=== PATIENT | female | born 1990 | race Caucasian/White ===

== ENCOUNTER 2024-03-06 10:45 | Outpatient (OUT) | payer OTHER, SELFPAY ==
--- NOTE | 2024-03-06 10:54 | US_ITS ---
[address] [address] Patient Name: VAN VALERA MRN: [id number] date: 1990 Sex: F Assigned Patient Location: US Current Patient Location: US Accession/Order Number: [id number] Exam Date: 03/06/2024 10:56 Report Date: 03/06/2024 11:23 At the request of: CATHY PALMA Procedure: US OB growth EXAMINATION: US OB growth HISTORY: Related Condition In Second Trimester COMPARISON: No relevant comparison available. FINDINGS: Heart Rate: 133.67 bpm Amniotic Fluid Volume: 13.9 cm, largest fluid pocket 3.9 cm Number: 1 Position: Cephalic presentation, longitudinal lie BIOMETRY: BPD: 7.31 cm; 29 weeks 2 days; 16.40 % HC: 28.00 cm; 30 weeks 5 days; 28.40 % AC: 27.56 cm; 31 weeks 4 days; 85.10 % FL: 5.35 cm; 28 weeks 3 days; 4.20 % EFW: 1557.27 g; 44.30 %, 3 lbs. 7 oz. FL/AC: 19.43 FL/BPD: 73.20 HC/AC: 1.02 GESTATIONAL AGE: Age by EDC: 30 weeks 1 day REID by EDC: 2024-05-14 Age by US: 30 weeks 0 days REID by US: 2024-05-15 US/US OB growth IMPRESSION: Femur length at the 4th percentile, otherwise normal interval growth Electronically authenticated by: BALDEMAR BORRERO Date: 03/06/2024 11:23
== END 2024-03-06 10:46 | disposition home or self-care (01) ==
LOC: US 10:45
PROVIDERS: PCP Family Medicine; Visit Provider Midwife
DX: O26.92 Pregnancy related conditions, unspecified, second trimester (principal); Z3A.30 30 weeks gestation of pregnancy
CPT/HCPCS: 76816

== ENCOUNTER 2024-03-31 00:31 | Outpatient (OUT) | payer OTHER, SELFPAY ==
--- OUTSIDE RECORDS SUMMARY | 2024-03-31 00:35 | XMS_ITS | CCD ---
Author Organization [facility] Care Team Providers Care Creative Guru Name Role Phone Delia Mcneill Admitting Unavailable Delia Mcneill Attending Unavailable Unavailable Primary Care Provider Chelsey Landeros MD Primary Care Provider BREANA LEDBETTER Attending Unavail able RYAN MONDRAGON, BREANA F Admitting Unavail able RYANTony MONDRAGON BREANA F Attending Unavail able RYAN MONDRAGON BREANA F Admitting Unavail able CHELSEY BRAY Primary Care Unavailable KRISTIANAGIASurendra REYES Admitting Unavailabl e DALAGIANNBLAS, Surendra BAUER Attending Unavailabl CHELSEY Love Primary Care Unavailable KRISTIANAGIASurendra REYES Admitting Unavailabl e DALAGIANNIS, Surendra BAUER Attending Unavailabl CHELSEY Love Primary Care Unavailable Chelsey Bray MD Primary Care Provider Chin CASINO FLOORPERSON, Veronique Haskins Unavailable Cathy Colon CNM Unavailable [phone] Chelsey Bray MD Primary Care Provider Unavailable Primary Care Provider Chelsey Landeros MD Primary Care Provider TANG BONILLA Attending Unavailable CATHY COLON Referring Unavailable CHELSEY BRAY Primary Care Unavailable MINERVA CATHY Referring Unavailable CHELSEY BRAY Primary Care Unavailable MINERVA, CATHY Referring Unavailable CHELSEY BRAY Primary Care Unavailable TANG BONILLA Attending Unavailable CHELSEY BRYA Referring Unavailable CHELSEY BRAY Primary Care Unavailable HOSSEIN FERNANDEZ Attending Unavailable CATHY COLON Attending Unavailable MICKY COLONERIE L Referring Unavailable HOSSEIN FERNANDEZ A Attending Unavailable FLORO, CATHY L Attending Unavailable FLORO, CATHY L Attending Unavailable FLORO, CATHY L Attending Unavailable PETITTI, HOSSEIN A Attending Unavailable FLORO, CATHY L Referring Unavailable FLORO, CATHY L Referring Unavailable FLORO, CATHY L Attending Unavailable FLORO, CATHY L Attending Unavailable FLORO, CATHY L Attending Unavailable FLORO, CATHY L Attending Unavailable Allergies Allergy Classification Reported Allergen(s) Allergy Type Date of Onset Reaction(s) Facility (2 sources) Adhesive Tape Propensity to adverse reactions to drug 2 Rash [facility] Notizza Phone: (2 sources) Silver; Translations: [SILVER] Propensity to adverse reactions to drug 2 English Helper Phone: (20 sources) Silver Allergy to substance 1 Hives, Itching, Rash [facility] (20 sources) Wound Dressing Adhesive Drug Intolerance 2 [facility] (7 sources) Adhesive agent; Translations: [ADHESIVE] Propensity to adverse reactions to drug 4 Rash [facility] (6 sources) Silver Propensity to adverse reactions to drug 4 Hives, Itching, Rash [facility] Medications Current Medications Medication Drug Class(es) Dates Sig (Normalized) Sig (Original) acetaminophen 325 mg oral tablet (1 source) Start: 09-10-2020 take 650 mg by mouth every four hours as needed for pain, then take 4000 mg by mouth every twenty-four hours as needed for pain 650 mg, Oral, EVERY 4 HOURS PRN, Pain Mild (1-3), Fever, Fever >100.5 F (38 C) or incisional pain, Starting on Wed09/10/20 at 1416 Maximum dose of acetaminophen is 4000 mg from all sources in 24 hours. Post-op acetaminophen 325 mg / HYDROcodone bitartrate 5 mg oral tablet (2 sources) Opioid Agonist Start: 08-04-2021 End: 08-11-2021 HYDROcodone-acetami nophen (NORCO) 5-325 MG per tablet Indications: 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, nose, lip, and ear (HCC) , Pain following surgery or procedure Take 1 tablet by mouth every 6 hours as needed for Pain for up to 7 days. Intended supply: 5 days. Take lowest dose possible to manage pain 28 tablet 0 08/04/2021 08/11/2021 Active Start: 07-08-2021 End: 07-13-2021 HYDROcodone-acetaminophen (N ORCO) 5-325 MG per tablet Indications: Pain following surgery or procedure Take 1 tablet by mouth every 6 hours as needed for Pain for up to 5 days. Intended supply: 5 days. Take lowest dose possible to manage pain 20 tablet 0 07/08/2021 07/13/2021 Active acetaminophen 325 mg / oxyCODONE hydrochloride 5 mg oral tablet (2 sources) Opioid Agonist Start: 09-12-2020 End: 09-19-2020 take 1 tablet by mouth every six hours as needed for pain oxyCODONE-acetaminophen (PERCOCET) 5-325 MG per tablet Indications: delivery delivered Take 1 tablet by mouth every 6 hours as needed for Pain for up to 7 days. 28 tablet 0 09/12/2020 09/19/2020 Active Start: 09-10-2020 oxyCODONE-acet aminophen (PERCOCET) 5-325 MG per tablet 1 tablet calcium chloride 0.0014 meq/ ml / potassium chloride 0.004 meq/ml / sodium chloride 0.103 meq/ml / sodium lactate 0.028 meq/ml injectable solution (3 sources) Start: 09-10-2020 Intravenous, a t 125 mL/hr, CONTINUOUS, Starting on Wed09/10/20 at 1445, Start: 09-10-2020 End: 09-10-2020 lactated ringers infusion 1, 000 mL 1 ml carboprost 0.25 mg/ml injection (1 source) Prostaglandin Analog Start: 09-10-2020 250 mcg, Intramuscular, PRN, bleeding, Starting on Wed09/10/20 at 1416 May repeat every 15 minutes up to a cumulative maximum dose of 1000 mcg, at physician's request. Post-op cephalexin 500 mg oral capsule (2 sources) Cephalosporin Antibacterial Start: 08-04-2021 End: 08-11-2021 take 1 capsule by mouth three times daily cephALEXin (KEFLEX) 500 MG capsule Take 1 capsule by mouth 3 times daily for 7 days 21 capsule 0 08/04/2021 08/11/2021 Active Start: 07-08-2021 End: 07-15-2021 take 1 capsule by mouth three times daily cephALEXin (KEFLEX) 500 MG capsule Take 1 capsule by mouth 3 times daily for 7 days 21 capsule 0 07/08/2021 07/15/2021 Active 1 ml diphenhydrAMINE hydrochloride 50 mg/ml cartridge (2 sources) Histamine-1 Receptor Antagonist Start: 08-04-2021 End: 08-04-2021 diphenhydrAMINE (BENADRYL) injection 12.5 mg Start: 09-10-2020 25 mg, Intrave nous, EVERY 6 HOURS PRN, Itching, Hives, Starting on Wed09/10/20 at 1416, docusate sodium 100 mg oral capsule (1 source) Start: 09-10-2020 take 100 mg by mouth twice daily 100 mg, Oral, 2 TIMES DAILY, First dose on Wed09/10/20 at 1445 Do not crush or break. docusate sodium 50 mg / sennosides, [facility] 8.6 mg oral tablet (1 source) Start: 09-10-2020 take 1 tablet by mouth once daily as needed for constipation 1 tablet, Oral, DAILY PRN, Constipation, Starting on Wed09/10/20 at 1416, 0.4 ml enoxaparin sodium 100 mg/ml prefilled syringe (1 source) Low Molecular Weight Heparin Start: 09-11-2020 inject 40 mg by subcutaneous injection every twenty-four hours 40 mg, Subcutaneous, EVERY 24 HOURS, First dose on Wed09/11/20 at 0115, 1 ml HYDROmorphone hydrochloride 1 mg/ml cartridge (1 source) Opioid Agonist Start: 08-04-2021 HYDROmorphone (DILAUDID) injection 0.5 mg ibuprofen 800 mg oral tablet (3 sources) Nonsteroidal Anti-inflammator y Drug Start: 09-11-2020 take 1 tablet by mouth every eight hours as needed for pain ibuprofen (ADVIL;MOTRIN) 800 MG tablet Take 1 tablet by mouth every 8 hours as needed for Pain 30 tablet 1 09/12/2020 Active lanolin 1000 mg/ml topical cream (1 source) Start: 09-10-2020 Topical, EVERY 1 HOUR PRN, Dry Skin, nipple discomfort, Starting on Wed09/10/20 at 1416, Post-op letrozole 2.5 mg oral tablet (6 sources) Aromatase Inhibitor take 1 tablet by mouth once daily letrozole (FEMARA) 2.5 mg chemo tablet Take by mouth daily Active medroxyPROGESTERone acetate 10 mg oral tablet (6 sources) Progestin take 1 tablet by mouth in the morning medroxyPROGESTERone (PROVERA) 10 mg tablet Take 1 tablet (10 mg total) by mouth in the morning. Active osmotic 24 hr metFORMIN hydrochloride 500 mg extended release oral tablet (6 sources) Biguanide take 1 tablet by mouth once daily at breakfast metFORMIN (FORTAMET) 500 MG (OSM) 24 hr tablet Take 1 tablet (500 mg total) by mouth daily with breakfast. Active 1 ml methylergonovine maleate 0.2 mg/ml injection (1 source) Ergot Derivative Start: 09-10-2020 200 mcg, Intramuscular, PRN, Bleeding, Starting on Wed09/10/20 at 1416 PRN for post- hemorrhage, if not hypertensive. miSOPROStol 0.1 mg oral tablet (1 source) Prostaglandin E1 Analog Start: 09-10-2020 800 mcg, Rectal, PRN, Post- Hemorrhage, Starting on Wed09/10/20 at 1416, For 1 dose Notify Physician prior to administration. Post-op 30 ml morphine sulfate 1 mg/ml injection (1 source) Opioid Agonist Start: 08-04-2021 morphine (PF) injection 1 mg 1 ml nalbuphine hydrochloride 10 mg/ml injection (1 source) Opioid Agonist/Antagoni st Start: 09-10-2020 10 mg, Intravenous, EVERY 4 HOURS PRN, for itching, Starting on Wed09/10/20 at 1416, Post-op 1 ml naloxone hydrochloride 0.4 mg/ml injection (1 source) Opioid Antagonist Start: 09-10-2020 0.4 mg, Intravenous, PRN, Opioid Reversal, Starting on Wed09/10/20 at 1416, Post-op 2 ml ondansetron 2 mg/ml injection (2 sources) Serotonin-3 Receptor Antagonist Start: 08-04-2021 End: 08-04-2021 ondansetron (ZOFRAN) injection 4 mg Start: 09-10-2020 4 mg, Intraven ous, EVERY 6 HOURS PRN, Nausea, nausea, Starting on Wed09/10/20 at 1416, oxytocin (PITOCIN) 10 unit bolus from the bag (1 source) Start: 09-10-2020 oxytocin (GRAHAM STACI) 10 unit bolus from the bag no115/iron/folic acid ( 19 ORAL) (6 sources) no115/iron/folic acid ( 19 ORAL) Take by mouth. Active Vit-Fe Fumarate-FA ( 1+1 PO) (2 sources) Vit-Fe Fumarate-FA ( 1+1 PO) Take by mouth 0 Active Vit-Fe Fumarate-FA ( Plus/Iron) 27-1 MG tablet (6 sources) Start: 09-20-2023 End: 12-19-2023 take 1 tablet by mouth once daily Vit-Fe Fumarate-FA ( Plus/Iron) 27-1 MG tablet Indications: test positive Take 1 tablet by mouth Daily 30 tablet 6 09/20/2023 12/19/2023 Active vitamin 27-1 MG tablet 1 tablet (1 source) Start: 09-10-2020 take 1 tablet by mouth once daily 1 tablet, Oral, DAILY, First dose on Wed09/10/20 at 1445 Begin when normal bowel activity resumes. simethicone 80 mg chewable tablet (1 source) Start: 09-10-2020 take 80 mg by mouth every six hours as needed 80 mg, Oral, EVERY 6 HOURS PRN, Cramping, Flatulence, Starting on Wed09/10/20 at 1416, 5 ml sodium chloride 9 mg/ml injection (6 sources) Start: 08-04-2021 sodium chlorid e flush 0.9 % injection 5-40 mL Start: 08-04-2021 0.9 % sodium c hloride infusion Start: 08-04-2021 sodium chlorid e flush 0.9 % injection 5-40 mL Start: 09-10-2020 10 mL, Intrave nous, EVERY 12 HOURS SCHEDULED (2 times per day), First dose on Wed09/10/20 at 2100, Start: 09-10-2020 take 10 mL intravenously once 10 mL, Intravenous, PRN, Line Care, Starting on Wed09/10/20 at 1416 After every IV line use Start: 09-10-2020 take 25 mL intraveno usly every hour as needed 25 mL, Intravenous, at 100 mL/hr, PRN, If patient receiving piggyback infusions without ordered maintenance IV fluids or with frequent/long duration piggyback infusions, Starting on Wed09/10/20 at 1416 Administer at the same rate as the piggyback being infused. Completed/Discontinued Medications Medication Drug Class(es) Dates Sig (Normalized) Sig (Original) cefOXitin (MEFOXIN) 2000 mg in dextrose 5% 50 mL (mini-bag) (1 source) Start: 09-10-2020 End: 09-10-2020 cefOXitin (MEFOXIN) 2000 mg in dextrose 5% 50 mL (mini-bag) citric acid 66.8 mg/ml / sodium citrate 100 mg/ml oral solution (1 source) Calculi Dissolution Agent, Anti-coagulant Start: 09-10-2020 End: 09-10-2020 citric acid-sodium citrate (BICITRA) solution 30 mL 2 ml famotidine 10 mg/ml injection (1 source) Histamine-2 Receptor Antagonist Start: 09-10-2020 End: 09-10-2020 famotidine (PEPCID) injection 20 mg 1 ml ketorolac tromethamine 30 mg/ml cartridge (1 source) Nonsteroidal Anti-inflammatory Drug, Cyclooxygenase Inhibitor Start: 09-10-2020 End: 09-11-2020 30 mg, Intravenous, EVERY 6 HOURS, First dose on Wed09/10/20 at 2000, For 4 doses Do not administer for more than 5 days. 2 ml metoclopramide 5 mg/ml prefilled syringe (1 source) Dopamine-2 Receptor Antagonist Start: 09-10-2020 End: 09-10-2020 metoclopramide (REGLAN) injection 10 mg Problems Active Problems Problem Classification Problem Date Documented Date Episodic/Chronic Diabetes mellitus without complication (4 sources) Abnormal glucose tolerance test; Translations: [Other abnormal glucose] 03-08-2024 Episodic Diabetes or abnormal glucose tolerance complicating ; childbirth; or the puerperium (2 sources) History of gestational diabetes mellitus; Translations: [Personal history of gestational diabetes] 03-23-2024 Episodic Melanomas of skin (2 sources) Melanoma in situ of face; Translations: [Melanoma in situ of unspecified part of face] Onset: 07-14-2021 Chronic Melanomas of skin (3 sources) History of melanoma in situ of skin; Translations: [Personal history of melanoma in-situ] Onset: 07-14-2021 07-14-2021 Episodic Other and unspecified benign neoplasm (2 sources) Melanocytic nevus of trunk; Translations: [Melanocytic nevi of trunk] 12-23-2023 Episodic Other and unspecified benign neoplasm (2 sources) Melanocytic nevi of unspecified part of face; Translations: [Benign neoplasm of skin of other and unspecified parts of face] 12-23-2023 Episodic Other complications of ; puerperium affecting management of mother (4 sources) delivery - delivered; Translations: [Encounter for delivery without indication] Episodic Other complications of (4 sources) Finding related to ; Translations: [ related conditions, unspecified, second trimester] 02-09-2024 Episodic Other complications of (1 source) Supervision of high risk , unspecified, unspecified trimester; Translations: [Supervision of high risk , unspecified, unspecified trimester] Onset: 01-25-2024 Episodic Other diseases of kidney and ureters (4 sources) Pyelectasia; Translations: [Unspecified hydronephrosis] 01-25-2024 Episodic Other diseases of kidney and ureters (1 source) Unspecified hydronephrosis; Translations: [Unspecified hydronephrosis] Onset: 03-20-2024 Episodic Other nervous system disorders (2 sources) Postoperative pain ; Translations: [Other acute postprocedural pain] Episodic Other and delivery including normal (12 sources) Normal ; Translations: [Encounter for supervision of other normal , second trimester] 01-11-2024 Episodic Other screening for suspected conditions (not mental disorders or infectious disease) (15 sources) Suspected disorder; Translations: [Encounter for suspected anomaly ruled out] Onset: 01-25-2024 01-25-2024 Episodic Other skin disorders (2 sources) Lentiginosis; Translations: [Other melanin hyperpigmentation] 12-23-2023 Episodic Previous (1 source) Maternal care for unspecified type scar from previous delivery; Translations: [Maternal care for unspecified type scar from previous delivery] Onset: 01-25-2024 Episodic Unclassified (1 source) S69.92XA - Unspecified injury of left wrist, hand and finger(s), initial encounter; Translations: [S69.92XA - Unspecified injury of left wrist, hand and finger(s), initial encounter] Onset: 06-23-2018 Unclassified (1 source) 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 Onset: 01-25-2024 Past or Other Problems Problem Classification Problem Date Documented Da te Episodic/Chronic Residual codes; unclassified (4 sources) Gestation period, 40 weeks; Translations: [40 weeks gestation of ] Onset: 09-10-2020 Resolved: 09-12-2020 Episodic NEGATED: Highlighted row has been ruled out!Unclassified (20 sources) No known active problems 09-22-2023 Results Test Name Value Interpretation Reference Range Facility No Panel Informationon 01-29 Free Cell Dna see scanned report [facility] OB LIMITED 1+ FETUSESon 1 US OB LIMITED 1+ FETUSES TITLE OF EXAM: OB Ultrasound: REASON FOR EXAM: History of distended stomach visualized on anatomy scan. TECHNIQUE: Grayscale imaging is performed. Measurements: heart rate: 134 bpm LALA: 15.4 cm (9.7-21.6) Cervix Length: 6.1 cm REID: 05/14/2024 CLINICAL SUMMARY: Limited study. Full anatomical survey not performed. A single intrauterine is noted in cephalic presentation. heart is observed with a heart rate of 134 bpm. Placenta is located posteriorly. Placenta is Grade 0/III Amniotic fluid volume is normal. Tech notes: Prominent stomach visualized. Dictated and transcribed 01/11/24dpd This report has been electronically signed and approved by the interpreting radiologist. Electronically Signed Domingo Gold D.O. 2024-01-12 07:51:22 Normal Not Available US OB 14+ WEEKS ANATOMY SCAN on 12-27-2023 US OB 14+ WEEKS ANATOMY SCAN TITLE OF EXAM: OB Ultrasound: REASON FOR EXAM: Anatomy scan. Comparison: None TECHNIQUE: Grayscale and color Doppler imaging is performed. Measurements: heart rate: 136 bpm LALA: 12.9 cm (9.3-21.2) BPD: 4.6 cm HC: 17.0 cm AC: 15.2 cm FL: 3.3 cm GA for sonogram: 19.9 wk (18.5-21.3) Cervix length: 6.2 cm REID: 05/14/2024 Weight Estimate: Weight: 344 gm / 0 lbs, 12 oz (293-394 gm) [place]lock Normal: 338 gm (281-395 gm) [place]lock Wt%: 56% for 20.1 wks CLINICAL SUMMARY: A single intrauterine is noted in cephalic presentation. Four chamber heart is observed with a heart rate of 136 BPM. size is normal. motion and organs seen: Normal intracranial anatomy is seen. body and limb movements are observed. spine, limbs, bladder, kidneys, and stomach are observed and within normal limits. Umbilical cord insertion and three vessel cord are identified and within normal limits. bowel, lungs, genitalia, four limbs are visualized and normal in appearance. Placenta is located posteriorly. Placenta is Grade 0/III Amniotic fluid volume is normal. Supervisor [employer] Office notes: Prominent stomach. IMPRESSION: 1. Normal growth. 2. 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 Recommend followup ultrasound in 2 to 4 weeks to assess for clearing. Dictated and transcribed 12/29/23/dpjenny This report has been electronically signed and approved by the interpreting radiologist. Electronically Signed Monroe Meneses II, M.D. 2023-12-29 13:45:18 Normal Not Available CBC without diffon Hematocrit (Bld) [Volume fraction] 40.2 % [facility] Hemoglobin (Bld) [Mass/Vol] 13.3 g/dL [facility] Platelets (Bld) [#/Vol] 204 10*3/uL [facility] Rbc Mcv (Fl) By Automated Count 91.6 [facility] Chlamydia/GC by PCR Ruperto Sw abon 10-12-2023 Chlamydia Dna(Pcr) Not detected [facility] Gonorrhoeae Dna(Pcr) Not detected [facility] Drug Screen, Urineon 024 Barbiturate Screen Urine Negative [facility] Opiate Quantitative Urine Negative [facility] HIV 1&2 AB/AG Screen (P24 AG )on 10-12-2023 HIV 1&2 AB/AG Non-Reactive [facility] Hemoglobin A1con 10-12-2023 HbA1c (Bld) [Mass fraction] 5.4 % 4.0 - 6.0 % [facility] Hepatitis B surface antigeno n 10-12-2023 Hepatitis B Surface Antigen Non-Reactive [facility] No Panel Informationon 10-11 [facility] Rubella IGG immune statuson 10-12-2023 Rubella immune IgG [facility] Syphilis Total(Unknown Syphi lis Status)on 10-12-2023 Syphilis Non-Reactive [facility] Type and screenon 10-12-2023 Abo/Rh(D) Positive [facility] US OB < 14 WEEKS EARLYon US OB < 14 WEEKS EARLY TITLE OF EXAM: OB Ultrasound: REASON FOR EXAM: Viability. TECHNIQUE: Grayscale imaging is performed. Measurements: heart rate: 104 bpm Sac: 1.4 cm CRL: 0.2 cm GA for sonogram: 5.7 wk (05.3-06.2) REID: 05/14/2024 Maternal Anatomy: Uterus Size (L x H x W): 7.5 x 6.5 x 5.3 cm Cervix Length: 3.2 cm Ovaries (L x H x W): Vol: Right: 2.9 x 2.1 x 2.4 cm 7.7 Left: 2.8 x 2.1 x 1.8 cm 5.5 Clinical Summary: Early intrauterine is seen with positive cardiac activity and FHR of 104 bpm. Yolk sac is identified and within normal limits. Dictated and transcribed 09/21/23/dpd This report has been electronically signed and approved by the interpreting radiologist. Electronically Signed Ameya Cobian M.D. 2023-09-21 14:30:56 Normal Not Available SCREENING MAMMOGRAM W/JOSE, BILATERAL*on 01-26-2022 SCREENING MAMMOGRAM W/JOSE, BILATERAL* COMPARISON: Dating back to January 14, 2021. TECHNIQUE: 2D and 3D Tomosynthesis of the right and left breasts was performed. FINDINGS: Breast composition demonstrates heterogeneously dense parenchyma. Overall appearance stable. No suspicious microcalcifications, dominant mass lesions, or distortion is present. IMPRESSION: BI-RADS 1- Negative COMMENT: Given dense breast tissue, recommend close correlation with self-breast and clinical exam findings. If any new symptoms or signs present clinically, recommend ultrasound to complement mammography. Board Certified Radiologist. Accredited by the ACR and FDA. MAMMOGRAPHY IS VERY IMPORTANT TO YOUR HEALTH. THE CURRENT [employer] GUIDELINES RECOMMENDS ANNUAL MAMMOGRAPHY BEGINNING AT AGE 40 THIS FACILITY USES A REMINDER SYSTEM TO ENSURE ALL PATIENTS RECEIVE REMINDER NOTIFICATIONS AT THE APPROPRIATE TIME BASED ON THE RECOMMENDATIONS OF THIS EXAM. Report reported and signed by Migue Avendano on 01/27/2022 0754 Normal [facility] Recruiter Coordinator POCT urine pregnancyon 08-04 Beta HCG ( test) Ql (U) Negative NEGATIVE [facility] Comment on above: Specimens with hCG l evels near the threshold of the test (25 mIU/mL) may give a negative or indeterminate result. In such cases, another test should be performed with a new specimen in 48-72 hours. If early is suspected clinically in this setting, correlation with quantitative serum b-hCG level is suggested. TESTING PERFORMED AT [address] [address] [facility] Surgical Pathologyon 022 Surgical Pathology (NOTE) -- Diagnosis -- SKIN, RIGHT CHEEK, MELANOMA REEXCISION: -BENIGN SKIN WITH SOLAR ELASTOSIS AND BIOPSY SITE CHANGES -A RESIDUAL MELANOMA IN SITU IS NOT IDENTIFIED Rodriguez Katz D.O. Electronically Signed Out [facility]08/05/2021 Clinical Information Pre-op Diagnosis: RIGHT CHEEK MELANOMA Operative Findings: WIDER EXCISION MELANOMA MINIMUM OF 5 MM MARGIN RIGHT CHEEK SUTURE TAG AT 12:00 Operation Performed: WIDER RESECTION OF MELANOMA IN SITU WITH FLAP CLOSURE Source of Specimen A: WIDER EXCISION MELANOMA MINIMUM OF 5MM MARGIN RIGHT CHEEK SUTURE TAG AT 12 O CLOCK Gross Description CELESTINO CRUZ, WIDER EXCISION MELANOMA MINIMUM OF 5 MM MARGIN RIGHT CHEEK (SUTURE TAG AT 12:00) 4.2 x 1.2 x 0.8 (depth) cm oriented valiente skin ellipse with a suture designating 12:00. The 3:00 half is inked blue and 9:00 half black. On the surface, is a linear scar. Cassette summary: 1-3 specimen entirely serially submitted from -. tm Microscopic Description Sections of skin excised to the subcutis are noted. The epidermis demonstrates mild orthokeratosis. Melanocytes are noted along the basal aspect of the epidermis in solitary units without significant cytologic atypia. A Sox 10 immunostain further highlights the melanocytes (control adequate). Within the dermis, biopsy site changes are present along with solar elastosis. Features of follicular plugging are also noted. A residual melanoma in situ is not identified. SURGICAL PATHOLOGY CONSULTATION Patient Name: CELESTINO CRUZ [facility] Rec: [id number] Path Number: [id number] [facility] ANATOMIC PATHOLOGY [address] [place] [phone] Normal [facility] Comment on above: Performed By: #### P PPVDP #### [facility] [employer] [address] [place] [address] [id number] [employer] Rock Applicator: Angel Malik MD Surgical Pathologyon Surgical Pathology (NOTE) -- Diagnosis -- A. SKIN, RIGHT NECK, EXCISION: - TRAUMATIZED COMPOUND NEVUS. B. SKIN, RIGHT CHEEK LATERAL, EXCISION: - ULCERATED AND TRAUMATIZED COMPOUND NEVUS WITH PERIFOLLICULAR KERATIN GRANULOMA. C. 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 - MELANOMA IN SITU EXTENDS 0.3 MM FROM THE CLOSEST PERIPHERAL CUTANEOUS MARGIN. - PATHOLOGIC STAGE: pTis. Dao Bauer M.D., B.C. AP/CP, Dermatopathology Electronically Signed Out 07/11/2021 Clinical Information Pre-op Diagnosis: LESIONS Operative Findings: RIGHT NECK LESION; RIGHT CHEEK LATERAL LESION; RIGHT CHEEK MEDIAL LESION Operation Performed: EXCISION x 3 Source of Specimen A: RIGHT NECK LESION B: RIGHT CHEEK LATERAL LESION C: RIGHT CHEEK MEDIAL LESION Gross Description A. CELESTINO PIMENTEL, RIGHT NECK LESION 0.8 x 0.5 x 0.4 (depth) cm unoriented nodular valiente skin ellipse. Inked and bisected 1cs. B. CELESTINO PIMENTEL, RIGHT CHEEK LATERAL LESION 1.2 x 0.9 x 0.6 (depth) cm unoriented valiente skin ellipse with a 0.6 cm brown-valiente lesion. Inked, sectioned and entirely submitted 1cs. C. CELESTINO PIMENTEL, RIGHT CHEEK MEDIAL LESION 1.8 x 0.8 x 0.4 (depth) cm unoriented valiente-brown skin ellipse. Inked, sectioned and entirely submitted 1cs. tm Microscopic Description A. The sections show a papillomatous epidermis with small nests of melanocytes arranged at the dermo-epidermal junction and in the dermis, showing maturation with depth. Superficial fibrosis is present. There is no evidence of malignancy in these sections. Margins appear narrowly free of involvement. B. The sections show nests of melanocytes at the dermo-epidermal junction and in the dermis showing maturation with depth. Superficial dermal fibrosis, parakeratosis and focal ulceration is present. Beneath the nevus there is a focal hair follicle with foreign body giant cells surrounding keratin. The lesion extends to one peripheral margin. C. Skin to the subcutaneous fat shows actinic elastosis and an asymmetric proliferation of plump melanocytes along the dermal epidermal junction, predominantly arranged as single cells with focal nest formation and extension along the skin appendages. Focally there is an area of foreign body granulomatous inflammation and dystrophic calcification in the dermis beneath the melanocytic proliferation. Rare dermal nests are present, without evidence of expansile growth or mitotic activity. A Sox 10 immunostain highlights junctional confluence and nests, with some areas of suprabasilar scatter and a relatively broad distribution, including away from the areas of dermal fibrosis. The proliferation falls slightly short of one peripheral margin (0.3 mm from closest peripheral margin). Controls stain appropriately. SURGICAL PATHOLOGY CONSULTATION Patient Name: CELESTINO PIMENTEL [facility] Rec: [id number] Path Number: [id number] [facility] ANATOMIC PATHOLOGY [address] [place] [address]. [place], [place] [address] Normal [facility] Comment on above: Performed By: #### P PPVDP #### [employer] [address] [place] [id number] Sheet Rock Applicator: Angel Malik MD Hemoglobinon 09-11-2020 Hemoglobin (Bld) [Mass/Vol] 11.6 g/dL Low 11.9-15.1 [facility] Comment on above: Performed By: #### H GB #### [facility] [address] [place] [address] Sheet Rock Applicator: Alexei England MD HemoglobinOrdered By: Breana Millery Mondragon on 09-11-2020 Hemoglobin.gastrointest inal spec 1 Ql (Stl) 11.6 g/dL Low 11.9 - 15.1 g/dL [facility] Work Phone: Interpretation and review of laboratory results Abnormal [facility] Work Phone: [facility] Work Phone: DRUG SCREEN MULTI URINEOrder ed By: Cathy Colon on 09-10-2020 Amphetamine Screen, Ur Negative NEGATIVE [facility] Work Phone: Barbiturate Screen, Ur Negative NEGATIVE [facility] Work Phone: Benzodiazepine Screen, Urine Negative NEGATIVE [facility] Work Phone: Buprenorphine Urine Negative NEGATIVE [facility] Work Phone: Cannabinoid Scrn, Ur Negative NEGATIVE [facility] Work Phone: Cocaine Metabolite, Urine Negative NEGATIVE [facility] Work Phone: MDMA, Urine NOT REPORTED NEGATIVE [facility] Work Phone: Methadone Screen, Urine Negative NEGATIVE [facility] Work Phone: Methamphetamine, Urine Negative NEGATIVE [facility] Work Phone: Opiates, Urine Negative NEGATIVE [facility] Work Phone: Oxycodone Screen, Ur Negative NEGATIVE [facility] Work Phone: Phencyclidine, Urine Negative NEGATIVE [facility] Work Phone: Propoxyphene, Urine Negative NEGATIVE [facility] Work Phone: Test Information NOT REPORTED [facility] Work Phone: Tricyclic Antidepressants, Urine Negative NEGATIVE [facility] Work Phone: Comment on above: Drug screen results are to be used for medical purposes only. All positive results are unconfirmed. Testing for employment or legal uses should be sent to a reference laboratory for confirmation. [facility] Work Phone: Drug Scr, Abuse, Uron 2020 Amphetamine(s),Ur Negative Normal NEG [facility] Comment on above: Performed By: #### D AU #### [facility] [address] [place], [place] [id number] Sheet [employer] Applicator: Alexei England MD Barbiturate(s),Ur Negative Normal NEG [facility] Comment on above: Performed By: #### D AU #### [facility] [address] [place], [place] [id number] Sheet Rock Applicator: Alexei England MD Benzodiazepine(s) Negative Normal NEG [facility] Comment on above: Performed By: #### D AU #### [facility] [address] [place], [facility]83 Sheet Rock Applicator: Alexei England MD Buprenorphrine, Ur Negative Normal [facility] Comment on above: Performed By: #### D AU #### [facility] [address] [place] [address] Dr[address] [place], [place] [id number] Sheet Rock Applicator: Alexei England MD Cannabinoid(s),Ur Negative Normal NEG [facility] Comment on above: Performed By: #### D AU #### [facility] [address] [place], [place] [id number] Sheet Rock Applicator: Alexei England MD Cocaine Metabolite Negative Normal [facility] Comment on above: Performed By: #### D AU #### [facility] [address] [place] [address] Sheet Rock Applicator: Alexei England MD Methadone Ql (U) Negative Normal NEG [facility] Comment on above: Performed By: #### D AU #### [facility] [address] [place], [place] [id number] Sheet Rock Applicator: Alexei England MD Methamphetamine, Ur Negative Normal NEG [facility] Comment on above: Performed By: #### D AU #### [facility] [address] [place], [place] [id number] Sheet Rock Applicator: Alexei England MD Opiate(s), Ur Negative Normal NEG [facility] Comment on above: Performed By: #### D AU #### [facility] [address] [place], [place] [phone] Sheet Rock Applicator: Alexei England MD Oxycodone, Urine Negative Normal NEG [facility] Comment on above: Performed By: #### D AU #### [facility] [address] [place] [address] Dr[place], [place] [id number] Sheet Rock Applicator: Alexei England MD Phencyclidine, Ur Negative Normal NEG [facility] Comment on above: Performed By: #### D AU #### [facility] [address] [place] [address] Dr[place], [place] [id number] Sheet Rock Applicator: Alexei England MD Propoxyphene,Urine Negative Normal NEG [facility] Comment on above: Performed By: #### D AU #### [address] [place], [place] [id number] Sheet Rock Applicator: Alexei England MD Tricyclic antidepressants Screen Ql (U) Negative Normal [facility] Comment on above: Result Comment: Drug screen results are to be used for medical purposes only. All positive results are unconfirmed. Testing for employment or legal uses should be sent to a reference laboratory for confirmation. Performed By: #### D AU #### [facility] [address] [place] [address] Dr[place], [place] [id number] Sheet Rock Applicator: Alexei England MD Interpretive Info NOT REPORTED [facility] Comment on above: Performed By: #### D AU #### [facility] [address] [place] [address] Dr[place], [place] [id number] Sheet Rock Applicator: Alexei England MD MDMA, Urine NOT REPORTED Normal NEG [facility] Comment on above: Performed By: #### D AU #### [facility] [address] [place] [address] Sheet Rock Applicator: Alexei England MD CBC Auto DifferentialOrdered By: Breana Mondragon on 09-09-2020 Absolute Eos # 0.07 [facility] Work Phone: Absolute Immature Granulocyte 0.12 [facility] Work Phone: Absolute Lymph # 1.38 [facility] Work Phone: Absolute [place] # 0.55 [facility] Work Phone: Basophils (Bld) [#/Vol] 10*3/uL [employer] Work Phone: Basophils/100 WBC (Bld) 0 % 0 - 2 % [employer] Work Phone: Differential Type NOT REPORTED [facility] Work Phone: Eosinophils/100 WBC (Bld) 1 % 1 - 4 % [employer] Phone: Hematocrit (Bld) [Volume fraction] 39.8 % 36.3 - 47.1 % [employer] Phone: Hemoglobin.gastrointest inal spec 1 Ql (Stl) 13.5 g/dL 11.9 - 15.1 g/dL [employer] Phone: Immature granulocytes/100 WBC (Bld) 1 % High 0 [employer] Work Phone: Interpretation and review of laboratory results Abnormal [employer] Phone: Lymphocytes/100 WBC (Bld) 13 % Low 24 - 43 % [employer] Work Phone: MCH (RBC) [Entitic mass] 31.8 pg 25.2 - 33.5 pg [employer] Work Phone: MCHC (RBC) [Mass/Vol] 33.9 g/dL 28.4 - 34.8 g/dL [employer] Phone: MCV (RBC) [Entitic vol] 93.6 fL 82.6 - 102.9 fL [employer] Phone: Monocytes/100 WBC (Bld) 5 % 3 - 12 % [employer] Work Phone: NRBC Automated 0.0 0.0 per 100 WBC [employer] Phone: Platelet distribution width (Bld) [Ratio] 13.6 % 11.8 - 14.4 % [employer] Phone: Platelet Estimate NOT REPORTED [employer] Phone: Platelet mean volume (Bld) [Entitic vol] 10.6 fL 8.1 - 13.5 fL [employer] Phone: Platelets (Bld) [#/Vol] 166 10*3/uL [employer] Phone: RBC (Bld) [#/Vol] 4.25 10*6/uL 3.95 - 5.1 1 m/uL [employer] Work Phone: RBC (Bld) [#/Vol] NOT REPORTED [employer] Phone: Segmented neutrophils/100 WBC (Bld) 80 % High 36 - 65 % [employer] Work Phone: Segs Absolute 8.84 [employer] Work Phone: WBC (Bld) [#/Vol] 11.0 10*3/uL [employer] Phone: WBC (Bld) [#/Vol] NOT REPORTED [employer] Phone: [employer] Phone: CBC with Diffon 09-09-2020 Abs. Basophil <0.03 Normal 0.00-0.20 [facility] Comment on above: Performed By: #### C DP #### [facility] [address] [place] [address] Dr[place], [place] [address] Sheet Rock Applicator: Alexei England MD Abs.Imm.Granulocyte 0.12 k/uL Normal 0.00-0.30 [facility] Comment on above: Performed By: #### C DP #### [address] [place], [place] [address] Sheet Rock Applicator: Alexei England MD Abs.Neutrophil (Seg) 8.84 k/uL High 1.50-8.10 [facility] Comment on above: Performed By: #### C DP #### [address] [place] [id number] Sheet Rock Applicator: Alexei England MD Basophils/100 WBC (Bld) 0 % Normal 0-2 [facility] Comment on above: Performed By: #### C DP #### [address] [place] [address] Sheet Rock Applicator: Alexei England MD Eosinophils (Bld) [#/Vol] 0.07 10*3/uL Normal 0.00-0.44 [facility] Comment on above: Performed By: #### C DP #### [address] [place], [place] [address] Sheet Rock Applicator: Alexei England MD Eosinophils/100 WBC (Bld) 1 % Normal 1-4 [facility] Comment on above: Performed By: #### C DP #### [address] [place] [id number] Sheet Rock Applicator: Alexei England MD Erythrocyte distribution width (RBC) [Ratio] 13.6 % Normal 11.8-14.4 [facility] Comment on above: Performed By: #### C DP #### [address] [place], [facility]83 Sheet Rock Applicator: Alexei England MD Hematocrit (Bld) [Volume fraction] 39.8 % Normal 36.3-47.1 [facility] Comment on above: Performed By: #### C DP #### [facility] [address] [place] [address] Dr[place], [facility]83 Sheet Rock Applicator: Alexei England MD Hemoglobin (Bld) [Mass/Vol] 13.5 g/dL Normal 11.9-15.1 [facility] Comment on above: Performed By: #### C DP #### [address] [place], [facility]83 Sheet Rock Applicator: Alexei England MD Immature granulocytes/100 WBC (Bld) 1 % High 0 [facility] Comment on above: Performed By: #### C DP #### [facility] [address] [place] [address] Dr[place], [facility]83 Sheet Rock Applicator: Alexei England MD Lymphocytes (Bld) [#/Vol] 1.38 10*3/uL Normal 1.10-3.70 [facility] Comment on above: Performed By: #### C DP #### [facility] [address] [place] [address] Dr[place], [facility]83 Sheet Rock Applicator: Alexei England MD Lymphocytes/100 WBC (Bld) 13 % Low 24-43 [facility] Comment on above: Performed By: #### C DP #### [facility] [address] [place] [address] Dr[place], [facility]83 Sheet Rock Applicator: Alexei England MD MCH (RBC) [Entitic mass] 31.8 pg Normal 25.2-33.5 [facility] Comment on above: Performed By: #### C DP #### [facility] [address] [place] [address] Dr. [place], [facility]83 Sheet Rock Applicator: Alexei England MD MCHC (RBC) [Mass/Vol] 33.9 g/dL Normal 28.4-34.8 [facility] Comment on above: Performed By: #### C DP #### [facility] [address] [place], [place] [address] Sheet Rock Applicator: Alexei England MD MCV (RBC) [Entitic vol] 93.6 fL Normal 82.6-102.9 [facility] Comment on above: Performed By: #### C DP #### [facility] [address] [place], [facility]83 Sheet Rock Applicator: Alexei England MD Monocytes (Bld) [#/Vol] 0.55 10*3/uL Normal 0.10-1.20 [facility] Comment on above: Performed By: #### C DP #### [address] [place], [place] [address] Sheet Rock Applicator: Alexei England MD Monocytes/100 WBC (Bld) 5 % Normal 3-12 [facility] Comment on above: Performed By: #### C DP #### [address] [place] [address] Sheet Rock Applicator: Alexei England MD Neutrophil (Seg) 80 % High 36-65 [facility] Comment on above: Performed By: #### C DP #### [address] [place], [place] [address] Sheet Rock Applicator: Alexei England MD NRBC Automated 0.0 per 100 WBC Normal 0.0 [facility] Comment on above: Performed By: #### C DP #### [facility] [address] [place], [place] [address] Sheet Rock Applicator: Alexei England MD Platelet mean volume (Bld) [Entitic vol] 10.6 fL Normal 8.1-13.5 [facility] Comment on above: Performed By: #### C DP #### [facility] [address] [place] [facility]83 Sheet Rock Applicator: Alexei England MD Platelets (Bld) [#/Vol] 166 10*3/uL Normal 138-453 [facility] Comment on above: Performed By: #### C DP #### [facility] [address] [place], [place] [phone] Sheet Rock Applicator: Alexei England MD RBC (Bld) [#/Vol] 4.25 10*6/uL Normal 3.95-5.11 [facility] Comment on above: Performed By: #### C DP #### [address] [place] [phone] Sheet Rock Applicator: Alexei England MD WBC (Bld) [#/Vol] 11.0 10*3/uL Normal 3.5-11.3 [facility] Comment on above: Performed By: #### C DP #### [address] [place] [address] Sheet Rock Applicator: Alexei England MD Auto Diff Performed NOT REPORTED Normal [facility] Comment on above: Performed By: #### C DP #### [address] [place] [address] Sheet Rock Applicator: Alexei England MD Platelet Estimate NOT REPORTED Normal [facility] Comment on above: Performed By: #### C DP #### [facility] [address] [place] [address] Dr[place], [facility]83 Sheet Rock Applicator: Alexei England MD RBC morphology finding Nom (Bld) NOT REPORTED Normal [facility] Comment on above: Performed By: #### C DP #### [address] [place] [phone] Sheet Rock Applicator: Alexei England MD WBC Morphology NOT REPORTED Normal [facility] Comment on above: Performed By: #### C DP #### [facility] [address] [place] [address] [place] [address] Sheet Rock Applicator: Alexei England MD Type + Screenon 09-09-2020 Type + Screen Sample Expiration 09/12/2020,2359 Arm Band Number [id number] ABO/Rh(D) O POSITIVE Antibody Screen NEGATIVE Normal [facility] Comment on above: Performed By: #### T YS #### [facility] [address] [place] [address] Sheet Rock Applicator: Alexei England MD GBS, External ResultOrdered By: Cathy Colon on 08-07-2020 GBS, External Result Negative [facility] Work Phone: Comment on above: reviewed with A Phoebe bermudez RN [facility] Work Phone: ABO, External ResultOrdered By: Cathy Colon on 01-30-2020 ABO, External Result O [facility] Work Phone: Comment on above: reviewed with A Phoebe bermudez RN C. Trachomatis, External Res ultOrdered By: Cathy Colon on 01-30-2020 C. Trachomatis, External Result Not detected [facility] Work Phone: Comment on above: reviewed with A Phoebe bermudez RN HIV, External ResultOrdered By: Cathy Colon on 01-30-2020 HIV, External Result Non-Reactive [facility] [employer] Work Phone: Comment on above: reviewed with A Phoebe bermudez RN Hepatitis B, External Result Ordered By: Cathy Colon on 01-30-2020 Hep B, External Result Non-Reactive [facility] [employer] Work Phone: Comment on above: reviewed with A Phoebe bermudez RN N. Gonorrhoeae, External Res ultOrdered By: Cathy Colon on 01-30-2020 N. Gonorrhoeae, External Result Not detected [facility] Work Phone: Comment on above: reviewed with A phoebe bermudez RN No Panel InformationOrdered By: Cathy Colon on 01-30-2020 [facility] Work Phone: [facility] Work Phone: RPR, External LabOrdered By: Cathy Colon on 01-30-2020 RPR, External Result Non-Reactive [facility] Work Phone: Comment on above: reviewed with A Phoebe bermudez RN Rh Factor, External ResultOr dered By: Cathy Colon on 01-30-2020 Rh Factor, External Result + [facility] Work Phone: Comment on above: reviewed with A Phoebe bermudez RN Rubella Titer, External Resu ltOrdered By: Cathy Colon on 01-30-2020 Rubella Titer, External Result immune [facility] Work Phone: Comment on above: reviewed with A Phoebe bermudez RN XR hand LT min 3V*on 019 XR hand LT min 3V* [facility] [address] [place] [address] XRay Report Signed Patient: Celestino Pimentel MR#: [id number] : 1990 Acct:[id number] Age/Sex: 28 / F ADM Date: 06/23/18 Loc: [facility] Room: Type: [facility] Attending Dr: Delia RAMIREZ Ordering Provider: Delia Mcneill Date of Service: 06/23/18 XR/XR hand LT min 3V*: Injury of left hand, initial encounter Copies to: Delia Mcneill CLINICAL HISTORY: Slammed the left hand in a door 2 hours ago. Contusion and pain with swelling at the middle and the ring fingers proximally XR hand LT min 3V* COMPARISON: 11/16/2016 FINDINGS: AP, lateral and oblique views of the left hand were obtained. There is no evidence of fracture, dislocation or bony destruction. No significant soft tissue abnormality is noted. XR/XR hand LT min 3V* IMPRESSION: NEGATIVE EXAMINATION. Impression dictated by: Amrik Jean-Baptiste M.D.06/23/2018 7:04 PM Dictation Location: [facility] Transcribed By: KAMERON 06/23/181903 Dictated By: Amrik Jean-Baptiste MD 06/23/181901 Signed By: 06/23/18 190 [facility] Vital Signs Date Time Vital Sign Value Performing Clinician Alex santillan 03-23-2024 08:50-0500 Body mass index (BMI) [Ratio] 32.27 kg/m2 Cathy Pritchetto CNM Work Phone: [facility] 03-23-2024 08:50-0500 Body weight 85.28 kg Cathydoyle Pritchetto CNM Work Phone: [facility] 03-23-2024 08:50-0500 Diastolic blood pressure 70 mm[Hg] Cathy Floro CNM Work Phone: [facility] 03-23-2024 08:50-0500 Systolic blood pressure 110 mm[Hg] Cathy Floro CNM Work Phone: [facility] 03-20-2024 08:41-0500 Body mass index (BMI) [Ratio] 32.58 kg/m2 Tang Bonilla MD Work Phone: [facility] 03-20-2024 08:41-0500 Body weight 86.09 kg Tang Bonilla MD Work Phone: [facility] 03-20-2024 08:41-0500 Diastolic blood pressure 64 mm[Hg] Tang Bonilla MD Work Phone: [facility] 03-20-2024 08:41-0500 Heart rate 93 /min Tang Bonilla MD Work Phone: [facility] 03-20-2024 08:41-0500 Systolic blood pressure 112 mm[Hg] Tang Bonilla MD Work Phone: [facility] 03-08-2024 08:34-0500 Body mass index (BMI) [Ratio] 32.27 kg/m2 Cathy Floro CNM Work Phone: [facility] 03-08-2024 08:34-0500 Body weight 85.28 kg Cathy Yarelyo CNM Work Phone: [facility] 03-08-2024 08:34-0500 Diastolic blood pressure 80 mm[Hg] Cathy Floro CNM Work Phone: [facility] 03-08-2024 08:34-0500 Systolic blood pressure 120 mm[Hg] Cathy Floro CNM Work Phone: [facility] 02-09-2024 08:33-0500 Body mass index (BMI) [Ratio] 32.1 kg/m2 Cathy Floro CNM Work Phone: [facility] 02-09-2024 08:33-0500 Body weight 84.82 kg Cathy Floro CNM Work Phone: [facility] 02-09-2024 08:33-0500 Diastolic blood pressure 74 mm[Hg] Cathy Floro CNM Work Phone: [facility] 02-09-2024 08:33-0500 Systolic blood pressure 120 mm[Hg] Cathy Floro CNM Work Phone: [facility] 01-25-2024 08:45-0500 Body height 162.6 cm Tang Bonilla MD Work Phone: [facility] 01-25-2024 08:45-0500 Body mass index (BMI) [Ratio] 31.51 kg/m2 Tang Bonilla MD Work Phone: [facility] 01-25-2024 08:45-0500 Body weight 83.28 kg Tang Bonilla MD Work Phone: [facility] 01-25-2024 08:45-0500 Diastolic blood pressure 71 mm[Hg] Tang Bonilla MD Work Phone: [facility] 01-25-2024 08:45-0500 Heart rate 81 /min Tang Bonilla MD Work Phone: [facility] 01-25-2024 08:45-0500 Systolic blood pressure 112 mm[Hg] Tang Bonilla MD Work Phone: [facility] 01-11-2024 08:47-0400 Body mass index (BMI) [Ratio] 30.9 kg/m2 Cathy Floro CNM Work Phone: [facility] 01-11-2024 08:47-0400 Body weight 81.65 kg Cathy Floro CNM Work Phone: [facility] 01-11-2024 08:47-0400 Diastolic blood pressure 70 mm[Hg] Cathy Floro CNM Work Phone: [facility] 01-11-2024 08:47-0400 Systolic blood pressure 110 mm[Hg] Cathy Floro CNM Work Phone: [facility] 12-15-2023 11:27-0400 Body mass index (BMI) [Ratio] 30.04 kg/m2 Cathy Floro CNM Work Phone: [facility] 12-15-2023 11:27-0400 Body weight 79.38 kg Cathy Floro CNM Work Phone: [facility] 12-15-2023 11:27-0400 Diastolic blood pressure 70 mm[Hg] Cathy Floro CNM Work Phone: [facility] 12-15-2023 11:27-0400 Systolic blood pressure 116 mm[Hg] Cathy Floro CNM Work Phone: [facility] 11-10-2023 08:31-0400 Body mass index (BMI) [Ratio] 29.52 kg/m2 Cathy Floro CNM Work Phone: [facility] 11-10-2023 08:31-0400 Body weight 78.02 kg Cathy Floro CNM Work Phone: [facility] 11-10-2023 08:31-0400 Diastolic blood pressure 64 mm[Hg] Cathy Floro CNM Work Phone: [facility] 11-10-2023 08:31-0400 Systolic blood pressure 100 mm[Hg] Cathy Floro CNM Work Phone: [facility] 08-04-2021 13:00-0400 Heart rate 49 /min NA Maximo WATKINS Work Phone: [facility] 08-04-2021 13:00-0400 Respiratory rate 21 /min NA Maximo WATKINS Work Phone: [facility] 08-04-2021 13:00-0400 SaO2% (BldA) [Mass fraction] 100 % NA Maximo WATKINS Work Phone: [facility] 08-04-2021 12:45-0400 Diastolic blood pressure 77 mm[Hg] NA Maximo WATKINS Work Phone: [facility] 08-04-2021 12:45-0400 Systolic blood pressure 109 mm[Hg] NA Maximo WATKINS Work Phone: [facility] 08-04-2021 12:18-0400 Body temperature 96.8 [degF] NA Maximo WATKINS Work Phone: [facility] 08-04-2021 09:48-0400 Body height 162.6 cm MARIUM Marsh MD Work Phone: [facility] 08-04-2021 09:48-0400 Body mass index (BMI) [Ratio] 31.24 kg/m2 NA Maximo WATKINS Work Phone: [facility] 08-04-2021 09:48-0400 Body weight 82.56 kg MARIUM Marsh MD Work Phone: [facility] 07-08-2021 08:14-0400 Respiratory rate 0 /min MARIUM Marsh MD Work Phone: [facility] 07-08-2021 08:10-0400 Body temperature 97.81 [degF] MARIUM Marsh MD Work Phone: [facility] 07-08-2021 08:10-0400 Diastolic blood pressure 69 mm[Hg] MARIUM Marsh MD Work Phone: [employer] 07-08-2021 08:10-0400 Heart rate 54 /min MARIUM Marsh MD Work Phone: [employer] 07-08-2021 08:10-0400 SaO2% (BldA) [Mass fraction] 100 % MARIUM Marsh MD Work Phone: [employer] 07-08-2021 08:10-0400 Systolic blood pressure 107 mm[Hg] MARIUM Marsh MD Work Phone: [employer] 07-08-2021 07:01-0400 Body height 162.6 cm MARIUM Marsh MD Work Phone: [employer] 07-08-2021 07:01-0400 Body mass index (BMI) [Ratio] 31.41 kg/m2 MARIUM Marsh MD Work Phone: [employer] 07-08-2021 07:01-0400 Body weight 83.01 kg MARIUM Marsh MD Work Phone: [employer] 09-12-2020 07:33-0400 Diastolic blood pressure 76 mm[Hg] Breana Ryan Mondragon DO Work Phone: [employer] Work Phone: 09-12-2020 07:33-0400 Heart rate 61 /min Breana Ryan Mondragon DO Work Phone: [employer] Work Phone: 09-12-2020 07:33-0400 Respiratory rate 18 /min Breana Ryan Mondragon DO Work Phone: [employer] Work Phone: 09-12-2020 07:33-0400 Systolic blood pressure 115 mm[Hg] Breana Ryan Mondragon DO Work Phone: [employer] Work Phone: 09-12-2020 07:32-0400 Body temperature 98.4 [degF] Breana Ryan Mondragon DO Work Phone: [employer] Work Phone: 09-10-2020 16:08-0400 SaO2% (BldA) [Mass fraction] 100 % Breana Mondragon [employer] Work Phone: [employer] Work Phone: 09-10-2020 12:10-0400 Body height 162.6 cm Breana Mondragon [employer] Work Phone: [employer] Work Phone: 09-10-2020 12:10-0400 Body mass index (BMI) [Ratio] 34.84 kg/m2 Breana Mondragon [employer] Work Phone: [employer] Work Phone: 09-10-2020 12:10-0400 Body weight 92.08 kg Breana Mondragon [employer] Work Phone: [employer] Work Phone: Encounters Encounter Date Encounter Type Care Provider Facility Start: 03-23-2024 End: 03-23-2024 [employer] Cathy Colon CNM Work Phone: [facility] Start: 03-23-2024 End: 03-23-2024 [employer] Cathy Colon CNHaris Work Phone: [facility] Start: 03-23-2024 End: 03-23-2024 Subsequent care visit Cathy Colon CNHaris Work Phone: [facility] Comment on above: Encounter for superv ision of other normal , third trimester (Primary Dx); Elevated glucose tolerance test; History of section; History of gestational diabetes Start: 03-23-2024 ambulatory CATHYTruman PRITCHETTVictorino Not Adelita poon Start: 03-20-2024 End: 03-20-2024 Office outpatient visit 25 minutes Tang Bonilla MD Work Phone: [facility]- Medicine at [facility] Comment on above: 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 (Primary Dx) Start: 03-20-2024 End: 03-20-2024 ambulatory CATHY [facility] Start: 03-08-2024 End: 03-08-2024 [employer] Cathy Pritchetto CNM Work Phone: [facility] Start: 03-08-2024 End: 03-08-2024 [employer] Cathy Pritchetto CNM Work Phone: [facility] Start: 03-08-2024 End: 03-08-2024 ambulatory CATHY Jumana PRITCHETTO Not Available Start: 03-08-2024 End: 03-08-2024 Subsequent care visit Cahty Pritchetto CNM Work Phone: [facility] Comment on above: Encounter for superv ision of other normal , third trimester (Primary Dx); Elevated glucose tolerance test; History of section Start: 02-09-2024 End: 02-09-2024 [employer] Cathy Pritchetto CNM Work Phone: [facility] Start: 02-09-2024 End: 02-09-2024 [employer] Cathy Pritchetto CNM Work Phone: [facility] Start: 02-09-2024 End: 02-09-2024 Subsequent care visit Cathy Pritchetto CNM Work Phone: [facility] Comment on above: Encounter for superv ision of other normal , third trimester (Primary Dx); Screening for diabetes mellitus; Screening for iron deficiency anemia; related condition in second trimester Start: 02-09-2024 End: 02-09-2024 ambulatory CATHY Jumana PRITCHETTO Not Available Start: 01-31-2024 End: 01-31-2024 Orders Only Jake Dai [facility] M[facility]- Medicine at [facility] Comment on above: Pyelectasis (Primary Dx); anomaly suspected but not found Pyelectasis Start: 01-25-2024 End: 01-25-2024 Office consultation new/estab patient 60 min Tang Bonilla MD Work Phone: Maternal- Medicine at [facility] Comment on above: 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 (Primary Dx) Start: 01-25-2024 End: 01-25-2024 Orders Only Kristen Do RN Maternal- Medicine at [facility] Comment on above: 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 (Primary Dx); Pyelectasis Start: 01-17-2024 End: 01-17-2024 Chart abstracting Tang Bonilla MD Work Phone: Maternal- Medicine at [facility] Start: 01-17-2024 End: 01-17-2024 Telephone encounter Chelsey Bray MD Work Phone: [facility] Start: 01-14-2024 End: 01-14-2024 Chart abstracting Tang Bonilla MD Work Phone: [facility]- Medicine at [facility] Start: 01-11-2024 End: 01-11-2024 [employer] Cathy L Floro CNM Work Phone: [facility] Start: 01-11-2024 End: 01-11-2024 [employer] Cathy L Floro CNM Work Phone: [facility] Start: 01-11-2024 End: 01-11-2024 Subsequent care visit Cathy L Floro CNM Work Phone: [facility] Comment on above: Encounter for superv ision of other normal , second trimester (Primary Dx); History of section Start: 01-11-2024 End: 01-11-2024 ambulatory CATHY L FLORO Not Available Start: 12-30-2023 End: 12-30-2023 Orders Only Cathy L Floro CNM Work Phone: [facility] Start: 12-27-2023 End: 12-27-2023 ambulatory CATHY L FLORO Not Available Start: 12-23-2023 End: 12-23-2023 Office outpatient visit 15 minutes Hossein Fernandez MD Work Phone: [facility] Comment on above: Melanocytic nevus of trunk (Primary Dx); Melanocytic nevi of face; Lentigines; History of malignant melanoma of skin Start: 12-23-2023 End: 12-23-2023 ambulatory HOSSEIN FERNANDEZ Not Available Start: 12-23-2023 End: 12-23-2023 Bamboo flowsmalissa Fernandez MD Work Phone: [facility] Start: 12-23-2023 End: 12-23-2023 Bamboo flowsmalissa Fernandez MD Work Phone: [facility] Start: 12-15-2023 End: 12-15-2023 [employer] Cathy L Floro CNM Work Phone: [facility] Start: 12-15-2023 End: 12-15-2023 [employer]amboo flowsheet Cathy L Floro CNM Work Phone: [facility] Start: 12-15-2023 End: 12-15-2023 Subsequent care visit Cathy L Floro CNM Work Phone: [facility] Comment on above: Encounter for superv ision of other normal , second trimester (Primary Dx); History of section; related condition in second trimester Start: 12-15-2023 End: 12-15-2023 ambulatory CATHY L FLORO Not Available Start: 11-10-2023 End: 11-10-2023 Bamboo flowsheet Cathy L Floro CNM Work Phone: [facility] Start: 11-10-2023 End: 11-10-2023 Bamboo flowsheet Cathy L Floro CNM Work Phone: [facility] Start: 11-10-2023 End: 11-10-2023 ambulatory CATHY L FLORO Not Available Start: 11-10-2023 End: 11-10-2023 Subsequent care visit Cathy Colon CN Work Phone: [facility] Comment on above: Encounter for superv ision of other normal , second trimester (Primary Dx); History of section Start: 10-12-2023 End: 10-12-2023 ambulatory CATHY PRITCHETTO Not Available Start: 09-21-2023 End: 09-21-2023 ambulatory HOSSEIN A PETITTI Not Available Start: 09-20-2023 End: 09-20-2023 ambulatory CATHY PRITCHETTO Not Available Start: 05-11-2023 End: 05-11-2023 ambulatory HOSSEIN A PETITTI Not Available Start: 04-12-2023 End: 04-12-2023 ambulatory HOSSEIN PETITTI Not Available Start: 08-04-2021 End: 08-04-2021 ambulatory A [facility] Start: 08-04-2021 End: 08-04-2021 Subsequent hospital visit by physician Surendra Marsh MD Work Phone: [facility] [place] Comment on above: 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, nose, lip, and ear (HCC) (Primary Dx); Pain following surgery or procedure Start: 07-08-2021 End: 07-08-2021 ambulatory A [facility] Start: 07-08-2021 End: 07-08-2021 Subsequent hospital visit by physician Surendra Marsh MD Work Phone: [facility] [place] Comment on above: Pain following surge ry or procedure (Primary Dx) Start: 09-10-2020 End: 09-12-2020 [facility] Start: 09-10-2020 End: 09-12-2020 Evaluation and management of inpatient Breana F Ryan Mondragon DO Work Phone: [facility] Comment on above: delivery de livered (Primary Dx) Start: 09-09-2020 End: 09-09-2020 ambulatory BREANA MONDRAGON [facility] Start: 09-09-2020 End: 09-09-2020 Admission to establishment Breana Mondragon DO Work Phone: [facility] Start: 09-09-2020 End: 09-09-2020 Subsequent hospital visit by physician Breana Mondragon DO Work Phone: [facility] Comment on above: Encounter for preadm ission testing (Primary Dx); S/P primary low transverse Start: 06-23-2018 End: 06-23-2018 Patient encounter procedure Delia Mcneill Facility:[facility] Procedures Date Procedure Procedure Detail Performing Clinician Start: 01-25-2024 UNLISTED LAB TEST Tang Bonilla MD Work Phone: Start: 10-12-2023 Antibody screen Tang Bonilla MD Work Phone: Start: 10-12-2023 CHLAMYDIA/GC BY PCR RUPERTO SWAB Not In System Ref Prov Start: 10-12-2023 Drug scrn 1+ class nonchromo Not In System Ref Prov Start: 10-12-2023 Hemoglobin glycosylated a1c Cathy Colon REVERSE ENGINEER-CNM Work Phone: Start: 10-12-2023 HIV 1&2 AB/AG SCREEN (P24 AG) Not In System Ref Prov Start: 10-12-2023 Iaad ia hepatitis b surface antigen Not In System Ref Prov Start: 10-12-2023 Syphilis test non-treponemal antibody qual Not In System Ref Prov Start: 10-12-2023 TYPE AND SCREEN Not In System Ref Pr ov Start: 08-04-2021 Urine test visual color cmprsn methaidan Marsh MD Work Phone: Start: 09-11-2020 Blood count hemoglobin Breana jackson DO Work Phone: Start: 09-10-2020 Drug screen class list a Cathy Agosto PRN - CNM Work Phone: Start: 06-21-2021 Blood count complete auto&auto difrntl wbc Breana Mondragon DO Work Phone: Start: 08-07-2020 GBS, EXTERNAL RESULT Cathy Floro REVERSE ENGINEER - CNM Work Phone: Start: 01-30-2020 ABO, EXTERNAL RESULT Cathy Floro REVERSE ENGINEER - CNM Work Phone: Start: 01-30-2020 C. TRACHOMATIS, EXTERNAL RESULT Cathy Floro REVERSE ENGINEER - CNM Work Phone: Start: 01-30-2020 HEPATITIS B, EXTERNAL RESULT Cathy Floro REVERSE ENGINEER - CNM Work Phone: Start: 01-30-2020 HIV, EXTERNAL RESULT Cathy Floro REVERSE ENGINEER - CNM Work Phone: Start: 01-30-2020 N. GONORRHOEAE, EXTERNAL RESULT Cathy Floro REVERSE ENGINEER - CNM Work Phone: Start: 01-30-2020 RH FACTOR, EXTERNAL RESULT Cathy Floro REVERSE ENGINEER - CNM Work Phone: Start: 01-30-2020 RPR, EXTERNAL RESULT Cathy Floro REVERSE ENGINEER - CNM Work Phone: Start: 01-30-2020 RUBELLA TITER, EXTERNAL RESULT Cathy Floro REVERSE ENGINEER - CNM Work Phone: H/O: section S/P primar y low transverse Breana Mondragon DO Work Phone: H/O: section History of section Cathy L Floro CNM Work Phone: H/O: section History of section Cathy L Floro CNM Work Phone: H/O: section History of section Cathy L Floro CNM Work Phone: H/O: section History of section Cathy L Floro CNM Work Phone: H/O: section History of section Cahty L Floro CNM Work Phone: Plan of Treatment Date Care Activity Detail Author Start: 06-20-2030 DTaP,Tdap and Td Vaccines (7 - Td or Tdap) DTaP,Tdap and Td Vaccines (7 - Td or Tdap) [facility] Start: 06-20-2030 DTaP/Tdap/Td vaccine (7 - Td or Tdap) DTaP/Tdap/Td vaccine (7 - Td or Tdap) [facility] Start: 03-20-2025 Adult BMI Screening Adult BMI Screen ing [facility] Start: 01-24-2025 Adult BMI Screening Adult BMI Screen ing [facility] Start: 01-24-2025 Tobacco Screening Tobacco Screening [facility] Start: 01-24-2025 End: 01-24-2025 US MFM with or without consult US MFM with or without consult Imaging Routine Pyelectasis Expected: 01/24/2025 (Approximate), Expires: 01/24/2025 [facility] Work Phone: Comment on above: Expected: 01/24/2025 (Approximate), Expires: 01/24/2025 Start: 12-10-2024 Screening for malign ant neoplasm of cervix [facility] Start: 06-22-2024 End: 06-22-2024 Patient encounter procedure 06/22/2024 9:15 AM EDT Office Visit [facility] [address] [place] [address] Hossein Fernandez MD [address] [place] [address] [facility] Start: 05-02-2024 End: 05-02-2024 Patient encounter procedure 05/02/2024 8:30 AM EST Routine [facility] [address] [place] [address] Cathy Colon CNM [address] [place] [address] [facility] Start: 04-25-2024 End: 04-25-2024 Patient encounter procedure 04/25/2024 10:00 AM EST Routine [facility] [address] [facility] [place] [address] Cathy Colon, CNM [address] [facility] [place] [address] [facility] Start: 04-18-2024 End: 04-18-2024 Patient encounter procedure 04/18/2024 10:00 AM EST Routine [facility] [address] [facility] [place] [address] Cathy Colon, CNM [address] [facility] [place] [address] [facility] Start: 04-11-2024 End: 04-11-2024 Patient encounter procedure 04/11/2024 8:30 AM EST Routine [facility] [address] [facility] [place] [address] Cathy Colon, CNM [address] [place] [address] [facility] Start: 04-04-2024 End: 04-04-2024 Patient encounter procedure 04/04/2024 8:45 AM EST Routine [facility] [address] [facility] [place] [address] Cathy Colon, CNM [address] [place] [address] [facility] Start: 03-28-2024 End: 03-28-2024 Patient encounter procedure 03/28/2024 8:45 AM EST Routine [facility] [address] [facility] [place] [address] Cathy Colon, CNM [address] [place] [address] [facility] Start: 03-23-2024 End: 03-23-2025 US biophysical profile wo non stress testing US biophysical profile wo non stress testing Imaging Routine History of gestational diabetes Expected: 03/23/2024, Expires: 03/23/2025 [facility] Work Phone: Comment on above: Expected: 03/23/2024 , Expires: 03/23/2025 Start: 03-23-2024 End: 03-23-2025 US for US OB SCAN FOR GROWTH Imaging Routine History of gestational diabetes Expected: 03/23/2024, Expires: 03/23/2025 [facility] Comment on above: Expected: 03/23/2024 , Expires: 03/23/2025 Start: 03-23-2024 End: 03-23-2024 Patient encounter procedure 03/23/2024 8:45 AM EST Routine [facility] [address] [place] [phone] Cathy Colon CNM [address] [place] [phone] [facility] Start: 03-20-2024 End: 03-20-2024 Patient encounter procedure [facility] Start: 03-08-2024 End: 03-08-2025 GLUCOSE TOLERANCE TEST, GEST, 4SPEC 100G W/NDDG GLUCOSE TOLERANCE TEST, GEST, 4SPEC 100G W/NDDG Lab Routine Elevated glucose tolerance test Expected: 03/08/2024 (Approximate), Expires: 03/08/2025 [facility] Work Phone: Comment on above: Expected: 03/08/2024 (Approximate), Expires: 03/08/2025 Start: 03-08-2024 End: 03-08-2024 Patient encounter procedure 03/08/2024 8:30 AM EST Routine [facility] [address] [place] [phone] [address] Colon [address] [phone] [facility] Start: 02-09-2024 End: 02-08-2025 CBC panel - Blood by Automated count CBC Lab Routine Screening for iron deficiency anemia Expected: 02/09/2024 (Approximate), Expires: 02/08/2025 [facility] Comment on above: Expected: 02/09/2024 (Approximate), Expires: 02/08/2025 Start: 02-09-2024 End: 02-08-2025 GLUCOSE, GESTATIONAL SCREEN (50G)-135 CUTOFF GLUCOSE, GESTATIONAL SCREEN (50G)-135 CUTOFF Lab Routine Screening for diabetes mellitus Expected: 02/09/2024 (Approximate), Expires: 02/08/2025 [facility] Work Phone: Comment on above: Expected: 02/09/2024 (Approximate), Expires: 02/08/2025 Start: 02-09-2024 End: 02-08-2025 US for US OB follow up transabdominal approach Imaging Routine related condition in second trimester Expected: 02/09/2024, Expires: 02/08/2025 [facility] Comment on above: Expected: 02/09/2024 , Expires: 02/08/2025 Start: 02-09-2024 End: 02-09-2024 Patient encounter procedure 02/09/2024 8:30 AM EST Routine [facility] [address] [place] [phone] Cathy Colon, REYM [address] [place] [address] [facility] Start: 01-25-2024 End: 01-25-2024 Patient encounter procedure 01/25/2024 8:45 AM EST Office Visit Maternal- Medicine at [facility] [address] [place] [phone] Tang Bonilla MD [address] [place] [address] Maternal- Medicine at [facility] Start: 01-25-2024 End: 01-25-2024 Patient encounter procedure 01/25/2024 7:30 AM EST Appointment [facility] [address] [place] [phone] [facility] Start: 01-11-2024 End: 01-11-2024 Patient encounter procedure 01/11/2024 8:45 AM EDT Routine [facility] [address] [place] [phone] Cathy Colon, REYM [address] [place], [place] [phone] [facility] Start: 12-27-2023 End: 12-27-2023 Professional / ancillary services management 12/27/2023 3:15 PM EDT Ancillary Procedure [facility] [address] [phone] [facility] Start: 12-23-2023 End: 12-23-2023 Patient encounter procedure [facility] Comment on above: Arrived Start: 12-15-2023 End: 12-14-2024 US for US OB 14+ weeks anatomy scan Imaging Routine related condition in second trimester Expected: 12/15/2023, Expires: 12/14/2024 [facility] Work Phone: Comment on above: Expected: 12/15/2023 , Expires: 12/14/2024 Start: 12-15-2023 End: 12-15-2023 Patient encounter procedure 12/15/2023 11:30 AM EDT Routine [facility] [address] [place] [phone] Cathy Colon, REYM [address] [place], [place] [phone] Arrived [facility] Comment on above: Arrived Start: 12-15-2023 End: 12-15-2023 Patient encounter procedure 12/15/2023 8:30 AM EDT Routine [facility] [address] [place] [address] Cathy Colon, REYM [address] [place] [address] [facility] Start: 11-21-2023 Influenza vaccination N [facility] Start: 11-20-2021 Influenza vaccination Flu vacc ine (Season Ended) [facility] Start: 08-12-2021 End: 08-12-2021 Patient encounter procedure 08/12/2021 Office Visit Plastic Surgery Rhoda Callahan, [facility] [address] [facility] [address] [place] [address] [facility] Start: 08-04-2021 End: 08-04-2021 HEAD LESION EXCISION HEAD LESION EXCISION D03.30 RIGHT CHEEK MELANOMA 08/04/2021 11:33 AM EDT [facility] Start: 07-23-2021 End: 07-23-2021 Patient encounter procedure 07/23/2021 Office [place] [address] [facility] [address] [place] [address] [facility] Start: 07-08-2021 End: 07-08-2021 FACIAL LESION BIOPSY EXCISION FACIAL LESION BIOPSY EXCISION LESION RIGHT NECK X1 LESION RIGHT CHEEK X 2 07/08/2021 7:29 AM EDT [facility] Start: 2021 Screening for malign ant neoplasm of cervix [facility] Start: 11-20-2020 Influenza vaccination Flu vacc ine (Season Ended) [facility] Work Phone: Start: 09-10-2020 End: 09-10-2020 Admission to same day surgery center 09/10/2020 Surgery Obstetrics and Gynecology Breana Ledbetter DO [address] [place] [address] [phone] SECTION [facility] Labor and Delivery Comment on above: SECTION Start: 09-10-2020 Subsequent hospital visit by physician 09/10/2020 Hospital Encounter Obstetrics and Gynecology Breana Ledbetter, DO [address] [place] [address] [phone] [facility] Start: 01-14-2012 Screening for malign ant neoplasm of cervix [facility] Start: 2010 DTaP/Tdap/Td vaccine (1 - Tdap) DTaP/Tdap/Td vaccine (1 - Tdap) [facility] Phone: Start: 2009 Adult BMI Follow Up Plan Adult BMI Follow Up Plan [facility] Start: 2009 Adult BMI Screening Adult BMI Screen ing [facility] Start: 2009 Hepatitis C screening Hepatitis C [facility] Start: 2006 HIV screening HIV screen [facility] Start: 2003 COVID-19 Vaccine (1) COVID-19 Vaccin e (1) [facility] Phone: Start: 2003 Depression Screen Depression Screen [facility] Start: 2003 [facility]: 2003 Tobacco Screening Tobacco Screening [facility] Start: 01-14-1996 COVID-19 Vaccine (1) COVID-19 Vaccin e (1) [facility] Start: 01-14-1992 Varicella vaccine (1 of 2 - 2-dose childhood series) Varicella vaccine (1 of 2 - 2-dose childhood series) [facility] Start: 1991 Hepatitis C screening Hepatitis C [facility] End: 08-04-2021 INITIATE PACU OXYGEN THERAPY PROTOCOL Initiate PACU Oxygen Therapy Protocol Respiratory Care Routine Continuous until discontinued starting 08/04/2021 [facility] Phone: Comment on above: Continuous until dis continued starting 08/04/2021 Oxygen therapy [[facility] Data Set] Initiate Oxygen Therapy Protocol Respiratory Care Routine Daily until discontinued starting 09/10/2020 [employer]: Comment on above: Daily until disconti nued starting 09/10/2020 Spirometry panel Incentive liz metry Respiratory Care Routine Every 2hr while awake until discontinued starting 09/10/2020 [employer] Phone: Comment on above: Every 2hr while awak e until discontinued starting 09/10/2020 Surgical Pathology Surgical Path ology Lab Routine Release Upon Ordering for 1 Occurrences starting 07/08/2021 [employer] Phone: Comment on above: Release Upon Orderin g for 1 Occurrences starting 07/08/2021 Surgical Pathology Surgical Path ology Lab Routine Release Upon Ordering for 1 Occurrences starting 08/04/2021 [employer] Phone: Comment on above: Release Upon Orderin g for 1 Occurrences starting 08/04/2021 End: 09-09-2020 TYPE AND SCREEN TYPE AND SCREEN Blood Bank STAT Encounter for preadmission testing One Time for 1 Occurrences starting 09/09/2020 until 09/09/2020 [employer] Phone: Comment on above: One Time for 1 Occur rences starting 09/09/2020 until 09/09/2020 TYPE AND SCREEN TYPE AND SCREEN Blood Bank Stat Sun[facility] Label print Encounter for preadmission testing 09/09/2020 2:26 PM EDT [employer] Phone: Immunizations Immunization Date Immunization Notes Care Provider Fa bernard 09-10-2020 diphtheria, tetanus toxoids and acellular pertussis vaccine, unspecified formulation Breana Ryan Mondragon DO Work Phone: [employer] Phone: 09-10-2020 measles, mumps and rubella virus vaccine Breana Ryan Mondragon DO Work Phone: [employer] Phone: Payers Date Payer Category Payer Private Health Insurance [employer] [id number] 2024 Unknown [id number] 2021 Commercial Managed C are - POS [id number] 2021 Managed Care HMO (unspecified) [id number] 2021 Private Health Insurance [id number]. [id number] 2021 Unknown [id number]. [id number] 2018 Self-pay 2018 Unknown [id number] 1991 Unknown [id number]. 173 1991 Unknown [id number]. 175 1991 Unknown [id number] 840.1.934759.3.579.2. 175 1991 Unknown [id number] 840.1.520174.3.579.2. 1286 1991 Unknown [id number] 840.1.368817.3.579.2. 1286 1991 Unknown [id number] 2.16.840.1.666994.3.579.2. 1286 1991 Unknown [id number] 2.16.840.1.027210.3.579.2. 1286 1991 Unknown [id number] 2.16.840.1.159282.3.579.2. 1259 1991 Unknown [id number] 2.16.840.1.842728.3.579.2. 1259 1991 Unknown [id number] 2.16.840.1.216244.3.579.2. 1259 1991 Unknown [id number] 2.16.840.1.671418.3.579.2. 1259 1991 Unknown [id number] 2.840.1.421620.3.579.2. 1259 1991 Unknown [id number] 2.840.1.263486.3.579.2. 1259 1991 Unknown [id number] 2.16.840.1.539844.3.579.2. 1259 1991 Unknown [id number] 2.16.840.1.593976.3.579.2. 9 1991 Unknown [id number] 2.840.1.797262.3.579.2. 1259 1991 Unknown [id number] 2.840.1.813607.3.579.2. 1259 1991 Unknown [id number] 2.16.840.1.262513.3.579.2. 1259 1991 Unknown [id number] 2.16.840.1.823492.3.579.2. 1259 1991 Unknown [id number] 2.16.840.1.474121.3.579.2. 1259 1991 Unknown [id number] 2.16840.1.331365.3.579.2. 1259 1991 Unknown [id number] 2.16.840.1.661652.3.579.2. 1259 1991 Unknown [id number] 2.16.840.1.953092.3.579.2. 1259 Unknown [id number] 2.16.840.1.583143.3.579.2. 531 Social History Date Type Detail Facility Tobacco smoking stat [facility] Unknown if ever smoked [employer] Phone: Start: 1990 Sex Assigned At Not on file [facility] Phone: Start: 09-10-2020 End: 09-02-2022 Tobacco smoking status NHIS Never smoker [employer] Start: 09-10-2020 End: 09-02-2022 Tobacco use and exposure Never used [facility] [employer] [facility] Start: 09-10-2020 End: 12-24-2023 Alcohol intake Ex-drinker (finding) [employer] Phone: Start: 07-08-2021 End: 08-04-2021 Alcohol intake Current drinker of alcohol (finding) [employer] Phone: Start: 07-08-2021 End: 12-24-2023 Alcohol intake [employer] Phone: Start: 1990 Sex Assigned At Female M [facility] Start: 07-25-2021 End: 08-04-2021 Exposure to SARS-CoV-2 (event) Not sure [employer] Phone: Start: 09-22-2023 End: 12-24-2023 Tobacco use panel [facility] Start: 09-01-2022 Alcohol Comment Alcohol: 3or 4 drinks on typical day/ monthly or less. Caffeine 1-2 cup/sday [facility] Start: 08-22-2023 [facility] Start: 06-03-2022 Gender identity Identifies as female gender (finding) [facility] Tobacco smoking stat [facility] Tobacco smoking consumption unknown [facility] Start: 10-25-2014 Sex Female (finding) [facility] Clinical Notes 09-12-2020 to 03-23-2024 Cathy Colon CNM - 03/23/2024 8:45 AM Christine Waterman RN - 03/20/2024 9:45 AM Amalia Bonilla MD - 03/20/2024 9:45 AM Bhavik Colon CNM - 03/08/2024 8:30 AM ESTInstructionsInstructions Note Date & Type Note Facility 03-23-2024 History of Present illness Narrative Subjective No chief complaint on file. Celestino Cruz is a 34 y.o. at 32w4d with a working estimated date of delivery of 05/14/2024, by Last Menstrual Period who presents for a routine visit. She denies vaginal bleeding, leakage of fluid, decreased movements, or contractions. OB History Para Term AB Living 3 2 1 1 SAB IAB Ectopic Multiple Live Births 1 # Outcome Date GA Lbr Sal/2nd Weight Sex Type Anes PTL Lv 3 Current 2 Term 09/10/20 40w2d 8 lb 1.9 oz F CS-LTranv Spinal N CHRISTA 1 Para CS-LTranv Her is complicated by: Type 2 gestational diabetes, diet controlled, history of section Diabetic education today for type 2 diabetes- glucose log given, reviewed diet and parameters for glucose. Pacvet of info given, and will make referral to conservation educator. Objective Physical Exam weight: 188 lb Expected Total Weight Gain: 11 lb-19 lb Pregravid BMI: 30.71 BP: 110/70 Urine protein-negative Urine glucose-negative Assessment/Plan Diagnoses and all orders for this visit: Encounter for supervision of other normal , third trimester Elevated glucose tolerance test History of section History of gestational diabetes Continue vitamin. Labs reviewed. GBS taken. Expected mode of delivery Follow up in 1 week for a routine visit. documented in this encounter [facility] 03-20-2024 History of Present illness Narrative Headache/epigastric pain/blurry vision/swelling? No Cramping/contractions? No Abnormal vaginal discharge? No Spotting or vaginal bleeding? No Loss or gush of fluid like your water may have broken? No Recent ER visits or hospitalizations? No Any concerns that you would like me to mention to the provider today? No REASON FOR OFFICE VISIT: pyelectasis resolved. HISTORY OF PRESENT ILLNESS: Celestino Cruz is a pleasant 34 y.o. G 3 P1 011 at 32w1d due on Estimated Date of Delivery: 05/14/24 . has been complicated with Left-sided pyelectasis which has resolved. Currently the patient has no complaints. The patient denies nausea, vomiting, abdominal pain, vaginal bleeding, SOB or chest pain. Patient Active Problem List Diagnosis anomaly suspected but not found ALLERGIES: Allergies Allergen Reactions Adhesive Rash Wound Dressing Silver Hives, Itching and Rash CURRENT MEDICATIONS: Current Outpatient Medications: no115/iron/folic acid ( 19 ORAL), Take by mouth., Disp: , Rfl: letrozole (FEMARA) 2.5 mg chemo tablet, Take by mouth daily (Patient not taking: Reported on 01/25/2024), Disp: , Rfl: medroxyPROGESTERone (PROVERA) 10 mg tablet, Take 1 tablet (10 mg total) by mouth in the morning. (Patient not taking: Reported on 01/25/2024), Disp: , Rfl: metFORMIN (FORTAMET) 500 MG (OSM) 24 hr tablet, Take 1 tablet (500 mg total) by mouth daily with breakfast. (Patient not taking: Reported on 01/25/2024), Disp: , Rfl: Past Medical History: Diagnosis Date Chronic migraine without aura Cystitis Gastroenteritis History of female infertility Melanoma ([facility]) 05/2021 in [place] Myopia Rhus dermatitis REVIEW OF SYSTEMS: Head and Neck: Negative for any dizziness and headaches. Cardiovascular and Respiratory System: Denies any chest pain, shortness of breath, and coughing. Abdominal and System: Denies any abdominal pain, nausea, vomiting, vaginal bleeding, and vaginal discharge REVIEW OF ULTRASOUND. Pertinent Ultrasound findings are see report. PHYSICAL EXAMINATION: BP 112/64 Pulse 93 Wt 86.1 kg (189 lb 12.8 oz) LMP 08/08/2023 BMI 32.58 kg/m . Gravid abdomen, Respirations not labored. Normal gait well oriented in time place and person. RECOMMENDATION: 1. Normal interval growth. 2. Left pyelectasis has resolved. 3. Patient is low risk and patient can be delivered at her local hospital. 4. Patient is scheduled for a repeat at 39 weeks gestation at local hospital. 5. Patient does not have any future appointment scheduled with us. Thank you for allowing me to participate in Celestino Cruz care. If there are any questions, please do not hesitate to call me. Sincerely, TANG BONILLA MD documented in this encounter [facility] 03-08-2024 History of Present illness Narrative Subjective No chief complaint on file. Celestino Cruz is a 34 y.o. at 30w3d with a working estimated date of delivery of 05/14/2024, by Last Menstrual Period who presents for a routine visit. She denies vaginal bleeding, leakage of fluid, decreased movements, or contractions. OB History Para Term AB Living 3 2 1 1 SAB IAB Ectopic Multiple Live Births 1 # Outcome Date GA Lbr Sal/2nd Weight Sex Type Anes PTL Lv 3 Current 2 Term 09/10/20 40w2d 8 lb 1.9 oz F CS-LTranv Spinal N CHRISTA 1 Para CS-LTranv Her is complicated by: Objective Physical Exam weight: 188 lb Expected Total Weight Gain: 11 lb-19 lb Pregravid BMI: 30.71 BP: 120/80 Urine protein-negative Urine glucose-negative Assessment/Plan Diagnoses and all orders for this visit: Encounter for supervision of other normal , third trimester Elevated glucose tolerance test - GLUCOSE TOLERANCE TEST, GEST, 4SPEC 100G W/NDDG; Future History of section Continue vitamin. Labs reviewed. GBS at 36 weeks Expected mode of delivery repeat section Follow up in 1 week for a routine visit. documented in this encounter [facility] 02-09-2024 History of Present illness Narrative Subjective No chief complaint on file. Celestino Cruz is a 34 y.o. at 26w3d with a working estimated date of delivery of 05/14/2024, by Last Menstrual Period who presents for a routine visit. She denies vaginal bleeding, leakage of fluid, decreased movements, or contractions. OB History Para Term AB Living 3 2 1 1 SAB IAB Ectopic Multiple Live Births 1 # Outcome Date GA Lbr Sal/2nd Weight Sex Type Anes PTL Lv 3 Current 2 Term 09/10/20 40w2d 8 lb 1.9 oz F CS-LTranv Spinal N CHRISTA 1 Para CS-LTranv Her is complicated by: seeing MFM kink in baby kidney. MFM has given her reassurance she can deliver in [place] and as the baby grows he told them it should correct itself, or when baby has first void. She is seeing MFM one more time for another US at 32 weeks to assess kidney. The following portions of the chart were reviewed this encounter and updated as appropriate: Objective Physical Exam weight: 187 lb Expected Total Weight Gain: 11 lb-19 lb Pregravid BMI: 30.71 BP: 120/74 Urine protein-negative Urine glucose-negative Labs: reviewed Imaging Assessment/Plan Diagnoses and all orders for this visit: Encounter for supervision of other normal , third trimester Screening for diabetes mellitus - GLUCOSE, GESTATIONAL SCREEN (50G)-135 CUTOFF; Future Screening for iron deficiency anemia - CBC; Future related condition in second trimester - US OB follow up transabdominal approach; Future Continue vitamin. Labs reviewed. Rhogam GTT . Follow up in 2 weeks for a routine visit. documented in this encounter [facility] 01-25-2024 History of Present illness Narrative Headache/epigastric pain/blurry vision/swelling? No Cramping/contractions? No Abnormal vaginal discharge? No Spotting/vaginal bleeding? No Loss or gush of fluid like your water may have broken? No Do you have cats at home? No Do you change the litter box (reason: risk of toxoplasmosis)? No Genetic testing done this here or other office? Declined Have you been seen here at [facility] in a previous ? No Recent ER visits or hospitalizations? No Bring blood sugar log or meter with you today? (Please bring them with you for every visit at [facility]) N/A Flu vaccine (Jan-May)? No Any concerns that you would like me to mention to the provider today? No REASON FOR CONSULTATION: Isolated left-sided pyelectasis HISTORY OF PRESENT ILLNESS: Celestino Cruz is a pleasant 34 y.o. G 3 P1 011. at 24w2d due on Estimated Date of Delivery: 05/14/24 . Patient was seen today due to the following 1. Isolated left pyelectasis. 2. Suspected duodenal atresia with large stomach ruled out. Normal targeted anatomy. No evidence of duodenal Atresia. Normal-appearing stomach Currently the patient has no complaints. The patient denies nausea, vomiting, abdominal pain, vaginal bleeding, SOB or chest pain. Patient's PMH/PSH,SH,PSYCH Hx, MEDs, ALLERGIES, and ROS were all reviewed and updated in the appropriate sections. Patient Active Problem List Diagnosis anomaly suspected but not found Past Medical History: Diagnosis Date Chronic migraine without aura Cystitis Gastroenteritis History of female infertility Melanoma ([facility]) 05/2021 in [facility] Myopia Rhus dermatitis PAST OBSTETRICAL HISTORY: OB History 3 Para 1 Term 1 AB 1 Living 1 SAB 1 IAB Ectopic Multiple Live Births 1 SURGICAL HISTORY: Past Surgical History: Procedure Laterality Date SECTION 2020 NECK MASS EXCISION 07/08/2021 right neck lesion,right lateral cheek,right medial cheek lesion SKIN BIOPSY WISDOM TOOTH EXTRACTION ALLERGIES: Allergies Allergen Reactions Adhesive Rash Wound Dressing Silver Hives, Itching and Rash CURRENT MEDICATIONS: Current Outpatient Medications: no115/iron/folic acid ( 19 ORAL), Take by mouth., Disp: , Rfl: letrozole (FEMARA) 2.5 mg chemo tablet, Take by mouth daily (Patient not taking: Reported on 01/25/2024), Disp: , Rfl: medroxyPROGESTERone (PROVERA) 10 mg tablet, Take 1 tablet (10 mg total) by mouth in the morning. (Patient not taking: Reported on 01/25/2024), Disp: , Rfl: metFORMIN (FORTAMET) 500 MG (OSM) 24 hr tablet, Take 1 tablet (500 mg total) by mouth daily with breakfast. (Patient not taking: Reported on 01/25/2024), Disp: , Rfl: FAMILY/GENETIC HISTORY: No family history of VTE, cardiac defects and mental retardation . SOCIAL HISTORY:Patient denies tobacco use, alcohol use, or drug use. RECENT HOSPITALIZATION: none I did review all the labs results available in addition to labs which were ordered by the primary care physician, and the other consultants, we search on velingo and all the available care everywhere epic I did review all the imaging studies of the patient available on EMR, ordered by the primary care physician and the other consultant education HABITS: Patient activity no restrictions, diet no restrictions REVIEW OF SYSTEM: Head and Neck: Negative for any dizziness and headaches. Cardiovascular and Respiratory System: Denies any chest pain, shortness of breath, and coughing. Abdominal and System: Denies any abdominal pain, nausea, vomiting, vaginal bleeding, and vaginal discharge Social Determinants of Health Financial Resource Strain: n Food Insecurity: n Transportation Needs: n Physical Activity: y Social Connections: y Intimate Partner Violence: n Housing Stability: y PHYSICAL EXAMINATION: BP 112/71 Pulse 81 Ht 162.6 cm (5' 4 ) Wt 83.3 kg (183 lb 9.6 oz) LMP 08/08/2023 BMI 31.51 kg/m . Gravid abdomen, Respirations not labored. Well oriented time place person, normal gait MEDICAL DECISION MAKING DISCUSSION: pyelectasis. We informed the patient that the pyelectasis is a dilatation of the pelvis, which is the first anatomical structure in the kidney that receives urine from the parenchyma. Most common cause of pyelectasis is a transient obstruction at the urethro pelvic junction or due to reflux. Isolated pyelectasis has also been associated with trisomy 21; however, it has been labeled as a soft marker with only 1.5 fold increase in the back ground risk. Since the back ground risk of the patient is not available as the patient opted out, we offered the patient genetic testing in the form of cell free DNA testing. I informed the patient that cell free DNA testing is still considered a screening tool however has a better sensitivity and a positive predictive value. In case the cell free DNA testing comes back low risk no further genetic testing is necessary. In case the cell free DNA testing comes back positive we will see the patient again. The patient should followed up by a growth ultrasound around 32 weeks gestation when renal pelvis will be measured again. If the renal pelvises are still dilated, a formal Pediatrics consult should be done antenatally to help the patient's gear up in the post heri period with this condition. RECOMMENDATION: 1. Follow-up in 8 weeks for re-evaluation of pyelectasis and interval growth. 2. Routine care at OB provider. 3. Patient underwent cell free DNA testing today 4. Patient is low risk and can be delivered at her local hospital via repeat at 39 weeks DISPOSITION: At this point the patient is in complete care of her spa manager/esthetician. Patient does have ultrasound office visit scheduled with us Thank you for allowing me to participate in Celestino Cruz . If there any questions please do not hesitate to contact us. Sincerely, TANG BONILLA MD documented in this encounter [facility] 01-17-2024 Telephone encounter Note Maddie from [facility]- [facility] at [facility] called and left a vm at 11:25 am She said that she needs faxed over some information about the pt. She said if there is any Genetic Testing that has been done, Her first OB US, and she needs a reasoning for sending her to see them. Fax is [phone] Phone is [phone] T [facility] 01-17-2024 Miscellaneous Notes Maddie from [facility]- [facility] at [facility] called and left a vm at 11:25 am She said that she needs faxed over some information about the pt. She said if there is any Genetic Testing that has been done, Her first OB US, and she needs a reasoning for sending her to see them. Fax is [phone] Phone is [phone] documented in this encounter [facility] 01-11-2024 History of Present illness Narrative Subjective No chief complaint on file. Celestino Cruz is a 33 y.o. at 22w2d with a working estimated date of delivery of 05/14/2024, by Last Menstrual Period who presents for a routine visit. She denies vaginal bleeding, leakage of fluid, decreased movements, or contractions. OB History Para Term AB Living 3 2 1 1 SAB IAB Ectopic Multiple Live Births 1 # Outcome Date GA Lbr Sal/2nd Weight Sex Type Anes PTL Lv 3 Current 2 Term 09/10/20 40w2d 8 lb 1.9 oz F CS-LTranv Spinal N CHRISTA 1 Para CS-LTranv Her is complicated by: The following portions of the chart were reviewed this encounter and updated as appropriate: Objective Physical Exam weight: 180 lb Expected Total Weight Gain: 11 lb-19 lb Pregravid BMI: 30.71 BP: 110/70 US repeated today for assessment of stomach. Will wait for radiology report and if needed will send to [facility] for consult. Urine protein-negative Urine glucose-negative Labs: reviewed Imaging Assessment/Plan Diagnoses and all orders for this visit: Encounter for supervision of other normal , second trimester History of section Continue vitamin. Labs reviewed. Rhogam not needed patient is O+ positive GTT at 28 weeks Follow up in 4 weeks for a routine visit documented in this encounter [facility] 12-30-2023 History of Present illness Narrative Report received on patients recent US. Radiologist recommends to repeat the scan in 2-4 weeks to assess single bubble in the stomach. I called patient report read to patient with explanation and reason to recheck US. PVU and all questions answered. Patient will come in 2 weeks for appt and repeat US documented in this encounter [facility] 12-23-2023 History of Present illness Narrative Images from the original note were not included. Skin Check Location: Patient requests a full body skin examination Dermatologic history: history of Melanoma in situ. Family history of Melanoma Last visit: 09/21/2023 Established patient Melanoma History Location: Right cheek Date of Melanoma dx: 05/2021 Melanoma details: in-situ Melanoma treatment: Wide excision performed by Gavin Marsh MD at [facility] Originally biopsied by Rhoda Callahan APRN-VÍCTOR also with [employer] [facility] Additional testing: none Currently (19 weeks) Lesions: Location: left breast Duration: years Quality: denies pain, denies itch, denies bleeding Modifying factors: none Associated symptoms: raised, patient thinks lesion has enlarged Treatments: none All pertinent medical history, medications, and allergies were reviewed. General Exam: alert, oriented to person, place, and time, normal affect, well appearing Unaccompanied Areas not examined despite medical recommendation: Scalp, Examined Right leg Examined Head, Face Examined Left leg Examined Neck Examined Right foot Examined Chest Examined Left foot Examined Back Examined Buttocks Examined Abdomen Examined Digits,nails: Examined Right arm Examined Patient wearing nail citizen of [place], Denies dark streaks under finger nails, Denies dark streaks on toenails Left arm Examined Lymphatics: examine Hands Examined no cervical lymphadenopathy, no supraclavicular lymphadenopathy, no axillary lymphadenopathy 1. Melanocytic nevus of trunk Scattered benign appearing, regular brown to light brown melanocytic papules and macules with similar morphology Counseled regarding these benign growths. Rarely, a nevus can develop into malignant melanoma, so any changing nevi should be promptly re-evaluated. It is not unusual for a mole to change during , if any changes follow up in office. 2. Lentigines Scattered valiente macules in sun-exposed areas. The patient was informed that lentigines are benign pigmented lesions that occur on sun-exposed and sun-damaged skin. No treatment is necessary. Recommended regular use of broad spectrum sunscreen SPF 30 or higher 3. History of malignant melanoma of skin Right Cheek No evidence of recurrence at melanoma scar. The patient was counseled that scars from excisional sites of melanoma should be monitored closely for recurrence. The patient was instructed to contact the office for any new, changing, or symptomatic moles. The patient was also instructed to contact the office for any new lesions that develop within or around the previous melanoma scar. 4. Melanocytic nevi of face Head - Anterior (Face) Valiente-brown symmetric macules and papules Counseled regarding these benign growths. Rarely, a nevus can develop into malignant melanoma, so any changing nevi should be promptly re-evaluated. Next Visit: 6 months skin exam documented in this encounter [facility] 12-15-2023 History of Present illness Narrative Subjective No chief complaint on file. Celestino Cruz is a 33 y.o. at 18w3d with a working estimated date of delivery of 05/14/2024, by Last Menstrual Period who presents for a routine visit. She denies vaginal bleeding, leakage of fluid, decreased movements, or contractions. OB History Para Term AB Living 3 2 1 1 SAB IAB Ectopic Multiple Live Births 1 # Outcome Date GA Lbr Sal/2nd Weight Sex Type Anes PTL Lv 3 Current 2 Term 09/10/20 40w2d 8 lb 1.9 oz F CS-LTranv Spinal N CHRISTA 1 Para CS-LTranv Her is complicated by: h/o melanoma face, history of C/S The following portions of the chart were reviewed this encounter and updated as appropriate: Objective Physical Exam weight: 175 lb Expected Total Weight Gain: 11 lb-19 lb Pregravid BMI: 30.71 BP: 116/70 Urine protein-negative Urine glucose-negative Labs: reviewed Imaging Assessment/Plan Diagnoses and all orders for this visit: Encounter for supervision of other normal , second trimester History of section Continue vitamin. Labs reviewed. Rhogam GTT at 28 weeks Follow up in 4 weeks for a routine visit. documented in this encounter [facility] 11-10-2023 History of Present illness Narrative Subjective No chief complaint on file. Celestino Cruz is a 33 y.o. at 13w3d with a working estimated date of delivery of 05/14/2024, by Last Menstrual Period who presents for a routine visit. She denies vaginal bleeding, leakage of fluid, decreased movements, or contractions. OB History Para Term AB Living 3 2 1 1 SAB IAB Ectopic Multiple Live Births 1 # Outcome Date GA Lbr Sal/2nd Weight Sex Type Anes PTL Lv 3 Current 2 Term 09/10/20 40w2d 8 lb 1.9 oz F CS-LTranv Spinal N CHRISTA 1 Para CS-LTranv Her is complicated by: The following portions of the chart were reviewed this encounter and updated as appropriate: Objective Physical Exam weight: 172 lb Expected Total Weight Gain: 11 lb-19 lb Pregravid BMI: 30.71 BP: 100/64 Urine protein-negative Urine glucose-negative Labs: reviewed Imaging Assessment/Plan Diagnoses and all orders for this visit: Encounter for supervision of other normal , second trimester History of section Continue vitamin. Labs reviewed. Rhogam not needed O+ positive blood type GTT at 28 weeks Follow up in 4 weeks for a routine visit. documented in this encounter [facility] 06-20-2021 Hospital Discharge instructions Arlen Rhoades RN - 06/30/2021 You have had lesions removed today under local anesthesia. You may have some pain at the surgery site after the procedure. You should avoid aspirin products and over the counter products for 3 days. Keep areas clean and dry. No strenuous activity for 24 HOURS No swimming, no tub baths,no hot tubs Eat lightly at first, advance diet as tolerated. Drink plenty of fluids. Keep it covered with a sterile bandage until follow up appointment Steri-strips will fall off on their own in about a week. You may shower 24 hours after the procedure. Pat the wound dry after you have washed it with a mild soap. Do not submerge the wound in water until it is well-healed. Take pain medication as directed, if necessary per instructions. Complete ALL antibiotics as directed for entire duration of therapy. Stitches will be left in the skin until your follow up appointment. Call Your Doctor if any of the following occurs: Signs of infection, including fever and chills Redness, swelling, increasing pain, excessive bleeding, or discharge from the incision site Pain that you cannot control with the medicines you have been given Any new symptoms documented in this encounter [facility] Phone: 06-20-2021 Hospital Discharge instructions Arlen Rhoades RN - 07/31/2021 Activity You have had anesthesia today Do not drive, operate heavy equipment, consume alcoholic beverages, or make any important decisions for 24 hours If you are taking pain medication: Do not drive or consume alcohol. Take your time changing positions today. You may feel light headed or dizzy if you move too quickly. Continue your home medications as ordered by your physician. Diet You can eat your normal diet when you feel well. You should start off with bland foods like chicken soup, toast, or yogurt. Then advance as tolerated. Drink plenty of fluids (unless your doctor tells you not to). Your urine should be very lightly colored without a strong odor. You may have some pain at the surgery site after the procedure. You should avoid aspirin products and over the counter products for 3 days. Keep areas clean and dry. No strenuous activity for 24 HOURS No swimming, no tub baths,no hot tubs Eat lightly at first, advance diet as tolerated. Drink plenty of fluids. Keep it covered with a sterile bandage until follow up appointment Steri-strips will fall off on their own in about a week. You may shower 24 hours after the procedure. Pat the wound dry after you have washed it with a mild soap. Do not submerge the wound in water until it is well-healed. Take pain medication as directed, if necessary per instructions. Complete ALL antibiotics as directed for entire duration of therapy. Stitches will be left in the skin until your follow up appointment. Call Your Doctor if any of the following occurs: Signs of infection, including fever and chills Redness, swelling, increasing pain, excessive bleeding, or discharge from the incision site Pain that you cannot control with the medicines you have been given Any new symptoms documented in this encounter [facility] Phone: 09-12-2020 Hospital Discharge instructions Tamra Guardado RN - 09/12/2020 Follow-up with your OB doctor as specified. [facility] phone: Dr. Greyson Gonzalez CNM Dr. Laura Rhoades CNM [address] [facility] [address] [facility] [address] Laura Oliver CNM [address] [facility] [address] [phone] Micky Colon, MSN, REVERSE ENGINEER, CNM [facility] [address] [facility] [address] [address] [facility] [id number] Chinyere Grande CNM [address] [place] [address] [place] [address] Carolin Esqueda CNM [address] [place] [address] [place] [address] [phone] DIET Eat a well balanced diet focusing on foods high in fiber and protein. Drink plenty of fluids especially water. To avoid constipation you may take a mild stool softener as recommended by your doctor or sample collector. ACTIVITY Gradually increase your activity. Resume exercise regimen only after advice by your doctor or sample collector. Avoid lifting anything heavier than a gallon of milk for SIX weeks. Avoid driving until your doctor or sample collector has given their approval. Rise slowly from a lying to sitting and then a standing position. Climb stairs one at a time. Use caution when carrying your baby up and down the stairs. NO SEXUAL Activity for 4-6 weeks or until advised by your doctor; Nothing in vagina: intercourse, tampons, or douching. Be prepared to discuss family planning at your follow-up OB visit. You may feel tired or have a lack of energy. You may continue your vitamin to replenish nutrients post delivery. Nap when baby naps to catch up on sleep. EMOTIONS You may feel sheffield, sad, teary, & overwhelmed. Contact your OB provider if you feel you may be showing signs of depression, or have thoughts of harming yourself or your infant. If will not stop crying, contact another adult for help or place in their crib on their back and take a break. NEVER shake your . BLEEDING Vaginal bleeding will decrease in amount over the next few weeks. You will notice that as your activity increases, your flow may increase. This is your body's way of telling you, you need to take things easier and rest more often. Call your care provider if you are saturating more than one maxi pad in an hour & resting does not help. BREAST CARE Take medications as recommended by your doctor or sample collector for pain If you develop a warm, red, tender area on your breast or develop a fever contact your OB provider. For moms: If you become engorged, feeding may be more difficult or painful for 1-2 days. You may find it helpful to hand express some milk so that the can latch on more easily. While , continue to take your vitamins as directed by your doctor or sample collector. Refer to the booklet in the folder/binder for more information. If you feel you need more assistance or have questions, please call Hossein Marrufo IBCLC, seo consultant, at or the OB department to schedule an appointment or phone consultation. For more FREE help, visit the Support Group on Wednesday evenings at 7 pm in the OB department. For NON- moms: You may apply ice packs to your breasts over your bra for twenty minutes at a time for comfort. Avoid stimulation to your breasts, when showering allow the water to strike your back not your breasts. Wear a good fitting bra until your milk dries, such as a sports bra. INCISIONAL CARE / MADI CARE If you have an acticoat dressing in place after your please leave your dressing in place for one week until you follow up with your provider. They will remove this dressing in the office when you see them. If you have a HALINA negative pressure wound dressing please leave the dressing in place for 7 days after delivery. Your health care provider will remove the dressing at your one week incisional check. You may shower with your HALINA dressing, however the HALINA pump should be disconnected and placed in a safe location where it will not get wet. To disconnect the pump from the dressing, press the orange button to pause the therapy, unscrew the two part connector, and place the pump somewhere safe. While disconnected, ensure the end of the tubing attached to the dressing is facing downward so that water does not enter the tubing. Then re-connect the pump after your shower is complete. If your dressing starts to peel up or becomes soiled prior to your appointment with your provider, you may remove the dressing and clean your incision as directed below. Clean your incision in the shower with mild soap. After shower pat the incision area dry and allow the area open to air. If used, Steri-strips should be completely removed by 2 weeks but you may remove them as they become loose or soiled. If used, Lewis should be removed by your care provider. If used/ordered, an abdominal binder may provide support for your incision. Use the madi-bottle after toileting until bleeding stops. Cleanse your perineum from front to back If used, stitches will dissolve in 4-6 weeks. You may use a sitz bath or soak in a clean tub as needed for comfort. Kegel exercises will help restore bladder control. SWELLING Try to keep your legs elevated when you are sitting. When lying down keep your legs elevated. When wearing stocking or socks, make sure they are not too tight. WHEN TO CALL THE DOCTOR If you have a temp of 100.6 or more. If your bleeding has increased and you are saturating a pad in an hour. Your abdomen is tender to touch. You are passing blood clots bigger than the size of a lemon. If you are experiencing extreme weakness or dizziness. If you are having flu-like symptoms such as achy muscles or joints. There is a foul smell or a green color to your vaginal bleeding. If you have pain that cannot be relieved. You have persistent burning or frequency with urination. Call if you have concerns about your well-being. You are unable to sleep, eat, or are having thoughts of harming yourself or your baby. You have swelling, bleeding, drainage, foul odor, redness, or warmth in/around your incision or stitches. You have a red, warm, tender area in your calf. documented in this encounter [facility] Phone: 09-12-2020 History of Present illness Narrative C/S Labor and Delivery Post Progress Note SUBJECTIVE: 2nd day postop primary scheduled for macrosomia Flatus:Present BM:no Diet: Tolerating regular diet Ambulation: Ambulateswithout difficulty OBJECTIVE: Vitals: BP 115/76 Pulse 61 Temp 98.4 F (36.9 C) Resp 18 Ht 5' 4 (1.626 m) Wt 203 lb (92.1 kg) SpO2 100% Unknown BMI 34.84 kg/m Patient Vitals for the past 24 hrs: BP Temp Pulse Resp 09/12/20 0733 115/76 61 18 09/12/20 0732 98.4 F (36.9 C) 16 09/12/20 0047 115/69 66 16 09/12/20 0046 98.1 F (36.7 C) 09/11/20 2054 123/77 98 F (36.7 C) 63 16 09/11/20 1613 118/75 98.3 F (36.8 C) 67 09/11/20 1200 121/64 57 09/11/20 1159 97.8 F (36.6 C) ABDOMEN: No scars, normal bowel sounds, soft, non-distended, non-tender, no masses palpated, no hepatosplenomegally INCISION: dressing in place, clean, dry and intact GENITAL/URINARY: External Genitalia: General appearance; normal, Hair distribution; normal, Lesions absent Cor: RRR no Murmurs Pulmonary: clear to auscultation anterior and posterior Extremities: no Clubbing cyanosis or ecchymosis DATA: CBC: Lab Results Component Value Date WBC 11.0 09/09/2020 RBC 4.25 09/09/2020 HGB 11.6 09/11/2020 HCT 39.8 09/09/2020 MCV 93.6 09/09/2020 MCH 31.8 09/09/2020 MCHC 33.9 09/09/2020 RDW 13.6 09/09/2020 PLT 166 09/09/2020 MPV 10.6 09/09/2020 ASSESSMENT: Active Problems: 40 weeks gestation of Plan: delivered delivery delivered S/P C/S post op day # 2 PLAN: D/c home, rto 1 and 6 weeks , routine instructions C/S Labor and Delivery Post Progress Note SUBJECTIVE: Resting in bed, warm rice sack to right shoulder and doing well. States the rice sack is helping and she has no c/o. States her pain is minimal. Flatus:Present BM:no Diet: Tolerating regular diet Ambulation: Ambulateswithout difficulty OBJECTIVE: Vitals: BP 117/73 Pulse (!) 49 Temp 97.8 F (36.6 C) Resp 16 Ht 5' 4 (1.626 m) Wt 203 lb (92.1 kg) SpO2 100% Unknown BMI 34.84 kg/m Patient Vitals for the past 24 hrs: BP Temp Pulse Resp SpO2 Height Weight 09/11/20 0740 117/73 (!) 49 09/11/20 0739 97.8 F (36.6 C) 16 09/11/20 0439 115/68 98 F (36.7 C) 50 16 09/11/20 0149 109/66 98.2 F (36.8 C) 53 09/10/20 1956 121/76 97.6 F (36.4 C) 59 18 09/10/20 1610 (!) 143/76 (!) 48 16 09/10/20 1608 100 % 09/10/20 1603 100 % 09/10/20 1558 100 % 09/10/20 1553 100 % 09/10/20 1548 137/75 (!) 47 14 100 % 09/10/20 1543 100 % 09/10/20 1538 100 % 09/10/20 1533 136/69 60 16 99 % 09/10/20 1528 100 % 09/10/20 1523 99 % 09/10/20 1518 99 % 09/10/20 1513 99 % 09/10/20 1508 99 % 09/10/20 1503 99 % 09/10/20 1458 98 % 09/10/20 1453 99 % 09/10/20 1448 129/80 57 14 98 % 09/10/20 1443 98 % 09/10/20 1438 97 % 09/10/20 1435 135/65 54 16 09/10/20 1433 135/65 54 16 97 % 09/10/20 1428 132/74 60 18 96 % 09/10/20 1423 136/69 57 16 96 % 09/10/20 1419 (!) 146/66 66 18 09/10/20 1418 97 % 09/10/20 1413 119/81 75 96 % 09/10/20 1406 115/71 97.4 F (36.3 C) 60 16 09/10/20 1210 5' 4 (1.626 m) 203 lb (92.1 kg) 09/10/20 1017 57 09/10/20 1016 122/76 97.6 F (36.4 C) (!) 45 16 ABDOMEN: No scars, normal bowel sounds, soft, non-distended, non-tender, no masses palpated, no hepatosplenomegally INCISION: dressing in place, clean, dry and intact GENITAL/URINARY: normal Cor: RRR no Murmurs Pulmonary: clear to auscultation anterior and posterior Extremities: no Clubbing cyanosis or ecchymosis DATA: 30 yo S/p primary section for macrosomia at term 1st day post op day, 1st day post ASSESSMENT: Active Problems: 40 weeks gestation of S/P C/S post op day # 1 PLAN: Continue routine post op orders Encourage ambulation Assist with as needed documented in this encounter [facility] Phone: Evaluation note Diagnosis Encounter for preadmission testing- Primary S/P primary low transverse delivery, without mention of indication, unspecified as to episode of care documented in this encounter [facility] Phone: evaluation note* Diagnosis delivery delivered- Primary delivery, without mention of indication, delivered, with or without mention of antepartum condition 40 weeks gestation of state, incidental documented in this encounter [facility] Phone: evaluation note* Diagnosis Pain following surgery or procedure- Primary Other acute postoperative pain documented in this encounter [facility] Phone: evaluation note* Diagnosis 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, nose, lip, and ear (HCC)- Primary Pain following surgery or procedure Other acute postoperative pain documented in this encounter [facility] Phone: evaluation note* Diagnosis Melanocytic nevus of trunk- Primary Benign neoplasm of skin of trunk, except scrotum Melanocytic nevi of face Lentigines History of malignant melanoma of skin Personal history of malignant melanoma of skin documented in this encounter [facility]* Diagnosis Encounter for supervision of other normal , second trimester- Primary History of section Other postprocedural status documented in this encounter [facility]* Diagnosis anomaly suspected but not found- Primary Suspected anomaly not found [facility] Diagnosis anomaly suspected but not found- Primary Suspected anomaly not found Pyelectasis Other specified disorder of kidney and ureter documented [facility] this encounter [facility]* Diagnosis Pyelectasis- Primary Other specified disorder of kidney and ureter anomaly suspected but not found Suspected anomaly not found [facility]* Diagnosis Pyelectasis Other specified disorder of kidney and ureter documented in this encounter [facility]* Diagnosis Encounter for supervision of other normal , third trimester- Primary Screening for diabetes mellitus Screening for iron deficiency anemia related condition in second trimester documented in this encounter [facility]* Diagnosis Encounter for supervision of other normal , second trimester- Primary History of section Other postprocedural status documented in this encounter [facility]* Diagnosis Encounter for supervision of other normal , third trimester- Primary Elevated glucose tolerance test Impaired glucose tolerance test History of section Other postprocedural status documented in this encounter [facility]* Diagnosis Encounter for supervision of other normal , second trimester- Primary History of section Other postprocedural status related condition in second trimester documented in this encounter [facility]* Diagnosis anomaly suspected but not found- Primary Suspected anomaly not found documented [facility]* Diagnosis Encounter for supervision of other normal , third trimester- Primary Elevated glucose tolerance test Impaired glucose tolerance test History of section Other postprocedural status History of gestational diabetes Personal history of other genital system and obstetric disorders documented in this encounter [facility] HealthcareInstructionsNot on filedocumented in this encounter[facility] SystemInstructionsNot on filedocumented in this encounterKind[facility] SystemInstructionsNot on filedocumented in this [facility] InstructionsNot on filedocumented in this [facility] InstructionsNot on filedocumented in this [facility] InstructionsNot on filedocumented in this [facility] InstructionsNot on filedocumented in this encounterKindred Healthcare SystemReason for visit Narrative* Auth/Cert Specialty Diagnoses / Procedures Referred By Bryanan suggs Referred To Contact Diagnoses Acoustic nerve lesion, right Acoustic nerve lesion, right LESION RIGHT NECK X1 LESION RIGHT CHEEK X 2 Procedures [place] OFFICE/OUTPT VISIT,PROCEDURE ONLY TN EXC SKIN BENIG <5MM FACE,FACIAL RIGHT CHEEK LESION X 2 AND RIGHT NECK LESION X [place] [address] [facility] [address] [id number] [phone] [place] [address] Referral ID Status Reason Start Date Expiration Date Visits Re quested Visits Authorized 1 1 [facility] Phone: reason for visit Narrative* Auth/Cert Specialty Diagnoses / Procedures Referred By Bryanna suggs Referred To Contact Diagnoses 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 Procedures [place] OFFICE/OUTPT VISIT,PROCEDURE ONLY TN EXC SKIN BENIG >4CM TRUNK,ARM,LEG RIGHT CHEEK WIDER RESECTION OF MELANOMA IN S[place]U [place] [address] [address] [phone] [phone] [place] [id number] Referral ID Status Reason Start Date Expiration Date Visits Re quested Visits Authorized [id number] 1 1 [facility] Phone: Summary Purpose Family History No Family History Records FoundNo Family History Records FoundNo Family History Records FoundNo Family History Records FoundNo Family History Records FoundNo Family History Records Found Advance Directives No Advanced Directives Records FoundLatest Code Status on File Code Status Date Activated Date Inactivated Comments Full Code 09/10/2020 2:17 PM Full Code 09/10/2020 10:03 AM 09/10/2020 2:16 PM Latest Code Status on File Code Status Date Activated Date Inactivated Comments Full Code 09/10/2020 2:17 PM 09/12/2020 5:25 PM Full Code 09/10/2020 10:03 AM 09/10/2020 2:16 PM Additional Source Comments INFORMATION SOURCE (unrecogn ized section and content) DATE CREATED AUTHOR 07/06/2018 [facility] DATE CREATED AUTHOR AUTHOR'S ORGANIZ ATION 09/13/2020 [facility] DATE CREATED AUTHOR AUTHOR'S ORGANIZ ATION 08/07/2021 [facility] DATE CREATED AUTHOR AUTHOR'S ORGANIZ ATION 01/27/2022 [facility] DATE CREATED AUTHOR AUTHOR'S ORGANIZ ATION 03/22/2024 [facility] DATE CREATED AUTHOR AUTHOR'S ORGANIZ ATION 03/24/2024 [facility] dical Specialists EPIC Reason for Visit (unrecogniz ed section and content) Reason Comments Scheduled Status Reason Specialty Diagnoses / Procedures Referre d By Contact Referred To Contact Diagnoses 40 weeks gestation of macrosomia Procedures [place] DELIVERY ONLY SECTION Breana Ledbetter, DO [address] [place] [address] [facility] Reason Comments Skin Check Suspicious Skin Lesion Reason Comments 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 28 tablet 0 09/12/2020 09/19/2020 Prescription Sig Dispensed Refills Start Date End Da te HYDROcodone-acetaminoph en (NORCO) 5-325 MG per tabletIndications:Pain following surgery or procedure Take 1 tablet by mouth every 6 hours as needed for Pain for up to 5 days. Intended supply: 5 days. Take lowest dose possible to manage pain 20 tablet 0 07/08/2021 07/13/2021 cephALEXin (KEFLEX) 500 MG capsule Take 1 capsule by mouth 3 times daily for 7 days 21 capsule 0 07/08/2021 07/15/2021 Prescription Sig Dispensed Refills Start Date End Da te HYDROcodone-acetaminoph en (NORCO) 5-325 MG per tabletIndications:Melan rahul in situ of face excluding eyelid, nose, lip, and ear (HCC),Pain following surgery or procedure Take 1 tablet by mouth every 6 hours as needed for Pain for up to 7 days. Intended supply: 5 days. Take lowest dose possible to manage pain 28 tablet 0 08/04/2021 08/11/2021 cephALEXin (KEFLEX) 500 MG capsule Take 1 capsule by mouth 3 times daily for 7 days 21 capsule 0 08/04/2021 08/11/2021 Scheduled Active and Recently Administ ered Medications (unrecognized section and content) Medication Order 09/10/2020 09/11/2020 09/12/2020 cefOXitin (MEFOXIN) 2000 mg in dextrose 5% 50 mL (mini-bag) (COMPLETED) 2,000 mg, Intravenous, ARTIST'S MANAGER TO O.R., 1 dose, On Wed09/10/20 at 1030, Administer within 1 hour of incision., Labor and Delivery 1224 (New Bag - Provider: Tamra Guardado, JOÃO)1254 (Due: Stopped - Provider: Tamra Guardado, JOÃO) citric acid-sodium citrate (BICITRA) solution 30 mL (COMPLETED) 30 mL, Oral, ONCE, On Wed09/10/20 at 1030, For 1 dose, Give prior to epidural placement., Labor and Delivery 1210 (Given - Provider: Tamra Guardado, RN) docusate sodium (COLACE) capsule 100 mg 100 mg, Oral, 2 TIMES DAILY, First dose on Wed09/10/20 at 1445, Do not crush or break., 1620 (Not Given - Provider: Tamra Guardado RN - Reason: Patient/family refused)195 (Given - Provider: Vivian Padgett RN) 0916 (Given - Provider: Tamra Guardado, JOÃO)2054 (Given - Provider: Sofie Prajapati, JOÃO) 0946 (Given - Provider: Tamra Guardado, JOÃO)2100 (Due) enoxaparin (LOVENOX) injection 40 mg 40 mg, Subcutaneous, EVERY 24 HOURS, First dose on Wed09/11/20 at 0115, 0151 (Given - Provider: Vivian Padgett RN) 0048 (Given - Provider: Sofie Prajapati, RN) famotidine (PEPCID) injection 20 mg (COMPLETED) 20 mg, Intravenous, ONCE, On Wed09/10/20 at 1030, For 1 dose, Give 60 minutes before surgery., Labor and Delivery 1210 (Given - Provider: Tamra Guardado, JOÃO) ibuprofen (ADVIL;MOTRIN) tablet 800 mg 800 mg, Oral, EVERY 8 HOURS, First dose on Wed09/11/20 at 2000, Do not start till 6 hours after last dose of toradol. Do not crush or break., Post-op 2053 (Given - Provider: Sofie Prajapati, JOÃO) 0756 (Given - Provider: Tamra Guardado, JOÃO)1200 (Due)2000 (Due) ketorolac (TORADOL) injection 30 mg (COMPLETED) 30 mg, Intravenous, EVERY 6 HOURS, First dose on Wed09/10/20 at 2000, For 4 doses, Do not administer for more than 5 days., 1950 (Given - Provider: Vivian Padgett RN) 0151 (Given - Provider: Vivian Padgett, JOÃO)0802 (Given - Provider: Tamra Guardado, JOÃO)1356 (Given - Provider: Tamra Guardado, JOÃO) lactated ringers infusion 1,000 mL (COMPLETED) 1,000 mL, Intravenous, at 1,000 mL/hr, ONCE, On Wed09/10/20 at 1030, For 1 dose, Labor and Delivery. Administer bolus one hour prior to surgery., Labor and Delivery (Signed and Held) 1049 (New Bag - Provider: Tamra Guardado RN) metoclopramide (REGLAN) injection 10 mg (COMPLETED) 10 mg, Intravenous, ONCE, On Wed09/10/20 at 1030, For 1 dose, Give 60 minutes before surgery., Labor and Delivery 1210 (Given - Provider: Tamra Guardado RN) vitamin 27-1 MG tablet 1 tablet 1 tablet, Oral, DAILY, First dose on Wed09/10/20 at 1445, Begin when normal bowel activity resumes., 1620 (Not Given - Provider: Tamra Guardado RN - Reason: Patient/family refused) 0916 (Given - Provider: Tamra Guardado, JOÃO) 0944 (Given - Provider: Tamra Guardado RN) sodium chloride flush 0.9 % injection 10 mL 10 mL, Intravenous, EVERY 12 HOURS SCHEDULED (2 times per day), First dose on Wed09/10/20 at 2100, 2100 (Due) 0900 (Due)2100 (Due) 0900 (Due)2100 (Due) Eyuwsda-Czwpiv-Fctwm Pertussis (BOOSTRIX) injection 0.5 mL 0.5 mL, Intramuscular, PRIOR TO DISCHARGE, Starting on Wed09/10/20 at 1416, For 1 dose, If not previously administered during at 27-36 weeks as recommended by CDC., Continuous Medication Order 09/10/2020 09/11/2020 09/12/2020 lactated ringers infusion (CANCELED) Intravenous, at 125 mL/hr, CONTINUOUS, Starting on Wed09/10/20 at 1030, Labor and Delivery (Signed and Held) 1208 (New Bag - Provider: Tamra Guardado RN)1251 (Paused - Provider: Rhoda Rhoades APRN - KAYLA - Comment: Switch to gravity)1252 (Restarted - Provider: BARTOLO Lange CRNA)1405 (Anesthesia Volume Adjustment - Provider: BARTOLO Lange CRNA) lactated ringers infusion Intravenous, at 125 mL/hr, CONTINUOUS, Starting on Wed09/10/20 at 1445, 1901 (New Bag - Provider: Tamra Guardado RN) 0201 (New Bag - Provider: Vivian Padgett RN) PRN Medication Order 09/10/2020 09/11/2020 09/12/2020 0.9 % sodium chloride infusion 25 mL, Intravenous, at 100 mL/hr, PRN, If patient receiving piggyback infusions without ordered maintenance IV fluids or with frequent/long duration piggyback infusions, Starting on Wed09/10/20 at 1416, Administer at the same rate as the piggyback being infused., acetaminophen (TYLENOL) tablet 650 mg 650 mg, Oral, EVERY 4 HOURS PRN, Pain Mild (1-3), Fever, Fever >100.5 F (38 C) or incisional pain, Starting on Wed09/10/20 at 1416, Maximum dose of acetaminophen is 4000 mg from all sources in 24 hours., Post-op carboprost (HEMABATE) injection 250 mcg 250 mcg, Intramuscular, PRN, bleeding, Starting on Wed09/10/20 at 1416, May repeat every 15 minutes up to a cumulative maximum dose of 1000 mcg, at physician's request., Post-op diphenhydrAMINE (BENADRYL) injection 25 mg 25 mg, Intravenous, EVERY 6 HOURS PRN, Itching, Hives, Starting on Wed09/10/20 at 1416, lansinoh lanolin ointment Topical, EVERY 1 HOUR PRN, Dry Skin, nipple discomfort, Starting on Wed09/10/20 at 1416, Post-op measles, mumps & rubella vaccine (MMR) injection 0.5 mL 0.5 mL, Subcutaneous, PRN, if non immune or equivical, Starting on Wed09/10/20 at 1416, For 1 dose, methylergonovine (METHERGINE) injection 200 mcg 200 mcg, Intramuscular, PRN, Bleeding, Starting on Wed09/10/20 at 1416, PRN for post- hemorrhage, if not hypertensive., miSOPROStol (CYTOTEC) tablet 800 mcg 800 mcg, Rectal, PRN, Post- Hemorrhage, Starting on Wed09/10/20 at 1416, For 1 dose, Notify Physician prior to administration., Post-op nalbuphine (NUBAIN) injection 10 mg 10 mg, Intravenous, EVERY 4 HOURS PRN, for itching, Starting on Wed09/10/20 at 1416, Post-op naloxone (NARCAN) injection 0.4 mg 0.4 mg, Intravenous, PRN, Opioid Reversal, Starting on Wed09/10/20 at 1416, Post-op ondansetron (ZOFRAN) injection 4 mg 4 mg, Intravenous, EVERY 6 HOURS PRN, Nausea, nausea, Starting on Wed09/10/20 at 1416, oxyCODONE-acetaminophen (PERCOCET) 5-325 MG per tablet 1 tablet(Linked Group 1) 1 tablet, Oral, EVERY 4 HOURS PRN, Pain Moderate (4-6), Starting on Wed09/10/20 at 1416, Maximum dose of acetaminophen is 4000 mg from all sources in 24 hours., oxyCODONE-acetaminophen (PERCOCET) 5-325 MG per tablet 2 tablet(Linked Group 1) 2 tablet, Oral, EVERY 4 HOURS PRN, Pain Severe (7-10), Starting on Wed09/10/20 at 1416, Maximum dose of acetaminophen is 4000 mg from all sources in 24 hours., oxytocin (PITOCIN) 10 unit bolus from the bag 166.7 mL (rounded from 166.6667 mL = 10 Units), Intravenous, at 909 mL/hr, Administer over 11 Minutes, PRN, Bleeding, Starting on Wed09/10/20 at 1002, For 1 dose, Post- use ONLY after delivery of baby/ excessive bleeding/ uterine atony. Bolus for bag to infuse at 909 ml/hour for 11 minutes (10 units in 167ml). oxytocin (PITOCIN) 30 Units in sodium chloride 0.9 % 500 mL infusion 87.3 jose-units/min (87.3 mL/hr), Intravenous, at 87.3 mL/hr, CONTINUOUS PRN, Bleeding, Starting on Wed09/10/20 at 1002, For 48 hours, Post- use ONLY after delivery of baby/ excessive bleeding/ uterine atony. Following Bolus from bag administration, reduce the rate to 87.3 mL/hr and administer remaining 20 units over 229 minutes to complete the infusion of 30 units in 500 mL. Do NOT administer more than 1 bag of pitocin without a new order from the physician. 1319 (New Bag - Provider: Rhoda Rhoades APRN - KAYLA)1321 (Rate/Dose Change - Provider: Rhdoa M Rhoades, REVERSE ENGINEER - WOMEN'S HEALTH CARE NURSE PRACTITIONER)1407 (Rate/Dose Change - Provider: Rhoda Rhoades APRN - WOMEN'S HEALTH CARE NURSE PRACTITIONER) sennosides-docusate sodium (SENOKOT-S) 8.6-50 MG tablet 1 tablet 1 tablet, Oral, DAILY PRN, Constipation, Starting on Wed09/10/20 at 1416, simethicone (MYLICON) chewable tablet 80 mg 80 mg, Oral, EVERY 6 HOURS PRN, Cramping, Flatulence, Starting on Wed09/10/20 at 1416, 0600 (Given - Provider: Vivian Padgett, RN)1355 (Given - Provider: Tamra Guardado, JOÃO) 0756 (Given - Provider: Tamra Guardado, JOÃO) sodium chloride flush 0.9 % injection 10 mL 10 mL, Intravenous, PRN, Line Care, Starting on Wed09/10/20 at 1416, After every IV line use, Linked Groups Order Group 1: oxyCODONE-acetaminophen (PERCOCET) 5-325 MG per tablet 1 tabletJump to med 1 tablet, Oral, EVERY 4 HOURS PRN, Pain Moderate (4-6), Starting on Wed09/10/20 at 1416
Maximum dose of acetaminophen is 4000 mg from all sources in 24 hours.
Or oxyCODONE-acetaminophen (PERCOCET) 5-325 MG per tablet 2 tabletJump to med 2 tablet, Oral, EVERY 4 HOURS PRN, Pain Severe (7-10), Starting on Wed09/10/20 at 1416
Maximum dose of acetaminophen is 4000 mg from all sources in 24 hours.
PRN Medication Order 07/06/2021 07/07/2021 07/08/2021 bupivacaine-EPINEPHrine PF (MARCAINE-w/EPINEPHrine) 0.25% -1:864633 injection (CANCELED) PRN, Starting on Wed07/08/21 at 0742, Until Wed07/08/21 at 0827, Intra-op 0741 (Given - Provid er: Surendra Marsh MD - Comment: OPERATIVE SITE INJECTED PRIOR TO INCISION) No Frequency Medication Order 07/06/2021 07/07/2021 07/08/2021 bupivacaine-EPINEPHrine (MARCAINE-w/EPINEPHRINE) 0.25% -1:499990 injection 1 dose, Starting on Wed07/08/21 at 0655, Until Wed07/08/21 at 1859, Leeanna Geller: cabinet override, Leeanna Geller: cabinet override 0700 (Due) Scheduled Medication Order 08/02/2021 08/03/2021 08/04/2021 meperidine (DEMEROL) injection 12.5 mg 12.5 mg, IntraVENous, ONCE, 1 dose, On Wed08/04/21 at 1230, May give every 5 minutes to max of 50mg., PACU only 1230 (Due) sodium chloride flush 0.9 % injection 5-40 mL 5-40 mL, IntraVENous, EVERY 12 HOURS SCHEDULED (2 times per day), First dose on Wed08/04/21 at 2100, Until Discontinued, For Line Patency: Peripheral IV = 5 mL; Midline or Central Line = 10 mL/lumen. If following IV push medication, administer flush at same rate as the IV push. Flush volume is determined by type of infusion therapy being given. For non-viscous solutions use: Peripheral IV = 5 mL Midline or Central Line = 10 mL/lumen For viscous solutions (i.e. blood components, parenteral nutrition, contrast media, or after obtaining blood sample) use: Peripheral IV = 10 mL Midline or Central Line = 20 mL/lumen, PACU only 2100 (Due) PRN Medication Order 08/02/2021 08/03/2021 08/04/2021 0.9 % sodium chloride infusion 25 mL, IntraVENous, at 100 mL/hr, PRN, If patient receiving piggyback infusions without ordered maintenance IV fluids or with frequent/long duration piggyback infusions, Starting on Wed08/04/21 at 1213, Administer at the same rate as the piggyback being infused., PACU only bupivacaine-EPINEPHrine PF (MARCAINE-w/EPINEPHrine) 0.25% -1:669056 injection (CANCELED) PRN, Starting on Wed08/04/21 at 1149, Until Wed08/04/21 at 1217, Intra-op 1149 (Given - Provid er: Surendra Marsh MD - Comment: OPSITE) diphenhydrAMINE (BENADRYL) injection 12.5 mg 12.5 mg, IntraVENous, ONCE PRN, 1 dose, Starting on Wed08/04/21 at 1213, Until Wed08/04/21 at 2359, Itching, PACU only HYDROmorphone (DILAUDID) injection 0.5 mg HYDROmorphone (DILAUDID) 1.5mg IV is equivalent to morphine 10mg IV, 0.5 mg, IntraVENous, EVERY 5 MIN PRN, 4 doses, Starting on Wed08/04/21 at 1213, Until Discontinued, Pain Severe (7-10), Phase I - Initial therapy for severe pain., PACU only morphine (PF) injection 1 mg 1 mg, IntraVENous, EVERY 5 MIN PRN, 4 doses, Starting on Wed08/04/21 at 1213, Until Discontinued, Pain Moderate (4-6), Phase I - Initial therapy for moderate pain., PACU only ondansetron (ZOFRAN) injection 4 mg 4 mg, IntraVENous, ONCE PRN, 1 dose, Starting on Wed08/04/21 at 1213, Until Wed08/04/21 at 2359, Nausea, Initial antiemetic therapy., PACU only sodium chloride flush 0.9 % injection 5-40 mL 5-40 mL, IntraVENous, PRN, Starting on Wed08/04/21 at 1213, Until Discontinued, Line Care, After every IV line use, For Line Patency: Peripheral IV = 5 mL; Midline or Central Line = 10 mL/lumen. If following IV push medication, administer flush at same rate as the IV push. Flush volume is determined by type of infusion therapy being given. For non-viscous solutions use: Peripheral IV = 5 mL Midline or Central Line = 10 mL/lumen For viscous solutions (i.e. blood components, parenteral nutrition, contrast media, or after obtaining blood sample) use: Peripheral IV = 10 mL Midline or Central Line = 20 mL/lumen, PACU only No Frequency Medication Order 08/02/2021 08/03/2021 08/04/2021 ceFAZolin (ANCEF) IVPB Starting on Wed08/04/21 at 1015, For 1 dose, Rita Dior: cabinet override 1030 (Due) Care Teams (unrecognized sec tion and content) Creative Guru Relationship Specialty Start Date End Date Chelsey Bray MD [address] [place] [address] PCP - General Family Medicine 09/10/20 Creative Guru Relationship Specialty Start Date End Date Chelsey Bray MD [address] [place] [address] PCP - General Family Medicine 09/10/20 Creative Guru Relationship Specialty Start Date End Date Chelsey Bray MD [address] [place] [address] PCP - General Family Medicine 08/20/22 Veronique Neely NP [address] [place] [address] Nurse Practitioner Family Medicine 08/20/22 Cathy Colon CNM [address] [place] [address] Obstetrics and Gynecology 08/20/22 Creative Guru Relationship Specialty Start Date End Date Chelsey Bray MD [address] [place] [address] PCP - General Family Medicine 08/20/22 Veronique Neely NP [address] [place] [address] Nurse Practitioner Family Medicine 08/20/22 Cathy Colon CNM [address] [place] [address] Obstetrics and Gynecology 08/20/22 Creative Guru Relationship Specialty Start Date End Date Chelsey Bray MD [address] [place] [address] PCP - General Family Medicine 08/20/22 Veronique Neely NP [address] [place] [address] Nurse Practitioner Family Medicine 08/20/22 Cathy Colon CNM [address] [place] [address] Obstetrics and Gynecology 08/20/22 Creative Guru Relationship Specialty Start Date End Date Chelsey Bray MD [address] [place] [address] PCP - General Family Medicine 08/20/22 Veronique Neely NP [address] [place] [address] Nurse Practitioner Family Medicine 08/20/22 Cathy Colon CNM [address] [place] [address] Obstetrics and Gynecology 08/20/22 Creative Guru Relationship Specialty Start Date End Date Chelsey Bray MD [address] [place] [address] PCP - General Family Medicine 08/20/22 Veronique Neely NP [address] [place] [address] Nurse Practitioner Family Medicine 08/20/22 Cathy Colon CNM [address] [place] [address] Obstetrics and Gynecology 08/20/22 Creative Guru Relationship Specialty Start Date End Date Chelsey Bray MD [address] [place] [address] PCP - General 01/24/24 Creative Guru Relationship Specialty Start Date End Date WonderChelsey champagne MD [address] [place] [address] PCP - General 01/24/24 Creative Guru Relationship Specialty Start Date End Date WonderChelsey champagne MD [address] [place] [address] PCP - General 01/24/24 Creative Guru Relationship Specialty Start Date End Date WonderhCelsey champagne MD [address] [place] [address] PCP - General 01/24/24 Creative Guru Relationship Specialty Start Date End Date WonderChelsey champagne MD [address] [place] [address] PCP - General Family Medicine 08/20/22 Veronique Neely NP [address] [place] [address] Nurse Practitioner Family Medicine 08/20/22 Cathy Colon CNM [address] [place] [address] Obstetrics and Gynecology 08/20/22 Creative Guru Relationship Specialty Start Date End Date Chelsey Bray MD [address] [place] [address] PCP - General Family Medicine 08/20/22 Veronique Neely CASINO FLOORPERSON [address] [place] [address] Nurse Practitioner Family Medicine 08/20/22 Cathy Colon CNM [address] [place] [address] Obstetrics and Gynecology 08/20/22 Creative Guru Relationship Specialty Start Date End Date Chelsey Bray MD [address] [place] [address] PCP - General Family Medicine 08/20/22 Veronique Neely [employer]INO FLO[employer]PERSON [address] [place] [address] Nurse Practitioner Family Medicine 08/20/22 Cathy Colon CNM [address] [place] [address] Obstetrics and Gynecology 08/20/22 Creative Guru Relationship Specialty Start Date End Date Chelsey Bray MD [address] [place] [address] PCP - General Family Medicine 08/20/22 Veronique Neely [employer]INO FLO[employer]ERSON [address] [place] [address] Nurse Practitioner Family Medicine 08/20/22 Cathy Colon CNM [address] [place] [address] Obstetrics and Gynecology 08/20/22 Creative Guru Relationship Specialty Start Date End Date Chelsey Bray MD [address] [place] [address] PCP - General Family Medicine 08/20/22 Veronique Neely [employer]INO FLO[employer]PERSON [address] [place] [address] Nurse Practitioner Family Medicine 08/20/22 Cathy Colon CNM [address] [place] [address] Obstetrics and Gynecology 08/20/22 Creative Guru Relationship Specialty Start Date End Date Chelsey Bray MD [address] [place] [address] PCP - General 01/24/24 Creative Guru Relationship Specialty Start Date End Date Chelsey Bray MD [address] [place] [address] PCP - General Family Medicine 08/20/22 Veronique Neely NP [address] [place] [address] Nurse Practitioner Family Medicine 08/20/22 Cathy Colon CNM [address] [place] [address] Obstetrics and Gynecology 08/20/22 Creative Guru Relationship Specialty Start Date End Date Chelsey Bray MD [address] [place] [address] PCP - General Family Medicine 08/20/22 Veronique Neely NP [address] [place] [address] Nurse Practitioner Family Medicine 08/20/22 Cathy Colon CNM [address] [place] [address] Obstetrics and Gynecology 08/20/22 FOR RECORDS PERTAINING TO PATIENTS WHO ARE OR HAVE BEEN ENROLLED IN A CHEMICAL DEPENDENCY/SUBSTANCEABUSE PROGRAM, SOME INFORMATION MAY BE OMITTED. This clinical summary was aggregated from multiple sources. Caution should be exercised in using it in the provision of clinical care. This summary normalizes information from multiple sources, and as a consequence, information in this document may materially change the coding, format and clinical context of patient data. In addition, data may be omitted in some cases. CLINICAL DECISIONS SHOULD BE BASED ON THE PRIMARY CLINICAL RECORDS. [facility] [employer] [facility]. provides no warranty or guarantee of the accuracy or completeness of information in this document.
--- NOTE | 2024-03-31 19:00 | US_ITS ---
[address] [address] Patient Name: VAN VALERA MRN: [id number] date: 1990 Sex: F Assigned Patient Location: [facility] Current Patient Location: Accession/Order Number: [id number] Exam Date: 03/31/2024 19:02 Report Date: 04/01/2024 09:27 At the request of: CATHY PALMA Procedure: US OB BPP wo non-stress EXAMINATION: US OB BPP wo non-stress HISTORY:HISTORY OF GESTATIONAL DIABETES Z86.32 COMPARISON: Ultrasound OB growth 03/06/2024 TECHNIQUE: Ultrasound biophysical profile was performed in the radiology department. BREATHING MOVEMENTS: 2 GROSS BODY MOVEMENTS: 2 TONE: 2 QUALITATIVE AMNIOTIC FLUID VOLUME: 2 PRESENTATION: CEPHALIC HEART RATE: 139.18 bpm AMNIOTIC FLUID VOLUME: 9.67 cm GESTATIONAL AGE: 33 weeks 5 days US/US OB BPP wo non-stress IMPRESSION: Total biophysical profile score: 8 Electronically authenticated by: KISHOR MEANS Date: 04/01/2024 09:27
== END 2024-03-31 00:32 | disposition home or self-care (01) ==
PROVIDERS: PCP Family Medicine; Visit Provider Midwife
DX: Z86.32 Personal history of gestational diabetes (principal); Z3A.33 33 weeks gestation of pregnancy
CPT/HCPCS: 76819

== ENCOUNTER 2024-04-07 13:06 | Outpatient (OUT) | payer OTHER, SELFPAY ==
--- NOTE | 2024-04-07 | US_ITS ---
[address] [address] Patient Name: VAN VALERA MRN: [id number] date: 1990 Sex: F Assigned Patient Location: US Current Patient Location: US Accession/Order Number: [id number] Exam Date: 04/07/2024 13:20 Report Date: 04/07/2024 13:58 At the request of: DIANE JENSEN Procedure: US OB growth EXAMINATION: US OB growth HISTORY: History of gestational diabetes Z86.32 COMPARISON: ULTRASOUND OB GROWTH 03/06/2024 FINDINGS: Heart Rate: 149.17 bpm Amniotic Fluid Volume: 11.7 cm; normal range Number: 1 Position: CEPHALIC BIOMETRY: BPD: 8.48 cm; 34 weeks 1 day; 34.60 % HC: 32.23 cm; 36 weeks 3 days; 58.70 % AC: 29.36 cm; 33 weeks 2 days; 18.60 % FL: 6.92 cm; 35 weeks 4 days; 63.70 % EFW: 2413.52 g; 35.50 % FL/AC: 23.57 FL/BPD: 81.59 HC/AC: 1.10 GESTATIONAL AGE: Age by EDC: 34 weeks 5 days REID by EDC: 2024-05-14 Age by US: 34 weeks 6 days REID by US: 2024-05-13 US/US OB growth IMPRESSION: 1. Single live intrauterine with growth detailed above. Electronically authenticated by: KISHOR MEANS Date: 04/07/2024 13:58
--- NOTE | 2024-04-07 13:18 | US_ITS ---
[address] [address] Patient Name: VAN VALERA MRN: [id number] date: 1990 Sex: F Assigned Patient Location: US Current Patient Location: US Accession/Order Number: [id number] Exam Date: 04/07/2024 13:20 Report Date: 04/07/2024 13:57 At the request of: CATHY PALMA Procedure: US OB BPP wo non-stress EXAMINATION: US OB BPP wo non-stress HISTORY:Gestational Diabetes COMPARISON: Ultrasound OB biophysical 03/31/2024 TECHNIQUE: Ultrasound biophysical profile was performed in the radiology department. BREATHING MOVEMENTS: 2 GROSS BODY MOVEMENTS: 2 TONE: 2 QUALITATIVE AMNIOTIC FLUID VOLUME: 2 PRESENTATION: CEPHALIC HEART RATE: 149.17 bpm AMNIOTIC FLUID VOLUME: 11.70 cm GESTATIONAL AGE: 34 weeks 5 days US/US OB BPP wo non-stress IMPRESSION: Total biophysical profile score: 8 Electronically authenticated by: KISHOR MEANS Date: 04/07/2024 13:57
== END 2024-04-07 13:07 | disposition home or self-care (01) ==
LOC: US 13:08
PROVIDERS: PCP Family Medicine; Visit Provider Nurse Practitioner Family
DX: O26.893 Other specified pregnancy related conditions, third trimester (principal); Z86.32 Personal history of gestational diabetes; Z3A.34 34 weeks gestation of pregnancy
CPT/HCPCS: 76816; 76819

== ENCOUNTER 2024-04-14 14:00 | Outpatient (OUT) | payer OTHER, SELFPAY ==
--- OUTSIDE RECORDS SUMMARY | 2024-04-21 01:11 | XMS_ITS | CCD ---
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 110 mm[Hg] Cathy Floro CNM Work Phone: [facility] 03-20-2024 08:41-0500 Body mass index (BMI) [Ratio] 32.58 kg/m2 Tang Bonilla MD Work Phone: [facility] 03-20-2024 08:41-0500 Body weight 86.09 kg aTng Bonilla MD Work Phone: [facility] 03-20-2024 08:41-0500 Diastolic blood pressure 64 mm[Hg] Tang Bonilla MD Work Phone: [facility] 03-20-2024 08:41-0500 Heart rate 93 /min Tang Bonilla MD Work Phone: [facility] 03-20-2024 08:41-0500 Systolic blood pressure 112 mm[Hg] Tang Bonilla MD Work Phone: [facility] 03-08-2024 08:34-0500 Body mass index (BMI) [Ratio] 32.27 kg/m2 Cathy Floro CNM Work Phone: [facility] 03-08-2024 08:34-0500 Body weight 85.28 kg Cathy Floro CNM Work Phone: [facility] 03-08-2024 08:34-0500 Diastolic blood pressure 80 mm[Hg] Cathy Floro CNM Work Phone: [facility] 03-08-2024 08:34-0500 Systolic blood pressure 120 mm[Hg] Cathy Floro CNM Work Phone: [facility] 02-09-2024 08:33-0500 Body mass index (BMI) [Ratio] 32.1 kg/m2 Cathy Floro CNM Work Phone: [facility] 02-09-2024 08:33-0500 Body weight 84.82 kg Cathy Floro CNM Work Phone: [facility] 02-09-2024 08:33-0500 Diastolic blood pressure 74 mm[Hg] Cathy Floro CNM Work Phone: [facility] 02-09-2024 08:33-0500 Systolic blood pressure 120 mm[Hg] Cathy Floro CNM Work Phone: [facility] 01-25-2024 08:45-0500 Body height 162.6 cm Tang Bonilla MD Work Phone: [facility] 01-25-2024 08:45-0500 Body mass index (BMI) [Ratio] 31.51 kg/m2 Tang Bonilla MD Work Phone: [facility] 01-25-2024 08:45-0500 Body weight 83.28 kg Tang Bonilla MD Work Phone: [facility] 01-25-2024 08:45-0500 Diastolic blood pressure 71 mm[Hg] Tang Bonilla MD Work Phone: [facility] 01-25-2024 08:45-0500 Heart rate 81 /min Tang Bonilla MD Work Phone: [facility] 01-25-2024 08:45-0500 Systolic blood pressure 112 mm[Hg] Tang Bonilla MD Work Phone: [facility] 01-11-2024 08:47-0400 Body mass index (BMI) [Ratio] 30.9 kg/m2 Cathy Floro CNM Work Phone: [facility] 01-11-2024 08:47-0400 Body weight 81.65 kg Cathy Floro CNM Work Phone: [facility] 01-11-2024 08:47-0400 Diastolic blood pressure 70 mm[Hg] Cathy Floro CNM Work Phone: [facility] 01-11-2024 08:47-0400 Systolic blood pressure 110 mm[Hg] Cathy Floro CNM Work Phone: [facility] 12-15-2023 11:27-0400 Body mass index (BMI) [Ratio] 30.04 kg/m2 Cathy Floro CNM Work Phone: [facility] 12-15-2023 11:27-0400 Body weight 79.38 kg Cathy Floro CNM Work Phone: [facility] 12-15-2023 11:27-0400 Diastolic blood pressure 70 mm[Hg] Cathy Floro CNM Work Phone: [facility] 12-15-2023 11:27-0400 Systolic blood pressure 116 mm[Hg] Cathy Floro CNM Work Phone: [facility] 11-10-2023 08:31-0400 Body mass index (BMI) [Ratio] 29.52 kg/m2 Cathy LEM Work Phone: [facility] 11-10-2023 08:31-0400 Body weight 78.02 kg Cathy LEM Work Phone: [facility] 11-10-2023 08:31-0400 Diastolic blood pressure 64 mm[Hg] Cathy LEM Work Phone: [facility] 11-10-2023 08:31-0400 Systolic blood pressure 100 mm[Hg] Cathy LE Work Phone: [facility] 08-04-2021 13:00-0400 Heart rate 49 /min NA Maximo WATKINS Work Phone: [facility] 08-04-2021 13:00-0400 Respiratory rate 21 /min NA Maximo WATKINS Work Phone: [facility] 08-04-2021 13:00-0400 SaO2% (BldA) [Mass fraction] 100 % NA Maximo WATKINS Work Phone: [facility] 08-04-2021 12:45-0400 Diastolic blood pressure 77 mm[Hg] MARIUM Michael MD Work Phone: [facility] 08-04-2021 12:45-0400 Systolic blood pressure 109 mm[Hg] MARIUM Michael MD Work Phone: [facility] 08-04-2021 12:18-0400 Body temperature 96.8 [degF] MARIUM Michael MD Work Phone: [facility] 08-04-2021 09:48-0400 Body height 162.6 cm MARIUM Michael MD Work Phone: [facility] 08-04-2021 09:48-0400 Body mass index (BMI) [Ratio] 31.24 kg/m2 MARIUM Michael MD Work Phone: [facility] 08-04-2021 09:48-0400 Body weight 82.56 kg MARIUM Michael MD Work Phone: [facility] 07-08-2021 08:14-0400 Respiratory rate 0 /min MARIUM Michael MD Work Phone: [facility] 07-08-2021 08:10-0400 Body temperature 97.81 [degF] MARIUM Michael MD Work Phone: [facility] 07-08-2021 08:10-0400 Diastolic blood pressure 69 mm[Hg] MARIUM Michael MD Work Phone: [facility] 07-08-2021 08:10-0400 Heart rate 54 /min MARIUM Michael MD Work Phone: [facility] 07-08-2021 08:10-0400 SaO2% (BldA) [Mass fraction] 100 % MARIUM Michael MD Work Phone: [facility] 07-08-2021 08:10-0400 Systolic blood pressure 107 mm[Hg] MARIUM Michael MD Work Phone: [facility] 07-08-2021 07:01-0400 Body height 162.6 cm MARIUM Michael MD Work Phone: [facility] 07-08-2021 07:01-0400 Body mass index (BMI) [Ratio] 31.41 kg/m2 MARIUM Michael MD Work Phone: [facility] 07-08-2021 07:01-0400 Body weight 83.01 kg MARIUM Michael MD Work Phone: [facility] 09-12-2020 07:33-0400 Diastolic blood pressure 76 mm[Hg] Breana Millery Mondragon DO Work Phone: [facility] Work Phone: 09-12-2020 07:33-0400 Heart rate 61 /min Breana Millery Mondragon DO Work Phone: [facility] Work Phone: 09-12-2020 07:33-0400 Respiratory rate 18 /min Breana Hastingsg DO Work Phone: [facility] Work Phone: 09-12-2020 07:33-0400 Systolic blood pressure 115 mm[Hg] Breana Hastingsg DO Work Phone: [facility] Work Phone: 09-12-2020 07:32-0400 Body temperature 98.4 [degF] Breana Peraza Mondragon DO Work Phone: [facility] Work Phone: 09-10-2020 16:08-0400 SaO2% (BldA) [Mass fraction] 100 % Breana Peraza Mondragon DO Work Phone: [facility] Work Phone: 09-10-2020 12:10-0400 Body height 162.6 cm Breana Peraza Mondragon DO Work Phone: [facility] Work Phone: 09-10-2020 12:10-0400 Body mass index (BMI) [Ratio] 34.84 kg/m2 Breana Peraza Mondragon DO Work Phone: [facility] Work Phone: 09-10-2020 12:10-0400 Body weight 92.08 kg Breana Peraza Mondragon DO Work Phone: [facility] Work Phone: Encounters Encounter Date Encounter Type Care Provider Facility Start: 04-18-2024 End: 04-18-2024 [employer] Cathy L Floro CN Work Phone: [facility] Start: 04-18-2024 End: 04-18-2024 [employer] Cathy L Floro CN Work Phone: [facility] Start: 04-18-2024 End: 04-18-2024 Subsequent care visit Cathy LEM Work Phone: [facility] Comment on above: Gestational diabetes mellitus (GDM) affecting (Primary Dx); Encounter for supervision of other normal , third trimester; History of section Start: 04-18-2024 ambulatory CATHYTruman COLON Not Adelita ilable Start: 04-11-2024 End: 04-11-2024 Bamboo flowsheet Cathy Colon CNM Work Phone: [facility] Start: 04-11-2024 End: 04-11-2024 Bamboo flowsheet Cathy Colon CNM Work Phone: [facility] Start: 04-11-2024 End: 04-11-2024 ambulatory CATHY PRITCHETTO Not Available Start: 04-11-2024 End: 04-11-2024 Subsequent care visit Cathy Colon CNM Work Phone: [facility] Comment on above: Gestational diabetes mellitus (GDM) affecting (Primary Dx); Encounter for supervision of other normal , third trimester Start: 04-04-2024 End: 04-04-2024 ambulatory CATHY PRITCHETTO Not Available Start: 04-03-2024 End: 04-03-2024 Bamboo flowsheet Fernanda Horn MS, RDN, LD, CHES [facility] Start: 04-03-2024 End: 04-03-2024 Bamboo flowsheet Fernanda Horn MS, RDN, LD, CHES [facility] Start: 04-03-2024 End: 04-03-2024 ambulatory FERNANDA EATON Not Available Start: 03-28-2024 End: 03-28-2024 Telephone encounter Fernanda Eaton MS, RDN, LD, CHES [facility] Comment on above: nutrition appt. Start: 03-28-2024 End: 03-28-2024 Subsequent care visit Cathy Colon CNM Work Phone: [facility] Comment on above: Viral upper respirat ory tract infection (Primary Dx); Ketonuria; Encounter for supervision of other normal , third trimester; Gestational diabetes mellitus (GDM) affecting Start: 03-23-2024 End: 03-23-2024 Bamboo flowsheet Cathy L Floro CNM Work Phone: [facility] Start: 03-23-2024 End: 03-23-2024 Bamboo flowsheet Cathy L Floro CNM Work Phone: [facility] Start: 03-23-2024 End: 03-23-2024 Subsequent care visit Cathy L Floro CNM Work Phone: [facility] Comment on above: Encounter for superv ision of other normal , third trimester (Primary Dx); Elevated glucose tolerance test; History of section; History of gestational diabetes Start: 03-23-2024 End: 03-23-2024 ambulatory CATHY L FLORO Not Available Start: 03-20-2024 End: 03-20-2024 Office outpatient visit 25 minutes Tang Bonilla MD Work Phone: [facility] Comment on above: 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 (Primary Dx) Start: 03-20-2024 End: 03-20-2024 ambulatory [facility] Start: 03-08-2024 End: 03-08-2024 Bamboo flowsheet Cathy L Floro CNM Work Phone: [facility] Start: 03-08-2024 End: 03-08-2024 Bamboo flowsheet Cathy L Floro CNM Work Phone: [facility] Start: 03-08-2024 End: 03-08-2024 ambulatory CATHY L FLORO Not Available Start: 03-08-2024 End: 03-08-2024 Subsequent care visit Cathy L Floro CNM Work Phone: [facility] Comment on above: Encounter for superv ision of other normal , third trimester (Primary Dx); Elevated glucose tolerance test; History of section Start: 02-09-2024 End: 02-09-2024 Bamboo flowsheet Cathy Colon CNM Work Phone: [facility] Start: 02-09-2024 End: 02-09-2024 Bamboo flowsheet Cathy Colon CNM Work Phone: [facility] Start: 02-09-2024 End: 02-09-2024 Subsequent care visit Cathy Colon CNM Work Phone: [facility] Comment on above: Encounter for superv ision of other normal , third trimester (Primary Dx); Screening for diabetes mellitus; Screening for iron deficiency anemia; related condition in second trimester Start: 02-09-2024 End: 02-09-2024 ambulatory CATHY COLON Not Available Start: 01-31-2024 End: 01-31-2024 Orders Only Jake Dai DESIGN ENG [facility] Comment on above: Pyelectasis (Primary Dx); anomaly suspected but not found Pyelectasis Start: 01-25-2024 End: 01-25-2024 Office consultation new/estab patient 60 min Tang Bonilla MD Work Phone: [facility] Comment on above: 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 (Primary Dx) Start: 01-25-2024 End: 01-25-2024 Orders Only Kristen Do RN [facility] Comment on above: anomaly suspec asl but not found (Primary Dx); Pyelectasis Start: 01-17-2024 End: 01-17-2024 Chart abstracting Tang Bonilla MD Work Phone: [facility] Start: 01-17-2024 End: 01-17-2024 Telephone encounter Chelsey Bray MD Work Phone: [facility] Start: 01-14-2024 End: 01-14-2024 Chart abstracting Tang Bonilla MD Work Phone: [facility] Start: 01-11-2024 End: 01-11-2024 Bamboo flowsheet Cathy Jumana Pritchetto CNM Work Phone: [facility] Start: 01-11-2024 End: 01-11-2024 Bamboo flowsheet Cathy Jumana Pritchetto CNM Work Phone: [facility] Start: 01-11-2024 End: 01-11-2024 Subsequent care visit Cathy Pritchetto CNM Work Phone: [facility] Comment on above: Encounter for superv ision of other normal , second trimester (Primary Dx); History of section Start: 01-11-2024 End: 01-11-2024 ambulatory CATHY L FLORO Not Available Start: 12-30-2023 End: 12-30-2023 Orders Only Cathy Jumana Pritchetto CNM Work Phone: [facility] [...] FERNANDEZ Not Available Start: 12-23-2023 End: 12-23-2023 Shiela Fernandez MD Work Phone: [facility] Start: 12-23-2023 End: 12-23-2023 Sheila Fernandez MD Work Phone: [facility] [...] 11-10-2023 End: 11-10-2023 Subsequent care visit Cathy L Floro CNM Work Phone: [facility] Comment on above: Encounter for superv ision of other normal , second trimester (Primary Dx); History of section Start: 10-12-2023 End: 10-12-2023 ambulatory CATHY L FLORO Not Available Start: 09-21-2023 End: 09-21-2023 ambulatory HOSSEIN A PETITTI Not Available Start: 09-20-2023 End: 09-20-2023 ambulatory CATHY L FLORO Not Available Start: 05-11-2023 End: 05-11-2023 ambulatory HOSSEIN A PETITTI Not Available Start: 08-04-2021 End: 08-04-2021 ambulatory Surendra MICHAEL [facility] Start: 08-04-2021 End: 08-04-2021 Subsequent hospital visit by physician Surendra Michael MD [facility] [place] Comment on above: 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 Start: 09-10-2020 End: 09-12-2020 Evaluation and management of inpatient [facility] Work Phone: [facility] Delivery Comment on above: delivery de livered (Primary Dx) Start: 09-09-2020 End: 09-09-2020 [facility] Start: 09-09-2020 End: 09-09-2020 Admission to [facility] Work Phone: [facility] Start: 09-09-2020 End: 09-09-2020 Subsequent hospital visit by physician Breana [facility] Work Phone: [facility] Comment on above: Encounter for preadm ission testing (Primary Dx); S/P primary low transverse Start: 06-23-2018 End: 06-23-2018 Patient encounter procedure Delia Mcneill Facility:[facility] Procedures Date Procedure Procedure Detail Performing Clinician Start: 01-25-2024 UNLISTED LAB TEST Tang Bonilla MD Work Phone: Start: 10-12-2023 Antibody screen Tang Bonilla MD Work Phone: Start: 10-12-2023 CHLAMYDIA/GC BY PCR RUPERTO SWAB Not In System Ref Prov Start: 10-12-2023 Drug scrn 1+ class nonchromo Not In System Ref Prov Start: 10-12-2023 Hemoglobin glycosylated a1c Cathy Colon CORE WORKER-CNM Work Phone: Start: 10-12-2023 HIV 1&2 AB/AG SCREEN (P24 AG) Not In System Ref Prov Start: 10-12-2023 Iaad ia hepatitis b surface antigen Not In System Ref Prov Start: 10-12-2023 Syphilis test non-treponemal antibody qual Not In System Ref Prov Start: 10-12-2023 TYPE AND SCREEN Not In System Ref Pr ov Start: 08-04-2021 Urine test visual color cmprsn rosalia Michael MD Work Phone: Start: 09-11-2020 Blood count hemoglobin Breana F Ryan Arm strong DO Work Phone: Start: 09-10-2020 Drug screen class list a Cathy Agosto PRN - CNM Work Phone: Start: 09-09-2020 Blood count complete auto&auto difrntl wbc Breana F Ryan Mondragon DO Work Phone: Start: 08-07-2020 GBS, EXTERNAL RESULT Cathy Colon CORE WORKER - CNM Work Phone: Start: 01-30-2020 ABO, EXTERNAL RESULT Cathy Yarelyo CORE WORKER - CNM Work Phone: Start: 01-30-2020 C. TRACHOMATIS, EXTERNAL RESULT Cathy Yarelyo CORE WORKER - CNM Work Phone: Start: 01-30-2020 HEPATITIS B, EXTERNAL RESULT Cathy Yarelyo CORE WORKER - CNM Work Phone: Start: 01-30-2020 HIV, EXTERNAL RESULT Cathy Yarelyo CORE WORKER - CNM Work Phone: Start: 01-30-2020 N. GONORRHOEAE, EXTERNAL RESULT Cathy Yarelyo CORE WORKER - CNM Work Phone: Start: 01-30-2020 RH FACTOR, EXTERNAL RESULT Cathy Floro CORE WORKER - CNM Work Phone: Start: 01-30-2020 RPR, EXTERNAL RESULT Cathy Colon CORE WORKER - CNM Work Phone: Start: 01-30-2020 RUBELLA TITER, EXTERNAL RESULT Cathy Colon CORE WORKER - CNM Work Phone: H/O: section S/P primar y low transverse Breana Mondragon DO Work Phone: H/O: section History of section Cathydoyle Colon CNM Work Phone: H/O: section History of section Cathy Colon CNM Work Phone: H/O: section History of section Cathy Colon CNM Work Phone: H/O: section History of section Cathy Colon CNM Work Phone: H/O: section History of section Cathy Colon CNM Work Phone: H/O: section History of section Cathy Colon CNM Work Phone: Plan of Treatment Date Care Activity Detail Author Start: 06-20-2030 DTaP,Tdap and Td Vaccines (7 - Td or Tdap) DTaP,Tdap and Td Vaccines (7 - Td or Tdap) [facility] Start: 06-20-2030 DTaP/Tdap/Td vaccine (7 - Td or Tdap) DTaP/Tdap/Td vaccine (7 - Td or Tdap) [facility] Start: 03-20-2025 Adult BMI Screening Adult BMI Screen ing [facility] Start: 01-24-2025 Adult BMI Screening Adult BMI Screen ing [facility] Start: 01-24-2025 Tobacco Screening Tobacco Screening [facility] Start: 01-24-2025 End: 01-24-2025 US MFM with or without consult US MFM with or without consult Imaging Routine Pyelectasis Expected: 01/24/2025 (Approximate), Expires: 01/24/2025 [facility] Work Phone: Comment on above: Expected: 01/24/2025 (Approximate), Expires: 01/24/2025 Start: 12-10-2024 Screening for malign ant neoplasm of cervix [facility] Start: 06-22-2024 End: 06-22-2024 Patient encounter procedure 06/22/2024 9:15 AM EDT Office Visit [facility] [address] [place] [address] Hossein Fernandez MD [address] [place] [address] [facility] Start: 05-02-2024 End: 05-02-2024 Patient encounter procedure 05/02/2024 8:30 AM EST Routine [facility] [address] [place] [address] Cathy Colon, CNM [address] [place] [address] [facility] Start: 04-25-2024 End: 04-25-2024 Patient encounter procedure 04/25/2024 10:00 AM EST Routine [facility] [address] [facility] [place] [address] Cathy Colon, CNM [address] [place] [address] [facility] Start: 04-24-2024 End: 04-24-2024 Patient encounter procedure 04/24/2024 5:30 PM EST Routine [facility] [address] [facility] [place] [address] Cathy Colon, CNM [address] [place] [address] [facility] Start: 04-18-2024 End: 04-18-2024 Patient encounter procedure [facility] Comment on above: Arrived Start: 04-11-2024 End: 04-11-2024 Patient encounter procedure 04/11/2024 8:30 AM EST Routine [facility] [address] [facility] [place] [address] Yarelyjoanie Cathy L, CNM [address] [place] [address] [facility] Start: 04-04-2024 End: 04-04-2024 Patient encounter procedure 04/04/2024 8:45 AM EST Routine [facility] [address] [facility] [place] [phone] Yarelyjoanie Cathy L, CNM [address] [place] [address] [facility] Start: 04-03-2024 End: 04-03-2024 Clinical Support [facility] Comment on above: Elevated glucose sary erance test; History of gestational diabetes Start: 03-28-2024 End: 03-28-2024 Patient encounter procedure 03/28/2024 8:45 AM EST Routine [facility] [address] [facility] [place] [id number] Isaiah Cathy L, CNM [address] [place] [address] [facility] Start: 03-23-2024 End: 03-23-2025 [...] of gestational diabetes Expected: 03/23/2024, Expires: 03/23/2025 [facility] Comment on above: Expected: 03/23/2024 , Expires: 03/23/2025 Start: 03-23-2024 End: 03-23-2024 Patient encounter procedure 03/23/2024 8:45 AM EST Routine [facility] [address] [place] [phone] Cathy Colon, REY [address] [place] [id number] [facility] Start: 03-20-2024 End: 03-20-2024 Patient encounter procedure [facility] Start: 03-08-2024 End: 03-08-2025 GLUCOSE TOLERANCE TEST, GEST, 4SPEC 100G W/NDDG GLUCOSE TOLERANCE TEST, GEST, 4SPEC 100G W/NDDG Lab Routine Elevated glucose tolerance test Expected: 03/08/2024 (Approximate), Expires: 03/08/2025 [facility] Work Phone: Comment on above: Expected: 03/08/2024 (Approximate), Expires: 03/08/2025 Start: 03-08-2024 End: 03-08-2024 Patient encounter procedure 03/08/2024 8:30 AM EST Routine [facility] [address] [place] [address] [phone] Cathy Colon, REY [address] [place] [id number] [facility] Start: 02-09-2024 End: 02-08-2025 CBC panel - Blood by Automated count CBC Lab Routine Screening for iron deficiency anemia Expected: 02/09/2024 (Approximate), Expires: 02/08/2025 [facility] Comment on above: Expected: 02/09/2024 (Approximate), Expires: 02/08/2025 Start: 02-09-2024 End: 02-08-2025 GLUCOSE, GESTATIONAL SCREEN (50G)-135 CUTOFF GLUCOSE, GESTATIONAL SCREEN (50G)-135 CUTOFF Lab Routine Screening for diabetes mellitus Expected: 02/09/2024 (Approximate), Expires: 02/08/2025 [facility] Work Phone: Comment on above: Expected: 02/09/2024 (Approximate), Expires: 02/08/2025 Start: 02-09-2024 End: 02-08-2025 US for US OB follow up transabdominal approach Imaging Routine related condition in second trimester Expected: 02/09/2024, Expires: 02/08/2025 [facility] Comment on above: Expected: 02/09/2024 , Expires: 02/08/2025 Start: 02-09-2024 End: 02-09-2024 Patient encounter procedure 02/09/2024 8:30 AM EST Routine [facility] [address] [place] [phone] Cathy Colon, CN [address] [place], [place] [id number] [facility] Start: 01-25-2024 End: 01-25-2024 Patient encounter procedure 01/25/2024 8:45 AM EST Office Visit Maternal- Medicine at [facility] [address] [place] [phone] Tang Bonilla MD [address] [facility], [address] [place] [address] [facility]- [facility] at [facility] Start: 01-25-2024 End: 01-25-2024 Patient encounter procedure 01/25/2024 7:30 AM EST Appointment [facility] US Imaging [address] [place] [phone] [facility] US Imaging Start: 01-11-2024 End: 01-11-2024 Patient encounter procedure 01/11/2024 8:45 AM EDT Routine [facility] [address] [place] [phone] Cathy Colon, CNM [address] [place] [address] [facility] Start: 12-27-2023 End: 12-27-2023 Professional / ancillary services management 12/27/2023 3:15 PM EDT Ancillary Procedure [facility] [address] [phone] [facility] Start: 12-23-2023 End: 12-23-2023 [...] AM EDT Routine [facility] [address] [place] [phone] Cathy Colon, CNM [address] [place] [address] Arrived [facility] Comment on above: Arrived Start: 12-15-2023 End: 12-15-2023 Patient encounter procedure 12/15/2023 8:30 AM EDT Routine [facility] [address] [place] [phone] Cathy Colon, CNM [address] [place] [address] [facility] Start: 11-21-2023 Influenza vaccination [place] [facility] Start: 11-20-2021 Influenza vaccination Flu vacc ine (Season Ended) [facility] Start: 08-12-2021 End: 08-12-2021 Patient encounter procedure 08/12/2021 Office Visit Plastic Surgery Rhoda Callahan, BARTOLO - VÍCTOR [address] [facility] [address] [place] [id number] [email or web address] Start: 08-04-2021 End: 08-04-2021 HEAD LESION EXCISION HEAD LESION EXCISION D03.30 RIGHT CHEEK MELANOMA 08/04/2021 11:33 AM EDT [facility] Start: 07-23-2021 End: 07-23-2021 Patient encounter procedure 07/23/2021 Office [place] [address] [address] [place] [address] [place] [id number] [email or web address] Start: 07-08-2021 End: 07-08-2021 FACIAL LESION BIOPSY EXCISION FACIAL LESION BIOPSY EXCISION LESION RIGHT NECK X1 LESION RIGHT CHEEK X 2 07/08/2021 7:29 AM [facility] Start: 2021 Screening for malign ant neoplasm of cervix [facility] Start: 11-20-2020 Influenza vaccination Flu vacc ine (Season Ended) [facility] Work Phone: Start: 09-10-2020 End: 09-10-2020 Admission to same day surgery center 09/10/2020 Surgery Obstetrics and Gynecology Breana Ledbetter DO [address] [place] [address] [phone] [facility] Labor and Delivery Comment on above: SECTION Start: 09-10-2020 Subsequent hospital visit by physician 09/10/2020 Hospital Encounter Obstetrics and Gynecology Breana Ledbetter DO [address] [place] [address] [facility] Start: 01-14-2012 Screening for malign ant neoplasm of cervix [facility] Start: 2010 DTaP/Tdap/Td vaccine (1 - Tdap) DTaP/Tdap/Td vaccine (1 - Tdap) [facility] Phone: Start: 2009 Adult BMI Follow Up Plan Adult BMI Follow Up Plan [facility] Start: 2009 Adult BMI Screening Adult BMI Screen ing [facility] Start: 2009 Hepatitis C screening Hepatitis C [facility] Start: 2006 HIV screening HIV screen [facility] Start: 2003 COVID-19 Vaccine (1) COVID-19 Vaccin e (1) [facility] [employer] Phone: Start: 2003 Depression Screen Depression Screen [facility] Start: 2003 Depression Screening Depression Scre ening [facility] Start: 2003 Tobacco Screening Tobacco Screening [facility] Start: 01-14-1996 COVID-19 Vaccine (1) COVID-19 Vaccin e (1) [facility] Start: 01-14-1992 Varicella vaccine (1 of 2 - 2-dose childhood series) Varicella vaccine (1 of 2 - 2-dose childhood series) [facility] Start: 1991 Hepatitis C screening Hepatitis C [facility] End: 08-04-2021 INITIATE PACU OXYGEN THERAPY PROTOCOL Initiate PACU Oxygen Therapy Protocol Respiratory Care Routine Continuous until discontinued starting 08/04/2021 [facility] Comment on above: Continuous until dis continued starting 08/04/2021 Oxygen therapy [[facility] Data Set] Initiate Oxygen Therapy Protocol Respiratory Care Routine Daily until discontinued starting 09/10/2020 [facility]: Comment on above: Daily until disconti nued starting 09/10/2020 Spirometry panel Incentive liz metry Respiratory Care Routine Every 2hr while awake until discontinued starting 09/10/2020 [facility]: Comment on above: Every 2hr while awak e until discontinued starting 09/10/2020 Surgical Pathology Surgical Path ology Lab Routine Release Upon Ordering for 1 Occurrences starting 07/08/2021 [facility] Comment on above: Release Upon Orderin g for 1 Occurrences starting 07/08/2021 Surgical Pathology Surgical Path ology Lab Routine Release Upon Ordering for 1 Occurrences starting 08/04/2021 [facility] Phone: Comment on above: Release Upon Orderin g for 1 Occurrences starting 08/04/2021 End: 09-09-2020 TYPE AND SCREEN TYPE AND SCREEN Blood Bank STAT Encounter for preadmission testing One Time for 1 Occurrences starting 09/09/2020 until 09/09/2020 [facility] Phone: Comment on above: One Time for 1 Occur rences starting 09/09/2020 until 09/09/2020 TYPE AND SCREEN TYPE AND SCREEN Blood Bank Stat [employer] Label print Encounter for preadmission testing 09/09/2020 2:26 PM EDT [facility] Phone: Immunizations Immunization Date Immunization Notes Care Provider Fa cili 09-10-2020 diphtheria, tetanus toxoids and acellular pertussis vaccine, unspecified formulation Breana Peraza Mondragon DO Work Phone: [facility] Phone: 09-10-2020 measles, mumps and rubella virus vaccine Breana Peraza [employer] DO Work Phone: [facility] Phone: Payers Date Payer Category Payer Private Health Insurance [employer] [id number] 2024 Unknown [id number] 2021 Commercial Managed C are - POS [id number] 2021 Managed Care HMO (unspecified) [id number] 2021 Private Health Insurance [id number]. [id number] 2021 Unknown [id number]. [id number] 2018 Self-pay 2018 Unknown [id number] 1991 Unknown [id number] 2.16.840.1.354676.3.579.2. 173 1991 Unknown [id number] 2.16.840.1.612353.3.579.2. 175 1991 Unknown [id number] 2.16.840.1.209841.3.579.2. 175 1991 Unknown [id number] 2.16.840.1.341997.3.579.2. 1286 1991 Unknown [id number] 2.16.840.1.058031.3.579.2. 1286 1991 Unknown [id number] 2.16.840.1.131266.3.579.2. 1286 1991 Unknown [id number] 2.16.840.1.737097.3.579.2. 1286 1991 Unknown [id number] 2.16.840.1.974134.3.579.2. 1259 1991 Unknown [id number] 2.16.840.1.545117.3.579.2. 1259 1991 Unknown [id number] 2.16.840.1.794033.3.579.2. 1259 1991 Unknown [id number] 2.16.840.1.925951.3.579.2. 1259 1991 Unknown [id number] 2.16.840.1.279047.3.579.2. 1259 1991 Unknown [id number] 2.16.840.1.603648.3.579.2. 1259 1991 Unknown [id number] 2.16.840.1.567527.3.579.2. 1259 1991 Unknown [id number] 2.16.840.1.367067.3.579.2. 1258 1991 Unknown [id number] 2.16.840.1.299398.3.579.2. 9 1991 Unknown [id number] 2.16.840.1.519475.3.579.2. 9 1991 Unknown [id number] 2.16.840.1.303837.3.579.2. 1259 1991 Unknown [id number] 2.16.840.1.750427.3.579.2. 9 1991 Unknown [id number] 2.16.840.1.756459.3.579.2. 9 1991 Unknown [id number] 2.16.840.1.546937.3.579.2. 1259 1991 Unknown [id number] 2.16.840.1.999388.3.579.2. 1259 1991 Unknown [id number] 2.16.840.1.153934.3.579.2. 1259 1991 Unknown [id number] 2.16.840.1.223365.3.579.2. 9 1991 Unknown [id number] 2.16.840.1.394366.3.579.2. 1259 1991 Unknown [id number] 2.16.840.1.007795.3.579.2. 1259 Unknown [id number] 2.16.840.1.369825.3.579.2. 531 Social History Date Type Detail Facility Tobacco smoking stat [facility] Unknown if ever smoked [facility] Phone: Start: 1990 Sex Assigned At Not on file M [employer] Phone: Start: 09-10-2020 End: 09-02-2022 Tobacco smoking status NHIS Never smoker [facility] Start: 09-10-2020 End: 09-02-2022 Tobacco use and exposure Never used [facility] Start: 09-10-2020 End: 12-24-2023 Alcohol intake Ex-drinker (finding) [facility] Phone: Start: 07-08-2021 End: 08-04-2021 Alcohol intake Current drinker of alcohol (finding) [facility] Phone: Start: 07-08-2021 End: 12-24-2023 Alcohol intake [facility] Phone: Start: 1990 Sex Assigned At Female [facility] [employer] Start: 07-25-2021 End: 08-04-2021 Exposure to SARS-CoV-2 (event) Not sure [facility] Phone: Start: 09-22-2023 End: 12-24-2023 Tobacco use panel [facility] Start: 09-01-2022 Alcohol Comment Alcohol: 3or 4 drinks on typical day/ monthly or less. Caffeine 1-2 cup/sday [facility] Start: 08-22-2023 [facility] Start: 06-03-2022 Gender identity Identifies as female gender (finding) [facility] Tobacco smoking stat [facility] Tobacco smoking consumption unknown [facility] Start: 10-25-2014 Sex Female (finding) [facility] Clinical Notes 09-12-2020 to 04-18-2024 Cathy Colon CNM - 04/18/2024 10:00 AM Bhavik Colon CNM - 04/11/2024 8:30 AM ESTTelephone Encounter - Tsering Jacome - 03/28/2024 11:13 AM Bhavik Colon CNM - 03/28/2024 8:45 AM EST Note Date & Type Note Facility 04-18-2024 History of Present illness Narrative Subjective No chief complaint on file. Celestino Cruz is a 34 y.o. at 36w2d with a working estimated date of delivery [...] 1 Para CS-LTranv Her is complicated by: GDM patient has excellent diet controlled blood sugars. Objective Physical Exam weight: 187 lb Expected Total Weight Gain: 11 lb-19 lb Pregravid BMI: 30.71 BP: 110/60 Urine protein-negative Urine glucose-negative Assessment/Plan Diagnoses and all orders for this visit: Gestational diabetes mellitus (GDM) affecting Encounter for supervision of other normal , third trimester History of section Reviewed glucose log and patient is doing excellent with glucose control. All logs and readings are normal for the past week. She had one that was 163 and states she ate a big bowl of cereal. Now I know not to do that again. Continue plan for dieting and taking glucose readings. Continue vitamin. Labs reviewed. GBS taken. Expected mode of delivery Follow up in 1 week for a routine visit. documented in this encounter [facility] 04-11-2024 History of Present illness Narrative Subjective No chief complaint on file. Celestino Cruz is a 34 y.o. at 35w2d with a working estimated date of delivery [...] 1 Para CS-LTranv Her is complicated by: GDM Objective Physical Exam weight: 188 lb Expected Total Weight Gain: 11 lb-19 lb Pregravid BMI: 30.71 BP: 118/70 Urine protein-negative Urine glucose-negative Assessment/Plan Diagnoses and all orders for this visit: Gestational diabetes mellitus (GDM) affecting Encounter for supervision of other normal , third trimester Glucose logs reviewed. All blood sugars are normal. Fasting and post prandials are within normal limits. Reactive NST in office today Continue vitamin. Labs reviewed. GBS 36 weeks Expected mode of delivery repeat section Follow up in 1 week for a routine visit. documented in this encounter [facility] 03-28-2024 Telephone encounter Note Pt scheduled for nutritions/ Fernanda Eaton [facility] 03-28-2024 Miscellaneous Notes Pt scheduled for nutritions/ Fernanda Eaton documented in this encounter [facility] 03-28-2024 History of Present illness Narrative Subjective No chief complaint on file. Celestino Cruz is a 34 y.o. at 33w2d with a working estimated date of delivery [...] 1 Para CS-LTranv Her is complicated by: cough, fatigue, nausea, upper respiratory symptoms, states daughter just got over pneumonia. Objective Physical Exam Expected Total Weight Gain: 11 lb-19 lb Pregravid BMI: 30.71 Urine protein-100 Urine glucose-negative Temp 98.2 Assessment/Plan Diagnoses and all orders for this visit: Viral upper respiratory tract infection - azithromycin (Zithromax) 250 MG tablet; 500 mg po daily for 2 days, and then 250 mg po daily x3 days Ketonuria Encounter for supervision of other normal , third trimester Gestational diabetes mellitus (GDM) affecting Blood glucose log reviewed. Patient has 4 abnormal vmorning fasting, she is waiting for an appt for junior automation engineer referral. We also discussed her blood sugars and what she is eating at night. She is snacking a little at night and that includes potato chips, pizza, cookies occasionally we discussed to increase protein at night for her snack such as a boiled egg, cheese, string cheese, protein yogurt, almonds, etc. PVU states she wants to stay awake longer at night so she eats carbs. I suggested a cup of coffee with a protein snack. Patient feels sick, like upper respiratory symptoms, daughter just had pneumonia. Lungs: clear x4 bases, no wheezing, dyspnea No sinus pressure, HR- NSR without murmur, Throat normal Ears normal Continue vitamin. Labs reviewed. Zpak, Tylenol, Robitussin cough syrup Expected mode of delivery - repeat section Follow up in 1 week for a routine visit. documented in this encounter [facility] 03-23-2024 History of Present illness Narrative Subjective [...] info given, and will make referral to nursing educator. Objective Physical Exam weight: 188 lb [...] a routine visit. documented in this encounter [facility] 03-20-2024 History of Present illness Narrative Headache/epigastric [...] Cystitis Gastroenteritis History of female infertility Melanoma ([facility] 05/2021 in [facility]ITU Myopia Rhus dermatitis REVIEW [...] for allowing me to participate in [facility]. If there are any questions, please do not hesitate to call me. Sincerely, TANG BONILLA MD documented in this encounter [facility] 03-08-2024 History of Present illness Narrative Subjective [...] a routine visit. documented in this encounter [facility] 02-09-2024 History of Present illness Narrative Subjective [...] by: seeing MFM kink in baby kidney. [facility] has given her reassurance she can deliver in Sean and as the baby grows he told them it should correct itself, or when baby has first void. She is seeing [facility] one more time for another US at [...] a routine visit. documented in this encounter [facility] 01-25-2024 History of Present illness Narrative [...] Declined Have you been seen here at [facility] in a previous ? No Recent ER visits or hospitalizations? No Bring blood sugar log or meter with you today? (Please bring them with you for every visit at [facility]) N/A Flu vaccine (Jan-May)? No Any [...] Cystitis Gastroenteritis History of female infertility Melanoma ([facility]) 05/2021 in SITU Myopia Rhus dermatitis PAST [...] and the other consultants, we search on [employer] and all the available care everywhere epic I did review all the imaging studies of the patient available on EMR, ordered by the primary care physician and the other framing consultant HABITS: Patient activity no restrictions, diet no [...] patient is in complete care of her metal ceiling builder. Patient does have ultrasound office visit scheduled with us Thank you for allowing me to participate in Celestino Cruz . If there any questions please do not hesitate to contact us. Sincerely, TANG BONILLA MD documented in this encounter [facility] 01-17-2024 Telephone encounter Note Maddie from Maternal- Medicine at [facility] called and left a vm at 11:25 am She said that she needs faxed over some information about the pt. She said if there is any Genetic Testing that has been done, Her first OB US, and she needs a reasoning for sending her to see them. Fax is [phone] Phone is [phone] [facility] 01-17-2024 Miscellaneous Notes Maddie from [facility]- [facility] at [facility] called and left a vm at 11:25 am She said that she needs faxed over some information about the pt. She said if there is any Genetic Testing that has been done, Her first OB US, and she needs a reasoning for sending her to see them. Fax is [phone] Phone is [phone] documented in this encounter [facility] 01-11-2024 History of Present illness Narrative Subjective [...] report and if needed will send to [facility] for consult. Urine protein-negative Urine glucose-negative Labs: reviewed Imaging Assessment/Plan Diagnoses and all orders for this visit: Encounter for supervision of other normal , second trimester History of section Continue vitamin. Labs reviewed. Rhogam not needed patient is O+ positive GTT at 28 weeks Follow up in 4 weeks for a routine visit documented in this encounter [facility] 12-30-2023 History of Present illness Narrative Report received on patients recent US. Radiologist recommends to repeat the scan in 2-4 weeks to assess single bubble in the stomach. I called patient report read to patient with explanation and reason to recheck US. PVU and all questions answered. Patient will come in 2 weeks for appt and repeat US documented in this encounter [facility] 12-23-2023 History of Present illness Narrative Images from the original note were not included. Skin Check Location: Patient requests a full body skin examination Dermatologic history: history of Melanoma in situ. Family history of Melanoma Last visit: 09/21/2023 Established patient Melanoma History Location: Right cheek Date of Melanoma dx: 05/2021 Melanoma details: in-situ Melanoma treatment: Wide excision performed by Juancarlos Michael MD at [email or web address] In [facility]. Originally biopsied by Rhoda Callahan APRN-VÍCTOR also with [email or web address] Additional testing: none Currently [...] Examined Right arm Examined Patient wearing nail bhutanese, Denies dark streaks under finger nails, Denies [...] months skin exam documented in this encounter [facility] 12-15-2023 History of Present illness Narrative Subjective [...] a routine visit. documented in this encounter [facility] 11-10-2023 History of Present illness Narrative Subjective [...] a routine visit. documented in this encounter [facility] 06-20-2021 Hospital Discharge instructions Arlen Rhoades RN [...] Any new symptoms documented in this encounter [facility] Phone: 06-20-2021 Hospital Discharge instructions Arlen Rhoades [...] Any new symptoms documented in this encounter [facility] Work Phone: 09-12-2020 Hospital Discharge instructions Tamra Guardado RN - 09/12/2020 Follow-up with your OB doctor as specified. [facility] OB Department phone: Dr. Greyson Gonzalez [facility] Laura Rhoades [facility] [address] [place] [id number] [place] [address] Laura Oliver [facility] [address] [facility] [id number] [phone] Micky Colon, MSN, CORE WORKER, CNM [facility] [address] [facility] [address] [facility] [address] [facility] [id number] Chinyere Grande [facility] [address] [place] [address] [address] [place] [address] Carolin Esqueda [facility] [address] [facility] [place] [address] [place] [address] [phone] DIET Eat a well balanced diet focusing on foods high in fiber and protein. Drink plenty of fluids especially water. To avoid constipation you may take a mild stool softener as recommended by your doctor or chain tender. ACTIVITY Gradually increase your activity. Resume exercise regimen only after advice by your doctor or chain tender. Avoid lifting anything heavier than a gallon of milk for SIX weeks. Avoid driving until your doctor or chain tender has given their approval. Rise slowly from [...] and take a break. NEVER shake your infant. BLEEDING Vaginal bleeding will decrease in amount [...] medications as recommended by your doctor or chain tender for pain If you develop a warm, [...] vitamins as directed by your doctor or chain tender. Refer to the booklet in the folder/binder for more information. If you feel you need more assistance or have questions, please call Hossein Marrufo IBCLC, managing consultant clinical professor, at or the OB department to schedule [...] in your calf. documented in this encounter [facility] Phone: 09-12-2020 History of Present illness Narrative [...] 09/11/20 0739 97.8 F (36.6 C) 16 06/23/21 0439 115/68 98 F (36.7 C) 50 [...] with as needed documented in this encounter [facility] Phone: Evaluation note Diagnosis Encounter for preadmission testing- Primary S/P primary low transverse delivery, without mention of indication, unspecified as to episode of care documented in this encounter [facility] Phone: evaluation note* Diagnosis delivery delivered- Primary delivery, without mention of indication, delivered, with or without mention of antepartum condition 40 weeks gestation of state, incidental documented in this encounter [facility] Phone: evaluation note* Diagnosis Pain following surgery or procedure- Primary Other acute postoperative pain documented in this encounter [facility] Phone: evaluation note* Diagnosis 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, nose, lip, and ear (HCC)- Primary Pain following surgery or procedure Other acute postoperative pain documented in this encounter [facility] Phone: evaluation note* Diagnosis Melanocytic nevus of trunk- Primary Benign neoplasm of skin of trunk, except scrotum Melanocytic nevi of face Lentigines History of malignant melanoma of skin Personal history of malignant melanoma of skin documented in this encounter [facility]* Diagnosis Encounter for supervision of other normal , second trimester- Primary History of section Other postprocedural status documented in this encounter [facility]* Diagnosis anomaly suspected but not found- Primary Suspected anomaly not found documented [facility]* Diagnosis anomaly suspected but not found- Primary Suspected anomaly not found Pyelectasis Other specified disorder of kidney and ureter documented in this encounter [facility]* Diagnosis Pyelectasis- Primary Other specified disorder of kidney and ureter anomaly suspected but not found Suspected anomaly not found documented in this encounter [facility] [facility] Pyelectasis Other specified disorder of kidney and ureter documented [facility] Diagnosis Encounter for supervision of other normal , third trimester- Primary Screening for diabetes mellitus Screening for iron deficiency anemia related condition in second trimester documented in this encounter [facility]* Diagnosis Encounter for supervision of other normal , second trimester- Primary History of section Other postprocedural status documented in this encounter [facility]* Diagnosis Encounter for supervision of other normal , third trimester- Primary Elevated glucose tolerance test Impaired glucose tolerance test History of section Other postprocedural status documented in this encounter [facility]* Diagnosis Encounter for supervision of other normal , second trimester- Primary History of section Other postprocedural status related condition in second trimester documented in this encounter [facility]* Diagnosis anomaly suspected but not found- Primary Suspected anomaly not found documented in [facility]* Diagnosis Encounter for supervision of other normal , third trimester- Primary Elevated glucose tolerance test Impaired glucose tolerance test History of section Other postprocedural status History of gestational diabetes Personal history of other genital system and obstetric disorders documented in this encounter [facility]* Diagnosis Viral upper respiratory tract infection- Primary Acute upper respiratory infections of unspecified site Ketonuria Acetonuria Encounter for supervision of other normal , third trimester Gestational diabetes mellitus (GDM) affecting documented in this encounter [facility]* Diagnosis Gestational diabetes mellitus (GDM) affecting - Primary Encounter for supervision of other normal , third trimester documented in this encounter [facility]* Diagnosis Gestational diabetes mellitus (GDM) affecting - Primary Encounter for supervision of other normal , third trimester History of section Other postprocedural status documented in this encounter [facility] HealthcareInstructionsNot on filedocumented in this encounterProMountain [facility] On[facility] SystemInstructionsNot on filedocumented in this encounterProScci [facility] SystemInstructionsNot on filedocumented in this encounterProScci [facility] InstructionsNot on filedocumented in this encounterProScci [facility] InstructionsNot on filedocumented in this encounterProScci Hospital [facility] System InstructionsNot on filedocumented in this encounterMiddletown Hospital InstructionsNot on filedocumented in this encounterMiddletown HospitalReason for visit Narrative* Auth/Cert Specialty Diagnoses / Procedures Referred By Bryanna suggs Referred To Contact Diagnoses Acoustic nerve lesion, right Acoustic nerve lesion, right LESION RIGHT NECK X1 LESION RIGHT CHEEK X 2 Procedures MT OFFICE/OUTPT VISIT,PROCEDURE ONLY MT EXC SKIN BENIG <5MM FACE,FACIAL RIGHT CHEEK LESION X 2 AND RIGHT NECK LESION X [place] [address] [place] [address] [employer] [id number] [place] [address] Referral ID Status Reason Start Date Expiration Date Visits Re quested Visits Authorized 1 1 [employer] Phone: reason for visit Narrative* Auth/Cert Specialty Diagnoses / Procedures Referred By Bryanna suggs Referred To Contact Diagnoses 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 Procedures MT OFFICE/OUTPT VISIT,PROCEDURE ONLY MT EXC SKIN BENIG >4CM TRUNK,ARM,LEG RIGHT CHEEK WIDER RESECTION OF MELANOMA IN SITU [place] [address] [id number] [employer] [address] [place] [address] Referral ID Status Reason Start Date Expiration Date Visits Re quested Visits Authorized [id number] 1 1 [employer] Phone: Summary Purpose Family History No Family [...] section and content) DATE CREATED AUTHOR 07/06/2018 [facility] DATE CREATED AUTHOR AUTHOR'S ORGANIZ ATION 09/13/[address] [facility] DATE CREATED AUTHOR AUTHOR'S ORGANIZ ATION 08/07/2021 [facility] DATE CREATED AUTHOR AUTHOR'S ORGANIZ ATION 01/27/2022 [facility] DATE CREATED AUTHOR AUTHOR'S ORGANIZ ATION 03/22/2024 [facility] DATE CREATED AUTHOR AUTHOR'S ORGANIZ ATION 04/19/2024 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 03/28/2024 Ordered Prescriptions (unrec ognized section and content) [...] 50 mL (mini-bag) (COMPLETED) 2,000 mg, Intravenous, CLINIC MD ASSOCIATE TO O.R., 1 dose, On Wed09/10/20 at 1030, Administer within 1 hour of incision., Labor and Delivery 1224 (New Bag - Provider: Tamra Guardado RN)1254 (Due: Stopped - Provider: Tamra Guardado, JOÃO) citric acid-sodium citrate (BICITRA) solution 30 mL (COMPLETED) 30 mL, Oral, ONCE, On Wed09/10/20 at 1030, For 1 dose, Give prior to epidural placement., Labor and Delivery 1210 (Given - Provider: Tamra Guardado, JOÃO) docusate sodium (COLACE) capsule 100 mg 100 mg, Oral, 2 TIMES DAILY, First dose on Wed09/10/20 at 1445, Do not crush or break., 1620 (Not Given - Provider: Tamra Guardado RN - Reason: Patient/family refused)1950 (Given - Provider: Vivian Padgett, JOÃO) 0916 (Given - Provider: Tamra Guardado RN)2054 (Given - Provider: Sofie Prajapati RN) 0946 (Given - Provider: Tamra Guardado, JOÃO)2100 (Due) enoxaparin (LOVENOX) injection 40 mg 40 mg, Subcutaneous, EVERY 24 HOURS, First dose on Wed09/11/20 at 0115, 0151 (Given - Provider: Vivian Padgett RN) 0048 (Given - Provider: Sofie Prajapati, JOÃO) famotidine (PEPCID) injection 20 mg (COMPLETED) 20 [...] toradol. Do not crush or break., Post-op 2054 (Given - Provider: Sofie Prajapati RN) 0756 (Given - Provider: Tamra Guardado, JOÃO)1200 (Due)2000 (Due) ketorolac (TORADOL) injection 30 mg (COMPLETED) 30 mg, Intravenous, EVERY 6 HOURS, First dose on Wed09/10/20 at 2000, For 4 doses, Do not administer for more than 5 days., 1950 (Given - Provider: Vivian Padgett RN) 0151 (Given - Provider: Vivian Padgett RN)0802 (Given - Provider: Tamra Guardado, JOÃO)1356 (Given - Provider: Tamra Guardado, JOÃO) lactated ringers infusion 1,000 mL (COMPLETED) 1,000 mL, Intravenous, at 1,000 mL/hr, ONCE, On Wed09/10/20 at 1030, For 1 dose, Labor and Delivery. Administer bolus one hour prior to surgery., Labor and Delivery (Signed and Held) 1049 (New Bag - Provider: Tamra Guardado, JOÃO) metoclopramide (REGLAN) injection 10 mg (COMPLETED) 10 mg, Intravenous, ONCE, On Wed09/10/20 at 1030, For 1 dose, Give 60 minutes before surgery., Labor and Delivery 1210 (Given - Provider: Tamra Guardado, JOÃO) vitamin 27-1 MG tablet 1 tablet 1 tablet, Oral, DAILY, First dose on Wed09/10/20 at 1445, Begin when normal bowel activity resumes., 1620 (Not Given - Provider: Tamra Guardado RN - Reason: Patient/family refused) 0916 (Given - Provider: Tamra Guardado RN) 0944 (Given - Provider: Tamra Guardado RN) sodium chloride flush 0.9 % injection 10 mL 10 mL, Intravenous, EVERY 12 HOURS SCHEDULED (2 times per day), First dose on Wed09/10/20 at 2100, 2100 (Due) 0900 (Due)2100 (Due) 0900 (Due)2100 (Due) Togyeth-Fmkoyp-Jasyr Pertussis (BOOSTRIX) injection 0.5 mL 0.5 mL, [...] Provider: Tamra Guardado RN)1251 (Paused - Provider: BARTOLO Lange CRNA - Comment: Switch to gravity)1252 (Restarted - Provider: BARTOLO Lange CRNA)1405 (Anesthesia Volume Adjustment - Provider: BARTOLO Lange CRNA) lactated ringers infusion Intravenous, at 125 mL/hr, CONTINUOUS, Starting on Wed09/10/20 at 1445, 1901 (New Bag - Provider: Tmara Guardado RN) 0201 (New Bag - Provider: [...] the physician. 1319 (New Bag - Provider: BARTOLO Lange CRNA)1321 (Rate/Dose Change - Provider: BARTOLO Lange CRNA)1407 (Rate/Dose Change - Provider: BARTOLO Lange CRNA) sennosides-docusate sodium (SENOKOT-S) 8.6-50 MG tablet 1 tablet 1 tablet, Oral, DAILY PRN, Constipation, Starting on Wed09/10/20 at 1416, simethicone (MYLICON) chewable tablet 80 mg 80 mg, Oral, EVERY 6 HOURS PRN, Cramping, Flatulence, Starting on Wed09/10/20 at 1416, 0600 (Given - Provider: Vivian Padgett, RN)1355 (Given - Provider: Tamra Guardado, RN) 0756 (Given - Provider: Tamra Guardado, JOÃO) [...] 07/06/2021 07/07/2021 07/08/2021 bupivacaine-EPINEPHrine PF (MARCAINE-w/EPINEPHrine) 0.25% -1:[id number] injection (CANCELED) PRN, Starting on Wed07/08/21 at 0742, Until Wed07/08/21 at 0827, Intra-op 0741 (Given - Provid er: Surendra Michael MD - Comment: OPERATIVE SITE INJECTED PRIOR TO INCISION) No Frequency Medication Order 07/06/2021 07/07/2021 07/08/2021 bupivacaine-EPINEPHrine (MARCAINE-w/EPINEPHRINE) 0.25% -1:[id number] injection 1 dose, Starting on Wed07/08/21 at 0655, Until Wed07/08/21 at 1859, Leeanna Geller: cabinet override, Geller, Leeanna: cabinet override 0700 (Due) Scheduled Medication Order [...] infused., PACU only bupivacaine-EPINEPHrine PF (MARCAINE-w/EPINEPHrine) 0.25% -1:[id number] injection (CANCELED) PRN, Starting on Wed08/04/21 at 1149, Until Wed08/04/21 at 1217, Intra-op 1149 (Given - Provid er: Surendra Michael MD - Comment: OPSBALDEMAR) diphenhydrAMINE (BENADRYL) injection 12.5 mg 12.5 mg, [...] Care Teams (unrecognized sec tion and content) Car Detailer Relationship Specialty Start Date End Date Chelsey Bray MD [address] [place] [address] PCP - General Family Medicine 09/10/20 Car Detailer Relationship Specialty Start Date End Date Chelsey Bray MD [address] [place] [address] PCP - General Family Medicine 09/10/20 Car Detailer Relationship Specialty Start Date End Date Chelsey Bray MD [address] [place] [address] PCP - General Family Medicine 08/20/22 Veronique Neely [employer]GEN[employer] TECHNOLOGIST [address] [place] [address] Nurse Practitioner Family Medicine 08/20/22 Cathy Colon CNM [address] [place] [address] Obstetrics and Gynecology 08/20/22 Car Detailer Relationship Specialty Start Date End Date Chelsey Bray MD [address] [place] [address] PCP - General Family Medicine 08/20/22 Veronique Neely NP [address] [place] [address] Nurse Practitioner Family Medicine 08/20/22 Cathy Colon CNM [address] [place] [address] Obstetrics and Gynecology 08/20/22 Car Detailer Relationship Specialty Start Date End Date Chelsey Bray MD [address] [place] [address] PCP - General Family Medicine 08/20/22 Veronique Neely, CYTOGENETICS TECHNOLOGIST [address] [place] [address] Nurse Practitioner Family Medicine 08/20/22 Cathy Colon CNM [address] [place] [address] Obstetrics and Gynecology 08/20/22 Car Detailer Relationship Specialty Start Date End Date Chelsey Bray MD [address] [place] [address] PCP - General Family Medicine 08/20/22 Veronique Neely NP [address] [place] [address] Nurse Practitioner Family Medicine 08/20/22 Cathy Colon CNM [address] [place] [address] Obstetrics and Gynecology 08/20/22 Car Detailer Relationship Specialty Start Date End Date Chelsey Bray MD [address] [place] [address] PCP - General Family Medicine 08/20/22 Veronique Neely NP [address] [place] [address] Nurse Practitioner Family Medicine 08/20/22 Cathy Colon CNM [address] [place] [address] Obstetrics and Gynecology 08/20/22 Car Detailer Relationship Specialty Start Date End Date Chelsey Bray MD [address] [place] [address] PCP - General 01/24/24 Car Detailer Relationship Specialty Start Date End Date Chelsey Bray MD [address] [place] [address] PCP - General 01/24/24 Car Detailer Relationship Specialty Start Date End Date Chelsey Bray MD [address] [place] [address] PCP - General 01/24/24 Car Detailer Relationship Specialty Start Date End Date Chelsey Bray MD [address] [place] [address] PCP - General 01/24/24 Car Detailer Relationship Specialty Start Date End Date Chelsey Bray MD [address] [place] [address] PCP - General Family Medicine 08/20/22 Veronique Neely NP [address] [place] [address] Nurse Practitioner Family Medicine 08/20/22 Cathy Colon CNM [address] [place] [address] Obstetrics and Gynecology 08/20/22 Car Detailer Relationship Specialty Start Date End Date Chelsey Bray MD [address] [place] [address] PCP - General Family Medicine 08/20/22 Veronique Neely NP [address] [place] [address] Nurse Practitioner Family Medicine 08/20/22 Cathy Colon CNM [address] [place] [address] Obstetrics and Gynecology 08/20/22 Car Detailer Relationship Specialty Start Date End Date Chelsey Bray MD [address] [place] [address] PCP - General Family Medicine 08/20/22 Veronique Neely NP [address] [place] [address] Nurse Practitioner Family Medicine 08/20/22 Cathy Colon CNM [address] [place] [address] Obstetrics and Gynecology 08/20/22 Car Detailer Relationship Specialty Start Date End Date Chelsey Bray MD [address] [place] [address] PCP - General Family Medicine 08/20/22 Veronique Neely CYTOGENETICS TECHNOLOGIST [address] [place] [address] Nurse Practitioner Family Medicine 08/20/22 Cathy Colon CNM [address] [place] [address] Obstetrics and Gynecology 08/20/22 Car Detailer Relationship Specialty Start Date End Date Chelsey Bray MD [address] [place] [address] PCP - General Family Medicine 08/20/22 Veronique Neely NP [address] [place] [address] Nurse Practitioner Family Medicine 08/20/22 Cathy Colon CNM [address] [place] [address] Obstetrics and Gynecology 08/20/22 Car Detailer Relationship Specialty Start Date End Date Chelsey Bray MD [address] [place] [address] PCP - General 01/24/24 Car Detailer Relationship Specialty Start Date End Date Chelsey Bray MD [address] [place] [address] PCP - General Family Medicine 08/20/22 Veronique Neely NP [address] [place] [address] Nurse Practitioner Family Medicine 08/20/22 Cathy Colon CNM [address] [facility] [place] [address] Obstetrics and Gynecology 08/20/22 Car Detailer Relationship Specialty Start Date End Date Chelsey Bray MD [address] [place] [address] PCP - General Family Medicine 08/20/22 Veronique Neely NP [address] [facility] [place] [address] Nurse Practitioner Family Medicine 08/20/22 Cathy Colon CNM [address] [place] [address] Obstetrics and Gynecology 08/20/22 Car Detailer Relationship Specialty Start Date End Date Chelsey Bray MD [address] [place] [address] PCP - General Family Medicine 08/20/22 Veronique Neely NP [address] [place] [address] Nurse Practitioner Family Medicine 08/20/22 Cathy Colon CNM [address] [place] [address] Obstetrics and Gynecology 08/20/22 Car Detailer Relationship Specialty Start Date End Date Chelsey Bray MD [address] [place] [address] PCP - General Family Medicine 08/20/22 Veronique Neely NP [address] [place] [address] Nurse Practitioner Family Medicine 08/20/22 Cathy Colon CNM [address] [place] [address] Obstetrics and Gynecology 08/20/22 Car Detailer Relationship Specialty Start Date End Date Chelsey Bray MD [address] [place] [address] PCP - General Family Medicine 08/20/22 Veronique Neely NP [address] [place] [address] Nurse Practitioner Family Medicine 08/20/22 Cathy Colon CNM [address] [place] [address] Obstetrics and Gynecology 08/20/22 Car Detailer Relationship Specialty Start Date End Date Chelsey Bray MD [address] [place] [address] PCP - General Family Medicine 08/20/22 Veronique Neely NP [address] [place], [place] [id number] Nurse Practitioner Family Medicine 08/20/22 Cathy Colon CNM [address] [facility], [place] [address] Obstetrics and Gynecology 08/20/22 FOR RECORDS PERTAINING [...] BE BASED ON THE PRIMARY CLINICAL RECORDS. [facility]. provides no warranty or guarantee of the accuracy or completeness of information in this document.
--- NOTE | 2024-04-21 14:03 | US_ITS ---
[address] [address] Patient Name: VAN VALERA MRN: [id number] date: 1990 Sex: F Assigned Patient Location: US Current Patient Location: US Accession/Order Number: [id number] Exam Date: 04/21/2024 14:09 Report Date: 04/21/2024 14:39 At the request of: CATHY PALMA Procedure: US OB BPP wo non-stress EXAMINATION: US OB BPP wo non-stress HISTORY: History Of Gestational Diabetes COMPARISON: No relevant comparison available. TECHNIQUE: Ultrasound biophysical profile was performed in the radiology department. non-reactive stress testing was performed by nursing staff in the birthing center. FINDINGS: BREATHING MOVEMENTS: 2 GROSS BODY MOVEMENTS: 2 TONE: 2 QUALITATIVE AMNIOTIC FLUID VOLUME: 2 PRESENTATION: CEPHALIC HEART RATE: 134.33 bpm AMNIOTIC FLUID VOLUME: 14.3 cm GESTATIONAL AGE: 36 weeks 5 days US/US OB BPP wo non-stress IMPRESSION: Total biophysical profile score: 8 Electronically authenticated by: BALDEMAR BORRERO Date: 04/21/2024 14:39
--- OUTSIDE RECORDS SUMMARY | 2024-04-21 14:46 | XMS_ITS | CCD ---
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 mm[Hg] MARIUM Michael MD Work Phone: [facility] 08-04-2021 12:45-0400 Systolic blood pressure 109 mm[Hg] MARIUM Michael MD Work Phone: [facility] 08-04-2021 12:18-0400 Body temperature 96.8 [degF] MARIUM Michael MD Work Phone: [facility] 08-04-2021 09:48-0400 Body height 162.6 cm MARIUM Michael MD Work Phone: [facility] 08-04-2021 09:48-0400 Body mass index (BMI) [Ratio] 31.24 kg/m2 MARIUM Michael MD Work Phone: [employer] 08-04-2021 09:48-0400 Body weight 82.56 kg MARIUM Michael MD Work Phone: [employer] 07-08-2021 08:14-0400 Respiratory rate 0 /min MARIUM Michael MD Work Phone: [employer] 07-08-2021 08:10-0400 Body temperature 97.81 [degF] MARIUM Michael MD Work Phone: [employer] 07-08-2021 08:10-0400 Diastolic blood pressure 69 mm[Hg] MARIUM Michael MD Work Phone: [employer] 07-08-2021 08:10-0400 Heart rate 54 /min MARIUM Michael MD Work Phone: [employer] 07-08-2021 08:10-0400 SaO2% (BldA) [Mass fraction] 100 % MARIUM Michael MD Work Phone: [employer] 07-08-2021 08:10-0400 Systolic blood pressure 107 mm[Hg] MARIUM Michael MD Work Phone: [employer] 07-08-2021 07:01-0400 Body height 162.6 cm MARIUM Michael MD Work Phone: [employer] 07-08-2021 07:01-0400 Body mass index (BMI) [Ratio] 31.41 kg/m2 MARIUM Michael MD Work Phone: [employer] 07-08-2021 07:01-0400 Body weight 83.01 kg MARIUM Michael MD Work Phone: [employer] 09-12-2020 07:33-0400 Diastolic blood pressure 76 mm[Hg] Breana Millery Mondragon DO Work Phone: [employer] Work Phone: 09-12-2020 07:33-0400 Heart rate 61 /min Breana Millery Mondragon DO Work Phone: [employer] Work Phone: 09-12-2020 07:33-0400 Respiratory rate 18 /min Breana Hastingsg DO Work Phone: [employer] Work Phone: 09-12-2020 07:33-0400 Systolic blood pressure 115 mm[Hg] Breana Hastingsg DO Work Phone: [employer] Work Phone: 09-12-2020 07:32-0400 Body temperature 98.4 [degF] Breana Peraza Mondragon DO Work Phone: [employer] Work Phone: 09-10-2020 16:08-0400 SaO2% (BldA) [Mass fraction] 100 % Breana Peraza Mondragon DO Work Phone: [employer] Work Phone: 09-10-2020 12:10-0400 Body height 162.6 cm Breana Peraza Mondragon DO Work Phone: [employer] Work Phone: 09-10-2020 12:10-0400 Body mass index (BMI) [Ratio] 34.84 kg/m2 Breana Peraza Mondragon DO Work Phone: [employer] Work Phone: 09-10-2020 12:10-0400 Body weight 92.08 kg Breana Peraza Mondragon DO Work Phone: [employer] Work Phone: Encounters Encounter Date Encounter Type Care Provider Facility Start: 04-18-2024 End: 04-18-2024 [facility] Cathy L Floro CN Work Phone: [facility] Start: 04-18-2024 End: 04-18-2024 [employer] Cathy L Floro CN Work Phone: [facility] [...] Bonilla MD Work Phone: [facility]- Medicine at [facility] Comment on above: 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 (Primary Dx) Start: 03-20-2024 End: 03-20-2024 ambulatory [facility] Start: 03-08-2024 End: 03-08-2024 Bamboo [...] 01-31-2024 End: 01-31-2024 Orders Only Jake Dai SEC REPORTING CONSULTANT [facility]- Medicine at [facility] Comment on above: Pyelectasis (Primary Dx); anomaly suspected but not found Pyelectasis Start: 01-25-2024 End: 01-25-2024 Office consultation new/estab patient 60 min Tang Bonilla MD Work Phone: [facility]- [facility] at [facility] Comment on above: 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 (Primary Dx) Start: 01-25-2024 End: 01-25-2024 Orders Only Kristen Do RN [facility] at [facility] Comment on above: 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 (Primary Dx); Pyelectasis Start: 01-17-2024 End: 01-17-2024 Chart abstracting Tang Bonilla MD Work Phone: [facility]- [facility] at [facility] Start: 01-17-2024 End: 01-17-2024 Telephone encounter Chelsey Bray MD Work Phone: [facility] Start: 01-14-2024 End: 01-14-2024 Chart abstracting Tang Bonilla MD Work Phone: [facility]- [facility] at [facility] Start: 01-11-2024 End: 01-11-2024 Bamboo flowsheet Cathy Jumana Pritchetto CNM Work Phone: [facility] Start: 01-11-2024 End: 01-11-2024 Bamboo flowsheet Ctahy Jumana Pritchetto CNM Work Phone: [facility] [...] [facility] Start: 12-23-2023 End: 12-23-2023 Shiela Fernandez MD Work Phone: [facility] Start: 12-15-2023 End: 12-15-2023 Bamboo flowsheet Cahty L Floro CNM Work Phone: [facility] [...] Start: 08-04-2021 End: 08-04-2021 ambulatory Surendra MICHAEL [facility] Start: 08-04-2021 End: 08-04-2021 Subsequent hospital visit by physician Surendra Michael MD [facility] Phone[facility] [place] Comment on above: 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, nose, lip, and ear (HCC) (Primary Dx); Pain following surgery or procedure Start: 07-08-2021 End: 07-08-2021 [facility] Start: 07-08-2021 End: 07-08-2021 Subsequent hospital visit by physician Surendra Michael MD Work Phone: [facility] [place] Comment on above: Pain following surge ry or procedure (Primary Dx) Start: 09-10-2020 End: 09-12-2020 Evaluation and management of inpatient [facility] Start: 09-10-2020 End: 09-12-2020 Evaluation and management of inpatient [facility] Work Phone: [facility] Labor and Delivery Comment on above: delivery de livered (Primary Dx) Start: 09-09-2020 End: 09-09-2020 [facility] Start: 09-09-2020 End: 09-09-2020 Admission to [facility] Work Phone: [facility] Start: 09-09-2020 End: 09-09-2020 Subsequent hospital visit by physician Breana [facility] Work Phone: [facility] Labor and Delivery Comment on above: Encounter for preadm ission testing (Primary Dx); S/P primary low transverse Start: 06-23-2018 End: 06-23-2018 Patient encounter procedure Delia Mcneill Facility:[facility] Procedures Date Procedure Procedure Detail Performing Clinician Start: 01-25-2024 UNLISTED LAB TEST Tang Bonilla MD Work Phone: Start: 10-12-2023 Antibody screen Tang Bonilla MD Work Phone: Start: 10-12-2023 CHLAMYDIA/GC BY PCR RUPERTO SWAB Not In System Ref Prov Start: 10-12-2023 Drug scrn 1+ class nonchromo Not In System Ref Prov Start: 10-12-2023 Hemoglobin glycosylated a1c Cathy Colon DIRECTOR OF INDIVIDUAL GIVING-CNM Work Phone: Start: 10-12-2023 HIV 1&2 AB/AG [...] Start: 08-07-2020 GBS, EXTERNAL RESULT Cathy Colon DIRECTOR OF INDIVIDUAL GIVING - CNM Work Phone: Start: 01-30-2020 ABO, EXTERNAL RESULT Cathy Yarelyo DIRECTOR OF INDIVIDUAL GIVING - CNM Work Phone: Start: 01-30-2020 C. TRACHOMATIS, EXTERNAL RESULT Cathy Yarelyo DIRECTOR OF INDIVIDUAL GIVING - CNM Work Phone: Start: 01-30-2020 HEPATITIS B, EXTERNAL RESULT Cathy Yarelyo DIRECTOR OF INDIVIDUAL GIVING - CNM Work Phone: Start: 01-30-2020 HIV, EXTERNAL RESULT Cathy Yarelyo DIRECTOR OF INDIVIDUAL GIVING - CNM Work Phone: Start: 01-30-2020 N. GONORRHOEAE, EXTERNAL RESULT Cathy Yarelyo DIRECTOR OF INDIVIDUAL GIVING - CNM Work Phone: Start: 01-30-2020 RH FACTOR, EXTERNAL RESULT Cathy Floro DIRECTOR OF INDIVIDUAL GIVING - CNM Work Phone: Start: 01-30-2020 RPR, EXTERNAL RESULT Cathy Colon DIRECTOR OF INDIVIDUAL GIVING - CNM Work Phone: Start: 01-30-2020 RUBELLA TITER, EXTERNAL RESULT Cathy Colon DIRECTOR OF INDIVIDUAL GIVING - CNM Work Phone: H/O: section S/P [...] Td Vaccines (7 - Td or Tdap) [facility] Start: 06-20-2030 DTaP/Tdap/Td vaccine (7 - Td or Tdap) DTaP/Tdap/Td vaccine (7 - Td or Tdap) [facility] Start: 03-20-2025 Adult BMI Screening Adult BMI Screen ing [facility] Start: 01-24-2025 Adult BMI Screening Adult BMI Screen ing [facility] Start: 01-24-2025 Tobacco Screening Tobacco Screening [facility] Start: 01-24-2025 End: 01-24-2025 US MFM [...] DERM [address] [place] [address] Hossein Fernandez MD [address] [place] [address] [facility] Start: 05-02-2024 End: 05-02-2024 Patient encounter procedure 05/02/2024 8:30 AM EST Routine [facility] [address] [place] [address] Cathy Colon, CNM [address] [place] [address] [facility] Start: 04-25-2024 End: 04-25-2024 Patient encounter procedure 04/25/2024 10:00 AM EST Routine [facility] [address] [facility] [place] [address] Cathy Colon, CNM [address] [place] [address] [facility] Start: 04-24-2024 End: 04-24-2024 Patient encounter procedure 04/24/2024 5:30 PM EST Routine [facility] [address] [facility] [place] [address] Cathy Colon, CNM [address] [place] [address] [facility] Start: 04-18-2024 End: 04-18-2024 Patient encounter procedure [facility] Comment on above: Arrived Start: 04-11-2024 End: 04-11-2024 Patient encounter procedure 04/11/2024 8:30 AM EST Routine [facility] [address] [facility] [place] [address] Yarelyjoanie Cathy L, CNM [address] [place] [address] [facility] Start: 04-04-2024 End: 04-04-2024 Patient encounter procedure 04/04/2024 8:45 AM EST Routine [facility] [address] [facility] [place] [phone] Yarelyjoanie Cathy L, CNM [address] [place] [address] [facility] Start: 04-03-2024 End: 04-03-2024 Clinical Support [facility] Comment on above: Elevated glucose sary erance test; History of gestational diabetes Start: 03-28-2024 End: 03-28-2024 Patient encounter procedure 03/28/2024 8:45 AM EST Routine [facility] [address] [facility] [place] [phone] Isaiah Cathy L, CNM [address] [place] [address] [facility] Start: 03-23-2024 End: 03-23-2025 [...] of gestational diabetes Expected: 03/23/2024, Expires: 03/23/2025 [facility] Comment on above: Expected: 03/23/2024 , Expires: 03/23/2025 Start: 03-23-2024 End: 03-23-2024 Patient encounter procedure 03/23/2024 8:45 AM EST Routine [facility] [address] [place] [phone] Cathy Colon, REY [address] [place] [address] [facility] Start: 03-20-2024 End: 03-20-2024 Patient encounter procedure [facility] Start: 03-08-2024 End: 03-08-2025 GLUCOSE TOLERANCE TEST, GEST, 4SPEC 100G W/NDDG GLUCOSE TOLERANCE TEST, GEST, 4SPEC 100G W/NDDG Lab Routine Elevated glucose tolerance test Expected: 03/08/2024 (Approximate), Expires: 03/08/2025 [facility] Work Phone: Comment on above: Expected: 03/08/2024 (Approximate), Expires: 03/08/2025 Start: 03-08-2024 End: 03-08-2024 Patient encounter procedure 03/08/2024 8:30 AM EST Routine [facility] [address] [place] [phone] Cathy Colon, REY [address] [place] [phone] [facility] Start: 02-09-2024 End: 02-08-2025 CBC panel - Blood by Automated count CBC Lab Routine Screening for iron deficiency anemia Expected: 02/09/2024 (Approximate), Expires: 02/08/2025 [facility] Comment on above: Expected: 02/09/2024 (Approximate), [...] AM EST Routine [facility] [address] [place] [phone] Cathy Colon, CN [address] [place], [place] [phone] [facility] Start: 01-25-2024 End: 01-25-2024 Patient encounter procedure 01/25/2024 8:45 AM EST Office Visit M[facility]- Medicine at [facility] [address] [place] [phone] Tang Bonilla MD [address] [facility] [address] [place] [address] M[facility]- Medicine at [facility] Start: 01-25-2024 End: 01-25-2024 Patient encounter procedure 01/25/2024 7:30 AM EST Appointment [facility] [address] [place] [phone] [facility] Start: 01-11-2024 End: 01-11-2024 Patient encounter procedure 01/11/2024 8:45 AM EDT Routine [facility] [address] [place] [phone] Cathy Colon, CNM [address] [place] [address] [facility] Start: 12-27-2023 End: 12-27-2023 Professional / ancillary services management 12/27/2023 3:15 PM EDT Ancillary Procedure [facility] [address] [phone] [facility] Start: 12-23-2023 End: 12-23-2023 [...] AM EDT Routine [facility] [address] [place] [phone] Cathy Colon, CNM [address] [place] [address] Arrived [facility] Comment on above: Arrived Start: 12-15-2023 End: 12-15-2023 Patient encounter procedure 12/15/2023 8:30 AM EDT Routine [facility] [address] [place] [phone] Cathy Colon, CNM [address] [place] [address] [facility] Start: 11-21-2023 Influenza vaccination [facility] Start: 11-20-2021 Influenza vaccination Flu vacc ine (Season Ended) [facility] Start: 08-12-2021 End: 08-12-2021 Patient encounter procedure 08/12/2021 Office Visit Plastic Surgery Rhoda Callahan, [place] [address] [facility] [address] [place] [address] [facility] Start: 08-04-2021 End: 08-04-2021 HEAD LESION EXCISION HEAD LESION EXCISION D03.30 RIGHT CHEEK MELANOMA 08/04/2021 11:33 AM EDT [facility] Start: 07-23-2021 End: 07-23-2021 Patient encounter procedure 07/23/2021 Office [place] [id number] [facility] [address] [place] [phone] [facility] Start: 07-08-2021 End: 07-08-2021 FACIAL LESION BIOPSY EXCISION FACIAL LESION BIOPSY EXCISION LESION RIGHT NECK X1 LESION RIGHT CHEEK X 2 07/08/2021 7:29 AM [facility] Start: 2021 Screening for malign ant neoplasm of cervix [facility] Start: 11-20-2020 Influenza vaccination Flu vacc ine (Season Ended) [facility] Work Phone: Start: 09-10-2020 End: 09-10-2020 Admission to same day surgery center 09/10/2020 Surgery Obstetrics and Gynecology Breana Ledbetter DO [address] [place] [address] [phone] SECTION [facility] Labor and Delivery Comment on above: SECTION Start: 09-10-2020 Subsequent hospital visit by physician 09/10/2020 Hospital Encounter Obstetrics and Gynecology Breana Ledbetter DO [address] [place] [address] [facility] Start: 01-14-2012 Screening for malign ant neoplasm of cervix [facility] Start: 2010 DTaP/Tdap/Td vaccine (1 - Tdap) DTaP/Tdap/Td vaccine (1 - Tdap) [facility] [employer] Phone: Start: 2009 Adult BMI Follow Up Plan Adult BMI Follow Up Plan [facility] Start: 2009 Adult BMI Screening Adult BMI Screen ing [facility] Start: 2009 Hepatitis C screening Hepatitis C [facility] Start: 2006 HIV screening HIV screen [facility] Start: 2003 COVID-19 Vaccine (1) COVID-19 Vaccin e (1) [facility] [employer] Phone: Start: 2003 Depression Screen Depression Screen [facility] [employer] Start: 2003 Depression Screening Depression Scre ening [facility] Start: 2003 Tobacco Screening Tobacco Screening [facility] Start: 01-14-1996 COVID-19 Vaccine (1) COVID-19 Vaccin e (1) [facility] [employer] Start: 01-14-1992 Varicella vaccine (1 of 2 - 2-dose childhood series) Varicella vaccine (1 of 2 - 2-dose childhood series) [facility] [employer] Start: 1991 Hepatitis C screening Hepatitis C [facility] End: 08-04-2021 INITIATE PACU OXYGEN THERAPY PROTOCOL Initiate PACU Oxygen Therapy Protocol Respiratory Care Routine Continuous until discontinued [facility] on above: Continuous until dis continued starting 08/04/2021 Oxygen therapy [[facility] Data Set] Initiate Oxygen Therapy Protocol Respiratory Care Routine Daily until discontinued starting 09/10/2020 [facility] Comment on above: Daily until disconti nued starting 09/10/2020 Spirometry panel Incentive liz metry Respiratory Care Routine Every 2hr while awake until discontinued starting 09/10/2020 [facility] Comment on above: Every 2hr while awak e until discontinued starting 09/10/2020 Surgical Pathology Surgical Path ology Lab Routine Release Upon Ordering for 1 Occurrences starting 07/08/2021 [facility] Comment on above: Release Upon Orderin g for 1 Occurrences starting 07/08/2021 Surgical Pathology Surgical Path ology Lab Routine Release Upon Ordering for 1 Occurrences starting 08/04/2021 [employer] Phone: Comment on above: Release Upon Orderin g for 1 Occurrences starting 08/04/2021 End: 09-09-2020 TYPE AND SCREEN TYPE AND SCREEN Blood Bank STAT Encounter for preadmission testing One Time for 1 Occurrences starting 09/09/2020 until 09/09/2020 [employer] Phone: Comment on above: One Time for 1 Occur rences starting 09/09/2020 until 09/09/2020 TYPE AND SCREEN TYPE AND SCREEN Blood Bank Stat [employer] print Encounter for preadmission testing 09/09/2020 2:26 PM EDT [employer] Phone: Immunizations Immunization Date Immunization Notes Care Provider Fa cili 09-10-2020 diphtheria, tetanus toxoids and acellular pertussis vaccine, unspecified formulation Breaan Peraza Mondragon DO Work Phone: [employer] Phone: 09-10-2020 measles, mumps and rubella virus vaccine Breana Peraza [employer] DO Work Phone: [employer] Phone: Payers Date Payer Category Payer Private Health Insurance [employer] [id number] 2024 Unknown [id number] 2021 Commercial Managed C are - POS 1.2.840.169770.1.13.424.2. 7.9.942411.502.315 2021 Managed Care HMO (unspecified) 1.2.840.920499.1.13.693.2. 7.3.658087.315 2021 Private Health Insurance [id number] 1.2.840.212678.1.13.239.2. 7.3.307979.315 2021 Unknown [id number] 1.2.840.969812.1.13.239.2. 7.3.823015.315 2018 Self-pay 2018 Unknown [id number] 1991 Unknown [id number] 2.16.840.1.721612.3.579.2. 173 1991 Unknown [id number] 2.16.840.1.146809.3.579.2. 175 1991 Unknown [id number] 2.16.840.1.686603.3.579.2. 175 1991 Unknown [id number] 2.16.840.1.918048.3.579.2. 1286 1991 Unknown [id number] 2.16.840.1.082455.3.579.2. 1286 1991 Unknown [id number] 2.16.840.1.729414.3.579.2. 1286 1991 Unknown [id number] 2.16.840.1.205225.3.579.2. 1286 1991 Unknown [id number] 2.16.840.1.429545.3.579.2. 1259 1991 Unknown [id number] 2.16.840.1.490618.3.579.2. 1259 1991 Unknown [id number] 2.16.840.1.108978.3.579.2. 1259 1991 Unknown [id number] 2.16.840.1.717246.3.579.2. 1259 1991 Unknown [id number] 2.16.840.1.721938.3.579.2. 1259 1991 Unknown [id number] 2.16.840.1.844476.3.579.2. 1259 1991 Unknown [id number] 2.16.840.1.076766.3.579.2. 1259 1991 Unknown [id number] 2.16.840.1.019285.3.579.2. 1258 1991 Unknown [id number] 2.16.840.1.723104.3.579.2. 9 1991 Unknown [id number] 2.16.840.1.305218.3.579.2. 9 1991 Unknown [id number] 2.16.840.1.339957.3.579.2. 1259 1991 Unknown [id number] 2.16.840.1.214390.3.579.2. 9 1991 Unknown [id number] 2.16.840.1.400746.3.579.2. 9 1991 Unknown [id number] 2.16.840.1.535040.3.579.2. 1259 1991 Unknown [id number] 2.16.840.1.614236.3.579.2. 1259 1991 Unknown [id number] 2.16.840.1.600600.3.579.2. 1259 1991 Unknown [id number] 2.16.840.1.676570.3.579.2. 9 1991 Unknown [id number] 2.16.840.1.613059.3.579.2. 1259 1991 Unknown [id number] 2.16.840.1.163595.3.579.2. 1259 Unknown [id number] 2.16.840.1.657580.3.579.2. 531 Social History Date Type Detail Facility Tobacco smoking stat [facility] Unknown if ever smoked [employer] Phone: Start: 1990 Sex Assigned At Not on file [email or web address] Phone: Start: 09-10-2020 End: 09-02-2022 Tobacco smoking status NHIS Never smoker [employer] Start: 09-10-2020 End: 09-02-2022 Tobacco use and exposure Never used [employer] Start: 09-10-2020 End: 12-24-2023 Alcohol intake Ex-drinker (finding) [employer] Phone: Start: 07-08-2021 End: 08-04-2021 Alcohol intake Current drinker of alcohol (finding) [employer] Phone: Start: 07-08-2021 End: 12-24-2023 Alcohol intake [employer] Phone: Start: 1990 Sex Assigned At Female [facility] [employer] Start: 07-25-2021 End: 08-04-2021 Exposure to SARS-CoV-2 (event) Not sure [employer] Phone: Start: 09-22-2023 End: 12-24-2023 Tobacco use panel [facility] Start: 09-01-2022 Alcohol Comment Alcohol: 3or 4 drinks on typical day/ monthly or less. Caffeine 1-2 cup/sday [facility] Start: 08-22-2023 [facility] Start: 06-03-2022 Gender identity Identifies as female gender (finding) [facility] Tobacco smoking stat [facility] Tobacco smoking consumption unknown [facility] Unknown [facility] Start: 10-25-2014 Sex Female (finding) [facility] Clinical Notes 09-12-2020 to 04-18-2024 [...] a routine visit. documented in this encounter [facility] 04-11-2024 History of Present illness Narrative Subjective [...] a routine visit. documented in this encounter [facility] 03-28-2024 Telephone encounter Note Pt scheduled for nutritions/ Fernanda Eaton [facility] 03-28-2024 Miscellaneous Notes Pt scheduled for nutritions/ Fernanda Eaton documented in this encounter [facility] 03-28-2024 History of Present illness Narrative [...] she is waiting for an appt for pattern weaver referral. We also discussed her blood sugars [...] a routine visit. documented in this encounter [facility] 03-23-2024 History of Present illness Narrative [...] info given, and will make referral to in service educator. Objective Physical Exam weight: 188 lb [...] a routine visit. documented in this encounter [facility] 03-20-2024 History of Present illness Narrative [...] Cystitis Gastroenteritis History of female infertility Melanoma ([facility] 05/2021 in [place]IT[place] Myopia Rhus dermatitis REVIEW [...] allowing me to participate in [facility]. If there are any questions, please do not hesitate to call me. Sincerely, TANG BONILLA MD documented in this encounter [facility] [employer] 03-08-2024 History of Present illness Narrative Subjective [...] a routine visit. documented in this encounter [facility] 02-09-2024 History of Present illness Narrative [...] by: seeing MFM kink in baby kidney. [facility] has given her reassurance she can deliver in Sean and as the baby grows he told them it should correct itself, or when baby has first void. She is seeing [facility] one more time for another US [...] a routine visit. documented in this encounter [facility] 01-25-2024 History of Present illness Narrative [...] Declined Have you been seen here at [facility] in a previous ? No Recent ER visits or hospitalizations? No Bring blood sugar log or meter with you today? (Please bring them with you for every visit at [facility]) N/A Flu vaccine (Jan-May)? No Any [...] Cystitis Gastroenteritis History of female infertility Melanoma ([facility]) 05/2021 in [place]ITU Myopia Rhus dermatitis PAST [...] and the other consultants, we search on c-crowd and all the available care everywhere epic I did review all the imaging studies of the patient available on EMR, ordered by the primary care physician and the other student union consultant HABITS: Patient activity no restrictions, diet [...] patient is in complete care of her clinical informatics specialist. Patient does have ultrasound office visit scheduled with us Thank you for allowing me to participate in [facility] . If there any questions please do not hesitate to contact us. Sincerely, TANG BONILLA MD documented in this encounter [facility] 01-17-2024 Telephone encounter Note Maddie from Maternal- Medicine at [facility] called and left a vm at 11:25 am She said that she needs faxed over some information about the pt. She said if there is any Genetic Testing that has been done, Her first OB US, and she needs a reasoning for sending her to see them. Fax is [phone] Phone is [phone] [facility] 01-17-2024 Miscellaneous Notes Maddie from Maternal- Medicine at [facility] called and left a vm at 11:25 am She said that she needs faxed over some information about the pt. She said if there is any Genetic Testing that has been done, Her first OB US, and she needs a reasoning for sending her to see them. Fax is [phone] Phone is [phone] documented in this encounter [facility] 01-11-2024 History of Present illness Narrative [...] report and if needed will send to [facility] for consult. Urine protein-negative Urine glucose-negative Labs: reviewed Imaging Assessment/Plan Diagnoses and all orders for this visit: Encounter for supervision of other normal , second trimester History of section Continue vitamin. Labs reviewed. Rhogam not needed patient is O+ positive GTT at 28 weeks Follow up in 4 weeks for a routine visit documented in this encounter [facility] 12-30-2023 History of Present illness Narrative Report received on patients recent US. Radiologist recommends to repeat the scan in 2-4 weeks to assess single bubble in the stomach. I called patient report read to patient with explanation and reason to recheck US. PVU and all questions answered. Patient will come in 2 weeks for appt and repeat US documented in this encounter [facility] 12-23-2023 History of Present illness Narrative [...] excision performed by Juancarlos Michael MD at [facility] In [facility]. Originally biopsied by Rhoda Callahan APRN-VÍCTOR also with [facility] Additional testing: none Currently [...] Examined Right arm Examined Patient wearing nail burkinan, Denies dark streaks under finger nails, Denies [...] months skin exam documented in this encounter [facility] 12-15-2023 History of Present illness Narrative [...] a routine visit. documented in this encounter [facility] 11-10-2023 History of Present illness Narrative [...] a routine visit. documented in this encounter [facility] 06-20-2021 Hospital Discharge instructions Arlen Rhoades [...] Any new symptoms documented in this encounter [employer] Phone: 06-20-2021 Hospital Discharge instructions Arlen Rhoades [...] Any new symptoms documented in this encounter [facility] [employer] Phone: 09-12-2020 Hospital Discharge instructions Tamra Guardado RN - 09/12/2020 Follow-up with your OB doctor as specified. [facility] OB Department phone: Dr. Greyson Gonzalez [facility] Dr. Laura Rhoades [facility] [address] [place] [id number] Laura Oliver [facility] [address] [facility] [id number] [phone] Micky Colon, MSN, DIRECTOR OF INDIVIDUAL GIVING, CNM [facility] [address] [address] [address] [facility] [address] [facility] [id number] Chinyere Grande [facility] [address] [place] [address] [address] [place] [address] Carolin Esqueda [facility] [address] [facility] [place] [address] [place] [address] [phone] DIET Eat a well balanced diet focusing on foods high in fiber and protein. Drink plenty of fluids especially water. To avoid constipation you may take a mild stool softener as recommended by your doctor or bridge engineer. ACTIVITY Gradually increase your activity. Resume exercise regimen only after advice by your doctor or bridge engineer. Avoid lifting anything heavier than a gallon of milk for SIX weeks. Avoid driving until your doctor or bridge engineer has given their approval. Rise slowly from [...] medications as recommended by your doctor or bridge engineer for pain If you develop a warm, [...] vitamins as directed by your doctor or bridge engineer. Refer to the booklet in the folder/binder for more information. If you feel you need more assistance or have questions, please call Hossein Marrufo IBCLC, showroom sales consultant, at or the OB department to [...] in your calf. documented in this encounter [employer] Phone: 09-12-2020 History of Present illness Narrative [...] with as needed documented in this encounter [employer] Phone: Evaluation note Diagnosis Encounter for preadmission testing- Primary S/P primary low transverse delivery, without mention of indication, unspecified as to episode of care documented in this encounter [employer] Phone: evaluation note* Diagnosis delivery delivered- Primary delivery, without mention of indication, delivered, with or without mention of antepartum condition 40 weeks gestation of state, incidental documented in this encounter [employer] Phone: evaluation note* Diagnosis Pain following surgery or procedure- Primary Other acute postoperative pain documented in this encounter [employer] Phone: evaluation note* Diagnosis 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 Healthcare[facility] note* Diagnosis Encounter for supervision of other normal , second trimester- Primary History of section Other postprocedural status documented in this encounter [facility] Healthcare[facility] note* Diagnosis anomaly suspected but not found- Primary Suspected anomaly not found documented in this encounter [facility]* Diagnosis anomaly suspected but not found- Primary Suspected anomaly not found Pyelectasis Other specified disorder of kidney and ureter documented in this encounter [facility] [employer] SystemEvaluation note* Diagnosis Pyelectasis- Primary Other specified disorder of kidney and ureter anomaly suspected but not found Suspected anomaly not found documented in this encounter [facility]* Diagnosis Pyelectasis Other specified disorder of kidney and ureter documented in this encounter [facility]* Diagnosis Encounter for supervision of other normal , third trimester- Primary Screening for diabetes mellitus Screening for iron deficiency anemia related condition in second trimester documented in this encounter [facility]* Diagnosis Encounter for supervision of other normal , second trimester- Primary History of section Other postprocedural status [facility] Diagnosis Encounter for supervision of other normal , third trimester- Primary Elevated glucose tolerance test Impaired glucose tolerance test History of section Other postprocedural status documented in this encounter [facility]* Diagnosis Encounter for supervision of other normal , second trimester- Primary History of section Other postprocedural status related condition in second trimester documented in this encounter [facility]* Diagnosis anomaly suspected but not found- Primary Suspected anomaly not found documented in this encounter [facility] note* Diagnosis Encounter for supervision of other normal , third trimester- Primary Elevated glucose tolerance test Impaired glucose tolerance test History of section Other postprocedural status History of gestational diabetes Personal history of other genital system and obstetric disorders documented in this encounter [facility]* Diagnosis Viral upper respiratory tract infection- Primary Acute upper respiratory infections of unspecified site Ketonuria Acetonuria Encounter for supervision of other normal , third trimester Gestational diabetes mellitus (GDM) affecting documented in this encounter [facility]* Diagnosis Gestational diabetes mellitus (GDM) affecting - Primary Encounter for supervision of other normal , third trimester [facility] Diagnosis Gestational diabetes mellitus (GDM) affecting - Primary Encounter for supervision of other normal , third trimester History of section Other postprocedural status documented in this encounter [facility] HealthcareInstructionsNot on filedocumented in this [facility] [employer] SystemInstructionsNot on filedocumented in this encounterProMarietta Osteopathic ClinicCommerce Guys SystemInstructionsNot on filedocumented in this encounterProMarietta Oste[facility] ClinicCom[facility] Guys System InstructionsNot on filedocumented in this encounterProMarietta Osteopathic ClinicCommerce Guys System InstructionsNot on filedocumented in this encounterProMarietta Osteopathic ClinicCommerce Guys System InstructionsNot on filedocumented in this encounter[facility] InstructionsNot on filedocumented in this encounterCleveland Clinic [facility]or HospitalReason for visit Narrative* Auth/Cert Specialty Diagnoses / Procedures Referred By Bryanna suggs Referred To Contact Diagnoses Acoustic nerve lesion, right Acoustic nerve lesion, right LESION RIGHT NECK X1 LESION RIGHT CHEEK X 2 Procedures MS OFFICE/OUTPT VISIT,PROCEDURE ONLY MS EXC SKIN BENIG <5MM FACE,FACIAL RIGHT CHEEK LESION X 2 AND RIGHT NECK LESION X 1 [place] [address] [place] [address] [id number] [place] [address] Referral ID Status Reason Start Date Expiration Date Visits Re quested Visits Authorized 1 1 [employer] Phone: reason for visit Narrative* Auth/Cert Specialty Diagnoses / Procedures Referred By Bryanna suggs Referred To Contact Diagnoses 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 Procedures MS OFFICE/OUTPT VISIT,PROCEDURE ONLY MS EXC SKIN BENIG >4CM TRUNK,ARM,LEG RIGHT CHEEK WIDER RESECTION OF MELANOMA IN SITU [place] [id number] [place] [id number] [employer] [address] [place] [address] Referral ID Status Reason Start Date Expiration Date Visits Re quested Visits Authorized [id number] 1 1 [employer] Phone: Summary Purpose Family History No Family [...] section and content) DATE CREATED AUTHOR 07/06/2018 [facility] DATE CREATED AUTHOR AUTHOR'S ORGANIZ ATION 09/13/2020 [facility] DATE CREATED AUTHOR AUTHOR'S ORGANIZ ATION 08/07/2021 [facility] DATE CREATED AUTHOR AUTHOR'S ORGANIZ ATION 01/27/2022 [facility] dical Specialist DATE CREATED AUTHOR AUTHOR'S ORGANIZ ATION 03/22/2024 [facility] DATE CREATED AUTHOR AUTHOR'S ORGANIZ ATION 04/19/2024 [facility] dical Specialists EPIC Reason for Visit (unrecogniz ed section and content) Reason Comments Scheduled Status Reason Specialty Diagnoses / Procedures Referre d By Contact Referred To Contact Diagnoses 40 weeks gestation of macrosomia Procedures MS DELIVERY ONLY SECTION Breana Ledbetter, DO [address] [place] [address] [facility] Reason Comments Skin Check Suspicious Skin Lesion [...] 50 mL (mini-bag) (COMPLETED) 2,000 mg, Intravenous, DEBONER TO O.R., 1 dose, On Wed09/10/20 at [...] (Due) 0900 (Due)2100 (Due) 0900 (Due)2100 (Due) Oyhmxlj-Cttdxq-Hwsug Pertussis (BOOSTRIX) injection 0.5 mL 0.5 mL, [...] 07/06/2021 07/07/2021 07/08/2021 bupivacaine-EPINEPHrine PF (MARCAINE-w/EPINEPHrine) 0.25% -1:[id number] injection (CANCELED) PRN, Starting on Wed07/08/21 at 0742, Until Wed07/08/21 at 0827, Intra-op 0741 (Given - Provid er: Surendra Michael MD - Comment: OPERATIVE SITE INJECTED PRIOR TO INCISION) No Frequency Medication Order 07/06/2021 07/07/2021 07/08/2021 bupivacaine-EPINEPHrine (MARCAINE-w/EPINEPHRINE) 0.25% -1:832575 injection 1 dose, Starting on Wed07/08/21 at [...] infused., PACU only bupivacaine-EPINEPHrine PF (MARCAINE-w/EPINEPHrine) 0.25% -1:472157 injection (CANCELED) PRN, Starting on Wed08/04/21 at [...] Teams (unrecognized sec tion and content) Creative Writing English Professor Relationship Specialty Start Date End Date Chelsey Bray MD [address] [place] [address] PCP - General Family Medicine 09/10/20 Creative Writing English Professor Relationship Specialty Start Date End Date Chelsey Bray MD [address] [place] [address] PCP - General Family Medicine 09/10/20 Creative Writing English Professor Relationship Specialty Start Date End Date Chelsey Bray MD [address] [place] [address] PCP - General Family Medicine 08/20/22 Veronique Neely PROGRAM MANAGER [address] [place] [address] Nurse Practitioner Family Medicine 08/20/22 Cathy Colon CNM [address] [place] [address] Obstetrics and Gynecology 08/20/22 Creative Writing English Professor Relationship Specialty Start Date End Date Chelsey Bray MD [address] [place] [address] PCP - General Family Medicine 08/20/22 Veronique Neely NP [address] [place] [address] Nurse Practitioner Family Medicine 08/20/22 Cathy Colon CNM [address] [place] [address] Obstetrics and Gynecology 08/20/22 Creative Writing English Professor Relationship Specialty Start Date End Date Chelsey Bray MD [address] [place] [address] PCP - General Family Medicine 08/20/22 Veronique Neely, PROGRAM MANAGER [address] [place] [address] Nurse Practitioner Family Medicine 08/20/22 Cathy Colon CNM [address] [place] [address] Obstetrics and Gynecology 08/20/22 Creative Writing English Professor Relationship Specialty Start Date End Date Chelsey Bray MD [address] [place] [address] PCP - General Family Medicine 08/20/22 Veronique Neely NP [address] [place] [address] Nurse Practitioner Family Medicine 08/20/22 Cathy Colon CNM [address] [place] [address] Obstetrics and Gynecology 08/20/22 Creative Writing English Professor Relationship Specialty Start Date End Date Chelsey Bray MD [address] [place] [address] PCP - General Family Medicine 08/20/22 Veronique Neely NP [address] [place] [address] Nurse Practitioner Family Medicine 08/20/22 Cathy Colon CNM [address] [place] [address] Obstetrics and Gynecology 08/20/22 Creative Writing English Professor Relationship Specialty Start Date End Date Chelsey Bray MD [address] [place] [address] PCP - General 01/24/24 Creative Writing English Professor Relationship Specialty Start Date End Date Chelsey Bray MD [address] [place] [address] PCP - General 01/24/24 Creative Writing English Professor Relationship Specialty Start Date End Date Chelsey Brya MD [address] [place] [address] PCP - General 01/24/24 Creative Writing English Professor Relationship Specialty Start Date End Date Chelsey Bray MD [address] [place] [address] PCP - General 01/24/24 Creative Writing English Professor Relationship Specialty Start Date End Date Chelsey Bray MD [address] [place] [address] PCP - General Family Medicine 08/20/22 Veronique Neely NP [address] [place] [address] Nurse Practitioner Family Medicine 08/20/22 Cathy Colon CNM [address] [place] [address] Obstetrics and Gynecology 08/20/22 Creative Writing English Professor Relationship Specialty Start Date End Date Chelsey Bray MD [address] [place] [address] PCP - General Family Medicine 08/20/22 Veronique Neely NP [address] [place] [address] Nurse Practitioner Family Medicine 08/20/22 Cathy Colon CNM [address] [place] [address] Obstetrics and Gynecology 08/20/22 Creative Writing English Professor Relationship Specialty Start Date End Date Chelsey Bray MD [address] [place] [address] PCP - General Family Medicine 08/20/22 Veronique Neely NP [address] [place] [address] Nurse Practitioner Family Medicine 08/20/22 Cathy Colon CNM [address] [place] [address] Obstetrics and Gynecology 08/20/22 Creative Writing English Professor Relationship Specialty Start Date End Date Chelsey Bray MD [address] [place] [address] PCP - General Family Medicine 08/20/22 Veronique Neely PROGRAM MANAGER [address] [place] [address] Nurse Practitioner Family Medicine 08/20/22 Cathy Colon CNM [address] [place] [address] Obstetrics and Gynecology 08/20/22 Creative Writing English Professor Relationship Specialty Start Date End Date Chelsey Bray MD [address] [place] [address] PCP - General Family Medicine 08/20/22 Veronique Neely NP [address] [place] [address] Nurse Practitioner Family Medicine 08/20/22 Cathy Colon CNM [address] [place] [address] Obstetrics and Gynecology 08/20/22 Creative Writing English Professor Relationship Specialty Start Date End Date Chelsey Bray MD [address] [place] [address] PCP - General 01/24/24 Creative Writing English Professor Relationship Specialty Start Date End Date Chelsey Bray MD [address] [place] [address] PCP - General Family Medicine 08/20/22 Veronique Neely NP [address] [place] [address] Nurse Practitioner Family Medicine 08/20/22 Cathy Colon CNM [address] [facility] [place] [address] Obstetrics and Gynecology 08/20/22 Creative Writing English Professor Relationship Specialty Start Date End Date Chelsey Bray MD [address] [place] [address] PCP - General Family Medicine 08/20/22 Veronique Neely NP [address] [facility] [place] [address] Nurse Practitioner Family Medicine 08/20/22 Cathy Colon CNM [address] [place] [address] Obstetrics and Gynecology 08/20/22 Creative Writing English Professor Relationship Specialty Start Date End Date Chelsey Bray MD [address] [place] [address] PCP - General Family Medicine 08/20/22 Veronique Neely NP [address] [place] [address] Nurse Practitioner Family Medicine 08/20/22 Cathy Colon CNM [address] [place] [address] Obstetrics and Gynecology 08/20/22 Creative Writing English Professor Relationship Specialty Start Date End Date Chelsey Bray MD [address] [place] [address] PCP - General Family Medicine 08/20/22 Veronique Neely NP [address] [place] [address] Nurse Practitioner Family Medicine 08/20/22 Cathy Colon CNM [address] [place] [address] Obstetrics and Gynecology 08/20/22 Creative Writing English Professor Relationship Specialty Start Date End Date Chelsey Bray MD [address] [place] [address] PCP - General Family Medicine 08/20/22 Veronique Neely NP [address] [place] [address] Nurse Practitioner Family Medicine 08/20/22 Cathy Colon CNM [address] [place] [address] Obstetrics and Gynecology 08/20/22 Creative Writing English Professor Relationship Specialty Start Date End Date Chelsey Bray MD [address] [place] [address] PCP - General Family Medicine 08/20/22 Veronique Neely NP [address] [place], [place] [id number] Nurse Practitioner Family Medicine 08/20/22 Cathy Colon CNM [address] [facility], [place] [id number] Obstetrics and Gynecology 08/20/22 FOR RECORDS PERTAINING [...] BE BASED ON THE PRIMARY CLINICAL RECORDS. [facility] [employer] [facility]. provides no warranty or guarantee of the accuracy or completeness of information in this document.
--- OUTSIDE RECORDS SUMMARY | 2024-04-21 14:59 | XMS_ITS | CCD ---
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 MD Work Phone: [facility] 03-20-2024 08:41-0500 Heart rate 93 /min Tang Bonilla MD Work Phone: [facility] 03-20-2024 08:41-0500 Systolic blood pressure 112 mm[Hg] Tang Bonilla MD Work Phone: [facility] 03-08-2024 08:34-0500 Body mass index (BMI) [Ratio] 32.27 kg/m2 Cathy Floro CNM Work Phone: [facility] 03-08-2024 08:34-0500 Body weight 85.28 kg Cathy Floro CNM Work Phone: [facility] 03-08-2024 08:34-0500 Diastolic blood pressure 80 mm[Hg] Cathy Floro CNM Work Phone: [facility] 03-08-2024 08:34-0500 Systolic blood pressure 120 mm[Hg] Cathy Floro CNM Work Phone: [facility] 02-09-2024 08:33-0500 Body mass index (BMI) [Ratio] 32.1 kg/m2 Cathy Floro CNM Work Phone: [facility] 02-09-2024 08:33-0500 Body weight 84.82 kg Cathy Floro CNM Work Phone: [facility] 02-09-2024 08:33-0500 Diastolic blood pressure 74 mm[Hg] Cathy Floro CNM Work Phone: [facility] 02-09-2024 08:33-0500 Systolic blood pressure 120 mm[Hg] Cathy Floro CNM Work Phone: [facility] 01-25-2024 08:45-0500 Body height 162.6 cm Tang Bonilla MD Work Phone: [facility] 01-25-2024 08:45-0500 Body mass index (BMI) [Ratio] 31.51 kg/m2 Tang Bonilla MD Work Phone: [facility] 01-25-2024 08:45-0500 Body weight 83.28 kg Tang Bonilla MD Work Phone: [facility] 01-25-2024 08:45-0500 Diastolic blood pressure 71 mm[Hg] Tang Bonilla MD Work Phone: [facility] 01-25-2024 08:45-0500 Heart rate 81 /min Tang Bonilla MD Work Phone: [facility] 01-25-2024 08:45-0500 Systolic blood pressure 112 mm[Hg] Tang Bonilla MD Work Phone: [facility] 01-11-2024 08:47-0400 Body mass index (BMI) [Ratio] 30.9 kg/m2 Cathy Floro CNM Work Phone: [facility] 01-11-2024 08:47-0400 Body weight 81.65 kg Cathy Floro CNM Work Phone: [facility] 01-11-2024 08:47-0400 Diastolic blood pressure 70 mm[Hg] Cathy Floro CNM Work Phone: [facility] 01-11-2024 08:47-0400 Systolic blood pressure 110 mm[Hg] Cathy Floro CNM Work Phone: [facility] 12-15-2023 11:27-0400 Body mass index (BMI) [Ratio] 30.04 kg/m2 Cathy Floro CNM Work Phone: [facility] 12-15-2023 11:27-0400 Body weight 79.38 kg Cathy Floro CNM Work Phone: [facility] 12-15-2023 11:27-0400 Diastolic blood pressure 70 mm[Hg] Cathy Floro CNM Work Phone: [facility] 12-15-2023 11:27-0400 Systolic blood pressure 116 mm[Hg] Cathy Floro CNM Work Phone: [facility] 11-10-2023 08:31-0400 Body mass index (BMI) [Ratio] 29.52 kg/m2 Cathy Colon CNM Work Phone: [facility] 11-10-2023 08:31-0400 Body weight 78.02 kg Cathy Colon CNM Work Phone: [facility] 11-10-2023 08:31-0400 Diastolic blood pressure 64 mm[Hg] Cathy Colon CNM Work Phone: [facility] 11-10-2023 08:31-0400 Systolic blood pressure 100 mm[Hg] Cathy Colon CNM Work Phone: [facility] 08-04-2021 13:00-0400 Heart rate 49 /min NA Maximo WATKINS Work Phone: [facility] 08-04-2021 13:00-0400 Respiratory rate 21 /min MARIUM Marsh MD Work Phone: [facility] 08-04-2021 13:00-0400 SaO2% (BldA) [Mass fraction] 100 % NA Maximo WATKINS Work Phone: [facility] 08-04-2021 12:45-0400 Diastolic blood pressure 77 mm[Hg] MARIUM Marsh MD Work Phone: [facility] 08-04-2021 12:45-0400 Systolic blood pressure 109 mm[Hg] MARIUM Marsh MD Work Phone: [facility] 08-04-2021 12:18-0400 Body temperature 96.8 [degF] MARIUM Marsh MD Work Phone: [facility] 08-04-2021 09:48-0400 Body height 162.6 cm MARIUM Marsh MD Work Phone: [facility] 08-04-2021 09:48-0400 Body mass index (BMI) [Ratio] 31.24 kg/m2 MARIUM Marsh MD Work Phone: [facility] [employer] 08-04-2021 09:48-0400 Body weight 82.56 kg MARIUM Marsh MD Work Phone: [facility] 07-08-2021 08:14-0400 Respiratory rate 0 /min MARIUM Marsh MD Work Phone: [facility] 07-08-2021 08:10-0400 Body temperature 97.81 [degF] MARIUM Marsh MD Work Phone: [facility] 07-08-2021 08:10-0400 Diastolic blood pressure 69 mm[Hg] MARIUM Marsh MD Work Phone: [facility] 07-08-2021 08:10-0400 Heart rate 54 /min MARIUM Marsh MD Work Phone: [facility] 07-08-2021 08:10-0400 SaO2% (BldA) [Mass fraction] 100 % MARIUM Marsh MD Work Phone: [facility] 07-08-2021 08:10-0400 Systolic blood pressure 107 mm[Hg] MARIUM Marsh MD Work Phone: [facility] 07-08-2021 07:01-0400 Body height 162.6 cm MARIUM Marsh MD Work Phone: [facility] 07-08-2021 07:01-0400 Body mass index (BMI) [Ratio] 31.41 kg/m2 MARIUM Marsh MD Work Phone: [facility] 07-08-2021 07:01-0400 Body weight 83.01 kg MARIUM Marsh MD Work Phone: [facility] 09-12-2020 07:33-0400 Diastolic blood pressure 76 mm[Hg] Breana Mondragon DO Work Phone: [facility] Work Phone: 09-12-2020 07:33-0400 Heart rate 61 /min Breana Mondragon DO Work Phone: [facility] Work Phone: 09-12-2020 07:33-0400 Respiratory rate 18 /min Breana Mondragon DO Work Phone: [facility] Work Phone: 09-12-2020 07:33-0400 Systolic blood pressure 115 mm[Hg] Breana Mondragon DO Work Phone: [facility] Work Phone: 09-12-2020 07:32-0400 Body temperature 98.4 [degF] Breana Mondragon [employer] Work Phone: [facility] Work Phone: 09-10-2020 16:08-0400 SaO2% (BldA) [Mass fraction] 100 % Breana Peraza Mondragon [employer] Work Phone: [facility] Work Phone: 09-10-2020 12:10-0400 Body height 162.6 cm Breana Mondragon [employer] Work Phone: [facility] Work Phone: 09-10-2020 12:10-0400 Body mass index (BMI) [Ratio] 34.84 kg/m2 Breana Mondragon [employer] Work Phone: [facility] Work Phone: 09-10-2020 12:10-0400 Body weight 92.08 kg Breana Peraza Mondragon [employer] Work Phone: [facility] [employer] Work Phone: Encounters Encounter Date Encounter Type Care Provider Facility Start: 04-21-2024 End: 04-21-2024 Clinisync Result Encounter Cathy Colon CN Work Phone: [facility] Unsolicited Start: 04-21-2024 End: 04-21-2024 Clinisync Result Encounter Cathy Colon CNM Work Phone: [facility] External [facility] Unsolicited Start: 04-18-2024 End: 04-18-2024 Bamboo flowsheet Cathy Colon CNM Work Phone: [facility] Start: 04-18-2024 End: 04-18-2024 Bamboo flowsheet Cathy Colon CNM Work Phone: [facility] Start: 04-18-2024 End: 04-18-2024 Subsequent care visit Cathy Colon CNM Work Phone: [facility] Comment on above: Gestational diabetes mellitus (GDM) affecting (Primary Dx); Encounter for supervision of other normal , third trimester; History of section Start: 04-18-2024 ambulatory CATHY PRITCHETTO Not Adelita ilable Start: 04-11-2024 End: 04-11-2024 Bamboo flowsheet Cathy Colon CNM Work Phone: [facility] Start: 04-11-2024 End: 04-11-2024 Bamboo flowsheet Cathy Colon CNM Work Phone: [facility] Start: 04-11-2024 End: 04-11-2024 ambulatory CATHY L FLORO Not Available Start: 04-11-2024 End: 04-11-2024 Subsequent care visit Cathy LEM Work Phone: [facility] Comment on above: Gestational diabetes mellitus (GDM) affecting (Primary Dx); Encounter for supervision of other normal , third trimester Start: 04-04-2024 End: 04-04-2024 ambulatory CATHY L FLORO Not Available Start: 04-03-2024 End: 04-03-2024 Bamboo flowsheet Fernanda Eaton MS, RDN, LD, CHES [facility] Start: 04-03-2024 End: 04-03-2024 Bamboo flowsheet Fernanda Eaton MS, RDN, LD, CHES [facility] Start: 04-03-2024 End: 04-03-2024 ambulatory FERNANDA EATON Not Available Start: 03-28-2024 End: 03-28-2024 Telephone encounter Fernanda Eaton MS, RDN, LD, CHES [facility] Comment on above: nutrition appt. Start: 03-28-2024 End: 03-28-2024 Subsequent care visit Cathytruman Pritchetto CNM Work Phone: [facility] Comment on above: Viral upper respirat ory tract infection (Primary Dx); Ketonuria; Encounter for supervision of other normal , third trimester; Gestational diabetes mellitus (GDM) affecting Start: 03-23-2024 End: 03-23-2024 Bamboo flowsheet Cathy L Yarelyo CNM Work Phone: [facility] Start: 03-23-2024 End: 03-23-2024 Bamboo Mobissimoheet Cathy Jumana Floro CNM Work Phone: [facility] Start: 03-23-2024 End: 03-23-2024 Subsequent care visit Cathy Jumana Pritchetto CNM Work Phone: [facility] Comment on above: Encounter for superv ision of other normal , third trimester (Primary Dx); Elevated glucose tolerance test; History of section; History of gestational diabetes Start: 03-23-2024 End: 03-23-2024 [facility] Start: 03-20-2024 End: 03-20-2024 Office outpatient visit 25 minutes Tang Bonilla MD Work Phone: [facility] Comment on above: 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 (Primary Dx) Start: 03-20-2024 End: 03-20-2024 ambulatory [facility] Start: 03-08-2024 End: 03-08-2024 Bamboo Mobissimoheet Cathy L Floro CNM Work Phone: [facility] Start: 03-08-2024 End: 03-08-2024 Bamboo flowsheet Cathy Pritchetto CNM Work Phone: [facility] Start: 03-08-2024 End: 03-08-2024 ambulatory CATHY PRITCHETTO Not Available Start: 03-08-2024 End: 03-08-2024 Subsequent care visit Cathy Colon CNM Work Phone: [facility] Comment on above: Encounter for superv ision of other normal , third trimester (Primary Dx); Elevated glucose tolerance test; History of section Start: 02-09-2024 End: 02-09-2024 Bamboo flowsheet Cathy Pritchetto CNM Work Phone: [facility] Start: 02-09-2024 End: 02-09-2024 Bamboo flowsheet Cathy Prithcetto CNM Work Phone: [facility] Start: 02-09-2024 End: 02-09-2024 Subsequent care visit Cathy Colon CNM Work Phone: [facility] Comment on above: Encounter for superv ision of other normal , third trimester (Primary Dx); Screening for diabetes mellitus; Screening for iron deficiency anemia; related condition in second trimester Start: 02-09-2024 End: 02-09-2024 ambulatory CATHY PRITCHETTO Not Available Start: 01-31-2024 End: 01-31-2024 Orders Only Jake Dai CMA [facility] Comment on above: Pyelectasis (Primary Dx); anomaly suspected but not found Pyelectasis Start: 01-25-2024 End: 01-25-2024 Office consultation new/estab patient 60 min Tang Bonilla MD Work Phone: [facility] Comment on above: 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 (Primary Dx) Start: 01-25-2024 End: 01-25-2024 Orders Only Kristen Do RN [facility] Comment on above: 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 (Primary Dx); Pyelectasis Start: 01-17-2024 End: 01-17-2024 Chart abstracting Tang Bonilla MD Work Phone: [facility] Start: 01-17-2024 End: 01-17-2024 Telephone encounter Chelsey Bray MD Work Phone: [facility] Start: 01-14-2024 End: 01-14-2024 Chart abstracting Tang Bonilla MD Work Phone: [facility] Start: 01-11-2024 End: 01-11-2024 Bamboo flowsheet [...] Not Available Start: 12-23-2023 End: 12-23-2023 Bamboo flowsheet Hossein Fernandez MD Work Phone: [facility] [...] Available Start: 09-21-2023 End: 09-21-2023 ambulatory HOSSEIN FERNANDEZ Not Available Start: 09-20-2023 End: 09-20-2023 ambulatory CATHY COLON Not Available Start: 05-11-2023 End: 05-11-2023 ambulatory HOSSEIN FERNANDEZ Not Available Start: 08-04-2021 End: 08-04-2021 ambulatory Surendra [facility] Start: 08-04-2021 End: 08-04-2021 Subsequent hospital visit by physician Surendra Marsh MD Work Phone: [facility] [place] Comment on above: 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, nose, lip, and ear (HCC) (Primary Dx); Pain following surgery or procedure Start: 07-08-2021 End: 07-08-2021 ambulatory A [facility] Start: 07-08-2021 End: 07-08-2021 Subsequent hospital visit by physician Surendra Marsh MD Work Phone: [facility] [place] Comment on above: Pain following surge ry or procedure (Primary Dx) Start: 09-10-2020 End: 09-12-2020 Evaluation and management of inpatient [facility] Start: 09-10-2020 End: 09-12-2020 Evaluation and management of [facility]: [facility] Comment on above: delivery de livered (Primary Dx) Start: 09-09-2020 End: 09-09-2020 ambulatory [facility] Start: 09-09-2020 End: 09-09-2020 Admission to establishment [facility] Ryan Hastingsg DO Work Phone: [facility] Start: 09-09-2020 End: 09-09-2020 Subsequent hospital visit by physician Breana Peraza Mondragon DO Work Phone: [facility] Delivery Comment on above: Encounter for preadm ission testing (Primary Dx); S/P primary low transverse Start: 06-23-2018 End: 06-23-2018 Patient encounter procedure Delia Mcneill Facility:[facility] Procedures Date Procedure Procedure Detail Performing Clinician Start: 04-21-2024 US OB BPP WO NON-STRESS Cathy Colon CNM Work Phone: Start: 01-25-2024 UNLISTED LAB TEST Tang Bonilla MD Work Phone: Start: 10-12-2023 Antibody screen Tang Bonilla MD Work Phone: Start: 10-12-2023 CHLAMYDIA/GC BY PCR RUPERTO SWAB Not In System Ref Prov Start: 10-12-2023 Drug scrn 1+ class nonchromo Not In System Ref Prov Start: 10-12-2023 Hemoglobin glycosylated a1c Cathy Colon HAND FOLDER-CNM Work Phone: Start: 10-12-2023 HIV 1&2 AB/AG SCREEN (P24 AG) Not In System Ref Prov Start: 10-12-2023 Iaad ia hepatitis b surface antigen Not In System Ref Prov Start: 10-12-2023 Syphilis test non-treponemal antibody qual Not In System Ref Prov Start: 10-12-2023 TYPE AND SCREEN Not In System Ref Pr ov Start: 08-04-2021 Urine test visual color cmprsn rosalia Marsh MD Work Phone: Start: 09-11-2020 Blood count hemoglobin Breana F [employer] DO Work Phone: Start: 09-10-2020 Drug screen class list a Cathy Agosto PRN - CNM Work Phone: Start: 09-09-2020 Blood count complete auto&auto difrntl wbc Breana Vidal Ryan Mondragon DO Work Phone: Start: 08-07-2020 GBS, EXTERNAL RESULT Cathy Pritchettvictorino HAND FOLDER - CNM Work Phone: Start: 01-30-2020 ABO, EXTERNAL RESULT Cathy Pritchettvictorino HAND FOLDER - CNM Work Phone: Start: 01-30-2020 C. TRACHOMATIS, EXTERNAL RESULT Cathy Yarelyo HAND FOLDER - CNM Work Phone: Start: 01-30-2020 HEPATITIS B, EXTERNAL RESULT Cathy Yarelyo HAND FOLDER - CNM Work Phone: Start: 01-30-2020 HIV, EXTERNAL RESULT Cathy Yarelyo HAND FOLDER - CNM Work Phone: Start: 01-30-2020 N. GONORRHOEAE, EXTERNAL RESULT Cathy Floro HAND FOLDER - CNM Work Phone: Start: 01-30-2020 RH FACTOR, EXTERNAL RESULT Cathy Yarelyo HAND FOLDER - CNM Work Phone: Start: 01-30-2020 RPR, EXTERNAL RESULT Cathy Yarelyo HAND FOLDER - CNM Work Phone: Start: 01-30-2020 RUBELLA TITER, EXTERNAL RESULT Cathy Floro HAND FOLDER - CNM Work Phone: H/O: section S/P primar y low transverse Breana Peraza Mondragon Work Phone: H/O: section History of section Cathy Jumana Pritchetto CNM Work Phone: H/O: section History of section Cathy Jumana Pritchetto CNM Work Phone: H/O: section History of section Cathy Jumana Pritchetto CNM Work Phone: H/O: section History of section Cathy Jumana Pritchetto CNM Work Phone: H/O: section History of section Cathy Jumana Pritchetto CNM Work Phone: H/O: section History of section Cathy Jumana Pritchetto CNM Work Phone: Plan of Treatment Date Care Activity Detail Author Start: 06-20-2030 DTaP,Tdap and Td Vaccines (7 - Td or Tdap) DTaP,Tdap and Td Vaccines (7 - Td or Tdap) [facility] Start: 06-20-2030 DTaP/Tdap/Td vaccine (7 - Td or Tdap) DTaP/Tdap/Td vaccine (7 - Td or Tdap) [facility] Start: 03-20-2025 Adult BMI Screening Adult BMI Screen ing [facility] Start: 01-24-2025 Adult BMI Screening Adult BMI Screen ing [facility] Start: 01-24-2025 Tobacco Screening Tobacco Screening [facility] Start: 01-24-2025 End: 01-24-2025 US MFM with or without consult US MFM with or without consult Imaging Routine Pyelectasis Expected: 01/24/2025 (Approximate), Expires: 01/24/2025 [facility] Work Phone: Comment on above: Expected: 01/24/2025 (Approximate), Expires: 01/24/2025 Start: 12-10-2024 Screening for malign ant neoplasm of cervix [facility] Start: 06-22-2024 End: 06-22-2024 Patient encounter procedure 06/22/2024 9:15 AM EDT Office Visit [facility] [address] [place] [id number] Hsosein Fernandez MD [address] [place] [address] [facility] Start: 05-02-2024 End: 05-02-2024 Patient encounter procedure 05/02/2024 8:30 AM EST Routine [facility] [address] [place] [phone] Cathy Colon, CNM [address] [place] [address] [facility] Start: 04-25-2024 End: 04-25-2024 Patient encounter procedure 04/25/2024 10:00 AM EST Routine [facility] [address] [place] [phone] Cathy Colon, CNM [address] [place] [address] [facility] Start: 04-24-2024 End: 04-24-2024 Patient encounter procedure 04/24/2024 5:30 PM EST Routine [facility] [address] [place] [address] Cathy Colon, CNM [address] [place] [address] [facility] Start: 04-18-2024 End: 04-18-2024 Patient encounter procedure [facility] Comment on above: Arrived Start: 04-11-2024 End: 04-11-2024 Patient encounter procedure 04/11/2024 8:30 AM EST Routine [facility] [address] [place] [address] Cathy Colon, CNM [address] [place] [address] [facility] Start: 04-04-2024 End: 04-04-2024 Patient encounter procedure 04/04/2024 8:45 AM EST Routine [facility] [address] [place] [address] Cathy Colon, CNM [address] [place] [address] [facility] Start: 04-03-2024 End: 04-03-2024 Clinical Support [facility] Comment on above: Elevated glucose sary erance test; History of gestational diabetes Start: 03-28-2024 End: 03-28-2024 Patient encounter procedure 03/28/2024 8:45 AM EST Routine [facility] [address] [place] [address] Cathy Colon, CNM [address] [place] [address] [facility] Start: 03-23-2024 End: 03-23-2025 [...] of gestational diabetes Expected: 03/23/2024, Expires: 03/23/2025 [facility] Comment on above: Expected: 03/23/2024 , Expires: 03/23/2025 Start: 03-23-2024 End: 03-23-2024 Patient encounter procedure 03/23/2024 8:45 AM EST Routine [facility] [address] [place] [phone] [address] [id number] [facility] Start: 03-20-2024 End: 03-20-2024 Patient encounter procedure [facility] Start: 03-08-2024 End: 03-08-2025 GLUCOSE TOLERANCE TEST, GEST, 4SPEC 100G W/NDDG GLUCOSE TOLERANCE TEST, GEST, 4SPEC 100G W/NDDG Lab Routine Elevated glucose tolerance test Expected: 03/08/2024 (Approximate), Expires: 03/08/2025 [facility] Work Phone: Comment on above: Expected: 03/08/2024 (Approximate), Expires: 03/08/2025 Start: 03-08-2024 End: 03-08-2024 Patient encounter procedure 03/08/2024 8:30 AM EST Routine [facility] [address] [place] [phone] Cathy Colon [address] [id number] [facility] Start: 02-09-2024 End: 02-08-2025 CBC panel - Blood by Automated count CBC Lab Routine Screening for iron deficiency anemia Expected: 02/09/2024 (Approximate), Expires: 02/08/2025 [facility] Comment on above: Expected: 02/09/2024 (Approximate), Expires: 02/08/2025 Start: 02-09-2024 End: 02-08-2025 GLUCOSE, GESTATIONAL SCREEN (50G)-135 CUTOFF GLUCOSE, GESTATIONAL SCREEN (50G)-135 CUTOFF Lab Routine Screening for diabetes mellitus Expected: 02/09/2024 (Approximate), Expires: 02/08/2025 [facility] Work Phone: Comment on above: Expected: 02/09/2024 (Approximate), Expires: 02/08/2025 Start: 02-09-2024 End: 02-08-2025 US for US OB follow up transabdominal approach Imaging Routine related condition in second trimester Expected: 02/09/2024, Expires: 02/08/2025 [facility] Comment on above: Expected: 02/09/2024 , Expires: 02/08/2025 Start: 02-09-2024 End: 02-09-2024 Patient encounter procedure 02/09/2024 8:30 AM EST Routine [facility] [address] [place] [phone] Cathy Colon CNM [address] [place] [address] [facility] [facility] Start: 01-25-2024 End: 01-25-2024 Patient encounter procedure 01/25/2024 8:45 AM EST Office Visit Maternal- Medicine at [facility] [address] [place] [id number] Tang Bonilla MD [address] [facility] [address] [place] [address] M[facility]- Medicine at [facility] Start: 01-25-2024 End: 01-25-2024 Patient encounter procedure 01/25/2024 7:30 AM EST Appointment [facility] [address] [place] [address] [facility] Start: 01-11-2024 End: 01-11-2024 Patient encounter procedure 01/11/2024 8:45 AM EDT Routine [facility] [address] [place] [phone] Cathy Colon, REYM [address] [place] [address] [facility] Start: 12-27-2023 End: 12-27-2023 Professional / ancillary services management 12/27/2023 3:15 PM EDT Ancillary Procedure [facility] [address] [phone] [facility] Start: 12-23-2023 End: 12-23-2023 [...] AM EDT Routine [facility] [address] [place] [phone] Cathy Colon, CNM [address] [place] [address] Arrived [facility] Comment on above: Arrived Start: 12-15-2023 End: 12-15-2023 Patient encounter procedure 12/15/2023 8:30 AM EDT Routine [facility] [address] [place] [address] Cathy Colon CNM [address] [place], [place] [id number] [facility] Start: 11-21-[address] [facility] Start: 11-20-2021 Influenza vaccination Flu vacc ine (Season Ended) [facility] Start: 08-12-2021 End: 08-12-2021 Patient encounter procedure 08/12/2021 Office Visit Plastic Surgery Rhoda Callahan, BARTOLO - PAEDIATRIC SURGEON [address] [facility] [address] [place] [address] [facility] Start: 08-04-2021 End: 08-04-2021 HEAD LESION EXCISION HEAD LESION EXCISION D03.30 RIGHT CHEEK MELANOMA 08/04/2021 11:33 AM EDT [facility] Start: 07-23-2021 End: 07-23-2021 Patient encounter procedure 07/23/2021 Office [place] [address] [facility] [place] [address] [place] [address] [facility] Start: 07-08-2021 End: 07-08-2021 FACIAL LESION BIOPSY EXCISION FACIAL LESION BIOPSY EXCISION LESION RIGHT NECK X1 LESION RIGHT CHEEK X 2 07/08/2021 7:29 AM EDT [facility] Start: 2021 Screening for malign ant neoplasm of cervix [facility] Start: 11-20-2020 Influenza vaccination Flu vacc ine (Season Ended) [facility] Work Phone: Start: 09-10-2020 End: 09-10-2020 Admission to same day surgery center 09/10/2020 Surgery Obstetrics and Gynecology Breana Ledbetter, [place] [address] [phone] SECTION [facility] Labor and Delivery Comment on above: SECTION Start: 09-10-2020 Subsequent hospital visit by physician 09/10/2020 Hospital Encounter Obstetrics and Gynecology Breana Ledbetter, DO [address] [place] [address] [phone] [facility] Start: 01-14-2012 Screening for malign ant neoplasm of cervix [facility] Start: 2010 DTaP/Tdap/Td vaccine (1 - Tdap) DTaP/Tdap/Td vaccine (1 - Tdap) [facility] [employer] Work Phone: Start: 2009 Adult BMI Follow Up Plan Adult BMI Follow Up Plan [facility] Start: 2009 Adult BMI Screening Adult BMI Screen ing [facility] Start: 2009 Hepatitis C screening Hepatitis C [facility] Start: 2006 HIV screening HIV screen [facility] Start: 2003 COVID-19 Vaccine (1) COVID-19 Vaccin e (1) [facility] [employer] Phone: Start: 2003 Depression Screen Depression Screen [facility] Start: 2003 Depression Screening Depression Scre ening [facility] Start: 2003 Tobacco Screening Tobacco Screening [facility] Start: 01-14-1996 COVID-19 Vaccine (1) COVID-19 Vaccin e (1) [facility] Start: 01-14-1992 Varicella vaccine (1 of 2 - 2-dose childhood series) Varicella vaccine (1 of 2 - 2-dose childhood series) [facility] Start: 1991 Hepatitis C screening Hepatitis C [facility] End: 08-04-2021 INITIATE PACU OXYGEN THERAPY PROTOCOL Initiate PACU Oxygen Therapy Protocol Respiratory Care Routine Continuous until discontinued starting 08/04/2021 [facility] [employer] Phone: Comment on above: Continuous until dis continued starting 08/04/2021 Oxygen therapy [[facility] Data Set] Initiate Oxygen Therapy Protocol Respiratory Care Routine Daily until discontinued starting 09/10/2020 [facility] Phone: Comment on above: Daily until disconti nued starting 09/10/2020 Spirometry panel Incentive liz metry Respiratory Care Routine Every 2hr while awake until discontinued starting 09/10/2020 [facility] Phone: Comment on above: Every 2hr while awak e until discontinued starting 09/10/2020 Surgical Pathology Surgical Path ology Lab Routine Release Upon Ordering for 1 Occurrences starting 07/08/2021 [employer] Phone: Comment on above: Release Upon Orderin g for 1 Occurrences starting 07/08/2021 Surgical Pathology Surgical Path ology Lab Routine Release Upon Ordering for 1 Occurrences starting 08/04/2021 [facility] Phone: Comment on above: Release Upon Orderin g for 1 Occurrences starting 08/04/2021 End: 09-09-2020 TYPE AND SCREEN TYPE AND SCREEN Blood Bank STAT Encounter for preadmission testing One Time for 1 Occurrences starting 09/09/2020 until 09/09/2020 [facility] Phone: Comment on above: One Time for 1 Occur rences starting 09/09/2020 until 09/09/2020 TYPE AND SCREEN TYPE AND SCREEN Blood Bank Stat [employer] Label print Encounter for preadmission testing 09/09/2020 2:26 PM EDT [facility] Phone: Immunizations Immunization Date Immunization Notes Care Provider Fa soila 09-10-2020 diphtheria, tetanus toxoids and acellular pertussis vaccine, unspecified formulation Breana Rickettstrong DO Work Phone: [facility] Phone: 09-10-2020 measles, mumps and rubella virus vaccine Breana Ryan Mondragon DO Work Phone: [employer] Phone: Payers Date Payer Category Payer Private Health Insurance [employer] [id number] 2024 Unknown [id number] 2021 Commercial Managed C are - POS [id number] 2021 Managed Care HMO (unspecified) [id number] 2021 Private Health Insurance [id number]. [id number] 2021 Unknown [id number]. [id number] 2018 Self-pay 2018 Unknown [id number] 1991 Unknown [id number] 2.840.1.192997.3.579.2. 173 1991 Unknown [id number] 2.16840.1.165012.3.579.2. 175 1991 Unknown [id number] 2.16840.1.910798.3.579.2. 175 1991 Unknown [id number] 2.16840.1.628165.3.579.2. 1286 1991 Unknown [id number] 2.16840.1.690239.3.579.2. 1286 1991 Unknown [id number] 2.16.840.1.283837.3.579.2. 1286 1991 Unknown [id number] 2.16.840.1.045498.3.579.2. 1286 1991 Unknown [id number] 2.16.840.1.271596.3.579.2. 1259 1991 Unknown [id number] 2.16.840.1.019789.3.579.2. 1259 1991 Unknown [id number] 2.16.840.1.391228.3.579.2. 1259 1991 Unknown [id number] 2.16.840.1.364791.3.579.2. 1259 1991 Unknown [id number] 2.16.840.1.993683.3.579.2. 1259 1991 Unknown [id number] 2.16840.1.292446.3.579.2. 1259 1991 Unknown [id number] 2.16.840.1.627467.3.579.2. 1259 1991 Unknown [id number] 2.16.840.1.303770.3.579.2. 1259 1991 Unknown [id number] 2.16.840.1.991884.3.579.2. 1259 1991 Unknown [id number] 2.16840.1.922461.3.579.2. 1259 1991 Unknown [id number] 2.16.840.1.527014.3.579.2. 1259 1991 Unknown [id number] 2.16.840.1.731988.3.579.2. 1259 1991 Unknown [id number] 2.16.840.1.799039.3.579.2. 1259 1991 Unknown [id number] 2.16.840.1.286582.3.579.2. 1259 1991 Unknown [id number] 2.16.840.1.629362.3.579.2. 1259 1991 Unknown [id number] 2.16.840.1.695912.3.579.2. 1259 1991 Unknown [id number] 2.16.840.1.688754.3.579.2. 1259 1991 Unknown [id number] 2.16.840.1.901527.3.579.2. 1259 1991 Unknown [id number] 2.16.840.1.798767.3.579.2. 1259 Unknown [id number] 2.16.840.1.466925.3.579.2. 531 Social History Date Type Detail Facility Tobacco smoking stat [facility] Unknown if ever smoked [facility] Phone: Start: 1990 Sex Assigned At Not on file [facility] [employer] Phone: Start: 09-10-2020 End: 09-02-2022 Tobacco smoking status GAIS Never smoker [facility] Start: 09-10-2020 End: 09-02-2022 Tobacco use and exposure Never used [facility] Start: 09-10-2020 End: 12-24-2023 Alcohol intake Ex-drinker (finding) [facility] Phone: Start: 07-08-2021 End: 08-04-2021 Alcohol intake Current drinker of alcohol (finding) [facility] Phone: Start: 07-08-2021 End: 12-24-2023 Alcohol intake [facility] Phone: Start: 1990 Sex Assigned At Female [facility] Start: 07-25-2021 End: 08-04-2021 Exposure to SARS-CoV-2 (event) Not sure [facility] Phone: Start: 09-22-2023 End: 12-24-2023 Tobacco use panel [facility] Start: 09-01-2022 Alcohol Comment Alcohol: 3or 4 drinks on typical day/ monthly or less. Caffeine 1-2 cup/sday [facility] Start: 08-22-2023 [facility] Start: 06-03-2022 Gender identity Identifies as female gender (finding) [facility] Tobacco smoking stat [facility] Tobacco smoking consumption unknown [facility]care Unknown [facility] Start: 10-25-2014 Sex Female (finding) [facility] Clinical Notes 09-12-2020 to 04-18-2024 Cathy Colon, [facility] - 04/18/2024 10:00 AM ESTYentruman Colon, [facility] - 04/11/2024 8:30 AM ESTTelephone Encounter - Tsering Ayaz - 03/28/2024 11:13 AM ESTMarlenyritruman Jumana Colon, [facility] - 03/28/2024 8:45 AM EST Note Date [...] a routine visit. documented in this encounter [facility] 04-11-2024 History of Present illness Narrative Subjective [...] a routine visit. documented in this encounter [facility] 03-28-2024 Telephone encounter Note Pt scheduled for nutritions/ Fernanda Eaton [facility] 03-28-2024 Miscellaneous Notes Pt scheduled for nutritions/ Fernanda Eaton documented in this encounter [facility] 03-28-2024 History of Present illness Narrative Subjective [...] she is waiting for an appt for institutional cook referral. We also discussed her blood sugars [...] a routine visit. documented in this encounter [facility] 03-23-2024 History of Present illness Narrative Subjective No chief complaint on file. Celestino Curz is a 34 y.o. at 32w4d with [...] info given, and will make referral to parent educator. Objective Physical Exam weight: 188 lb [...] a routine visit. documented in this encounter [facility] 03-20-2024 History of Present illness Narrative Headache/epigastric [...] Cystitis Gastroenteritis History of female infertility Melanoma ([facility]) 05/2021 in [place] Myopia Rhus dermatitis REVIEW [...] TANG BONILLA MD documented in this encounter [facility] 03-08-2024 History of Present illness Narrative Subjective [...] a routine visit. documented in this encounter [facility] 02-09-2024 History of Present illness Narrative Subjective [...] Para CS-LTranv Her is complicated by: seeing [facility] kink in baby kidney. [facility] has given her reassurance she can deliver in [place] and as the baby grows he told them it should correct itself, or when baby has first void. She is seeing [facility] one more time for another US [...] a routine visit. documented in this encounter [facility] 01-25-2024 History of Present illness Narrative Headache/epigastric [...] Declined Have you been seen here at [facility] in a previous ? No Recent ER visits or hospitalizations? No Bring blood sugar log or meter with you today? (Please bring them with you for every visit at [facility]) N/A Flu vaccine (Jan-May)? No Any [...] Cystitis Gastroenteritis History of female infertility Melanoma ([facility]) 05/2021 in [place] Myopia Rhus dermatitis PAST [...] and the other consultants, we search on epic and all the available care everywhere epic I did review all the imaging studies of the patient available on EMR, ordered by the primary care physician and the other lead sales consultant HABITS: Patient activity no restrictions, diet [...] patient is in complete care of her r d internship. Patient does have ultrasound office visit scheduled with us Thank you for allowing me to participate in Celestino Cruz . If there any questions please do not hesitate to contact us. Sincerely, TANG BONILLA MD documented in this encounter [facility] 01-17-2024 Telephone encounter Note Maddie from Maternal- Medicine at [facility] called and left a vm at 11:25 am She said that she needs faxed over some information about the pt. She said if there is any Genetic Testing that has been done, Her first OB US, and she needs a reasoning for sending her to see them. Fax is [phone] Phone is [phone] [facility] 01-17-2024 Miscellaneous Notes Maddie from [facility]- [facility] called and left a vm at 11:25 am She said that she needs faxed over some information about the pt. She said if there is any Genetic Testing that has been done, Her first OB US, and she needs a reasoning for sending her to see them. Fax is [phone] Phone is [phone] documented in this encounter [facility] 01-11-2024 History of Present illness Narrative Subjective No chief complaint on file. Celestino Jessica Cruz is a 33 y.o. at 22w2d [...] report and if needed will send to [facility] for consult. Urine protein-negative Urine glucose-negative Labs: reviewed Imaging Assessment/Plan Diagnoses and all orders for this visit: Encounter for supervision of other normal , second trimester History of section Continue vitamin. Labs reviewed. Rhogam not needed patient is O+ positive GTT at 28 weeks Follow up in 4 weeks for a routine visit documented in this encounter [facility] 12-30-2023 History of Present illness Narrative Report received on patients recent US. Radiologist recommends to repeat the scan in 2-4 weeks to assess single bubble in the stomach. I called patient report read to patient with explanation and reason to recheck US. PVU and all questions answered. Patient will come in 2 weeks for appt and repeat US documented in this encounter [facility] 12-23-2023 History of Present illness Narrative Images from the original note were not included. Skin Check Location: Patient requests a full body skin examination Dermatologic history: history of Melanoma in situ. Family history of Melanoma Last visit: 09/21/2023 Established patient Melanoma History Location: Right cheek Date of Melanoma dx: 05/2021 Melanoma details: in-situ Melanoma treatment: Wide excision performed by Gavin Marsh MD at [facility] In [facility]. Originally biopsied by Rhoda Callahan APRN-VÍCTOR also with [facility] Additional testing: none Currently [...] Examined Right arm Examined Patient wearing nail malian, Denies dark streaks under finger nails, Denies [...] months skin exam documented in this encounter [facility] 12-15-2023 History of Present illness Narrative Subjective [...] a routine visit. documented in this encounter [facility] 11-10-2023 History of Present illness Narrative Subjective [...] a routine visit. documented in this encounter [facility] 06-20-2021 Hospital Discharge instructions Arlen Rhoades RN [...] Any new symptoms documented in this encounter [facility] Phone: 06-20-2021 Hospital Discharge instructions Arlen Rhoades [...] Any new symptoms documented in this encounter [facility] Phone: 09-12-2020 Hospital Discharge instructions Tamra Guardado RN - 09/12/2020 Follow-up with your OB doctor as specified. [facility] Department phone: Dr. Greyson Gonzalez [facility] Dr. Laura Rhoades [place] [address] [place] Laura Oliver CN [address] [facility] [address] [phone] Micky Colon, MSN, HAND FOLDER, CNM [facility] [address] [facility] [address] [address] [facility] [id number] Chinyere Jimenezdianelys CNM [address] [place] [address] [place] [address] Carolin Esqudea CNM [address] [place] [address] [place] [address] [phone] DIET Eat a well balanced diet focusing on foods high in fiber and protein. Drink plenty of fluids especially water. To avoid constipation you may take a mild stool softener as recommended by your doctor or billboard poster helper. ACTIVITY Gradually increase your activity. Resume exercise regimen only after advice by your doctor or billboard poster helper. Avoid lifting anything heavier than a gallon of milk for SIX weeks. Avoid driving until your doctor or billboard poster helper has given their approval. Rise slowly from [...] up on sleep. EMOTIONS You may feel shfefield, sad, teary, & overwhelmed. Contact your OB provider if you feel you may be showing signs of depression, or have thoughts of harming yourself or your infant. If infant will not stop crying, contact another adult [...] medications as recommended by your doctor or billboard poster helper for pain If you develop a warm, red, tender area on your breast or develop a fever contact your OB provider. For moms: If you become engorged, feeding may be more difficult or painful for 1-2 days. You may find it helpful to hand express some milk so that the infant can latch on more easily. While , continue to take your vitamins as directed by your doctor or billboard poster helper. Refer to the booklet in the folder/binder for more information. If you feel you need more assistance or have questions, please call Hossein Marrufo IBCLC, financial services education consultant, at or the OB department to [...] shower with your HALINA dressing, however the HLAINA pump should be disconnected and placed in [...] in your calf. documented in this encounter [facility] Phone: 09-12-2020 History of Present illness Narrative [...] 1548 137/75 (!) 47 14 100 % 09/10/ 1543 100 % 09/10/20 1538 100 % [...] with as needed documented in this encounter [facility] Phone: Evaluation note Diagnosis Encounter for preadmission testing- Primary S/P primary low transverse delivery, without mention of indication, unspecified as to episode of care documented in this encounter [facility] Phone: evaluation note* Diagnosis delivery delivered- Primary delivery, without mention of indication, delivered, with or without mention of antepartum condition 40 weeks gestation of state, incidental documented in this encounter [facility] Phone: evaluation note* Diagnosis Pain following surgery or procedure- Primary Other acute postoperative pain documented in this encounter [facility] Phone: evaluation note* Diagnosis 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, nose, lip, and ear (HCC)- Primary Pain following surgery or procedure Other acute postoperative pain documented in this encounter [facility] Phone: evaluation note* Diagnosis Melanocytic nevus of trunk- Primary Benign neoplasm of skin of trunk, except scrotum Melanocytic nevi of face Lentigines History of malignant melanoma of skin Personal history of malignant melanoma of skin documented in this encounter [facility]* Diagnosis Encounter for supervision of other normal , second trimester- Primary History of section Other postprocedural status documented in this encounter [facility]* Diagnosis anomaly suspected but not found- Primary Suspected anomaly not found documented in this encounter [facility]* Diagnosis anomaly suspected but not found- Primary Suspected anomaly not found Pyelectasis Other specified disorder of kidney and ureter documented in this encounter [facility]* Diagnosis Pyelectasis- Primary Other specified disorder of kidney and ureter anomaly suspected but not found Suspected anomaly not found documented in this encounter [facility]* Diagnosis Pyelectasis Other specified disorder of kidney and ureter documented in this encounter [facility]* Diagnosis Encounter for supervision of other normal , third trimester- Primary Screening for diabetes mellitus Screening for iron deficiency anemia related condition in second trimester documented in this encounter [facility]* Diagnosis Encounter for supervision of other normal , second trimester- Primary History of section Other postprocedural status documented in this encounter [facility] Diagnosis Encounter for supervision of other normal , third trimester- Primary Elevated glucose tolerance test Impaired glucose tolerance test History of section Other postprocedural status documented in this encounter [facility]* Diagnosis Encounter for supervision of other normal , second trimester- Primary History of section Other postprocedural status related condition in second trimester documented in this encounter [facility]* Diagnosis anomaly suspected but not found- Primary Suspected anomaly not found documented in this encounter [facility]* Diagnosis Encounter for supervision of other normal , third trimester- Primary Elevated glucose tolerance test Impaired glucose tolerance test History of section Other postprocedural status History of gestational diabetes Personal history of other genital system and obstetric disorders documented [facility] Diagnosis Viral upper respiratory tract infection- Primary Acute upper respiratory infections of unspecified site Ketonuria Acetonuria Encounter for supervision of other normal , third trimester Gestational diabetes mellitus (GDM) affecting documented in this encounter [facility]* Diagnosis Gestational diabetes mellitus (GDM) affecting - Primary Encounter for supervision of other normal , third trimester documented in this encounter [facility]* Diagnosis Gestational diabetes mellitus (GDM) affecting - Primary Encounter for supervision of other normal , third trimester History of section Other postprocedural status documented in this encounter [facility] HealthcareInstructionsNot on filedocumented in this encounterProMercy Health SystemInstructionsNot on filedocumented in this encounterProFlowers Hospital [facility] SystemInstructionsNot on filedocumented in this encounterShelby Memorial HospitalDelta Systems System InstructionsNot on filedocumented in this encounterShelby Memorial HospitalDelta Systems System InstructionsNot on filedocumented in this encounterShelby Memorial HospitalDelta Systems System InstructionsNot on filedocumented in this encounterShelby Memorial HospitalDelta Systems System InstructionsNot on filedocumented in this encounterShelby Memorial HospitalCapsearch [facility] SystemReason for visit Narrative* Auth/Cert Specialty Diagnoses / Procedures Referred By Bryanna suggs Referred To Contact Diagnoses Acoustic nerve lesion, right Acoustic nerve lesion, right LESION RIGHT NECK X1 LESION RIGHT CHEEK X 2 Procedures [place] OFFICE/OUTPT VISIT,PROCEDURE ONLY [place] EXC SKIN BENIG <5MM FACE,FACIAL RIGHT CHEEK LESION X 2 AND RIGHT NECK LESION X 1 [place] [address] [place] [address] [facility] [id number] [place] [id number] Referral ID Status Reason Start Date Expiration Date Visits Re quested Visits Authorized [id number] 1 1 [employer] Phone: reason for visit Narrative* Auth/Cert Specialty Diagnoses / Procedures Referred By Bryanna suggs Referred To Contact Diagnoses 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 Procedures [place] OFFICE/OUTPT VISIT,PROCEDURE ONLY [place] EXC SKIN BENIG >4CM TRUNK,ARM,LEG RIGHT CHEEK WIDER RESECTION OF MELANOMA IN [place] [address] [facility] [address] [id number] [facility] [id number] [place] [address] Referral ID Status Reason Start Date Expiration Date Visits Re quested Visits Authorized [id number] 1 1 [employer] Work Phone: Summary Purpose Family History No Family History Records FoundNo Family History Records FoundNo Family History Records FoundNo Family History Records FoundNo Family History Records FoundNo Family History Records Found Advance Directives Latest Code Status on File Code Status [...] section and content) DATE CREATED AUTHOR 07/06/2018 [facility] DATE CREATED AUTHOR AUTHOR'S ORGANIZ ATION 09/13/2020 [facility] DATE CREATED AUTHOR AUTHOR'S ORGANIZ ATION 08/07/2021 [facility] DATE CREATED AUTHOR AUTHOR'S ORGANIZ ATION 01/27/2022 [facility]ical Specialist DATE CREATED AUTHOR AUTHOR'S ORGANIZ ATION 03/22/2024 [facility] DATE CREATED AUTHOR AUTHOR'S ORGANIZ ATION 04/19/2024 [facility] dical Specialists EPIC Reason for Visit (unrecogniz ed section and content) Reason Comments Scheduled Status Reason Specialty Diagnoses / Procedures Referre d By Contact Referred To Contact Diagnoses 40 weeks gestation of macrosomia Procedures [place] DELIVERY ONLY SECTION Breana Ledbetter F, DO [address] [place] [address] [employer] Reason Comments Skin Check Suspicious Skin Lesion [...] 50 mL (mini-bag) (COMPLETED) 2,000 mg, Intravenous, FOUNTAIN MANAGER TO O.R., 1 dose, On Wed09/10/20 [...] 1210 (Given - Provider: Tamra Guardado RN) docusate sodium (COLACE) capsule 100 mg 100 mg, Oral, 2 TIMES DAILY, First dose on Wed09/10/20 at 1445, Do not crush or break., 1620 (Not Given - Provider: Tamra Guardado RN - Reason: Patient/family refused)195 (Given - Provider: Vivian Padgett RN) 0916 (Given - Provider: Tamra Guardado RN)2055 (Given - Provider: Sofie Prajapati, JOÃO) 0946 [...] 1210 (Given - Provider: Tamra Guardado RN) ibuprofen (ADVIL;MOTRIN) tablet 800 mg 800 mg, Oral, EVERY 8 HOURS, First dose on Wed09/11/20 at 2000, Do not start till 6 hours after last dose of toradol. Do not crush or break., Post-op 2053 (Given - Provider: Sofie Prajapati RN) 0756 (Given - Provider: Tamra Guardado RN)1200 (Due)2000 (Due) ketorolac (TORADOL) injection 30 mg (COMPLETED) 30 mg, Intravenous, EVERY 6 HOURS, First dose on Wed09/10/20 at 2000, For 4 doses, Do not administer for more than 5 days., 1950 (Given - Provider: Vivian Padgett RN) 0151 (Given - Provider: Vivian Padgett RN)0802 (Given - Provider: Tamra Guardado, JOÃO)1356 (Given - Provider: Tamra Guardado RN) lactated ringers infusion 1,000 mL (COMPLETED) 1,000 [...] (Due) 0900 (Due)2100 (Due) 0900 (Due)2100 (Due) Dywuphm-Wvkdou-Qtukw Pertussis (BOOSTRIX) injection 0.5 mL 0.5 mL, [...] 1445, 1901 (New Bag - Provider: Tamra Guardado, JOÃO) 0201 (New Bag - Provider: Vivian Padgett [...] at 1416, 0600 (Given - Provider: Vivian Padgett RN)1355 (Given - Provider: Tamra Guardado, JOÃO) [...] 07/06/2021 07/07/2021 07/08/2021 bupivacaine-EPINEPHrine PF (MARCAINE-w/EPINEPHrine) 0.25% -1:[id number] injection (CANCELED) PRN, Starting on Wed07/08/21 at 0742, Until Wed07/08/21 at 0827, Intra-op 0741 (Given - Provid er: Surendra Marsh MD - Comment: OPERATIVE SITE INJECTED PRIOR TO INCISION) No Frequency Medication Order 07/06/2021 07/07/2021 07/08/2021 bupivacaine-EPINEPHrine (MARCAINE-w/EPINEPHRINE) 0.25% -1:[id number] injection 1 dose, Starting on Wed07/08/21 at [...] infused., PACU only bupivacaine-EPINEPHrine PF (MARCAINE-w/EPINEPHrine) 0.25% -1:[id number] injection (CANCELED) PRN, Starting on Wed08/04/21 at 1149, Until Wed08/04/21 at 1217, Intra-op 1149 (Given - Provid er: Surendra Marsh MD - Comment: TOM) diphenhydrAMINE (BENADRYL) injection 12.5 mg 12.5 mg, [...] 08/03/2021 08/04/2021 ceFAZolin (ANCEF) IVPB Starting on 08/04/21 at 1015, For 1 dose, Rita Dior: cabinet override 1030 (Due) Care Teams (unrecognized sec tion and content) Cocoa Butter Filter Operator Relationship Specialty Start Date End Date Chelsey Bray MD [address] [place] [address] PCP - General Family Medicine 09/10/20 Cocoa Butter Filter Operator Relationship Specialty Start Date End Date Chelsey Bray MD [address] [place] [place] [address] PCP - General Family Medicine 09/10/20 Cocoa Butter Filter Operator Relationship Specialty Start Date End Date Chelsey Bray MD [address] [place] [place] [address] PCP - General Family Medicine 08/20/22 Veronique Neely NP [address] [place] [place] [address] Nurse Practitioner Family Medicine 08/20/22 Cathy Colon CNM [address] [place] [place] [address] Obstetrics and Gynecology 08/20/22 Cocoa Butter Filter Operator Relationship Specialty Start Date End Date Chelsey Bray MD [address] [place] [place] [address] PCP - General Family Medicine 08/20/22 Veronique Neely NP [address] [place] [place] [address] Nurse Practitioner Family Medicine 08/20/22 Cathy Colon CNM [address] [place] [place] [address] Obstetrics and Gynecology 08/20/22 Cocoa Butter Filter Operator Relationship Specialty Start Date End Date Chelsey Bray MD [address] [place] [address] PCP - General Family Medicine 08/20/22 Veronique Neely NP [address] [place] [address] Nurse Practitioner Family Medicine 08/20/22 Cathy Colon CNM [address] [place] [address] Obstetrics and Gynecology 08/20/22 Cocoa Butter Filter Operator Relationship Specialty Start Date End Date Chelsey Bray MD [address] [place] [address] PCP - General Family Medicine 08/20/22 Veronique Neely NP [address] [place] [address] Nurse Practitioner Family Medicine 08/20/22 Cathy Colon CNM [address] [place] [address] Obstetrics and Gynecology 08/20/22 Cocoa Butter Filter Operator Relationship Specialty Start Date End Date Chelsey Bray MD [address] [place] [address] PCP - General Family Medicine 08/20/22 Veronique Neely NP [address] [place] [address] Nurse Practitioner Family Medicine 08/20/22 Cathy Colon CNM [address] [facility] [place] [address] Obstetrics and Gynecology 08/20/22 Cocoa Butter Filter Operator Relationship Specialty Start Date End Date Chelsey Bray MD [address] [facility] [place] [address] PCP - General 01/24/24 Cocoa Butter Filter Operator Relationship Specialty Start Date End Date Chelsey Bray MD [address] [facility] [place] [address] PCP - General 01/24/24 Cocoa Butter Filter Operator Relationship Specialty Start Date End Date Chelsey Bray MD [address] [facility] [place] [address] PCP - General 01/24/24 Cocoa Butter Filter Operator Relationship Specialty Start Date End Date Chelsey Bray MD [address] [facility] [place] [address] PCP - General 01/24/24 Cocoa Butter Filter Operator Relationship Specialty Start Date End Date Chelsey Bray MD [address] [facility] [place] [address] PCP - General Family Medicine 08/20/22 Veronique Neely NP [address] [facility] [place] [address] Nurse Practitioner Family Medicine 08/20/22 Cathy Colon CNM [address] [facility] [place] [address] Obstetrics and Gynecology 08/20/22 Cocoa Butter Filter Operator Relationship Specialty Start Date End Date Chelsey Bray MD [address] [facility] [place] [address] PCP - General Family Medicine 08/20/22 Veronique Neely NP [address] [place] [address] Nurse Practitioner Family Medicine 08/20/22 Cathy Colon CNM [address] [place] [address] Obstetrics and Gynecology 08/20/22 Cocoa Butter Filter Operator Relationship Specialty Start Date End Date Chelsey Bray MD [address] [place] [address] PCP - General Family Medicine 08/20/22 Veronique Neely NP [address] [place] [address] Nurse Practitioner Family Medicine 08/20/22 Cathy Colon CNM [address] [place] [address] Obstetrics and Gynecology 08/20/22 Cocoa Butter Filter Operator Relationship Specialty Start Date End Date Chelsey Bray MD [address] [place] [address] PCP - General Family Medicine 08/20/22 Veronique Neely AWNING ERECTOR [address] [place] [address] Nurse Practitioner Family Medicine 08/20/22 Cathy Colon CNM [address] [place] [address] Obstetrics and Gynecology 08/20/22 Cocoa Butter Filter Operator Relationship Specialty Start Date End Date Chelsey Bray MD [address] [place] [address] PCP - General Family Medicine 08/20/22 Veronique Neely NP [address] [place] [address] Nurse Practitioner Family Medicine 08/20/22 Cathy Colon CNM [address] [place] [address] Obstetrics and Gynecology 08/20/22 Cocoa Butter Filter Operator Relationship Specialty Start Date End Date Chelsey Bary MD [address] [place] [address] PCP - General 01/24/24 Cocoa Butter Filter Operator Relationship Specialty Start Date End Date Chelsey Bray MD [address] [place] [address] PCP - General Family Medicine 08/20/22 Veronique Neely NP [address] [place] [address] Nurse Practitioner Family Medicine 08/20/22 Cathy Colon CNM [address] [place] [address] Obstetrics and Gynecology 08/20/22 Cocoa Butter Filter Operator Relationship Specialty Start Date End Date Chelsey Bray MD [address] [place] [address] PCP - General Family Medicine 08/20/22 Veronique Neely NP [address] [place] [address] Nurse Practitioner Family Medicine 08/20/22 Cathy Colon CNM [address] [place] [address] Obstetrics and Gynecology 08/20/22 Cocoa Butter Filter Operator Relationship Specialty Start Date End Date Chelsey Bray MD [address] [place] [address] PCP - General Family Medicine 08/20/22 Veronique Neely AWNING ERECTOR [address] [place] [address] Nurse Practitioner Family Medicine 08/20/22 Cathy Colon CNM [address] [place] [address] Obstetrics and Gynecology 08/20/22 Cocoa Butter Filter Operator Relationship Specialty Start Date End Date Chelsey Bray MD [address] [place] [address] PCP - General Family Medicine 08/20/22 Veronique Neely NP [address] [place] [address] Nurse Practitioner Family Medicine 08/20/22 Cathy Colon CNM [address] [place] [address] Obstetrics and Gynecology 08/20/22 Cocoa Butter Filter Operator Relationship Specialty Start Date End Date Chelsey Bray MD [address] [place] [address] PCP - General Family Medicine 08/20/22 Veronique Neely, SANDY [address] [place] [address] Nurse Practitioner Family Medicine 08/20/22 Cathy Colon CNM [address] [place] [address] Obstetrics and Gynecology 08/20/22 Cocoa Butter Filter Operator Relationship Specialty Start Date End Date Chelsey Bray MD [address] [place] [address] PCP - General Family Medicine 08/20/22 Veronique Neely NP [address] [place] [address] Nurse Practitioner Family Medicine 08/20/22 Cathy Colon CNM [address] [place] [address] Obstetrics and Gynecology 08/20/22 FOR RECORDS PERTAINING [...] BE BASED ON THE PRIMARY CLINICAL RECORDS. [facility] [employer], [facility]. provides no warranty or guarantee of the accuracy or completeness of information in this document.
== END 2024-04-14 14:01 | disposition home or self-care (01) ==
LOC: US 04-21 14:49
PROVIDERS: PCP Family Medicine; Visit Provider Midwife
DX: Z86.32 Personal history of gestational diabetes (principal)
CPT/HCPCS: 76819

== ENCOUNTER 2024-04-21 14:00 | Outpatient (OUT) | payer OTHER, SELFPAY ==
--- OUTSIDE RECORDS SUMMARY | 2024-04-25 08:25 | XMS_ITS | CCD ---
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 Phone: [facility] 01-25-2024 08:45-0500 Systolic blood pressure 112 mm[Hg] Tang Bonilla MD Work Phone: [facility] 01-11-2024 08:47-0400 Body mass index (BMI) [Ratio] 30.9 kg/m2 Cathy Floro CNM Work Phone: [facility] 01-11-2024 08:47-0400 Body weight 81.65 kg Cathy Floro CNM Work Phone: [facility] 01-11-2024 08:47-0400 Diastolic blood pressure 70 mm[Hg] Cathy Floro CNM Work Phone: [facility] 01-11-2024 08:47-0400 Systolic blood pressure 110 mm[Hg] Cathy Floro CNM Work Phone: [facility] 12-15-2023 11:27-0400 Body mass index (BMI) [Ratio] 30.04 kg/m2 Cathy Yarelyo CNM Work Phone: [facility] 12-15-2023 11:27-0400 Body weight 79.38 kg Cathy Yarelyo CNM Work Phone: [facility] 12-15-2023 11:27-0400 Diastolic blood pressure 70 mm[Hg] Cathy Yarelyo CNM Work Phone: [facility] 12-15-2023 11:27-0400 Systolic blood pressure 116 mm[Hg] Cathy Yarelyo CNM Work Phone: [facility] 11-10-2023 08:31-0400 Body mass index (BMI) [Ratio] 29.52 kg/m2 Cathy Yarelyo CNM Work Phone: [facility] 11-10-2023 08:31-0400 Body weight 78.02 kg Cathy Pritchetto CNM Work Phone: [facility] 11-10-2023 08:31-0400 Diastolic blood pressure 64 mm[Hg] Cathy Yarelyo CNM Work Phone: [facility] 11-10-2023 08:31-0400 Systolic blood pressure 100 mm[Hg] Cathy Yarelyo CNM Work Phone: [facility] 08-04-2021 13:00-0400 Heart rate 49 /min NA Maximo WATKINS Work Phone: [facility] 08-04-2021 13:00-0400 Respiratory rate 21 /min MARIUM Michael MD Work Phone: [facility] 08-04-2021 13:00-0400 SaO2% (BldA) [Mass fraction] 100 % MARIUM Michael MD Work Phone: [facility] 08-04-2021 12:45-0400 Diastolic blood pressure 77 mm[Hg] MARIUM Michael MD Work Phone: [facility] 08-04-2021 12:45-0400 Systolic blood pressure 109 mm[Hg] MARIUM Michael MD Work Phone: [facility] 08-04-2021 12:18-0400 Body temperature 96.8 [degF] MARIUM Michael MD Work Phone: [facility] 08-04-2021 09:48-0400 Body height 162.6 cm MARIUM Michael MD Work Phone: [facility] 08-04-2021 09:48-0400 Body mass index (BMI) [Ratio] 31.24 kg/m2 MARIUM Michael MD Work Phone: [facility] 08-04-2021 09:48-0400 Body weight 82.56 kg MARIUM Michael MD Work Phone: [facility] 07-08-2021 08:14-0400 Respiratory rate 0 /min MARIUM Michael MD Work Phone: [facility] 07-08-2021 08:10-0400 Body temperature 97.81 [degF] MARIUM Michael MD Work Phone: [facility] 07-08-2021 08:10-0400 Diastolic blood pressure 69 mm[Hg] MARIUM Michael MD Work Phone: [facility] 07-08-2021 08:10-0400 Heart rate 54 /min MARIUM Michael MD Work Phone: [facility] 07-08-2021 08:10-0400 SaO2% (BldA) [Mass fraction] 100 % MARIUM Michael MD Work Phone: [facility] 07-08-2021 08:10-0400 Systolic blood pressure 107 mm[Hg] MARIUM Michael MD Work Phone: [facility] 07-08-2021 07:01-0400 Body height 162.6 cm MARIUM Michael MD Work Phone: [facility] 07-08-2021 07:01-0400 Body mass index (BMI) [Ratio] 31.41 kg/m2 MARIUM Michael MD Work Phone: [facility] 07-08-2021 07:01-0400 Body weight 83.01 kg MARIUM Michael MD Work Phone: [facility] 09-12-2020 07:33-0400 Diastolic blood pressure 76 mm[Hg] Breana Millery Mondragon DO Work Phone: [facility] Work Phone: 09-12-2020 07:33-0400 Heart rate 61 /min Breana Rickettstrong DO Work Phone: [facility] Work Phone: 09-12-2020 07:33-0400 Respiratory rate 18 /min Breanaana m Rickettstrong DO Work Phone: [facility] Work Phone: 09-12-2020 07:33-0400 Systolic blood pressure 115 mm[Hg] Breana Millery Mondragon DO Work Phone: [facility] Work Phone: 09-12-2020 07:32-0400 Body temperature 98.4 [degF] Breana Rickettstrong DO Work Phone: [facility] Work Phone: 09-10-2020 16:08-0400 SaO2% (BldA) [Mass fraction] 100 % Breana Rickettstrong DO Work Phone: [facility] Work Phone: 09-10-2020 12:10-0400 Body height 162.6 cm Breana Millery Mondragon DO Work Phone: [facility] Work Phone: 09-10-2020 12:10-0400 Body mass index (BMI) [Ratio] 34.84 kg/m2 Breana Mondragon [employer] Work Phone: [facility] Work Phone: 09-10-2020 12:10-0400 Body weight 92.08 kg Breana Mondragon [employer] Work Phone: [facility] Work Phone: Encounters Encounter Date Encounter Type Care Provider Facility Start: 04-24-2024 End: 04-24-2024 Subsequent care visit Cathy Colon CNM Work Phone: [facility] Comment on above: History of section (Primary Dx); Encounter for supervision of other normal , third trimester; screening for streptococcus B; Gestational diabetes mellitus (GDM) affecting Start: 04-24-2024 End: 04-24-2024 Bamboo flowsheet Cathy Pritchetto CNM Work Phone: [facility] Start: 04-24-2024 End: 04-24-2024 Bamboo flowsheet Cathy Jumana Pritchetto CNM Work Phone: [facility] Start: 04-21-2024 End: 04-21-2024 Clinisync Result Encounter Cathy Colon CNHaris Work Phone: [facility] Unsolicited Start: 04-21-2024 End: 04-21-2024 Clinisync Result Encounter Cathy Colon CNHaris Work Phone: [facility] Unsolicited Start: 04-18-2024 End: 04-18-2024 Bamboo flowsheet Cathy Jumana Pritchetto CNM Work Phone: [facility] Start: 04-18-2024 End: 04-18-2024 Bamboo flowsheet Cathy Jumana Pritchetto CNM Work Phone: [facility] Start: 04-18-2024 End: 04-18-2024 Subsequent care visit Cathy Pritchetto CNM Work Phone: [facility] Comment on above: Gestational diabetes mellitus (GDM) affecting (Primary Dx); Encounter for supervision of other normal , third trimester; History of section Start: 04-18-2024 End: 04-18-2024 ambulatory CATHY L FLORO Not Available Start: 04-11-2024 End: 04-11-2024 Bamboo flowsheet Cathy Jumana Pritchetto CN Work Phone: [facility] Start: 04-11-2024 End: 04-11-2024 Bamboo flowsheet Cathy L Floro CNM Work Phone: [facility] Start: 04-11-2024 End: 04-11-2024 ambulatory CATHY L FLORO Not Available Start: 04-11-2024 End: 04-11-2024 Subsequent care visit Cathy Pritchetto CN Work Phone: [facility] Comment on above: Gestational diabetes mellitus (GDM) affecting (Primary Dx); Encounter for supervision of other normal , third trimester Start: 04-04-2024 End: 04-04-2024 ambulatory CATHY L FLORO Not Available Start: 04-03-2024 End: 04-03-2024 Bamboo flowsheet Fernandara Eaton MS, RDN, LD, CHES [facility] Start: 04-03-2024 End: 04-03-2024 Bamboo flowsheet Fernanda Horn MS, RDN, LD, CHES [facility] Start: 04-03-2024 End: 04-03-2024 ambulatory FERNANDARA EATON Not Available Start: 03-28-2024 End: 03-28-2024 Telephone encounter Fernanda Eaton MS, RDN, LD, CHES [facility] Comment on above: nutrition appt. Start: 03-28-2024 End: 03-28-2024 Subsequent care visit Cathy Pritchetto CNM Work [...] Bonilla MD Work Phone: [facility] Comment on above: 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 (Primary Dx) Start: 03-20-2024 End: 03-20-2024 ambulatory [facility] Start: 03-08-2024 End: 03-08-2024 Bamboo flowsheet Cathy L Floro CNM Work Phone: [facility] Start: 03-08-2024 End: 03-08-2024 Bamboo flowsheet Cathy L Floro CNM Work Phone: [facility] Start: 03-08-2024 End: 03-08-2024 ambulatory CATHY L FLORO Not Available Start: 03-08-2024 End: 03-08-2024 Subsequent care visit Cathy Jumana Pritchetto CNM Work Phone: [facility] Comment on above: Encounter for superv ision of other normal , third trimester (Primary Dx); Elevated glucose tolerance test; History of section Start: 02-09-2024 End: 02-09-2024 Bamboo flowsheet Cathy L Floro CNM Work [...] 01-31-2024 End: 01-31-2024 Orders Only Jake Dai FLOWER STRIPPER [facility] Comment on above: Pyelectasis (Primary Dx); anomaly suspected but not found Pyelectasis Start: 01-25-2024 End: 01-25-2024 Office consultation new/estab patient 60 min Tang Bonilla MD Work Phone: [facility] Comment on above: 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 (Primary Dx) Start: 01-25-2024 End: 01-25-2024 Orders Only Kristen Do RN [facility] Comment on above: 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 (Primary Dx); Pyelectasis Start: 01-17-2024 End: 01-17-2024 Chart abstracting Tang Bonilla MD Work Phone: [facility] Start: 01-17-2024 End: 01-17-2024 Telephone encounter Chelsey Bray MD Work Phone: [facility] Start: 01-14-2024 End: 01-14-2024 Chart abstracting Tang Bonilla MD Work Phone: [facility] Start: 01-11-2024 End: 01-11-2024 Bamboo flowsheet Cathy [...] FERNANDEZ Not Available Start: 12-23-2023 End: 12-23-2023 Codybojoanie Fernandez MD Work Phone: [facility] Start: 12-23-2023 End: 12-23-2023 Bambojoanie Fernandez MD Work Phone: [facility] Start: 12-15-2023 End: 12-15-2023 Bamboo flowsheet Cathy L Floro CNM Work Phone: [facility] Start: 12-15-2023 End: 12-15-2023 Bamboo flowsheet Cathy L Floro CNM Work Phone: [facility] Start: 12-15-2023 End: 12-15-2023 Subsequent care visit Cathy Pritchetto CNM Work Phone: [facility] Comment on above: Encounter for superv ision of other normal , second trimester (Primary Dx); History of section; related condition in second trimester Start: 12-15-2023 End: 12-15-2023 ambulatory CATHY L FLORO Not Available Start: 11-10-2023 End: 11-10-2023 Bamboo flowsheet Cathy Jumana Pritchetto CNM Work Phone: [facility] Start: 11-10-2023 End: 11-10-2023 Bamboo flowsheet Cathy L Floro CNM Work Phone: [facility] Start: 11-10-2023 End: 11-10-2023 ambulatory CATHY L FLORO Not Available Start: 11-10-2023 End: 11-10-2023 Subsequent care visit Cathy Pritchetto CNM Work [...] Start: 08-04-2021 End: 08-04-2021 ambulatory Surendra MICHAEL [facility] Start: 08-04-2021 End: 08-04-2021 Subsequent hospital visit by physician Surendra Michael MD Work Phone: [facility] Comment on above: 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 Comment on above: Pain following surge ry or procedure (Primary Dx) Start: 09-10-2020 End: 09-12-2020 Evaluation and management of inpatient [facility] Start: 09-10-2020 End: 09-12-2020 Evaluation and management of inpatient [facility] Work Phone: [facility] Delivery Comment on above: delivery de livered (Primary Dx) Start: 09-09-2020 End: 09-09-2020 ambulatory [facility] Start: 09-09-2020 End: 09-09-2020 Admission to establishment Breana Ryan Mondragon Work Phone: [facility] Start: 09-09-2020 End: 09-09-2020 Subsequent hospital visit by physician Breana Vidal Millery Mondragon DO Work Phone: [facility] Delivery Comment on above: Encounter for preadm ission testing (Primary Dx); S/P primary low transverse Start: 06-23-2018 End: 06-23-2018 Patient encounter procedure Delia Mcneill Facility:[facility] Procedures Date Procedure Procedure Detail Performing Clinician Start: 04-21-2024 US OB BPP WO NON-STRESS Cathy Jumana Pritchetto CNM Work Phone: Start: 01-25-2024 UNLISTED LAB TEST Tang Bonilla MD Work Phone: Start: 10-12-2023 Antibody screen Tang Bonilla MD Work Phone: Start: 10-12-2023 CHLAMYDIA/GC BY PCR RUPERTO SWAB Not In System Ref Prov Start: 10-12-2023 Drug scrn 1+ class nonchromo Not In System Ref Prov Start: 10-12-2023 Hemoglobin glycosylated a1c Cathy Colon STRAPPER OPERATOR-CNM Work Phone: Start: 10-12-2023 HIV 1&2 AB/AG [...] 09-10-2020 Drug screen class list a Cathy Colon A PRN - CNM Work Phone: Start: 09-09-2020 Blood count complete auto&auto difrntl wbc Breana Vidal Ryan Mondragon DO Work Phone: Start: 08-07-2020 GBS, EXTERNAL RESULT Cathy Yarelyo STRAPPER OPERATOR - CNM Work Phone: Start: 01-30-2020 ABO, EXTERNAL RESULT Cathy Yarelyo STRAPPER OPERATOR - CNM Work Phone: Start: 01-30-2020 C. TRACHOMATIS, EXTERNAL RESULT Cathy Floro STRAPPER OPERATOR - CNM Work Phone: Start: 01-30-2020 HEPATITIS B, EXTERNAL RESULT Cathy Floro STRAPPER OPERATOR - CNM Work Phone: Start: 01-30-2020 HIV, EXTERNAL RESULT Cathy Floro STRAPPER OPERATOR - CNM Work Phone: Start: 01-30-2020 N. GONORRHOEAE, EXTERNAL RESULT Cathy Floro STRAPPER OPERATOR - CNM Work Phone: Start: 01-30-2020 RH FACTOR, EXTERNAL RESULT Cathy Floro STRAPPER OPERATOR - CNM Work Phone: Start: 01-30-2020 RPR, EXTERNAL RESULT Cathy Colon STRAPPER OPERATOR - CNM Work Phone: Start: 01-30-2020 RUBELLA TITER, EXTERNAL RESULT Cathy Colon STRAPPER OPERATOR - CNM Work Phone: H/O: section S/P primar y low transverse Breanaana m Mondragon DO Work Phone: H/O: section History [...] Td Vaccines (7 - Td or Tdap) [facility] Start: 06-20-2030 DTaP/Tdap/Td vaccine (7 - Td or Tdap) DTaP/Tdap/Td vaccine (7 - Td or Tdap) [facility] Start: 03-20-2025 Adult BMI Screening Adult BMI Screen ing [facility] Start: 01-24-2025 Adult BMI Screening Adult BMI Screen ing [facility] Start: 01-24-2025 Tobacco Screening Tobacco Screening [facility] Start: 01-24-2025 End: 01-24-2025 US MFM [...] DERM [address] [place] [address] Hossein Fernandez MD [address] [place] [address] [facility] Start: 05-02-2024 End: 05-02-2024 Patient encounter procedure 05/02/2024 8:30 AM EST Routine [facility] [address] [place] [id number] Cathy Colon, [facility] [address] [place] [address] [facility] Start: 04-25-2024 End: 04-25-2024 Patient encounter procedure 04/25/2024 10:00 AM EST Routine [facility] [address] [place] [phone] Cathy Colon, [facility] [address] [place] [address] [facility] Start: 04-24-2024 End: 04-24-2024 Patient encounter procedure [facility] Comment on above: Arrived Start: 04-24-2024 End: 04-24-2025 STREPTOCCOUS, GROUP B CULTURE STREPTOCCOUS, GROUP B CULTURE Lab Routine screening for streptococcus B Expected: 04/24/2024 (Approximate), Expires: 04/24/2025 [facility] Work Phone: Comment on above: Expected: 04/24/2024 (Approximate), Expires: 04/24/2025 Start: 04-18-2024 End: 04-18-2024 Patient encounter procedure [facility] Comment on above: Arrived Start: 04-11-2024 End: 04-11-2024 Patient encounter procedure 04/11/2024 8:30 AM EST Routine [facility] [address] [facility] [place] [phone] Cathy Colon, [facility] [address] [place] [address] [facility] Start: 04-04-2024 End: 04-04-2024 Patient encounter procedure 04/04/2024 8:45 AM EST Routine [facility] [address] [facility] [place] [phone] Cathy Colon, [facility] [address] [place] [address] [facility] Start: 04-03-2024 End: 04-03-2024 Clinical Support [facility] Comment on above: Elevated glucose sary erance test; History of gestational diabetes Start: 03-28-2024 End: 03-28-2024 Patient encounter procedure 03/28/2024 8:45 AM EST Routine [facility] [address] [facility] [place] [id number] Cathy Colon, [facility] [address] [place] [address] [facility] Start: 03-23-2024 End: 03-23-2025 [...] of gestational diabetes Expected: 03/23/2024, Expires: 03/23/2025 [facility] Comment on above: Expected: 03/23/2024 , Expires: 03/23/2025 Start: 03-23-2024 End: 03-23-2024 Patient encounter procedure 03/23/2024 8:45 AM EST Routine [facility] [address] [place] [phone] Cathy Colon, [facility] [address] [place] [address] [facility] Start: 03-20-2024 End: 03-20-2024 Patient encounter procedure [facility] Start: 03-08-2024 End: 03-08-2025 GLUCOSE TOLERANCE TEST, GEST, 4SPEC 100G W/NDDG GLUCOSE TOLERANCE TEST, GEST, 4SPEC 100G W/NDDG Lab Routine Elevated glucose tolerance test Expected: 03/08/2024 (Approximate), Expires: 03/08/2025 [facility] Work Phone: Comment on above: Expected: 03/08/2024 (Approximate), Expires: 03/08/2025 Start: 03-08-2024 End: 03-08-2024 Patient encounter procedure 03/08/2024 8:30 AM EST Routine [facility] [address] [place] [phone] Cathy Colon, [facility] [address] [place] [address] [facility] Start: 02-09-2024 End: 02-08-2025 CBC panel - Blood by Automated count CBC Lab Routine Screening for iron deficiency anemia Expected: 02/09/2024 (Approximate), Expires: 02/08/2025 [facility] Comment on above: Expected: 02/09/2024 (Approximate), Expires: 02/08/2025 Start: 02-09-2024 End: 02-08-2025 GLUCOSE, GESTATIONAL SCREEN (50G)-135 CUTOFF GLUCOSE, GESTATIONAL SCREEN (50G)-135 CUTOFF Lab Routine Screening for diabetes mellitus Expected: 02/09/2024 (Approximate), Expires: 02/08/2025 [facility] Work Phone: Comment on above: Expected: 02/09/2024 (Approximate), Expires: 02/08/2025 Start: 02-09-2024 End: 02-08-2025 US for US OB follow up transabdominal approach Imaging Routine related condition in second trimester Expected: 02/09/2024, Expires: 02/08/2025 [facility] Comment on above: Expected: 02/09/2024 , Expires: 02/08/2025 Start: 02-09-2024 End: 02-09-2024 Patient encounter procedure 02/09/2024 8:30 AM EST Routine [facility] [address] [place] [id number] Cathy Colon [facility] [address] [place] [address] [facility] Start: 01-25-2024 End: 01-25-2024 Patient encounter procedure 01/25/2024 8:45 AM EST Office Visit [facility]- Medicine at [facility] [address] [place] [phone] Tang Bonilla MD [address] [place] [address] [facility]- Medicine at [facility] Start: 01-25-2024 End: 01-25-2024 Patient encounter procedure 01/25/2024 7:30 AM EST Appointment [facility] [address] [place] [address] [facility] Start: 01-11-2024 End: 01-11-2024 Patient encounter procedure 01/11/2024 8:45 AM EDT Routine [facility] [address] [facility] [place] [phone] Cathy Colon, CNM [address] [place] [address] [facility] Start: 12-27-2023 End: 12-27-2023 Professional / ancillary services management 12/27/2023 3:15 PM EDT Ancillary Procedure [facility] [address] [place] [phone] [facility] Start: 12-23-2023 End: 12-23-2023 [...] AM EDT Routine [facility] [address] [facility] [place] [phone] Cathy Colon, [facility] [address] [place] [address] Arrived [facility] Comment on above: Arrived Start: 12-15-2023 End: 12-15-2023 Patient encounter procedure 12/15/2023 8:30 AM EDT Routine [facility] [address] [facility] [place] [id number] Cathy Colon, CNM [address] [place] [address] [facility] Start: 11-21-2023 Influenza vaccination N [facility] Start: 11-20-2021 Influenza vaccination Flu vacc ine (Season Ended) [facility] Start: 08-12-2021 End: 08-12-2021 Patient encounter procedure 08/12/2021 Office Visit Plastic Surgery Rhoda CallahanBARTOLO CNP [address] [facility] [address] [place] [address] [facility] Start: 08-04-2021 End: 08-04-2021 HEAD LESION EXCISION HEAD LESION EXCISION D03.30 RIGHT CHEEK MELANOMA 08/04/2021 11:33 AM EDT [facility] Start: 07-23-2021 End: 07-23-2021 Patient encounter procedure 07/23/2021 Office [place] [address] [facility] [address] [address] [place] [address] [facility] Start: 07-08-2021 End: 07-08-2021 FACIAL LESION BIOPSY EXCISION FACIAL LESION BIOPSY EXCISION LESION RIGHT NECK X1 LESION RIGHT CHEEK X 2 07/08/2021 7:29 AM EDT [facility] Start: 2021 Screening for malign ant neoplasm of cervix [facility] Start: 11-20-2020 Influenza vaccination Flu vacc ine (Season Ended) [facility] Work Phone: Start: 09-10-2020 End: 09-10-2020 Admission to same day surgery center 09/10/2020 Surgery Obstetrics and Gynecology Breana Ledbetter DO [address] [place] [address] SECTION [facility] Labor and Delivery Comment on above: SECTION Start: 09-10-2020 Subsequent hospital visit by physician 09/10/2020 Hospital Encounter Obstetrics and Gynecology Breana Ledbetter DO [address] [place] [address] [facility] Start: 01-14-2012 Screening for malign ant neoplasm of cervix [facility] Start: 2010 DTaP/Tdap/Td vaccine (1 - Tdap) DTaP/Tdap/Td vaccine (1 - Tdap) [facility] Start: 2009 Adult BMI Follow Up Plan Adult BMI Follow Up Plan [facility] Start: 2009 Adult BMI Screening Adult BMI Screen ing [facility] Start: 2009 Hepatitis C screening Hepatitis C [facility] Start: 2006 HIV screening HIV screen [facility] Start: 2003 COVID-19 Vaccine (1) COVID-19 Vaccin e (1) [facility]: Start: 2003 Depression Screen Depression Screen [facility] Start: 2003 Depression Screening Depression Scre ening [facility] [employer] Start: 2003 Tobacco Screening Tobacco Screening [facility] Start: 01-14-1996 COVID-19 Vaccine (1) COVID-19 Vaccin e (1) [facility] Start: 01-14-1992 Varicella vaccine (1 of 2 - 2-dose childhood series) Varicella vaccine (1 of 2 - 2-dose childhood series) [facility] Start: 1991 Hepatitis C screening Hepatitis C [facility] End: 08-04-2021 INITIATE PACU OXYGEN THERAPY PROTOCOL Initiate PACU Oxygen Therapy Protocol Respiratory Care Routine Continuous until discontinued starting 08/04/2021 [employer] Phone: Comment on above: Continuous until dis continued starting 08/04/2021 Oxygen therapy [[facility] Data Set] Initiate Oxygen Therapy Protocol Respiratory Care Routine Daily until discontinued starting 09/10/2020 [employer] Phone: Comment on above: Daily until disconti nued starting 09/10/2020 Spirometry panel Incentive liz metry Respiratory Care Routine Every 2hr while awake until discontinued starting 09/10/2020 [employer] Phone: Comment on above: Every 2hr while awak e until discontinued starting 09/10/2020 Surgical Pathology Surgical Path ology Lab Routine Release Upon Ordering for 1 Occurrences starting 07/08/2021 [employer] Phone: Comment on above: Release Upon Orderin g for 1 Occurrences starting 07/08/2021 Surgical Pathology Surgical Path ology Lab Routine Release Upon Ordering for 1 Occurrences starting 08/04/2021 [employer] Phone: Comment on above: Release Upon Orderin g for 1 Occurrences starting 08/04/2021 End: 09-09-2020 TYPE AND SCREEN TYPE AND SCREEN Blood Bank STAT Encounter for preadmission testing One Time for 1 Occurrences starting 09/09/2020 until 09/09/2020 [employer] Phone: Comment on above: One Time for 1 Occur rences starting 09/09/2020 until 09/09/2020 TYPE AND SCREEN TYPE AND SCREEN Blood Bank Stat [employer] Label print Encounter for preadmission testing 09/09/2020 2:26 PM EDT [employer] Phone: Immunizations Immunization Date Immunization Notes Care Provider Fa [facility] 09-10-2020 diphtheria, tetanus toxoids and acellular pertussis vaccine, unspecified formulation [employer] DO Work Phone: [employer] Phone: 09-10-2020 measles, mumps and rubella virus vaccine [employer] DO Work Phone: [employer] Phone: Payers Date Payer Category Payer Private Health Insurance [employer] [id number] 2024 Unknown [id number] 2021 Commercial Managed C are - POS [id number] 2021 Managed Care HMO (unspecified) [id number]. [id number] 2021 Private Health Insurance [id number]. [id number] 2021 Unknown [id number] [id number]. [id number] 2018 Self-pay 2018 Unknown [id number] 1991 Unknown [id number] 2.16.840.1.983658.3.579.2. 173 1991 Unknown [id number] 2.16.840.1.469704.3.579.2. 175 1991 Unknown [id number] 2.16.840.1.629312.3.579.2. 175 1991 Unknown [id number] 2.16.840.1.530242.3.579.2. 1286 1991 Unknown [id number] 2.16.840.1.689064.3.579.2. 1286 1991 Unknown [id number] 2.16.840.1.662451.3.579.2. 1286 1991 Unknown [id number] 2.16.840.1.690861.3.579.2. 1286 1991 Unknown [id number] 2.16.840.1.707175.3.579.2. 1259 1991 Unknown [id number] 2.16.840.1.551556.3.579.2. 1259 1991 Unknown [id number] 2.16.840.1.603102.3.579.2. 9 1991 Unknown [id number] 2.16.840.1.697884.3.579.2. 9 1991 Unknown [id number] 2.16.840.1.466800.3.579.2. 9 1991 Unknown [id number] 2.16.840.1.080994.3.579.2. 1258 1991 Unknown [id number] 2.16.840.1.371069.3.579.2. 1258 1991 Unknown [id number] 2.16.840.1.343399.3.579.2. 1258 1991 Unknown [id number] 2.16.840.1.541795.3.579.2. 1258 1991 Unknown [id number] 2.16.840.1.119264.3.579.2. 1258 1991 Unknown [id number] 2.16.840.1.067098.3.579.2. 1258 1991 Unknown [id number] 2.16.840.1.670273.3.579.2. 9 1991 Unknown [id number] 2.16.840.1.199900.3.579.2. 1258 1991 Unknown [id number] 2.16.840.1.203660.3.579.2. 125 1991 Unknown [id number] 2.16.840.1.740164.3.579.2. 1258 1991 Unknown [id number] 2.16.840.1.737484.3.579.2. 1258 1991 Unknown [id number] 2.16.840.1.767486.3.579.2. 9 1991 Unknown [id number] 2.16.840.1.814032.3.579.2. 1259 1991 Unknown [id number] 2.16.840.1.016026.3.579.2. 1259 Unknown [id number] 2.16.840.1.847310.3.579.2. 531 Social History Date Type Detail Facility Tobacco smoking stat [facility] Unknown if ever smoked [employer] Phone: Start: 1990 Sex Assigned At Not on file M [facility] Phone: Start: 09-10-2020 End: 09-02-2022 Tobacco smoking status NHIS Never smoker [facility] Start: 09-10-2020 End: 09-02-2022 Tobacco use and exposure Never used [facility] Start: 09-10-2020 End: 12-24-2023 Alcohol intake Ex-drinker (finding) [employer] Phone: Start: 07-08-2021 End: 08-04-2021 Alcohol intake Current drinker of alcohol (finding) [employer] Phone: Start: 07-08-2021 End: 12-24-2023 Alcohol intake [employer] Phone: Start: 1990 Sex Assigned At Female M [facility] Start: 07-25-2021 End: 08-04-2021 Exposure to SARS-CoV-2 (event) Not sure [employer] Phone: Start: 09-22-2023 End: 12-24-2023 Tobacco use panel [facility] Start: 09-01-2022 Alcohol Comment Alcohol: 3or 4 drinks on typical day/ monthly or less. Caffeine 1-2 cup/sday [facility] Start: 08-22-2023 [facility] Start: 06-03-2022 Gender identity Identifies as female gender (finding) [facility] Tobacco smoking stat [facility] Tobacco smoking consumption unknown [facility] Unknown [facility] Start: 10-25-2014 Sex Female (finding) [facility] Clinical Notes 09-12-2020 to 04-24-2024 Cathy Colon CNM - 04/24/2024 5:30 PM Bhavik Colon CNM - 04/18/2024 10:00 AM Bhavik Colon CNM - 04/11/2024 8:30 AM ESTTelephone Encounter - Tsering Jacome - 03/28/2024 11:13 AM EST Note Date & Type Note Facility 04-24-2024 History of Present illness Narrative Subjective No chief complaint on file. Celestino Cruz is a 34 y.o. at 37w1d with a working estimated date of delivery [...] 1 Para CS-LTranv Her is complicated by: history of section, GDM Objective Physical Exam weight: 190 lb Expected Total Weight Gain: 11 lb-19 lb Pregravid BMI: 30.71 Urine protein-negative Urine glucose-negative Assessment/Plan Diagnoses and all orders for this visit: History of section Encounter for supervision of other normal , third trimester screening for streptococcus B - STREPTOCCOUS, GROUP B CULTURE; Future Gestational diabetes mellitus (GDM) affecting Continue vitamin. Labs reviewed. GBSdone today Reactive NST in office today Expected mode of delivery repeat section Follow up in 1 week for a routine visit. documented in this encounter [facility] 04-18-2024 History of Present illness Narrative Subjective [...] routine visit. documented in this encounter [facility] 04-11-2024 History of Present illness Narrative [...] routine visit. documented in this encounter [facility] 03-28-2024 Telephone encounter Note Pt scheduled for nutritions/ Fernanda Eaton [facility] 03-28-2024 Miscellaneous Notes Pt scheduled for nutritions/ Fernanda Eaton documented in this encounter [facility] 03-28-2024 History of Present illness Narrative [...] she is waiting for an appt for strategic planning analyst referral. We also discussed her blood sugars [...] routine visit. documented in this encounter [facility] 03-23-2024 History of Present illness Narrative [...] info given, and will make referral to visual educator. Objective Physical Exam weight: 188 lb [...] routine visit. documented in this encounter [facility] 03-20-2024 History of Present illness Narrative [...] Cystitis Gastroenteritis History of female infertility Melanoma ([facility]) 05/2021 in SITU Myopia Rhus dermatitis REVIEW [...] TANG BONILLA MD documented in this encounter [facility] 03-08-2024 History of Present illness Narrative Subjective [...] routine visit. documented in this encounter [facility] 02-09-2024 History of Present illness Narrative [...] given her reassurance she can deliver in [place] and as the baby grows he told [...] routine visit. documented in this encounter [facility] 01-25-2024 History of Present illness Narrative [...] Declined Have you been seen here at [facility] in a previous ? No Recent ER visits or hospitalizations? No Bring blood sugar log or meter with you today? (Please bring them with you for every visit at [facility]) N/A Flu vaccine (Jan-May)? No Any [...] Cystitis Gastroenteritis History of female infertility Melanoma ([facility]) 05/2021 in SITU Myopia Rhus dermatitis [...] and the other consultants, we search on [employer] and all the available care everywhere epic I did review all the imaging studies of the patient available on EMR, ordered by the primary care physician and the other retail client solutions consultant HABITS: Patient activity no restrictions, diet [...] patient is in complete care of her edger automatic. Patient does have ultrasound office visit scheduled with us Thank you for allowing me to participate in Celestino Cruz . If there any questions please do not hesitate to contact us. Sincerely, TANG BONILLA MD documented in this encounter [facility] 01-17-2024 Telephone encounter Note Maddie from Maternal- Medicine at [facility] called and left a vm at 11:25 am She said that she needs faxed over some information about the pt. She said if there is any Genetic Testing that has been done, Her first OB US, and she needs a reasoning for sending her to see them. Fax is [phone] Phone is [phone] [facility] 01-17-2024 Miscellaneous Notes Maddie from Maternal- Medicine at [facility] called and left a vm at 11:25 am She said that she needs faxed over some information about the pt. She said if there is any Genetic Testing that has been done, Her first OB US, and she needs a reasoning for sending her to see them. Fax is [phone] Phone is [phone] documented in this encounter [facility] 01-11-2024 History of Present illness Narrative [...] report and if needed will send to [facility] for consult. Urine protein-negative Urine glucose-negative Labs: reviewed Imaging Assessment/Plan Diagnoses and all orders for this visit: Encounter for supervision of other normal , second trimester History of section Continue vitamin. Labs reviewed. Rhogam not needed patient is O+ positive GTT at 28 weeks Follow up in 4 weeks for a routine visit documented in this encounter [facility] 12-30-2023 History of Present illness Narrative [...] repeat US documented in this encounter [facility] 12-23-2023 History of Present illness Narrative [...] excision performed by Juancarlos Michael MD at [facility] In [facility]. Originally biopsied by Rhoda Callahan APRN-VÍCTOR also with [facility] Additional testing: none [...] Examined Right arm Examined Patient wearing nail barbadian, Denies dark streaks under finger nails, Denies [...] skin exam documented in this encounter [facility] 12-15-2023 History of Present illness Narrative [...] routine visit. documented in this encounter [facility] 11-10-2023 History of Present illness Narrative [...] routine visit. documented in this encounter [facility] 06-20-2021 Hospital Discharge instructions Arlen Rhoades [...] Any new symptoms documented in this encounter [facility]: 06-20-2021 Hospital Discharge instructions Arlen Rhoades [...] Any new symptoms documented in this encounter [employer]: 09-12-2020 Hospital Discharge instructions Tamra Guardado RN - 09/12/2020 Follow-up with your OB doctor as specified. [facility] OB Department phone: Dr. Greyson Gonzalez [facility] Dr. Laura Rhoades CN [address] [facility] [address] [facility] [address] [place] [address] Laura WATKINS Karime [facility] [address] [facility] [address] [phone] Micky Colon, MSN, STRAPPER OPERATOR, CNM [place] [id number] [facility] [address] [address] [facility] [address] Chinyere Grande CN [address] [place] [address] [place] [address] Carolin Esqueda CNM [address] [place] [address] [place] [address] [phone] DIET Eat a well balanced diet focusing on foods high in fiber and protein. Drink plenty of fluids especially water. To avoid constipation you may take a mild stool softener as recommended by your doctor or brownfield redevelopment specialist. ACTIVITY Gradually increase your activity. Resume exercise regimen only after advice by your doctor or brownfield redevelopment specialist. Avoid lifting anything heavier than a gallon of milk for SIX weeks. Avoid driving until your doctor or brownfield redevelopment specialist has given their approval. Rise slowly from [...] have thoughts of harming yourself or your . If infant will not stop crying, contact [...] medications as recommended by your doctor or brownfield redevelopment specialist for pain If you develop a warm, [...] vitamins as directed by your doctor or brownfield redevelopment specialist. Refer to the booklet in the folder/binder for more information. If you feel you need more assistance or have questions, please call Hossein Marrufo IBCLC, it infrastructure consultant, at or the OB department to [...] in your calf. documented in this encounter [employer]: 09-12-2020 History of Present illness Narrative [...] with as needed documented in this encounter [employer] Phone: Evaluation note Diagnosis Encounter for preadmission testing- Primary S/P primary low transverse delivery, without mention of indication, unspecified as to episode of care documented in this encounter [employer] Phone: evaluation note* Diagnosis delivery delivered- Primary delivery, without mention of indication, delivered, with or without mention of antepartum condition 40 weeks gestation of state, incidental documented in this encounter [employer]: evaluation note* Diagnosis Pain following surgery or procedure- Primary Other acute postoperative pain documented in this encounter [employer] [facility]: evaluation note* Diagnosis 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, nose, lip, and ear (HCC)- Primary Pain following surgery or procedure Other acute postoperative pain documented in this encounter [employer] Phone: [id number] note* Diagnosis Melanocytic nevus of trunk- Primary Benign neoplasm of skin of trunk, except scrotum Melanocytic nevi of face Lentigines History of malignant melanoma of skin Personal history of malignant melanoma of skin documented in this encounter [facility] HealthcareEvaluation note* Diagnosis Encounter for supervision of other normal , second trimester- Primary History of section Other postprocedural status documented in this encounter [facility] HealthcareEvaluation note* Diagnosis anomaly suspected but not found- Primary Suspected anomaly not found [facility] Diagnosis anomaly suspected but not found- Primary Suspected anomaly not found Pyelectasis Other specified disorder of kidney and ureter documented in this encounter [facility]* Diagnosis Pyelectasis- Primary Other specified disorder of kidney and ureter anomaly suspected but not found Suspected anomaly not found documented in this encounter [facility] SystemEvaluation note* Diagnosis Pyelectasis Other specified disorder of kidney and ureter [facility]* Diagnosis Encounter for supervision of other normal , third trimester- Primary Screening for diabetes mellitus Screening for iron deficiency anemia related condition in second trimester documented in this encounter [facility] HealthcareEvaluation note* Diagnosis Encounter for supervision of other normal , second trimester- Primary History of section Other postprocedural status documented in this encounter [facility] HealthcareEvaluation note* Diagnosis Encounter for supervision of other normal , third trimester- Primary Elevated glucose tolerance test Impaired glucose tolerance test History of section Other postprocedural status documented [facility]* Diagnosis Encounter for supervision of other normal , second trimester- Primary History of section Other postprocedural status related condition in second trimester documented [facility]* Diagnosis anomaly suspected but not found- Primary Suspected anomaly not found documented in [facility] encounter [facility]* Diagnosis Encounter for supervision [...] mellitus (GDM) affecting documented in this encounter [facility]* Diagnosis Gestational diabetes mellitus (GDM) affecting - Primary Encounter for supervision of other normal , third trimester documented in [facility]* Diagnosis Gestational diabetes mellitus (GDM) affecting - Primary Encounter for supervision of other normal , third trimester History of section Other postprocedural status documented [facility] this encounter [facility]* Diagnosis History of section- Primary Other postprocedural status Encounter for supervision of other normal , third trimester screening for streptococcus B screening for Streptococcus B Gestational diabetes mellitus (GDM) affecting documented in this encounter [facility] HealthcareInstructionsNot on filedocumented in this encounterProSelect [facility] SystemInstructionsNot on filedocumented in this encounterBethesda North Hospital SystemInstructionsNot on filedocumented in this encounterOhio State Harding HospitalWeDem[facility] InstructionsNot on filedocumented in this encounterOhio State Harding HospitalWeDemand [facility] InstructionsNot on filedocumented in this encounterOhio State Harding HospitalWeDemand [facility] InstructionsNot on filedocumented in this encounterBethesda North [facility] InstructionsNot on filedocumented in this encounterBethesda North Hospital SystemReason for visit Narrative* Auth/Cert Specialty Diagnoses / Procedures Referred By Bryanna t Referred To Contact Diagnoses Acoustic nerve lesion, right Acoustic nerve lesion, right LESION RIGHT NECK X1 LESION RIGHT CHEEK X 2 Procedures MD OFFICE/OUTPT VISIT,PROCEDURE ONLY MD EXC SKIN BENIG <5MM FACE,FACIAL RIGHT CHEEK LESION X 2 AND RIGHT NECK LESION X 1 [place] [address] [facility] [address] [place] [address] [facility] [address] [place] [address] Referral ID Status Reason Start Date Expiration Date Visits Re quested Visits Authorized 1 1 [employer] Phone: reason for visit Narrative* Auth/Cert Specialty Diagnoses / Procedures Referred By Contac t Referred To Contact Diagnoses 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 Procedures MD OFFICE/OUTPT VISIT,PROCEDURE ONLY MD EXC SKIN BENIG >4CM TRUNK,ARM,LEG RIGHT CHEEK WIDER RESECTION OF MELANOMA IN SITU [place] [id number] [id number] [place] [address] [facility] [address] [place] [address] Referral ID Status Reason Start Date Expiration Date Visits Re quested Visits Authorized [id number] 1 1 [employer] Phone: Summary Purpose Family History No Family [...] section and content) DATE CREATED AUTHOR 07/06/2018 [facility] DATE CREATED AUTHOR AUTHOR'S ORGANIZ ATION 09/13/2020 [facility] DATE CREATED AUTHOR AUTHOR'S ORGANIZ ATION 08/07/2021 [facility] DATE CREATED AUTHOR AUTHOR'S ORGANIZ ATION 01/27/2022 [facility] dical Specialist DATE CREATED AUTHOR AUTHOR'S ORGANIZ ATION 03/22/2024 [facility] DATE CREATED AUTHOR AUTHOR'S ORGANIZ ATION 04/24/2024 [facility] d[facility] Specialists EPIC Reason for Visit (unrecogniz ed section and content) Reason Comments Scheduled Status Reason Specialty Diagnoses / Procedures Referre d By Contact Referred To Contact Diagnoses 40 weeks gestation of macrosomia Procedures MD DELIVERY ONLY SECTION Breana Ledbetter, DO [address] [place] [address] [facility] Reason Comments Skin Check Suspicious [...] 50 mL (mini-bag) (COMPLETED) 2,000 mg, Intravenous, WEB PORTAL DEVELOPER TO O.R., 1 dose, On Wed09/10/20 at 1030, Administer within 1 hour of incision., Labor and Delivery 1224 (New Bag - Provider: Tamra Guardado RN)1254 (Due: Stopped - Provider: Tamra Guardado RN) citric acid-sodium citrate (BICITRA) solution 30 mL [...] Provider: Tamra Guardado RN - Reason: Patient/family refused)1951 (Given - Provider: Vivian Padgett RN) 0916 (Given - Provider: Tamra Guardado, JOÃO)2055 (Given - Provider: Sofie Prajapati, JOÃO) 0946 [...] RN) 0756 (Given - Provider: Tamra Guardado, RN)1200 (Due)2000 (Due) ketorolac (TORADOL) injection 30 [...] resumes., 1620 (Not Given - Provider: Tamra Guardado, JOÃO - Reason: Patient/family refused) 0916 (Given - Provider: Tamra Guardado, JOÃO) 0944 (Given - Provider: Tamra Guardado RN) sodium chloride flush 0.9 % injection 10 mL 10 mL, Intravenous, EVERY 12 HOURS SCHEDULED (2 times per day), First dose on Wed09/10/20 at 2100, 2100 (Due) 0900 (Due)2100 (Due) 0900 (Due)2100 (Due) Igeudwu-Pjmnyp-Tvqbe Pertussis (BOOSTRIX) injection 0.5 mL 0.5 mL, [...] to gravity)1252 (Restarted - Provider: BARTOLO Lange [employer])1405 (Anesthesia Volume Adjustment - Provider: BARTOLO Lange CRNA) lactated ringers infusion Intravenous, at 125 mL/hr, CONTINUOUS, Starting on Wed09/10/20 at 1445, 1901 (New Bag - Provider: Tamra Guardado RN) 0201 (New Bag - Provider: Vivian Padgtet RN) PRN Medication Order 09/10/2020 09/11/2020 09/12/2020 [...] BARTOLO Lange CRNA)1321 (Rate/Dose Change - Provider: Rhoda Rhoades APRN - KAYLA)1407 (Rate/Dose Change - Provider: Rhoda Rhoades APRN - KAYLA) sennosides-docusate sodium (SENOKOT-S) 8.6-50 MG tablet 1 tablet 1 tablet, Oral, DAILY PRN, Constipation, Starting on Wed09/10/20 at 1416, simethicone (MYLICON) chewable tablet 80 mg 80 mg, Oral, EVERY 6 HOURS PRN, Cramping, Flatulence, Starting on Wed09/10/20 at 1416, 0600 (Given - Provider: Vivian Padgett RN)1355 (Given - Provider: Tamra Guardado RN) 0756 (Given - Provider: Tamra Guardado RN) sodium [...] 07/06/2021 07/07/2021 07/08/2021 bupivacaine-EPINEPHrine PF (MARCAINE-w/EPINEPHrine) 0.25% -1:172816 injection (CANCELED) PRN, Starting on Wed07/08/21 at 0742, Until Wed07/08/21 at 0827, Intra-op 0741 (Given - Provid er: Surendra Michael MD - Comment: OPERATIVE SITE INJECTED PRIOR TO INCISION) No Frequency Medication Order 07/06/2021 07/07/2021 07/08/2021 bupivacaine-EPINEPHrine (MARCAINE-w/EPINEPHRINE) 0.25% -1:644833 injection 1 dose, Starting on Wed07/08/21 at 0655, Until Wed07/08/21 at 1859, Leeanna Geller: cabinet override, Leeanna Geller: cabinet override 0700 (Due) Scheduled Medication Order 08/02/2021 08/03/2021 08/04/2021 meperidine (DEMEROL) injection 12.5 mg 12.5 mg, IntraVENous, ONCE, 1 dose, On 08/04/21 at 1230, May give every 5 minutes [...] infused., PACU only bupivacaine-EPINEPHrine PF (MARCAINE-w/EPINEPHrine) 0.25% -1:324512 injection (CANCELED) PRN, Starting on Wed08/04/21 at 1149, Until Wed08/04/21 at 1217, Intra-op 1149 (Given - Provid er: Surendra Michael MD - Comment: OPSITE) diphenhydrAMINE (BENADRYL) injection [...] Care Teams (unrecognized sec tion and content) Express Manager Relationship Specialty Start Date End Date Chelsey Bray MD [address], [place] [id number] PCP - General Family Medicine 09/10/20 Express Manager Relationship Specialty Start Date End Date WonderChelsey champagne MD [address], [place] [id number] PCP - General Family Medicine 09/10/20 Express Manager Relationship Specialty Start Date End Date Chelsey Bray MD [address] [place] [address] [id number] PCP - General Family Medicine 08/20/22 Veronique Neely NP [address] [place] [address] Nurse Practitioner Family Medicine 08/20/22 Cathy Colon CNM [address] [place] [address] Obstetrics and Gynecology 08/20/22 Express Manager Relationship Specialty Start Date End Date Chelsey Bray MD [address] [place] [address] PCP - General Family Medicine 08/20/22 Veronique Neely NP [address] [place] [address] Nurse Practitioner Family Medicine 08/20/22 Cathy Colon CNM [address] [place] [address] Obstetrics and Gynecology 08/20/22 Express Manager Relationship Specialty Start Date End Date Chelsey Bray MD [address] [place] [address] PCP - General Family Medicine 08/20/22 Veronique Neely NP [address] [place] [address] Nurse Practitioner Family Medicine 08/20/22 Cathy Colon CNM [address] [place] [address] Obstetrics and Gynecology 08/20/22 Express Manager Relationship Specialty Start Date End Date Chelsey Bray MD [address] [place] [address] PCP - General Family Medicine 08/20/22 Veronique Neely NP [address] [place] [address] Nurse Practitioner Family Medicine 08/20/22 Cathy Colon CNM [address] [place] [address] Obstetrics and Gynecology 08/20/22 Express Manager Relationship Specialty Start Date End Date WonderChelsey champagne MD [address] [place] [address] PCP - General Family Medicine 08/20/22 Veronique Neely NP [address] [place] [address] Nurse Practitioner Family Medicine 08/20/22 Cathy Colon CNM [address] [place] [address] Obstetrics and Gynecology 08/20/22 Express Manager Relationship Specialty Start Date End Date Chelsey Bray MD [address] [place] [address] PCP - General 01/24/24 Express Manager Relationship Specialty Start Date End Date Chelsey Bray MD [address] [place] [address] PCP - General 01/24/24 Express Manager Relationship Specialty Start Date End Date Chelsey Bray MD [address] [facility] [place] [address] PCP - General 01/24/24 Express Manager Relationship Specialty Start Date End Date Chelsey Bray MD [address] [place] [address] PCP - General 01/24/24 Express Manager Relationship Specialty Start Date End Date Chelsey Bray MD [address] [place] [address] PCP - General Family Medicine 08/20/22 Veronique Neely TRACK LAYING MACHINE OPERATOR [address] [place] [address] Nurse Practitioner Family Medicine 08/20/22 Cathy Colon CNM [address] [place] [address] Obstetrics and Gynecology 08/20/22 Express Manager Relationship Specialty Start Date End Date Chelsey Bray MD [address] [place] [address] PCP - General Family Medicine 08/20/22 Veronique Neely NP [address] [place] [address] Nurse Practitioner Family Medicine 08/20/22 Cathy Colon CNM [address] [place] [address] Obstetrics and Gynecology 08/20/22 Express Manager Relationship Specialty Start Date End Date Chelsey Bray MD [address] [place] [address] PCP - General Family Medicine 08/20/22 Veronique Neely NP [address] [place] [address] Nurse Practitioner Family Medicine 08/20/22 Cathy Colon CNM [address] [place] [address] Obstetrics and Gynecology 08/20/22 Express Manager Relationship Specialty Start Date End Date Chelsey Bray MD [address] [place] [address] PCP - General Family Medicine 08/20/22 Veronique Neely NP [address] [place] [address] Nurse Practitioner Family Medicine 08/20/22 Cathy Colon CNM [address] [place] [address] Obstetrics and Gynecology 08/20/22 Express Manager Relationship Specialty Start Date End Date Chelsey Bray MD [address] [place] [address] PCP - General Family Medicine 08/20/22 Veronique Neely NP [address] [place] [address] Nurse Practitioner Family Medicine 08/20/22 Cathy Colon CNM [address] [place] [address] Obstetrics and Gynecology 08/20/22 Express Manager Relationship Specialty Start Date End Date Chelsey Bray MD [address] [place] [address] PCP - General 01/24/24 Express Manager Relationship Specialty Start Date End Date Chelsey Bray MD [address] [place] [address] PCP - General Family Medicine 08/20/22 Veronique Neely NP [address] [place] [address] Nurse Practitioner Family Medicine 08/20/22 Cathy Colon CNM [address] [place] [address] Obstetrics and Gynecology 08/20/22 Express Manager Relationship Specialty Start Date End Date Chelsey Bray MD [address] [place] [address] PCP - General Family Medicine 08/20/22 Veronique Neely NP [address] [place] [address] Nurse Practitioner Family Medicine 08/20/22 Cathy Colon CNM [address] [place] [address] Obstetrics and Gynecology 08/20/22 Express Manager Relationship Specialty Start Date End Date Chelsey Bray MD [address] [place] [address] PCP - General Family Medicine 08/20/22 Veronique Neely NP [address] [place] [address] Nurse Practitioner Family Medicine 08/20/22 Cathy Colon CNM [address] [place] [address] Obstetrics and Gynecology 08/20/22 Express Manager Relationship Specialty Start Date End Date Chelsey Bray MD [address] [place] [address] PCP - General Family Medicine 08/20/22 Veronique Neely NP [address] [place] [address] Nurse Practitioner Family Medicine 08/20/22 Cathy Colon CNM [address] [place] [address] Obstetrics and Gynecology 08/20/22 Express Manager Relationship Specialty Start Date End Date Chelsey Bray MD [address] [place] [address] PCP - General Family Medicine 08/20/22 Veronique Neely NP [address] [place] [address] Nurse Practitioner Family Medicine 08/20/22 Cathy Colon CNM [address] [place] [address] Obstetrics and Gynecology 08/20/22 Express Manager Relationship Specialty Start Date End Date Chelsey Bray MD [address] [place] [address] PCP - General Family Medicine 08/20/22 Veronique Neely NP [address] [place] [address] Nurse Practitioner Family Medicine 08/20/22 Cathy Colon CNM [address] [facility] [place], [place] [phone] Obstetrics and Gynecology 08/20/22 Express Manager Relationship Specialty Start Date End Date Chelsey Bray MD [address] [facility] [place], [place] [phone] PCP - General Family Medicine 08/20/22 Veronique Neely NP [address] [facility] [place], [place] [phone] Nurse Practitioner Family Medicine 08/20/22 Cathy Colon CNM [address] [facility] [place], [place] [phone] Obstetrics and Gynecology 08/20/22 FOR RECORDS PERTAINING [...] BE BASED ON THE PRIMARY CLINICAL RECORDS. [facility]. provides no warranty or guarantee of the accuracy or completeness of information in this document.
== END 2024-04-21 14:01 | disposition home or self-care (01) ==
LOC: FBCO 04-25 08:12 → US 04-25 08:21
PROVIDERS: PCP Family Medicine; Visit Provider Midwife
DX: Z86.32 Personal history of gestational diabetes (principal)
CPT/HCPCS: 76819

== ENCOUNTER 2024-04-28 13:05 | Outpatient (OUT) | payer OTHER, SELFPAY | END 2024-04-28 13:06 | disposition home or self-care (01) | LOC: US 13:05 | PROVIDERS: PCP Family Medicine; Visit Provider Midwife | DX: O26.893 Other specified pregnancy related conditions, third trimester (principal); Z86.32 Personal history of gestational diabetes; Z3A.37 37 weeks gestation of pregnancy | CPT/HCPCS: 76819 ==

== ENCOUNTER 2024-05-05 12:59 | Outpatient (OUT) | payer OTHER, SELFPAY ==
--- NOTE | 2024-05-05 13:04 | US_ITS ---
[address] [address] Patient Name: VAN VALERA MRN: [id number] date: 1990 Sex: F Assigned Patient Location: [facility] Current Patient Location: [facility] Accession/Order Number: [id number] Exam Date: 05/05/2024 13:09 Report Date: 05/05/2024 17:59 At the request of: CATHY PALMA Procedure: US OB BPP wo non-stress EXAMINATION: US OB BPP wo non-stress HISTORY:History Of Gestational Diabetes COMPARISON: Ultrasound OB biophysical 04/28/2024 TECHNIQUE: Ultrasound biophysical profile was performed in the radiology department. BREATHING MOVEMENTS: 2 GROSS BODY MOVEMENTS: 0 TONE: 2 QUALITATIVE AMNIOTIC FLUID VOLUME: 2 PRESENTATION: CEPHALIC HEART RATE: 122.73 bpm AMNIOTIC FLUID VOLUME: 11.40 cm GESTATIONAL AGE: 38 weeks 5 days US/US OB BPP wo non-stress IMPRESSION: 1. Total biophysical profile score: 6 Electronically authenticated by: KISHOR MEANS Date: 05/05/2024 17:59
--- NOTE | 2024-05-05 13:04 | US_ITS ---
[address] [address] Patient Name: VAN VALERA MRN: [id number] date: 1990 Sex: F Assigned Patient Location: [facility] Current Patient Location: Accession/Order Number: [id number] Exam Date: 05/05/2024 13:09 Report Date: 05/05/2024 18:01 At the request of: CATHY PALMA Procedure: US OB growth EXAMINATION: US OB growth HISTORY: History Of Gestational Diabetes COMPARISON: ULTRASOUND OB GROWTH 04/07/2024 FINDINGS: Heart Rate: 122.73 bpm Amniotic Fluid Volume: 11.4 cm; normal range Number: 1 Position: CEPHALIC BIOMETRY: BPD: 8.89 cm; 36 weeks 0 days; 11.10 % HC: 34.51 cm; 39 weeks 6 days; 64.70 % AC: 34.85 cm; 38 weeks 5 days; 71.90 % FL: 7.56 cm; 38 weeks 5 days; 55 % EFW: 3511.66 g; 62.10 % FL/AC: 21.70 FL/BPD: 85.10 HC/AC: 0.99 GESTATIONAL AGE: Age by EDC: 38 weeks 5 days REID by EDC: 2024-05-14 Age by US: 38 weeks 2 days REID by US: 2024-05-17 US/US OB growth IMPRESSION: 1. Single live intrauterine with growth detailed above. Electronically authenticated by: KISHOR MEANS Date: 05/05/2024 18:01
--- OUTSIDE RECORDS SUMMARY | 2024-05-05 13:17 | XMS_ITS | CCD ---
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 Cathy Floro CNM Work Phone: [facility] 03-08-2024 08:34-0500 Body weight 85.28 kg Cathy Floro CNM Work Phone: [facility] 03-08-2024 08:34-0500 Diastolic blood pressure 80 mm[Hg] Cathy Yarelyo CNM Work Phone: [facility] 03-08-2024 08:34-0500 Systolic blood pressure 120 mm[Hg] Cathy Yarelyo CNM Work Phone: [facility] 02-09-2024 08:33-0500 Body mass index (BMI) [Ratio] 32.1 kg/m2 Cathy Yarelyo CNM Work Phone: [facility] 02-09-2024 08:33-0500 Body weight 84.82 kg Cathy Yarelyo CNM Work Phone: [facility] 02-09-2024 08:33-0500 Diastolic blood pressure 74 mm[Hg] Cathy Yarelyo CNM Work Phone: [facility] 02-09-2024 08:33-0500 Systolic blood pressure 120 mm[Hg] Cathy Yarelyo CNM Work Phone: [facility] 01-25-2024 08:45-0500 Body height 162.6 cm Tang Bonilla MD Work Phone: [facility] 01-25-2024 08:45-0500 Body mass index (BMI) [Ratio] 31.51 kg/m2 Tang Bonilla MD Work Phone: [facility] 01-25-2024 08:45-0500 Body weight 83.28 kg Tang Bonilla MD Work Phone: [facility] 01-25-2024 08:45-0500 Diastolic blood pressure 71 mm[Hg] Tang Bonilla MD Work Phone: [facility] 01-25-2024 08:45-0500 Heart rate 81 /min Tang Bonilla MD Work Phone: [facility] 01-25-2024 08:45-0500 Systolic blood pressure 112 mm[Hg] Tang Bonilla MD Work Phone: [facility] 01-11-2024 08:47-0400 Body mass index (BMI) [Ratio] 30.9 kg/m2 Cathy Floro CNM Work Phone: [facility] 01-11-2024 08:47-0400 Body weight 81.65 kg Cathy Floro CNM Work Phone: [facility] 01-11-2024 08:47-0400 Diastolic blood pressure 70 mm[Hg] Cathy Floro CNM Work Phone: [facility] 01-11-2024 08:47-0400 Systolic blood pressure 110 mm[Hg] Cathy Floro CNM Work Phone: [facility] 12-15-2023 11:27-0400 Body mass index (BMI) [Ratio] 30.04 kg/m2 Cathy Floro CNM Work Phone: [facility] 12-15-2023 11:27-0400 Body weight 79.38 kg Cathy Floro CNM Work Phone: [facility] 12-15-2023 11:27-0400 Diastolic blood pressure 70 mm[Hg] Cathy Floro CNM Work Phone: [facility] 12-15-2023 11:27-0400 Systolic blood pressure 116 mm[Hg] Cathy Floro CNM Work Phone: [facility] 11-10-2023 08:31-0400 Body mass index (BMI) [Ratio] 29.52 kg/m2 Cathy Floro CNM Work Phone: [facility] 11-10-2023 08:31-0400 Body weight 78.02 kg Cathy Floro CNM Work Phone: [facility] 11-10-2023 08:31-0400 Diastolic blood pressure 64 mm[Hg] Cathy Floro CNM Work Phone: [facility] 08-21-2024 08:31-0400 Systolic blood pressure 100 mm[Hg] Cathy Colon CNM Work Phone: [facility] 08-04-2021 13:00-0400 Heart rate 49 /min MARIUM Marsh MD Work Phone: [facility] 08-04-2021 13:00-0400 Respiratory rate 21 /min NA Maximo WATKINS Work Phone: [facility] 08-04-2021 13:00-0400 SaO2% (BldA) [Mass fraction] 100 % MARIUM Marsh MD Work Phone: [facility] 08-04-2021 12:45-0400 Diastolic blood pressure 77 mm[Hg] MARIUM Marsh MD Work Phone: [facility] 08-04-2021 12:45-0400 Systolic blood pressure 109 mm[Hg] NA Maximo WATKINS Work Phone: [facility] 08-04-2021 12:18-0400 Body temperature 96.8 [degF] MARIUM Marsh MD Work Phone: [facility] 08-04-2021 09:48-0400 Body height 162.6 cm MARIUM Marsh MD Work Phone: [facility] 08-04-2021 09:48-0400 Body mass index (BMI) [Ratio] 31.24 kg/m2 MARIUM Marsh MD Work Phone: [facility] 08-04-2021 09:48-0400 Body weight 82.56 kg MARIUM Marsh MD Work Phone: [facility] 07-08-2021 08:14-0400 Respiratory rate 0 /min MARIUM Marsh MD Work Phone: [facility] 07-08-2021 08:10-0400 Body temperature 97.81 [degF] MARIUM Marsh MD Work Phone: [facility] 07-08-2021 08:10-0400 Diastolic blood pressure 69 mm[Hg] MARIUM Marsh MD Work Phone: [employer] 07-08-2021 08:10-0400 Heart rate 54 /min MARIUM Marsh MD Work Phone: [employer] 07-08-2021 08:10-0400 SaO2% (BldA) [Mass fraction] 100 % MARIUM Marsh MD Work Phone: [employer] 07-08-2021 08:10-0400 Systolic blood pressure 107 mm[Hg] MARIUM Marsh MD Work Phone: [employer] 07-08-2021 07:01-0400 Body height 162.6 cm MARIUM Marsh MD Work Phone: [employer] 07-08-2021 07:01-0400 Body mass index (BMI) [Ratio] 31.41 kg/m2 MARIUM Marsh MD Work Phone: [employer] 07-08-2021 07:01-0400 Body weight 83.01 kg MARIUM Marsh MD Work Phone: [employer] 09-12-2020 07:33-0400 Diastolic blood pressure 76 mm[Hg] Breana Ryan Mondragon DO Work Phone: [employer] Work Phone: 09-12-2020 07:33-0400 Heart rate 61 /min Breana Ryan Mondragon DO Work Phone: [employer] Work Phone: 09-12-2020 07:33-0400 Respiratory rate 18 /min Breana Ryan Mondragon DO Work Phone: [employer] Work Phone: 09-12-2020 07:33-0400 Systolic blood pressure 115 mm[Hg] Breana Ryan Mondragon DO Work Phone: [employer] Work Phone: 09-12-2020 07:32-0400 Body temperature 98.4 [degF] Breana Peraza Mondragon DO Work Phone: [employer] Phone: 09-10-2020 16:08-0400 SaO2% (BldA) [Mass fraction] 100 % Breana Peraza Mondragon DO Work Phone: [employer] Phone: 09-10-2020 12:10-0400 Body height 162.6 cm Breana Mondragon [employer] Work Phone: [employer] Phone: 09-10-2020 12:10-0400 Body mass index (BMI) [Ratio] 34.84 kg/m2 Breana Peraza Mondragon DO Work Phone: [employer] Phone: 09-10-2020 12:10-0400 Body weight 92.08 kg Breana [employer]Bridge Work Phone: [employer] Phone: Encounters Encounter Date Encounter Type Care Provider Facility Start: 05-02-2024 End: 05-02-2024 Subsequent care visit Cathy Colon REY Work Phone: [facility] Comment on above: Encounter for superv ision of other normal , third trimester (Primary Dx); History of section; Gestational diabetes mellitus (GDM) affecting Start: 04-24-2024 End: 04-24-2024 Subsequent care visit Cathy Colon [facility] Work Phone: [facility] Comment on above: History of section (Primary Dx); Encounter for supervision of other normal , third trimester; screening for streptococcus B; Gestational diabetes mellitus (GDM) affecting Start: 04-24-2024 End: 04-24-2024 ambulatory CATHY COLON Not Available Start: 04-24-2024 End: 04-24-2024 Bamboo flowsheet Cathy Colno [employer] Work Phone: [facility] Start: 04-24-2024 End: 04-24-2024 Bamboo flowsheet Cathy Jumana Pritchetto CNM Work Phone: [facility] Start: 04-21-2024 End: 04-21-2024 Clinisync Result Encounter Cathy Jumana Pritchetto CNM Work Phone: [facility] Unsolicited Start: 04-21-2024 End: 04-21-2024 Clinisync Result Encounter Cathy Jumana Pritchetto CNM Work Phone: [facility] Unsolicited Start: 04-18-2024 End: 04-18-2024 Bamboo flowsheet Cathy Jumana Floro CNM Work Phone: [facility] Start: 04-18-2024 End: 04-18-2024 Bamboo flowsheet Cathy L Floro CNM Work Phone: [facility] Start: 04-18-2024 End: 04-18-2024 Subsequent care visit Cathy Jumana Pritchetto CNM [...] 04-11-2024 End: 04-11-2024 Subsequent care visit Cathy Jumana Floro CNM Work Phone: [facility] [...] Start: 03-23-2024 End: 03-23-2024 Bamboo flowsheet Cathy Jumana Pritchetto CNM Work Phone: [facility] Start: 03-23-2024 End: 03-23-2024 Bamboo flowsheet Cathy Jumana Pritchetto CNM Work [...] Bonilla MD Work Phone: [facility] Comment on above: 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 (Primary Dx) Start: 03-20-2024 End: 03-20-2024 ambulatory [facility] Start: 03-08-2024 End: 03-08-2024 Bamboo flowsheet Cathy Jumana Pritchetto CNM Work Phone: [facility] Start: 03-08-2024 End: 03-08-2024 Bamboo flowsheet Cathy L Yarelyo CNM Work Phone: [facility] Start: 03-08-2024 End: 03-08-2024 ambulatory CATHY L YARELYO Not Available Start: 03-08-2024 End: 03-08-2024 Subsequent care visit Cathy Jumana Pritchetto CNM Work Phone: [facility] Comment on above: Encounter for superv ision of other normal , third trimester (Primary Dx); Elevated glucose tolerance test; History of section Start: 02-09-2024 End: 02-09-2024 Bamboo flowsheet Cathy Jumana Pritchetto CNM Work Phone: [facility] Start: 02-09-2024 End: 02-09-2024 Bamboo flowsheet Cathy Jumana Pritchetto CNM Work Phone: [facility] Start: 02-09-2024 End: 02-09-2024 Subsequent care visit Cathy Jumana Pritchetto CNM Work Phone: [facility] Comment on above: Encounter for superv ision of other normal , third trimester (Primary Dx); Screening for diabetes mellitus; Screening for iron deficiency anemia; related condition in second trimester Start: 02-09-2024 End: 02-09-2024 ambulatory CATHY L FLORO Not Available Start: 01-31-2024 End: 01-31-2024 Orders Only Jake Dai [facility] Comment on above: Pyelectasis (Primary Dx); anomaly suspected but not found Pyelectasis Start: 01-25-2024 End: 01-25-2024 Office consultation new/estab patient 60 min Tang Bonilla MD Work Phone: [facility] Comment on above: 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 (Primary Dx) Start: 01-25-2024 End: 01-25-2024 Orders Only Kristen Do RN [facility] Comment on above: 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 (Primary Dx); Pyelectasis Start: 01-17-2024 End: 01-17-2024 Chart abstracting Tang Bonilla MD Work Phone: [facility] Start: 01-17-2024 End: 01-17-2024 Telephone encounter Chelsey Bray MD Work Phone: [facility] Start: 01-14-2024 End: 01-14-2024 Chart abstracting Tang Bonilla MD Work Phone: [facility] Start: 01-11-2024 End: 01-11-2024 Bamboo flowsheet [...] OB Start: 11-10-2023 End: 11-10-2023 ambulatory CATHY COLON Not Available Start: 11-10-2023 End: 11-10-2023 Subsequent care visit Cathy Colon CN Work Phone: [facility] Comment on above: Encounter for superv ision of other normal , second trimester (Primary Dx); History of section Start: 10-12-2023 End: 10-12-2023 ambulatory CATHY COLON Not Available Start: 09-21-2023 End: 09-21-2023 ambulatory HOSSEIN BALESI Not Available Start: 09-20-2023 End: 09-20-2023 ambulatory CATHY COLON Not Available Start: 05-11-2023 End: 05-11-2023 ambulatory HOSSEIN Agosto PETITTI Not Available Start: 08-04-2021 End: 08-04-2021 ambulatory A [facility] Start: 08-04-2021 End: 08-04-2021 Subsequent hospital visit by physician Surendra Marsh MD [facility] Comment on above: 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, nose, lip, and ear (HCC) (Primary Dx); Pain following surgery or procedure Start: 07-08-2021 End: 07-08-2021 ambulatory A [facility] Start: 07-08-2021 End: 07-08-2021 Subsequent hospital visit by physician Surendra Marsh MD Work Phone[facility] [place] Comment on above: Pain following surge ry or procedure (Primary Dx) Start: 09-10-2020 End: 09-12-2020 Evaluation and management of inpatient BREAAN MONDRAGON [facility] Start: 09-10-2020 End: 09-12-2020 Evaluation and management of inpatient Breana Mondragon Work Phone: [facility] Comment on above: delivery de livered (Primary Dx) Start: 09-09-2020 End: 09-09-2020 ambulatory BREANA MONDRAGON [facility] Start: 09-09-2020 End: 09-09-2020 Admission to establishment Breana Mondragon DO Work Phone: [facility] Start: 09-09-2020 End: 09-09-2020 Subsequent hospital visit by physician Breana Mondragon DO Work Phone: [facility] Comment on above: Encounter for preadm ission testing (Primary Dx); S/P primary low transverse Start: 06-23-2018 End: 06-23-2018 Patient encounter procedure Delia Mcneill Facility:[facility] Procedures Date Procedure Procedure Detail Performing Clinician Start: 04-21-2024 OB BPP WO NON-STRESS Cathy Colon CNM Work Phone: Start: 01-25-2024 UNLISTED LAB TEST Tang Bonilla MD Work Phone: Start: 10-12-2023 Antibody screen Tang Bonilla MD Work Phone: Start: 10-12-2023 CHLAMYDIA/GC BY PCR RUPERTO SWAB Not In System Ref Prov Start: 10-12-2023 Drug scrn 1+ class nonchromo Not In System Ref Prov Start: 10-12-2023 Hemoglobin glycosylated a1c Cathy Colon [employer] Work Phone: Start: 10-12-2023 HIV 1&2 AB/AG [...] 09-10-2020 Drug screen class list a Cathy Floro A PRN - CNM Work Phone: Start: 09-09-2020 Blood count complete auto&auto difrntl wbc Breana Mondragon DO Work Phone: Start: 08-07-2020 GBS, EXTERNAL RESULT Cathy Floro [employer] - CNM Work Phone: Start: 01-30-2020 ABO, EXTERNAL RESULT Cathy Floro [employer] CNM Work Phone: Start: 01-30-2020 C. TRACHOMATIS, EXTERNAL RESULT Cathy Floro [employer] - CNM Work Phone: Start: 01-30-2020 HEPATITIS B, EXTERNAL RESULT Cathy Floro [employer] CNM Work Phone: Start: 01-30-2020 HIV, EXTERNAL RESULT Cathy Floro [employer] CN[employer] Work Phone: Start: 01-30-2020 N. GONORRHOEAE, EXTERNAL RESULT Cathy Floro [employer] CN[employer] Work Phone: Start: 01-30-2020 RH FACTOR, EXTERNAL RESULT Cathy Floro [employer] Work Phone: Start: 01-30-2020 RPR, EXTERNAL RESULT Cathy Floro [employer] CNM Work Phone: Start: 01-30-2020 RUBELLA TITER, EXTERNAL RESULT Cathy Floro [employer] CN[employer] Work Phone: H/O: section S/P [...] Phone: H/O: section History of section Cathy LEM Work Phone: H/O: section History of section Cathy Colon CNM Work Phone: H/O: section History of section Cathy LEM Work Phone: Plan of Treatment Date Care Activity Detail Author Start: 06-20-2030 DTaP,Tdap and Td Vaccines (7 - Td or Tdap) DTaP,Tdap and Td Vaccines (7 - Td or Tdap) [facility] Start: 06-20-2030 DTaP/Tdap/Td vaccine (7 - Td or Tdap) DTaP/Tdap/Td vaccine (7 - Td or Tdap) [facility] Start: 03-20-2025 Adult BMI Screening Adult BMI Screen ing [facility] Start: 01-24-2025 Adult BMI Screening Adult BMI Screen ing [facility] Start: 01-24-2025 Tobacco Screening Tobacco Screening [facility] Start: 01-24-2025 End: 01-24-2025 US MFM with or without consult US MFM with or without consult Imaging Routine Pyelectasis Expected: 01/24/2025 (Approximate), Expires: 01/24/2025 [employer] Work Phone: Comment on above: Expected: 01/24/2025 (Approximate), Expires: 01/24/2025 Start: 12-10-2024 Screening for malign ant neoplasm of cervix [facility] Start: 06-22-2024 End: 06-22-2024 Patient encounter procedure 06/22/2024 9:15 AM EDT Office Visit [facility] [address] [place] [address] Hossein Fernandez MD [address] [place] [address] [facility] Start: 05-15-2024 End: 05-15-2024 ambulatory 05/15/2024 2:30 PM EST Visit [facility] [address] [facility] [place] [place] [id number] Cathy Colon, CNM [address] [place] [address] [facility] Start: 05-02-2024 End: 05-02-2024 Patient encounter procedure 05/02/2024 8:30 AM EST Routine [facility] [address] [facility] [place] [facility] [place] [id number] Cathy Colon, CNM [address] [place] [address] [facility] Start: 04-25-2024 End: 04-25-2024 Patient encounter procedure 04/25/2024 10:00 AM EST Routine [facility] [address] [facility] [place] [facility] [place] [address] Cathy Colon, [facility] [address] [facility] [place] [address] [facility] Start: 04-24-2024 End: 04-24-2024 [...] AM EST Routine [facility] [address] [facility] [place] [address] Cathy Colon, CN [address] [place] [address] [facility] Start: 04-04-2024 End: 04-04-2024 Patient encounter procedure 04/04/2024 8:45 AM EST Routine [facility] [address] [facility] [place] [place] [phone] Cathy Colon, [facility] [address] [place] [address] [facility] Start: 04-03-2024 End: 04-03-2024 Clinical Support [facility] Comment on above: Elevated glucose sary erance test; History of gestational diabetes Start: 03-28-2024 End: 03-28-2024 Patient encounter procedure 03/28/2024 8:45 AM EST Routine [facility] [address] [facility] [place] [facility] [place] [phone] Cathy Colon, [facility] [address] [place] [address] [facility] Start: 03-23-2024 End: 03-23-2025 US biophysical profile wo non stress testing US biophysical profile wo non stress testing Imaging Routine History of gestational diabetes Expected: 03/23/2024, Expires: 03/23/2025 [facility] Work Phone: Comment on above: Expected: 03/23/2024 , Expires: 03/23/2025 Start: 03-23-2024 End: 03-23-2025 US for US OB SCAN FOR GROWTH Imaging Routine History of gestational diabetes Expected: 03/23/2024, Expires: 03/23/2025 [facility] Comment on above: Expected: 03/23/2024 , Expires: 03/23/2025 Start: 03-23-2024 End: 03-23-2024 Patient encounter procedure 03/23/2024 8:45 AM EST Routine [facility] [address] [place] [phone] Cathy Colon, REY [address] [place], [place] [id number] [facility] Start: 03-20-2024 End: 03-20-2024 Patient encounter procedure [facility] Start: 03-08-2024 End: 03-08-2025 GLUCOSE TOLERANCE TEST, GEST, 4SPEC 100G W/NDDG GLUCOSE TOLERANCE TEST, GEST, 4SPEC 100G W/NDDG Lab Routine Elevated glucose tolerance test Expected: 03/08/2024 (Approximate), Expires: 03/08/2025 [facility] Work Phone: Comment on above: Expected: 03/08/2024 (Approximate), Expires: 03/08/2025 Start: 03-08-2024 End: 03-08-2024 Patient encounter procedure 03/08/2024 8:30 AM EST Routine [facility] [address] [place] [phone] Cathy Colon, REY [address] [place], [place] [phone] [facility] Start: 02-09-2024 End: 02-08-2025 CBC panel - Blood by Automated count CBC Lab Routine Screening for iron deficiency anemia Expected: 02/09/2024 (Approximate), Expires: 02/08/2025 [facility] Comment on above: Expected: 02/09/2024 (Approximate), [...] AM EST Routine [facility] [address] [place] [phone] Cathy Colon CNM [address] [place], [place] [phone] [facility] Start: 01-25-2024 End: 01-25-2024 Patient encounter procedure 01/25/2024 8:45 AM EST Office Visit [facility] [address] [place] [address] Tang Bonilla MD [address] [facility] [place] [address] [facility] Start: 01-25-2024 End: 01-25-2024 Patient encounter procedure 01/25/2024 7:30 AM EST Appointment [facility] [address] [place] [address] [facility] Start: 01-11-2024 End: 01-11-2024 Patient encounter procedure 01/11/2024 8:45 AM EDT Routine [facility] [address] [place] [phone] Cathy Colon CNM [address] [place] [address] [facility] Start: 12-27-2023 End: 12-27-2023 Professional / ancillary services management 12/27/2023 3:15 PM EDT Ancillary Procedure [facility] [address] [phone] [facility] Start: 12-23-2023 End: 12-23-2023 [...] AM EDT Routine [facility] [address] [place] [phone] Cathy Colon, REY [address] [place] [address] Arrived [facility] Comment on above: Arrived Start: 12-15-2023 End: 12-15-2023 Patient encounter procedure 12/15/2023 8:30 AM EDT Routine [facility] [address] [place] [id number] Cathy Colon, [facility] [address] [place] [address] [facility] Start: 11-21-2023 Influenza vaccination N [facility] Start: 11-20-2021 Influenza vaccination Flu vacc ine (Season Ended) [facility] Start: 08-12-2021 End: 08-12-2021 Patient encounter procedure 08/12/2021 Office Visit Plastic Surgery Rhoda Callahan, PI[employer]O CASE MAKER - BATH HOUSE ATTENDANT [address] [facility] [address] [place] [address] [facility] Start: 08-04-2021 End: 08-04-2021 HEAD LESION EXCISION HEAD LESION EXCISION D03.30 RIGHT CHEEK MELANOMA 08/04/2021 11:33 AM EDT [facility] Start: 07-23-2021 End: 07-23-2021 Patient encounter procedure 07/23/2021 Office [place] [address] [place] [address] [facility] Start: 07-08-2021 End: 07-08-2021 FACIAL LESION BIOPSY EXCISION FACIAL LESION BIOPSY EXCISION LESION RIGHT NECK X1 LESION RIGHT CHEEK X 2 07/08/2021 7:29 AM EDT [facility] Start: 2021 Screening for malign ant neoplasm of cervix [facility] Start: 11-20-2020 Influenza vaccination Flu vacc ine (Season Ended) [facility] Work Phone: Start: 09-10-2020 End: 09-10-2020 Admission to same day surgery center 09/10/2020 Surgery Obstetrics and Gynecology Breana Ledbetter DO [address] [place] [address] SECTION [facility] Labor and Delivery Comment on above: SECTION Start: 09-10-2020 Subsequent hospital visit by physician 09/10/2020 Hospital Encounter Obstetrics and Gynecology Breana Ledbetter DO [address], [place] [id number] [phone] [facility] Start: 01-14-2012 [facility]: 2010 DTaP/Tdap/Td vaccine (1 - Tdap) DTaP/Tdap/Td vaccine (1 - Tdap) [employer] Work Phone: Start: 2009 Adult BMI Follow Up Plan Adult BMI Follow Up Plan [facility] Start: 2009 Adult BMI Screening Adult BMI Screen ing [facility] Start: 2009 Hepatitis C screening Hepatitis C [facility] Start: 2006 HIV screening HIV screen [facility] Start: 2003 COVID-19 Vaccine (1) COVID-19 Vaccin e (1) [employer] Phone: Start: 2003 Depression Screen Depression Screen [facility] Start: 2003 Depression Screening Depression Scre ening [facility] Start: 2003 Tobacco Screening Tobacco Screening [facility] Start: 01-14-1996 COVID-19 Vaccine (1) COVID-19 Vaccin e (1) [facility] Start: 01-14-1992 Varicella vaccine (1 of 2 - 2-dose childhood series) Varicella vaccine (1 of 2 - 2-dose childhood series) [facility] Start: 1991 Hepatitis C screening Hepatitis C [facility] End: 08-04-2021 INITIATE PACU OXYGEN THERAPY PROTOCOL Initiate PACU Oxygen Therapy Protocol Respiratory Care Routine Continuous until discontinued starting 08/04/2021 [employer] Phone: Comment on above: Continuous until dis continued starting 08/04/2021 Oxygen therapy [[facility] Data Set] Initiate Oxygen Therapy Protocol Respiratory Care Routine Daily until discontinued starting 09/10/2020 [employer] Phone: Comment on above: Daily until disconti nued starting 09/10/2020 Spirometry panel Incentive liz metry Respiratory Care Routine Every 2hr while awake until discontinued starting 09/10/2020 [employer] Phone: Comment on above: Every 2hr while awak e until discontinued starting 09/10/2020 Surgical Pathology Surgical Path ology Lab Routine Release Upon Ordering for 1 Occurrences starting 07/08/2021 [employer] Phone: Comment on above: Release Upon Orderin g for 1 Occurrences starting 07/08/2021 Surgical Pathology Surgical Path ology Lab Routine Release Upon Ordering for 1 Occurrences starting 08/04/2021 [employer] Phone: Comment on above: Release Upon Orderin g for 1 Occurrences starting 08/04/2021 End: 09-09-2020 TYPE AND SCREEN TYPE AND SCREEN Blood Bank STAT Encounter for preadmission testing One Time for 1 Occurrences starting 09/09/2020 until 09/09/2020 [employer] Phone: Comment on above: One Time for 1 Occur rences starting 09/09/2020 until 09/09/2020 TYPE AND SCREEN TYPE AND SCREEN Blood Bank Stat [employer] Label print Encounter for preadmission testing 09/09/2020 2:26 PM EDT [employer] Phone: Immunizations Immunization Date Immunization Notes Care Provider [facility] 09-10-2020 diphtheria, tetanus toxoids and acellular pertussis vaccine, unspecified formulation Breana Heyy Work Phone: [employer] Phone: 09-10-2020 measles, mumps and rubella virus vaccine [employer] DO Work Phone: [employer] Phone: Payers Date Payer Category Payer Private Health Insurance [employer] [id number] 2024 Unknown [id number] 2021 Commercial Managed C are - POS [id number] 2021 Managed Care HMO (unspecified) [id number] 2021 Private Health Insurance [id number]. [id number] 2021 Unknown [id number]. [id number] 2018 Self-pay 2018 Unknown [id number] 1991 Unknown [id number] 2.16.840.1.067190.3.579.2. 173 1991 Unknown [id number] 2.16.840.1.901926.3.579.2. 175 1991 Unknown [id number] 2.16.840.1.279890.3.579.2. 175 1991 Unknown [id number] 2.16.840.1.300739.3.579.2. 1286 1991 Unknown [id number] 2.16.840.1.629418.3.579.2. 1286 1991 Unknown [id number] 2.16.840.1.330992.3.579.2. 1286 1991 Unknown [id number] 2.16.840.1.320628.3.579.2. 1286 1991 Unknown [id number] 2.16.840.1.889408.3.579.2. 1259 1991 Unknown [id number] 2.16.840.1.150094.3.579.2. 1259 1991 Unknown [id number] 2.16.840.1.979040.3.579.2. 1259 1991 Unknown [id number] 2.16.840.1.316075.3.579.2. 1259 1991 Unknown [id number] 2.16.840.1.501424.3.579.2. 1259 1991 Unknown [id number] 2.16.840.1.208148.3.579.2. 1259 1991 Unknown [id number] 2.16.840.1.193981.3.579.2. 1259 1991 Unknown [id number] 2.16.840.1.862502.3.579.2. 1259 1991 Unknown [id number] 2.16.840.1.642569.3.579.2. 1259 1991 Unknown [id number] 2.16.840.1.407722.3.579.2. 1258 1991 Unknown [id number] 2.16.840.1.093506.3.579.2. 9 1991 Unknown [id number] 2.16.840.1.368787.3.579.2. 1258 1991 Unknown [id number] 2.16.840.1.938175.3.579.2. 1259 1991 Unknown [id number] 2.16.840.1.458159.3.579.2. 1258 1991 Unknown [id number] 2.16.840.1.627017.3.579.2. 9 1991 Unknown [id number] 2.16.840.1.472148.3.579.2. 1258 1991 Unknown [id number] 2.16.840.1.686465.3.579.2. 1259 1991 Unknown [id number] 2.16.840.1.462719.3.579.2. 1258 1991 Unknown [id number] 2.16.840.1.441731.3.579.2. 9 1991 Unknown [id number] 2.16.840.1.082565.3.579.2. 1259 Unknown [id number] 2.16.840.1.119907.3.579.2. 531 Social History Date Type Detail Facility Tobacco smoking stat [facility] Unknown if ever smoked [employer] Phone: Start: 1991 Sex Assigned At Not on file [facility] [employer] Phone: Start: 09-10-2020 End: 09-02-2022 Tobacco smoking status NHIS Never smoker [employer] Start: 09-10-2020 End: 09-02-2022 Tobacco use and exposure Never used [employer] Start: 09-10-2020 End: 12-24-2023 Alcohol intake Ex-drinker (finding) [employer] Phone: Start: 07-08-2021 End: 08-04-2021 Alcohol intake Current drinker of alcohol (finding) [employer] Phone: Start: 07-08-2021 End: 12-24-2023 Alcohol intake [employer] Phone: Start: 1990 Sex Assigned At Female M [employer] Start: 07-25-2021 End: 08-04-2021 Exposure to SARS-CoV-2 (event) Not sure [employer] Phone: Start: 09-22-2023 End: 12-24-2023 Tobacco use panel [facility] Start: 09-01-2022 Alcohol Comment Alcohol: 3or 4 drinks on typical day/ monthly or less. Caffeine 1-2 cup/sday [facility] Start: 08-22-2023 [facility] Start: 06-03-2022 Gender identity Identifies as female gender (finding) [facility] Tobacco smoking stat [facility] Tobacco smoking consumption unknown [facility] Unknown [facility] Start: 10-25-2014 Sex Female (finding) [facility] Clinical Notes 09-12-2020 to 05-02-2024 Cathy Colon CNM - 05/02/2024 8:30 AM Bhavik Colon CNM - 04/24/2024 5:30 PM Bhavik Colon CNM - 04/18/2024 10:00 AM Bhavik Colon CNM - 04/11/2024 8:30 AM ESTInstructions Note Date & Type Note Facility 05-02-2024 History of Present illness Narrative Subjective No chief complaint on file. Celestino Cruz is a 34 y.o. at 38w2d with a working estimated date of delivery [...] complicated by: GDM Objective Physical Exam weight: 189 lb Expected Total Weight Gain: 11 lb-19 lb Pregravid BMI: 30.71 BP: 120/80 Urine protein-negative Urine glucose-negative Assessment/Plan Glucose log reviewed patient had one abnormal at 174. She went to a meeting for work and [employer] and had chicken dinner, noodles, mashed potatoes and pie for dessert. She said she knew it would be high. The only other elevations were 2 readings at 142. She is maintaining excellent glucose numbers Continue vitamin. Labs reviewed. GBS negative Expected mode of delivery repeat section Follow up in 1 week for a routine visit. documented in this encounter [facility] 04-24-2024 History of Present illness Narrative Subjective [...] a routine visit. documented in this encounter [facility] 04-18-2024 History of Present illness Narrative Subjective [...] a routine visit. documented in this encounter [facility] 04-11-2024 History of Present illness Narrative Subjective No chief complaint on file. Celestino Crzu is a 34 y.o. at 35w2d with [...] a routine visit. documented in this encounter [facility] 03-28-2024 Telephone encounter Note Pt scheduled for nutritions/ Fernanda Eaton [facility] 03-28-2024 Miscellaneous Notes Pt scheduled for nutritions/ Fernanda Eaton documented in this encounter [facility] 03-28-2024 History of Present illness Narrative Subjective [...] she is waiting for an appt for edge blacker referral. We also discussed her blood sugars [...] a routine visit. documented in this encounter [facility] 03-23-2024 History of Present illness Narrative Subjective [...] a routine visit. documented in this encounter [facility] 03-20-2024 History of Present illness [...] Cystitis Gastroenteritis History of female infertility Melanoma ([facility] 05/2021 in SITU Myopia Rhus dermatitis REVIEW [...] TANG BONILLA MD documented in this encounter [facility] 03-08-2024 History of Present illness Narrative Subjective [...] a routine visit. documented in this encounter [facility] 02-09-2024 History of Present illness [...] by: seeing MFM kink in baby kidney. [facility] has given her reassurance she can deliver in [place] and as the baby grows he told them it should correct itself, or when baby has first void. She is seeing [facility] one more time for another US [...] a routine visit. documented in this encounter [facility] 01-25-2024 History of Present illness Narrative Headache/epigastric [...] Declined Have you been seen here at [facility] in a previous ? No Recent ER visits or hospitalizations? No Bring blood sugar log or meter with you today? (Please bring them with you for every visit at [facility]) N/A Flu vaccine (Jan-May)? No Any [...] Cystitis Gastroenteritis History of female infertility Melanoma ([facility]) 05/2021 in SITU Myopia Rhus dermatitis PAST [...] and the other consultants, we search on [employer] and all the available care everywhere epic I did review all the imaging studies of the patient available on EMR, ordered by the primary care physician and the other databases computer consultant HABITS: Patient activity no restrictions, diet [...] the patient's gear up in the post period with this condition. RECOMMENDATION: 1. Follow-up in 8 weeks for re-evaluation of pyelectasis and interval growth. 2. Routine care at OB provider. 3. Patient underwent cell free DNA testing today 4. Patient is low risk and can be delivered at her local hospital via repeat at 39 weeks DISPOSITION: At this point the patient is in complete care of her size worker. Patient does have ultrasound office visit scheduled with us Thank you for allowing me to participate in Celestino Cruz . If there any questions please do not hesitate to contact us. Sincerely, TANG BONILLA MD documented in this encounter [facility] 01-17-2024 Telephone encounter Note Maddie from [facility] called and left a vm at 11:25 am She said that she needs faxed over some information about the pt. She said if there is any Genetic Testing that has been done, Her first OB US, and she needs a reasoning for sending her to see them. Fax is [phone] Phone is [phone] [facility] 01-17-2024 Miscellaneous Notes Maddie from [facility] called and left a vm at 11:25 am She said that she needs faxed over some information about the pt. She said if there is any Genetic Testing that has been done, Her first OB US, and she needs a reasoning for sending her to see them. Fax is [phone] Phone is [phone] documented in this encounter [facility] 01-11-2024 History of Present illness [...] report and if needed will send to [facility] for consult. Urine protein-negative Urine glucose-negative Labs: reviewed Imaging Assessment/Plan Diagnoses and all orders for this visit: Encounter for supervision of other normal , second trimester History of section Continue vitamin. Labs reviewed. Rhogam not needed patient is O+ positive GTT at 28 weeks Follow up in 4 weeks for a routine visit documented in this encounter [facility] 12-30-2023 History of Present illness [...] and repeat US documented in this encounter [facility] 12-23-2023 History of Present illness [...] MD at [facility] In [facility]. Originally biopsied by ESTEE Salazar also with [facility] Additional testing: none Currently [...] Examined Right arm Examined Patient wearing nail uzbek, Denies dark streaks under finger nails, Denies [...] months skin exam documented in this encounter [facility] 12-15-2023 History of Present illness [...] a routine visit. documented in this encounter [facility] 11-10-2023 History of Present illness [...] a routine visit. documented in this encounter [facility] 06-20-2021 Hospital Discharge instructions Arlen [...] Any new symptoms documented in this encounter [employer] Phone: 06-20-2021 Hospital Discharge instructions Arlen Rhoades [...] Any new symptoms documented in this encounter [employer] Phone: 09-12-2020 Hospital Discharge instructions Tamra Guardado RN - 09/12/2020 Follow-up with your OB doctor as specified. [employer] OB Department phone: Dr. Greyson Sinclairg MD Chinyere Rhoades CNM [address] [facility] [address] Laura Oliver CN [address] [facility] [id number] [phone] Elba Colon, MSN, PI[employer]O CASE MAKER, CNM [facility] [address] [facility] [address] [address] [facility] [id number] Chinyere Jimenezdianelys CNM [address] [place] [address] [place] [address] Carolin Esqueda CNM [address] [place] [address] [place] [address] [phone] DIET Eat a well balanced diet focusing on foods high in fiber and protein. Drink plenty of fluids especially water. To avoid constipation you may take a mild stool softener as recommended by your doctor or night nurse. ACTIVITY Gradually increase your activity. Resume exercise regimen only after advice by your doctor or night nurse. Avoid lifting anything heavier than a gallon of milk for SIX weeks. Avoid driving until your doctor or night nurse has given their approval. Rise slowly from [...] of harming yourself or your . If will not stop crying, contact another [...] medications as recommended by your doctor or night nurse for pain If you develop a warm, [...] vitamins as directed by your doctor or night nurse. Refer to the booklet in the folder/binder for more information. If you feel you need more assistance or have questions, please call Hossein Marrufo IBISABEL, information security consultant, at or the OB department to [...] they become loose or soiled. If used, [place] should be removed by your care provider. [...] in your calf. documented in this encounter [employer] Phone: 09-12-2020 History of Present illness Narrative [...] with as needed documented in this encounter [employer] Phone: Evaluation note Diagnosis Encounter for preadmission testing- Primary S/P primary low transverse delivery, without mention of indication, unspecified as to episode of care documented in this encounter [employer] Phone: evaluation note* Diagnosis delivery delivered- Primary delivery, without mention of indication, delivered, with or without mention of antepartum condition 40 weeks gestation of state, incidental documented in this encounter [employer] Phone: evaluation note* Diagnosis Pain following surgery or procedure- Primary Other acute postoperative pain documented in this encounter [employer] Phone: evaluation note* Diagnosis 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, nose, lip, and ear (HCC)- Primary Pain following surgery or procedure Other acute postoperative pain documented in this encounter [employer] Phone: evaluation note* Diagnosis Melanocytic nevus of trunk- Primary Benign neoplasm of skin of trunk, except scrotum Melanocytic nevi of face Lentigines History of malignant melanoma of skin Personal history of malignant melanoma of skin documented in this encounter [facility]* Diagnosis Encounter for supervision of other normal , second trimester- Primary History of section Other postprocedural status documented in this encounter [facility]* Diagnosis anomaly suspected but not found- Primary Suspected anomaly not found documented in this encounter [facility] SystemEvaluation note* Diagnosis anomaly suspected but not found- Primary Suspected anomaly not found Pyelectasis Other specified disorder of kidney and ureter documented in this encounter [facility] System[facility] note* Diagnosis Pyelectasis- Primary Other specified disorder of kidney and ureter anomaly suspected but not found Suspected anomaly not found documented in this encounter [facility]* Diagnosis Pyelectasis Other specified disorder of kidney and ureter documented in this encounter [facility] note* Diagnosis Encounter for supervision of other normal , third trimester- Primary Screening for diabetes mellitus Screening for iron deficiency anemia related condition in second trimester documented in this encounter [facility]* Diagnosis Encounter for supervision of other normal , second trimester- Primary History of section Other postprocedural status documented in this encounter [facility]* Diagnosis Encounter for supervision of other normal , third trimester- Primary Elevated glucose tolerance test Impaired glucose tolerance test History of section Other postprocedural status documented in this encounter [facility]* Diagnosis Encounter for supervision of other normal , second trimester- Primary History of section Other postprocedural status related condition in second trimester documented in this encounter [facility]* Diagnosis anomaly suspected but not found- Primary Suspected anomaly not found documented in this encounter [facility] System[facility] note* Diagnosis Encounter for supervision of other normal , third trimester- Primary Elevated glucose tolerance test Impaired glucose tolerance test History of section Other postprocedural status History of gestational diabetes Personal history of other genital system and obstetric disorders documented in this encounter [facility] Healthcare[facility] note* Diagnosis Viral upper respiratory tract [...] of other normal , third trimester- Primary History of section Other postprocedural status Gestational diabetes mellitus (GDM) affecting documented in this encounter [facility] HealthcareInstructionsNot on filedocumented in [facility] SystemInstructionsNot on filedocumented in this [facility] SystemInstructionsNot on filedocumented in this encounter[facility] HospitalEtubics System InstructionsNot on filedocumented in this encounterAv[facility] HospitalMontage Studio [facility] InstructionsNot on filedocumented in this encounterAv[facility] HospitalMontage Studio [facility] InstructionsNot on filedocumented in this encounterAv[facility] HospitalMontage Studio [facility] System InstructionsNot on filedocumented in this encounterAvita Health [facility] HospitalMontage Studio [facility] SystemReason for visit Narrative* Auth/Cert Specialty Diagnoses / Procedures Referred By Bryanna suggs Referred To Contact Diagnoses Acoustic nerve lesion, right Acoustic nerve lesion, right LESION RIGHT NECK X1 LESION RIGHT CHEEK X 2 Procedures TX OFFICE/OUTPT VISIT,PROCEDURE ONLY TX EXC SKIN BENIG <5MM FACE,FACIAL RIGHT CHEEK LESION X 2 AND RIGHT NECK LESION X 1 [place] [address] [facility] [address] [place] [address] [employer] [address] [place] [address] Referral ID Status Reason Start Date Expiration Date Visits Re quested Visits Authorized 1 1 [employer] Phone: reason for visit Narrative* Auth/Cert Specialty Diagnoses / Procedures Referred By Bryanna suggs Referred To Contact Diagnoses 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 Procedures TX OFFICE/OUTPT VISIT,PROCEDURE ONLY TX EXC SKIN BENIG >4CM TRUNK,ARM,LEG RIGHT CHEEK WIDER RESECTION OF MELANOMA IN SITU [place] [address] [place] [address] [employer] [address] [place] [address] Referral ID Status Reason Start Date Expiration Date Visits Re quested Visits Authorized [id number] 1 1 [employer] Phone: Summary Purpose Family History No Family [...] section and content) DATE CREATED AUTHOR 07/06/2018 [facility] DATE CREATED AUTHOR AUTHOR'S ORGANIZ ATION 09/13/2020 [facility] DATE CREATED AUTHOR AUTHOR'S ORGANIZ ATION 08/07/2021 [facility] DATE CREATED AUTHOR AUTHOR'S ORGANIZ ATION 01/27/2022 [facility] DATE CREATED AUTHOR AUTHOR'S ORGANIZ ATION 03/22/2024 [facility] DATE CREATED AUTHOR AUTHOR'S ORGANIZ ATION 04/30/2024 [facility] dical Specialists EPIC Reason for Visit (unrecogniz ed section and content) Reason Comments Scheduled Status Reason Specialty Diagnoses / Procedures Referre d By Contact Referred To Contact Diagnoses 40 weeks gestation of macrosomia Procedures TX DELIVERY ONLY SECTION Breana Ledbetter, DO [address] [place] [address] [facility] Reason Comments Skin Check Suspicious Skin Lesion [...] 50 mL (mini-bag) (COMPLETED) 2,000 mg, Intravenous, HAND CLIPPER TO O.R., 1 dose, On Wed09/10/20 at [...] RN) 0916 (Given - Provider: Tamra Guardado RN)2054 (Given - Provider: Sofie Prajapati, JOÃO) 0946 [...] break., Post-op 2054 (Given - Provider: Sofie Prajapati, JOÃO) 0756 [...] Guardado, JOÃO) 0944 (Given - Provider: Tamra Guardado, JOÃO) sodium chloride flush 0.9 % injection 10 mL 10 mL, Intravenous, EVERY 12 HOURS SCHEDULED (2 times per day), First dose on Wed09/10/20 at 2100, 2100 (Due) 0900 (Due)2100 (Due) 0900 (Due)2100 (Due) Lcriztd-Lgffzg-Vdwbw Pertussis (BOOSTRIX) injection 0.5 mL 0.5 mL, [...] Guardado, JOÃO) 0756 (Given - Provider: Tamra Guardado RN) [...] 07/06/2021 07/07/2021 07/08/2021 bupivacaine-EPINEPHrine PF (MARCAINE-w/EPINEPHrine) 0.25% -1:[id number] injection (CANCELED) PRN, Starting on Wed07/08/21 at 0742, Until Wed07/08/21 at 0827, Intra-op 0741 (Given - Provid er: Surendra Marsh MD - Comment: OPERATIVE SITE INJECTED PRIOR TO INCISION) No Frequency Medication Order 07/06/2021 07/07/2021 07/08/2021 bupivacaine-EPINEPHrine (MARCAINE-w/EPINEPHRINE) 0.25% -1:[id number] injection 1 dose, Starting on Wed07/08/21 at [...] infused., PACU only bupivacaine-EPINEPHrine PF (MARCAINE-w/EPINEPHrine) 0.25% -1:[id number] injection (CANCELED) PRN, Starting on Wed08/04/21 at [...] mL 5-40 mL, IntraVENous, PRN, Starting on 08/04/21 at 1213, Until Discontinued, Line Care, After [...] Care Teams (unrecognized sec tion and content) Photography Manager Relationship Specialty Start Date End Date Chelsey Bray MD [address] [facility] [place] [address] PCP - General Family Medicine 09/10/20 Photography Manager Relationship Specialty Start Date End Date Chelsey Bray MD [address] [facility] [place] [address] PCP - General Family Medicine 09/10/20 Photography Manager Relationship Specialty Start Date End Date Chelsey Bray MD [address] [facility] [place] [address] PCP - General Family Medicine 08/20/22 Veronique Neely NP [address] [facility] [place] [address] Nurse Practitioner Family Medicine 08/20/22 Cathy Colon CNM [address] [place] [address] Obstetrics and Gynecology 08/20/22 Photography Manager Relationship Specialty Start Date End Date Chelsey Bray MD [address] [facility] [place] [address] PCP - General Family Medicine 08/20/22 Veronique Neely NP [address] [place] [address] Nurse Practitioner Family Medicine 08/20/22 Cathy Colon CNM [address] [place] [address] Obstetrics and Gynecology 08/20/22 Photography Manager Relationship Specialty Start Date End Date Chelsey Bray MD [address] [place] [address] PCP - General Family Medicine 08/20/22 Veronique Neely NP [address] [place] [address] Nurse Practitioner Family Medicine 08/20/22 Cathy Colon CNM [address] [place] [address] Obstetrics and Gynecology 08/20/22 Photography Manager Relationship Specialty Start Date End Date Chelsey Bray MD [address] [place] [address] PCP - General Family Medicine 08/20/22 Veronique Neely NP [address] [place] [address] Nurse Practitioner Family Medicine 08/20/22 Cathy Colon CNM [address] [place] [address] Obstetrics and Gynecology 08/20/22 Photography Manager Relationship Specialty Start Date End Date Chelsey Bray MD [address] [place] [address] PCP - General Family Medicine 08/20/22 Veronique Neely, ROTARY RIG ENGINE OPERATOR [address] [place] [address] Nurse Practitioner Family Medicine 08/20/22 Cathy Colon CNM [address] [place] [address] Obstetrics and Gynecology 08/20/22 Photography Manager Relationship Specialty Start Date End Date Chelsey Bray MD [address] [place] [address] PCP - General 01/24/24 Photography Manager Relationship Specialty Start Date End Date Chelsey Bray MD [address] [place] [address] PCP - General 01/24/24 Photography Manager Relationship Specialty Start Date End Date Chelsey Bray MD [address] [place] [address] PCP - General 01/24/24 Photography Manager Relationship Specialty Start Date End Date Chelsey Bray MD [address] [place] [address] PCP - General 01/24/24 Photography Manager Relationship Specialty Start Date End Date Chelsey Bray MD [address] [place] [address] PCP - General Family Medicine 08/20/22 Veronique Neely ROTARY RIG ENGINE OPERATOR [address] [place] [address] Nurse Practitioner Family Medicine 08/20/22 Cathy Colon CNM [address] [place] [address] Obstetrics and Gynecology 08/20/22 Photography Manager Relationship Specialty Start Date End Date Chelsey Bray MD [address] [place] [address] PCP - General Family Medicine 08/20/22 Veronique Neely ROTARY RIG ENGINE OPERATOR [address] [place] [address] Nurse Practitioner Family Medicine 08/20/22 Cathy Colon CNM [address] [place] [address] Obstetrics and Gynecology 08/20/22 Photography Manager Relationship Specialty Start Date End Date Chelsey Bray MD [address] [place] [address] PCP - General Family Medicine 08/20/22 Veronique Neely ROTARY RIG ENGINE OPERATOR [address] [place] [address] Nurse Practitioner Family Medicine 08/20/22 Cathy Colon CNM [address] [place] [address] Obstetrics and Gynecology 08/20/22 Photography Manager Relationship Specialty Start Date End Date Chelsey Bray MD [address] [place] [address] PCP - General Family Medicine 08/20/22 Veronique Neely, ROTARY RIG ENGINE OPERATOR [address] [place] [address] Nurse Practitioner Family Medicine 08/20/22 Cathy Colon CNM [address] [place] [address] Obstetrics and Gynecology 08/20/22 Photography Manager Relationship Specialty Start Date End Date Chelsey Bray MD [address] [place] [address] PCP - General Family Medicine 08/20/22 Veronique Neely NP [address] [place] [address] Nurse Practitioner Family Medicine 08/20/22 Cathy Colon CNM [address] [place] [address] Obstetrics and Gynecology 08/20/22 Photography Manager Relationship Specialty Start Date End Date Chelsey Bray MD [address] [place] [address] PCP - General 01/24/24 Photography Manager Relationship Specialty Start Date End Date Chelsey Bray MD [address] [place] [address] PCP - General Family Medicine 08/20/22 Veronique Neely NP [address] [place] [address] Nurse Practitioner Family Medicine 08/20/22 Cathy Colon CNM [address] [place] [address] Obstetrics and Gynecology 08/20/22 Photography Manager Relationship Specialty Start Date End Date Chelsey Bray MD [address] [place] [address] PCP - General Family Medicine 08/20/22 Veronique Neely NP [address] [place] [address] Nurse Practitioner Family Medicine 08/20/22 Cathy Colon CNM [address] [place] [address] Obstetrics and Gynecology 08/20/22 Photography Manager Relationship Specialty Start Date End Date Chelsey Bray MD [address] [place] [address] PCP - General Family Medicine 08/20/22 Veronique Neely NP [address] [place] [address] Nurse Practitioner Family Medicine 08/20/22 Cathy Colon CNM [address] [place] [address] Obstetrics and Gynecology 08/20/22 Photography Manager Relationship Specialty Start Date End Date Chelsey Bray MD [address] [place] [address] PCP - General Family Medicine 08/20/22 Veronique Neely NP [address] [place] [address] Nurse Practitioner Family Medicine 08/20/22 Cathy Colon CNM [address] [place] [address] Obstetrics and Gynecology 08/20/22 Photography Manager Relationship Specialty Start Date End Date Chelsey Bray MD [address] [place] [address] PCP - General Family Medicine 08/20/22 Veronique Neely ROTARY RIG ENGINE OPERATOR [address] [place] [address] Nurse Practitioner Family Medicine 08/20/22 Cathy Colon CNM [address] [place] [address] Obstetrics and Gynecology 08/20/22 Photography Manager Relationship Specialty Start Date End Date Chelsey Bray MD [address] [place] [address] PCP - General Family Medicine 08/20/22 Veronique Neely NP [address] [place] [address] Nurse Practitioner Family Medicine 08/20/22 Cathy Colon CNM [address] [place] [address] Obstetrics and Gynecology 08/20/22 Photography Manager Relationship Specialty Start Date End Date Chelsey Bray MD [address] [place] [address] PCP - General Family Medicine 08/20/22 Veronique Neely ROTARY RIG ENGINE OPERATOR [address] [place] [address] Nurse Practitioner Family Medicine 08/20/22 Cathy Colon CNM [address] [place] [address] Obstetrics and Gynecology 08/20/22 FOR RECORDS PERTAINING [...] BE BASED ON THE PRIMARY CLINICAL RECORDS. [employer] provides no warranty or guarantee of the accuracy or completeness of information in this document.
== END 2024-05-05 13:00 | disposition home or self-care (01) ==
LOC: US 12:59
PROVIDERS: PCP Family Medicine; Visit Provider Midwife
DX: Z86.32 Personal history of gestational diabetes (principal); Z3A.38 38 weeks gestation of pregnancy
CPT/HCPCS: 76816; 76819

== ENCOUNTER 2024-05-08 05:36 | Inpatient (IN) | payer OTHER, SELFPAY ==
[2024-05-08] VITALS (36 sets, daily range): BP systolic 69–172; BP diastolic 37–95; PULSE 44–85; TEMP 36.2–36.9; O2SAT 93–100
--- OUTSIDE RECORDS SUMMARY | 2024-05-08 05:40 | XMS_ITS | CCD ---
Author Organization [facility] Care Team Providers Care Car Spotter Name Role Phone Delia Mcneill Admitting Unavailable [...] Chelsey Bray MD Primary Care Provider Chin PROFESSOR OF FORESTRY, Veronique Haskins Unavailable Cathy Colon CNM Unavailable [...] to adverse reactions to drug 2 Rash [facility] Head Held High Phone: (2 sources) Silver; Translations: [SILVER] Propensity to adverse reactions to drug 2 [facility] Phone: (20 sources) Silver Allergy to substance 1 Hives, Itching, Rash [facility] (20 sources) Wound Dressing Adhesive Drug Intolerance 2 [facility] (7 sources) Adhesive agent; Translations: [ADHESIVE] [...] 1 tablet azithromycin 250 mg oral tablet (18 sources) Macrolide Antimicrobial Start: 03-28-2024 take 2 [...] Facility US OB BPP WO NON-STRES Son 05-05-2024 [place] [address] Ultrasound Report Signed Patient: CELESTINO CRUZ MR#: [id number] : 1990 Acct:[id number] Age/Sex: 34 / F ADM Date: 05/05/24 Loc: US Attending Dr: CATHY COLON APRN, CNM Ordering Physician: CATHY COLON APRN, CNM Date of Service: 05/05/24 Procedure(s): US OB BPP wo non-stress Accession Number(s): [id number] cc: CATHY COLON APRN, CNM; CHELSEY BRAY [place] [id number] Patient Name: CELESTINO CRUZ MRN: [facility]:[id number] date: 1990 Sex: F Assigned Patient Location: [facility] Current Patient Location: [facility] Accession/Order Number: [id number] Exam Date: 05/05/2024 13:09 Report Date: 05/05/2024 17:59 At the request of: CATHY COLON Procedure: US OB BPP wo non-stress EXAMINATION: US OB BPP wo non-stress HISTORY:History Of Gestational Diabetes COMPARISON: Ultrasound OB biophysical 04/28/2024 TECHNIQUE: Ultrasound biophysical profile was performed in the radiology department. BREATHING MOVEMENTS: 2 GROSS BODY MOVEMENTS: 0 TONE: 2 QUALITATIVE AMNIOTIC FLUID VOLUME: 2 PRESENTATION: CEPHALIC HEART RATE: 122.73 bpm AMNIOTIC FLUID VOLUME: 11.40 cm GESTATIONAL AGE: 38 weeks 5 days US/US OB BPP wo non-stress IMPRESSION: 1. Total biophysical profile score: 6 Electronically authenticated by: KISHOR MEANS Date: 05/05/2024 17:59 Dictated By: Kishor Means M.D. Signed By: 05/05/241801 DD/ 175 TD/TT: Education Supervisor: [facility] Radiology, Radiologist, MD - 05/05/2024 [place] [address] Ultrasound Report Signed Patient: CELESTINO CRUZ MR#: [id number] : 1990 Acct:[id number] Age/Sex: 34 / F ADM Date: 05/05/24 Loc: US Attending Dr: CATHY COLON APRN, CNM Ordering Physician: CATHY COLON APRN, CNM Date of Service: 05/05/24 Procedure(s): US OB BPP wo non-stress Accession Number(s): [id number] cc: CATHY COLON APRN, CNM; CHELSEY BRAY [address] [address] Patient Name: CELESTINO CRUZ MRN: [facility]:[id number] date: 1990 Sex: F Assigned Patient Location: [facility] Current Patient Location: [facility] Accession/Order Number: [id number] Exam Date: 05/05/2024 13:09 Report Date: 05/05/2024 17:59 At the request of: CATHY COLON Procedure: US OB BPP wo non-stress EXAMINATION: US OB BPP wo non-stress HISTORY:History Of Gestational Diabetes COMPARISON: Ultrasound OB biophysical 04/28/2024 TECHNIQUE: Ultrasound biophysical profile was performed in the radiology department. BREATHING MOVEMENTS: 2 GROSS BODY MOVEMENTS: 0 TONE: 2 QUALITATIVE AMNIOTIC FLUID VOLUME: 2 PRESENTATION: CEPHALIC HEART RATE: 122.73 bpm AMNIOTIC FLUID VOLUME: 11.40 cm GESTATIONAL AGE: 38 weeks 5 days US/US OB BPP wo non-stress IMPRESSION: 1. Total biophysical profile score: 6 Electronically authenticated by: KISHOR MEANS Date: 05/05/2024 17:59 Dictated By: Kishor Means M.D. Signed By: 05/05/241801 DD/ 58 TD/TT: Education Supervisor: [facility] Radiology Study observation (narrative) [facility] US OB BPP WO NON-STRES SOrdered By: Radiologist Radiology on 05-05-2024 [facility] Work Phone: US OB GROWTHon 05-05-2024 [place] [address] Ultrasound Report Signed Patient: CELESTINO CRUZ MR#: [id number] : 1990 Acct:[id number] Age/Sex: 34 / F ADM Date: 05/05/24 Loc: US Attending Dr: CATHY COLON APRN, CNM Ordering Physician: CATHY COLON APRN, CNM Date of Service: 05/05/24 Procedure(s): US OB growth Accession Number(s): [id number] cc: CATHY COLON APRN, CNM; CHELSEY BRAY [place] [id number] Patient Name: CELESTINO CRUZ MRN: [facility]:[id number] date: 1990 Sex: F Assigned Patient Location: [facility] Current Patient Location: US Accession/Order Number: [id number] Exam Date: 05/05/2024 13:09 Report Date: 05/05/2024 18:01 At the request of: CATHY COLON Procedure: US OB growth EXAMINATION: US OB growth HISTORY: History Of Gestational Diabetes COMPARISON: ULTRASOUND OB GROWTH 04/07/2024 FINDINGS: Heart Rate: 122.73 bpm Amniotic Fluid Volume: 11.4 cm; normal range Number: 1 Position: CEPHALIC BIOMETRY: BPD: 8.89 cm; 36 weeks 0 days; 11.10 % HC: 34.51 cm; 39 weeks 6 days; 64.70 % AC: 34.85 cm; 38 weeks 5 days; 71.90 % FL: 7.56 cm; 38 weeks 5 days; 55 % EFW: 3511.66 g; 62.10 % FL/AC: 21.70 FL/BPD: 85.10 HC/AC: 0.99 GESTATIONAL AGE: Age by EDC: 38 weeks 5 days REID by EDC: 2024-05-14 Age by US: 38 weeks 2 days REID by US: 2024-05-17 US/US OB growth IMPRESSION: 1. Single live intrauterine with growth detailed above. Electronically authenticated by: KISHOR MEANS Date: 05/05/2024 18:01 Dictated By: Kishor Means M.D. Signed By: 05/05/241803 DD/ 00 TD/TT: Education Supervisor: [facility] Radiology, Radiologist, MD - 05/05/2024 [place] [address] Ultrasound Report Signed Patient: CELESTINO CRUZ MR#: [id number] : 1990 Acct:[id number] Age/Sex: 34 / F ADM Date: 05/05/24 Loc: US Attending Dr: CATHY COLON APRN, CNM Ordering Physician: CATHY COLON APRN, CNM Date of Service: 05/05/24 Procedure(s): US OB growth Accession Number(s): [id number] cc: CATHY COLON APRN, CNM; CHELSEY BRAY [address] [address] Patient Name: CELESTINO CRUZ MRN: [id number] date: 1990 Sex: F Assigned Patient Location: [facility] Current Patient Location: US Accession/Order Number: [id number] Exam Date: 05/05/2024 13:09 Report Date: 05/05/2024 18:01 At the request of: CATHY COLON Procedure: US OB growth EXAMINATION: US OB growth HISTORY: History Of Gestational Diabetes COMPARISON: ULTRASOUND OB GROWTH 04/07/2024 FINDINGS: Heart Rate: 122.73 bpm Amniotic Fluid Volume: 11.4 cm; normal range Number: 1 Position: CEPHALIC BIOMETRY: BPD: 8.89 cm; 36 weeks 0 days; 11.10 % HC: 34.51 cm; 39 weeks 6 days; 64.70 % AC: 34.85 cm; 38 weeks 5 days; 71.90 % FL: 7.56 cm; 38 weeks 5 days; 55 % EFW: 3511.66 g; 62.10 % FL/AC: 21.70 FL/BPD: 85.10 HC/AC: 0.99 GESTATIONAL AGE: Age by EDC: 38 weeks 5 days REID by EDC: 2024-05-14 Age by US: 38 weeks 2 days REID by US: 2024-05-17 US/US OB growth IMPRESSION: 1. Single live intrauterine with growth detailed above. Electronically authenticated by: KISHOR MEANS Date: 05/05/2024 18:01 Dictated By: Kishor Means M.D. Signed By: 05/05/241803 DD/ 00 TD/TT: Education Supervisor: [facility] Radiology Study observation (narrative) [facility] OB GROWTHOrdered By: Ambrose tariqogshagufta Radiology on 05-05-2024 [facility] Work Phone: US OB BPP WO NON-STRES Son 04-21-2024 [place] [address] Ultrasound Report Signed Patient: CELESTINO CRUZ MR#: [id number] : 1990 Acct:[id number] Age/Sex: 34 / F ADM Date: 04/21/24 Loc: US Attending Dr: CATHY COLON APRN, CNM Ordering Physician: CATHY COLON APRN, CNM Date of Service: 04/21/24 Procedure(s): US OB BPP wo non-stress Accession Number(s): [id number] cc: CATHY COLON APRN, CNM; CHELSEY BRAY [place] [phone] Patient Name: CELESTINO CRUZ MRN: [facility]:[id number] date: 1990 Sex: F Assigned Patient Location: US Current Patient Location: US Accession/Order Number: [id number] Exam Date: 04/21/2024 14:09 Report Date: 04/21/2024 [...] By: Baldemar Guy M.D. Signed By: 04/21/24 1449 DD/ 1439 TD/TT: Education Supervisor: [facility] Radiology, Radiologist, MD - 04/21/2024 [place] [id number] Ultrasound Report Signed Patient: CELESTINO CRUZ MR#: [id number] : 1990 Acct:[id number] Age/Sex: 34 / F ADM Date: 04/21/24 Loc: US Attending Dr: CATHY COLON APRN, CNM Ordering Physician: CATHY COLON APRN, CNM Date of Service: 04/21/24 Procedure(s): US OB BPP wo non-stress Accession Number(s): [id number] cc: CATHY COLON APRN, CNM; CHELSEY BRAY [place] [address] Patient Name: CELESTINO RCUZ MRN: [id number] date: 1990 Sex: F Assigned Patient Location: US Current Patient Location: US Accession/Order Number: [id number] Exam Date: 04/21/2024 14:09 Report Date: 04/21/2024 14:39 At the request of: CATHY CLOON Procedure: US OB BPP wo non-stress EXAMINATION: [...] Signed By: 04/21/24 1442 DD/ 1439 TD/TT: Education Supervisor: [facility] Radiology Study observation (narrative) [facility] OB BPP WO NON-STRES SOrdered By: Radiologist Radiology on 04-21-2024 [facility] Work Phone: No Panel Informationon 01-29 Free Cell Dna see scanned report [facility] OB LIMITED 1+ FETUSESon 1 US OB [...] notes: Prominent stomach visualized. Dictated and transcribed 01/11/24dp This report has been electronically signed and [...] Grade 0/III Amniotic fluid volume is normal. [employer] notes: Prominent stomach. IMPRESSION: 1. Normal growth. [...] diffon Hematocrit (Bld) [Volume fraction] 40.2 % [facility] Hemoglobin (Bld) [Mass/Vol] 13.3 g/dL [facility] Platelets (Bld) [#/Vol] 204 10*3/uL [facility] Rbc Mcv (Fl) By Automated Count 91.6 [facility] Chlamydia/GC by PCR Ruperto Sw abon 10-12-2023 Chlamydia Dna(Pcr) Not detected [facility] Gonorrhoeae Dna(Pcr) Not detected Pr [facility] Drug Screen, Urineon 024 Barbiturate Screen Urine Negative [facility] Opiate Quantitative Urine Negative [facility] HIV 1&2 AB/AG Screen (P24 AG )on 10-12-2023 HIV 1&2 AB/AG Non-Reactive [facility] Hemoglobin A1con 10-12-2023 HbA1c (Bld) [Mass fraction] 5.4 % 4.0 - 6.0 % [facility] Hepatitis B surface antigeno n 10-12-2023 Hepatitis B Surface Antigen Non-Reactive [facility] No Panel Informationon 10-11 [facility] Rubella IGG immune statuson 10-12-2023 Rubella immune IgG [facility] Syphilis Total(Unknown Syphi lis Status)on 10-12-2023 Syphilis Non-Reactive [facility] Type and screenon 10-12-2023 Abo/Rh(D) Positive [facility] US OB < 14 WEEKS EARLYon US [...] and within normal limits. Dictated and transcribed 09/21/23dpd This report has been electronically signed and [...] VERY IMPORTANT TO YOUR HEALTH. THE CURRENT [employer] GUIDELINES RECOMMENDS ANNUAL MAMMOGRAPHY BEGINNING AT AGE 40 THIS FACILITY USES A REMINDER SYSTEM TO ENSURE ALL PATIENTS RECEIVE REMINDER NOTIFICATIONS AT THE APPROPRIATE TIME BASED ON THE RECOMMENDATIONS OF THIS EXAM. Report reported and signed by Migue Avendano on 01/27/2022 0754 Normal [facility] Specialist POCT urine pregnancyon 08-04 Beta HCG ( test) Ql (U) Negative NEGATIVE [facility] Comment on above: Specimens with hCG l evels near the threshold of the test (25 mIU/mL) may give a negative or indeterminate result. In such cases, another test should be performed with a new specimen in 48-72 hours. If early is suspected clinically in this setting, correlation with quantitative serum b-hCG level is suggested. TESTING PERFORMED AT [facility] [id number] [place], [place] [id number] [facility] Surgical Pathologyon Surgical Pathology (NOTE) -- Diagnosis -- SKIN, RIGHT CHEEK, MELANOMA REEXCISION: -BENIGN SKIN WITH SOLAR ELASTOSIS AND BIOPSY SITE CHANGES -A RESIDUAL MELANOMA IN SITU IS NOT IDENTIFIED Rodriguez Katz D.O. Electronically Signed Out [facility]/08/05/2021 Clinical Information Pre-op Diagnosis: RIGHT CHEEK MELANOMA [...] SURGICAL PATHOLOGY CONSULTATION Patient Name: CELESTINO CRUZ [facility] Rec: [id number] Path Number: [id number] [facility] [employer] [facility] ANATOMIC PATHOLOGY [address] [place] [phone] Normal [facility] Comment on above: Performed By: #### P PPVDP #### [facility] [employer] [address] [place] [address] Painter And Decorator Apprentice: Angel Malki MD Surgical Pathologyon 022 Surgical Pathology (NOTE) [...] SURGICAL PATHOLOGY CONSULTATION Patient Name: CELESTINO PIMENTEL [facility] Rec: [id number] Path Number: [id number] [facility] ANATOMIC PATHOLOGY [address] [place] [phone] Normal [facility] Comment on above: Performed By: #### P PPVDP #### [address] [address] Painter And Decorator Apprentice: Angel Malik MD Hemoglobinon 09-11-2020 Hemoglobin (Bld) [Mass/Vol] 11.6 g/dL Low 11.9-15.1 [facility] Comment on above: Performed By: #### H GB #### [facility] [address] [place] [address] Painter And Decorator Apprentice: Baldemar England MD HemoglobinOrdered By: Breana Mondragon on 09-11-2020 Hemoglobin.gastrointest inal spec 1 Ql (Stl) 11.6 g/dL Low 11.9 - 15.1 g/dL [facility] Phone: Interpretation and review of laboratory results Abnormal [facility] Phone: [facility] Phone: DRUG SCREEN MULTI URINEOrder ed By: Cathy Colon on 09-10-2020 Amphetamine Screen, Ur Negative NEGATIVE [facility] [employer] Work Phone: Barbiturate Screen, Ur Negative NEGATIVE [facility] Work Phone: Benzodiazepine Screen, Urine Negative NEGATIVE [facility] Work Phone: Buprenorphine Urine Negative NE[facility] Work Phone: Cannabinoid Scrn, Ur Negative NEGATIVE [facility] Work Phone: Cocaine Metabolite, Urine Negative NEGATIVE [facility] Work Phone: MDMA, Urine NOT REPORTED NEGATIVE [facility] Work Phone: Methadone Screen, Urine Negative NEGATIVE [facility] Work Phone: Methamphetamine, Urine Negative NEGATIVE [facility] Work Phone: Opiates, Urine Negative NEGATIVE [facility] Work Phone: Oxycodone Screen, Ur Negative NEGATIVE [facility] Work Phone: Phencyclidine, Urine Negative NEGATIVE [facility] Work Phone: Propoxyphene, Urine Negative NEGATIVE [facility] Work Phone: Test Information NOT REPORTED [facility] Work Phone: Tricyclic Antidepressants, Urine Negative NEGATIVE [facility] Work Phone: Comment on above: Drug screen results are to be used for medical purposes only. All positive results are unconfirmed. Testing for employment or legal uses should be sent to a reference laboratory for confirmation. [facility] Work Phone: Drug Scr, Abuse, Uron 2020 Amphetamine(s),Ur Negative Normal NEG [facility] Comment on above: Performed By: #### D AU #### [facility] [address] [place] [address] [place] [address] Painter And Decorator Apprentice: Baldemar England MD Barbiturate(s),Ur Negative Normal NEG [facility] Comment on above: Performed By: #### D AU #### [facility] [address] [place] [address] [place] [address] Painter And Decorator Apprentice: Baldemar England MD Benzodiazepine(s) Negative Normal [facility] Comment on above: Performed By: #### D AU #### [facility] [address] [place], [place] [phone] Painter And Decorator Apprentice: Baldemar England MD Buprenorphrine, Ur Negative Normal [facility] Comment on above: Performed By: #### D AU #### [facility] [address] [place], [place] [phone] Painter And Decorator Apprentice: Baldemar England MD Cannabinoid(s),Ur Negative Normal NEG [facility] Comment on above: Performed By: #### D AU #### [facility] [address] [place], [place] [phone] Painter And Decorator Apprentice: Baldemar England MD Cocaine Metabolite Negative Normal [facility] Comment on above: Performed By: #### D AU #### [facility] [address] [place], [place] [phone] Painter And Decorator Apprentice: Baldemar England MD Methadone Ql (U) Negative Normal [facility] Comment on above: Performed By: #### D AU #### [facility] [address] [place] [address] [place], [place] [phone] Painter And Decorator Apprentice: Baldemar England MD Methamphetamine, Ur Negative Normal [facility] Comment on above: Performed By: #### D AU #### [facility] [address] [place], [place] [phone] Painter And Decorator Apprentice: Baldemar England MD Opiate(s), Ur Negative Normal [facility] Comment on above: Performed By: #### D AU #### [facility] [address] [place], [place] [phone] Painter And Decorator Apprentice: Baldemar England MD Oxycodone, Urine Negative Normal NEG [facility] Comment on above: Performed By: #### D AU #### [facility] [address] [place] [address] [place], [place] [phone] Painter And Decorator Apprentice: Baldemar England MD Phencyclidine, Ur Negative Normal NEG [facility] Comment on above: Performed By: #### D AU #### [facility] [address] [place] [address] Dr[place], [place] [phone] Painter And Decorator Apprentice: Baldemra England MD Propoxyphene,Urine Negative Normal NEG [facility] Comment on above: Performed By: #### D AU #### [facility] [address] [place] [address] [place], [place] [phone] Painter And Decorator Apprentice: Baldemar England MD Tricyclic antidepressants Screen Ql (U) Negative Normal NEG [facility] Comment on above: Result Comment: Drug screen results are to be used for medical purposes only. All positive results are unconfirmed. Testing for employment or legal uses should be sent to a reference laboratory for confirmation. Performed By: #### D AU #### [facility] [address] [place] [address] [place] [address] Painter And Decorator Apprentice: Baldemar England MD Interpretive Info NOT REPORTED Normal [facility] Comment on above: Performed By: #### D AU #### [facility] [address] [place] [address] [place], [place] [phone] Painter And Decorator Apprentice: Baldemar England MD MDMA, Urine NOT REPORTED Normal NEG [facility] Comment on above: Performed By: #### D AU #### [facility] [address] [place] [address] Dr. [place], [place] [phone] Painter And Decorator Apprentice: Baldemar England MD CBC Auto DifferentialOrdered By: Breana Mondragon on 09-09-2020 Absolute Eos # 0.07 [facility] Work Phone: Absolute Immature Granulocyte 0.12 [facility] Work Phone: Absolute Lymph # 1.38 [facility] Work Phone: Absolute Gem # 0.55 [facility] Work Phone: Basophils (Bld) [#/Vol] 10*3/uL [facility] Work Phone: Basophils/100 WBC (Bld) 0 % 0 - 2 % [facility] Work Phone: Differential Type NOT REPORTED [facility] Phone: Eosinophils/100 WBC (Bld) 1 % 1 - 4 % [employer] Work Phone: Hematocrit (Bld) [Volume fraction] 39.8 % 36.3 - 47.1 % [facility] Phone: Hemoglobin.gastrointest inal spec 1 Ql (Stl) 13.5 g/dL 11.9 - 15.1 g/dL [facility] Phone: Immature granulocytes/100 WBC (Bld) 1 % High 0 [facility] Phone: Interpretation and review of laboratory results Abnormal [facility] Phone: Lymphocytes/100 WBC (Bld) 13 % Low 24 - 43 % [facility] Phone: MCH (RBC) [Entitic mass] 31.8 pg 25.2 - 33.5 pg [facility] Phone: MCHC (RBC) [Mass/Vol] 33.9 g/dL 28.4 - 34.8 g/dL [facility] Phone: MCV (RBC) [Entitic vol] 93.6 fL 82.6 - 102.9 fL [facility] Phone: Monocytes/100 WBC (Bld) 5 % 3 - 12 % [facility] Work Phone: NRBC Automated 0.0 0.0 per 100 WBC [facility] Phone: Platelet distribution width (Bld) [Ratio] 13.6 % 11.8 - 14.4 % [facility] Phone: Platelet Estimate NOT REPORTED [facility] Phone: Platelet mean volume (Bld) [Entitic vol] 10.6 fL 8.1 - 13.5 fL [facility] Phone: Platelets (Bld) [#/Vol] 166 10*3/uL [facility] Phone: RBC (Bld) [#/Vol] 4.25 10*6/uL 3.95 - 5.1 1 m/uL [facility] Phone: RBC (Bld) [#/Vol] NOT REPORTED [facility] Phone: Segmented neutrophils/100 WBC (Bld) 80 % High 36 - 65 % [employer] Work Phone: Segs Absolute 8.84 High [facility] Work Phone: WBC (Bld) [#/Vol] 11.0 10*3/uL [employer] Work Phone: WBC (Bld) [#/Vol] NOT REPORTED [facility] Phone: [employer] Work Phone: CBC with Diffon 09-09-2020 Abs. Basophil <0.03 Normal 0.00-0.[address] [facility] Comment on above: Performed By: #### C DP #### [facility] [address] [place] [address] Painter And Decorator Apprentice: Baldemar England MD Abs.Imm.Granulocyte 0.12 k/uL Normal 0.00-0.30 [facility] Comment on above: Performed By: #### C DP #### [facility] [address] [place] [address] Painter And Decorator Apprentice: Baldemar England MD Abs.Neutrophil (Seg) 8.84 k/uL High 1.50-8.10 [facility] Comment on above: Performed By: #### C DP #### [facility] [address] [place], [place] [phone] Painter And Decorator Apprentice: Baldemar England MD Basophils/100 WBC (Bld) 0 % Normal 0-2 M [facility] Comment on above: Performed By: #### C DP #### [address] [place], [facility] Painter And Decorator Apprentice: Baldemar England MD Eosinophils (Bld) [#/Vol] 0.07 10*3/uL Normal 0.00-0.44 [facility] Comment on above: Performed By: #### C DP #### [address] [place], [facility] Painter And Decorator Apprentice: Baldemar England MD Eosinophils/100 WBC (Bld) 1 % Normal 1-4 [facility] Comment on above: Performed By: #### C DP #### [address] [place], [facility] Painter And Decorator Apprentice: Baldemar England MD Erythrocyte distribution width (RBC) [Ratio] 13.6 % Normal 11.8-14.4 [facility] Comment on above: Performed By: #### C DP #### [address] [place], [facility] Painter And Decorator Apprentice: Baldemar England MD Hematocrit (Bld) [Volume fraction] 39.8 % Normal 36.3-47.1 [facility] Comment on above: Performed By: #### C DP #### [address] [place], [facility] Painter And Decorator Apprentice: Baldemar England MD Hemoglobin (Bld) [Mass/Vol] 13.5 g/dL Normal 11.9-15.1 [facility] Comment on above: Performed By: #### C DP #### [address] [place], [facility] Painter And Decorator Apprentice: Baldemar England MD Immature granulocytes/100 WBC (Bld) 1 % High 0 [facility] Comment on above: Performed By: #### C DP #### [facility] [address] [place], [place] [phone] Painter And Decorator Apprentice: Baldemar England MD Lymphocytes (Bld) [#/Vol] 1.38 10*3/uL Normal 1.10-3.70 [facility] Comment on above: Performed By: #### C DP #### [facility] [address] [place], [place] [phone] Painter And Decorator Apprentice: Baldemar England MD Lymphocytes/100 WBC (Bld) 13 % Low 24-43 [facility] Comment on above: Performed By: #### C DP #### [facility] [address] [place], [place] [id number] [employer] Decorator Apprentice: Baldemar England MD MCH (RBC) [Entitic mass] 31.8 pg Normal 25.2-33.5 [facility] Comment on above: Performed By: #### C DP #### [address] [place], [place] [id number] Painter And Decorator Apprentice: Baldemar England MD MCHC (RBC) [Mass/Vol] 33.9 g/dL Normal 28.4-34.8 [facility] Comment on above: Performed By: #### C DP #### [facility] [address] [place], [place] [id number] Painter And Decorator Apprentice: Baldemar England MD MCV (RBC) [Entitic vol] 93.6 fL Normal 82.6-102.9 M [facility] Comment on above: Performed By: #### C DP #### [facility] [address] [place], [place] [id number] Painter And Decorator Apprentice: Baldemar England MD Monocytes (Bld) [#/Vol] 0.55 10*3/uL Normal 0.10-1.20 [facility] Comment on above: Performed By: #### C DP #### [facility] [address] [place], [place] [id number] Painter And Decorator Apprentice: Baldemar England MD Monocytes/100 WBC (Bld) 5 % Normal 3-12 M [facility] Comment on above: Performed By: #### C DP #### [facility] [address] [place], [facility] [employer] Decorator Apprentice: Baldemar England MD Neutrophil (Seg) 80 % High 36-65 [facility] Comment on above: Performed By: #### C DP #### [facility] [address] [place], [facility] Painter [employer] Decorator Apprentice: Baldemar England MD NRBC Automated 0.0 per 100 WBC Normal 0.0 [facility] Comment on above: Performed By: #### C DP #### [facility] [address] [place], [facility] Painter [employer] Decorator Apprentice: Baldemar England MD Platelet mean volume (Bld) [Entitic vol] 10.6 fL Normal 8.1-13.5 [facility] Comment on above: Performed By: #### C DP #### [address] [place], [facility] Painter And Decorator Apprentice: Baldemar England MD Platelets (Bld) [#/Vol] 166 10*3/uL Normal 138-453 [facility] Comment on above: Performed By: #### C DP #### [facility] [address] [place], [place] [id number] Painter And Decorator Apprentice: Baldemar England MD RBC (Bld) [#/Vol] 4.25 10*6/uL Normal 3.95-5.11 [facility] Comment on above: Performed By: #### C DP #### [facility] [address] [place], [facility] Painter And Decorator Apprentice: Baldemar England MD WBC (Bld) [#/Vol] 11.0 10*3/uL Normal 3.5-11.3 [facility] Comment on above: Performed By: #### C DP #### [facility] [address] [place], [place] [id number] Painter And Decorator Apprentice: Baldemar England MD Auto Diff Performed NOT REPORTED Normal [facility] Comment on above: Performed By: #### C DP #### [facility] [address] [place], [place] [id number] Painter And Decorator Apprentice: Baldemar England MD Platelet Estimate NOT REPORTED Normal [facility] Comment on above: Performed By: #### C DP #### [facility] [address] [place], [place] [address] Painter And Decorator Apprentice: Baldemar England MD RBC morphology finding Nom (Bld) NOT REPORTED Normal [facility] Comment on above: Performed By: #### C DP #### [facility] [address] [place], [place] [id number] Painter And Decorator Apprentice: Baldemar England MD WBC Morphology NOT REPORTED Normal [facility] Comment on above: Performed By: #### C DP #### [facility] [address] [place], [place] [id number] Painter And Decorator Apprentice: Baldemar England MD Type + Screenon 09-09-2020 Type + Screen Sample Expiration 09/12/2020,2359 Arm Band Number [id number] ABO/Rh(D) O POSITIVE Antibody Screen NEGATIVE Normal [facility] Comment on above: Performed By: #### T YS #### [facility] [address] [place] [address] Painter And Decorator Apprentice: Baldemar England MD GBS, External ResultOrdered By: Cathy Colon on 08-07-2020 GBS, External Result Negative [facility] Head Held High Phone: Comment on above: reviewed with Surendra bermudez RN [facility] Work Phone: ABO, External ResultOrdered By: Cathy Colon on 01-30-2020 ABO, External Result O [facility] [employer] Work Phone: Comment on above: reviewed with A Phoebe bermudez RN C. Trachomatis, External Res ultOrdered By: Cathy Colon on 01-30-2020 C. Trachomatis, External Result Not detected [facility]: Comment on above: reviewed with A Phoebe bermudez RN HIV, External ResultOrdered By: Cathy Colon on 01-30-2020 HIV, External Result Non-Reactive [facility] Work Phone: Comment on above: reviewed with A Phoebe bermudez RN Hepatitis B, External Result Ordered By: Cathy Colon on 01-30-2020 Hep B, External Result Non-Reactive [facility] Work Phone: Comment on above: reviewed with A Phoebe bermudez RN N. Gonorrhoeae, External Res ultOrdered By: Cathy Colon on 01-30-2020 N. Gonorrhoeae, External Result Not detected [facility] Work [facility]: Comment on above: reviewed with A phoebe bermudez RN No Panel InformationOrdered By: Cathy Colon on 01-30-2020 [facility] Work Phone: RPR, External LabOrdered By: Cathy Colon on 01-30-2020 RPR, External Result Non-Reactive [facility] [employer] Work Phone: Comment on above: reviewed with A Phoebe bermudez RN Rh Factor, External ResultOr dered By: Cathy Colon on 01-30-2020 Rh Factor, External Result + [employer] Work Phone: Comment on above: reviewed with A Phoebe bermudez RN Rubella Titer, External Resu ltOrdered By: Cathy Colon on 01-30-2020 Rubella Titer, External Result immune [facility] Work Phone: Comment on above: reviewed with A Phoebe bermudez RN XR hand LT min 3V*on 019 XR hand LT min 3V* [facility] [place] [address] [place] [address] XRay Report Signed Patient: Celestino Pimentel MR#: [id number] : 1990 Acct:[id number] Age/Sex: 28 / F ADM Date: 06/23/18 Loc: XDUCLY Room: Type: [facility] Attending Dr: Delia RAMIREZ Ordering Provider: Delia [...] Jean-Baptiste MD 06/23/181901 Signed By: 06/23/181903 [facility] Vital Signs Date Time Vital Sign Value Performing Clinician Bladei tyrell 05-02-2024 08:31-0500 Body mass index (BMI) [Ratio] 32.44 kg/m2 Cathy [facility] Work Phone: [facility] 05-02-2024 08:31-0500 Body weight 85.73 kg Cathy [facility] Work Phone: [facility] 05-02-2024 08:31-0500 Diastolic blood pressure 80 mm[Hg] Cathy [facility] Work Phone: [facility] 05-02-2024 08:31-0500 Systolic blood pressure 120 mm[Hg] Cathy Floro CNM Work Phone: [facility] 04-24-2024 17:26-0500 Body mass index (BMI) [Ratio] 32.61 kg/m2 Cathy Floro CNM Work Phone: [facility] 04-24-2024 17:26-0500 Body weight 86.18 kg Cathy Floro CNM Work Phone: [facility] 04-24-2024 17:26-0500 Diastolic blood pressure 70 mm[Hg] Cathy Floro CNM Work Phone: [facility] 04-24-2024 17:26-0500 Systolic blood pressure 112 mm[Hg] Cathy Floro CNM Work Phone: [facility] 04-18-2024 10:01-0500 Body mass index (BMI) [Ratio] 32.1 kg/m2 Cathy Floro CNM Work Phone: [facility] 04-18-2024 10:01-0500 Body weight 84.82 kg Cathy Floro CNM Work Phone: [facility] 04-18-2024 10:01-0500 Diastolic blood pressure 60 mm[Hg] Cathy Floro CNM Work Phone: [facility] 04-18-2024 10:01-0500 Systolic blood pressure 110 mm[Hg] Cathy Floro CNM Work Phone: [facility] 04-11-2024 08:32-0500 Body mass index (BMI) [Ratio] 32.27 kg/m2 Cathy Floro CNM Work Phone: [facility] 04-11-2024 08:32-0500 Body weight 85.28 kg Cathy Floro CNM Work Phone: [facility] 04-11-2024 08:32-0500 Diastolic blood pressure 70 mm[Hg] Cathy Floro CNM Work Phone: [facility] 04-11-2024 08:32-0500 Systolic blood pressure 118 mm[Hg] Cathy Floro CNM Work Phone: [facility] 03-28-2024 08:52-0500 Body mass index (BMI) [Ratio] 31.93 kg/m2 Cathy Floro CNM Work Phone: [facility] 03-28-2024 08:52-0500 Body weight 84.37 kg Cathy Floro CNM Work Phone: [facility] 03-28-2024 08:52-0500 Diastolic blood pressure 70 mm[Hg] Cathy Floro CNM Work Phone: [facility] 03-28-2024 08:52-0500 Systolic blood pressure 116 mm[Hg] Cathy Floro CNM Work Phone: [facility] 03-23-2024 08:50-0500 Body mass index (BMI) [Ratio] 32.27 kg/m2 Cathy Floro CNM Work Phone: [facility] 03-23-2024 08:50-0500 Body weight 85.28 kg Cathy Floro CNM Work Phone: [facility] 03-23-2024 08:50-0500 Diastolic blood pressure 70 mm[Hg] Cathy Floro CNM Work Phone: [facility] 03-23-2024 08:50-0500 Systolic blood pressure 110 mm[Hg] Cathy Floro CNM Work Phone: [facility] 03-20-2024 08:41-0500 Body mass index (BMI) [Ratio] 32.58 kg/m2 Tang Bonilla MD Work Phone: [facility] 03-20-2024 08:41-0500 Body weight 86.09 kg Tang Bonilla MD Work Phone: [facility] 03-20-2024 08:41-0500 Diastolic blood pressure 64 mm[Hg] Tang Bonilla MD Work Phone: [facility] 03-20-2024 08:41-0500 Heart rate 93 /min Tang Bonilla MD Work Phone: [facility] 03-20-2024 08:41-0500 Systolic blood pressure 112 mm[Hg] Tang Bonilla MD Work Phone: [facility] 03-08-2024 08:34-0500 Body mass index (BMI) [Ratio] 32.27 kg/m2 Cathy Floro CNM Work Phone: [facility] 03-08-2024 08:34-0500 Body weight 85.28 kg Cathy Floro CNM Work Phone: [facility] 03-08-2024 08:34-0500 Diastolic blood pressure 80 mm[Hg] Cathy Floro CNM Work Phone: [facility] 03-08-2024 08:34-0500 Systolic blood pressure 120 mm[Hg] Cathy Floro CNM Work Phone: [facility] 02-09-2024 08:33-0500 Body mass index (BMI) [Ratio] 32.1 kg/m2 Cathy Floro CNM Work Phone: [facility] 02-09-2024 08:33-0500 Body weight 84.82 kg Cathy Floro CNM Work Phone: [facility] 02-09-2024 08:33-0500 Diastolic blood pressure 74 mm[Hg] Cathy Floro CNM Work Phone: [facility] 02-09-2024 08:33-0500 Systolic blood pressure 120 mm[Hg] Cathy Floro CNM Work Phone: [facility] 01-25-2024 08:45-0500 Body height 162.6 cm Tang Bonilla MD Work Phone: [facility] 01-25-2024 08:45-0500 Body mass index (BMI) [Ratio] 31.51 kg/m2 Tang Bonilla MD Work Phone: [facility] 01-25-2024 08:45-0500 Body weight 83.28 kg Tang Bonilla MD Work Phone: [facility] 01-25-2024 08:45-0500 Diastolic blood pressure 71 mm[Hg] Tang Bonilla MD Work Phone: [facility] 01-25-2024 08:45-0500 Heart rate 81 /min Tang Bonilla MD Work Phone: [facility] 01-25-2024 08:45-0500 Systolic blood pressure 112 mm[Hg] Tang Bonilla MD Work Phone: [facility] 01-11-2024 08:47-0400 Body mass index (BMI) [Ratio] 30.9 kg/m2 Cathy Floro CNM Work Phone: [facility] 01-11-2024 08:47-0400 Body weight 81.65 kg Cathy Floro CNM Work Phone: [facility] 01-11-2024 08:47-0400 Diastolic blood pressure 70 mm[Hg] Cathy Floro CNM Work Phone: [facility] 01-11-2024 08:47-0400 Systolic blood pressure 110 mm[Hg] Cathy Floro CNM Work Phone: [facility] 12-15-2023 11:27-0400 Body mass index (BMI) [Ratio] 30.04 kg/m2 Cathy Floro CNM Work Phone: [facility] 12-15-2023 11:27-0400 Body weight 79.38 kg Cathy Floro CNM Work Phone: [facility] 12-15-2023 11:27-0400 Diastolic blood pressure 70 mm[Hg] Cathy Floro CNM Work Phone: [facility] 12-15-2023 11:27-0400 Systolic blood pressure 116 mm[Hg] Cathy Floro CNM Work Phone: [facility] 11-10-2023 08:31-0400 Body mass index (BMI) [Ratio] 29.52 kg/m2 Cathy Colon CNM Work Phone: [facility] 11-10-2023 08:31-0400 Body weight 78.02 kg Cathy Colon CNM Work Phone: [facility] 11-10-2023 08:31-0400 Diastolic blood pressure 64 mm[Hg] Cathy Colon CNM Work Phone: [facility] 11-10-2023 08:31-0400 Systolic blood pressure 100 mm[Hg] Cathy Colon CNM Work Phone: [facility] 08-04-2021 13:00-0400 Heart rate 49 /min NA Maximo WATKINS Work Phone: [facility] 08-04-2021 13:00-0400 Respiratory rate 21 /min MARIUM Marsh MD Work Phone: [facility] 08-04-2021 13:00-0400 SaO2% (BldA) [Mass fraction] 100 % MARIUM Marsh MD Work Phone: [facility] 08-04-2021 12:45-0400 Diastolic blood pressure 77 mm[Hg] MARIUM Marsh MD Work Phone: [facility] 08-04-2021 12:45-0400 Systolic blood pressure 109 mm[Hg] MARIUM Marsh MD Work Phone: [facility] 08-04-2021 12:18-0400 Body temperature 96.8 [degF] MARIUM Marsh MD Work Phone: [facility] 08-04-2021 09:48-0400 Body height 162.6 cm MARIUM Marsh MD Work Phone: [facility] 08-04-2021 09:48-0400 Body mass index (BMI) [Ratio] 31.24 kg/m2 MARIUM Marsh MD Work Phone: [facility] 08-04-2021 09:48-0400 Body weight 82.56 kg MARIUM Marsh MD Work Phone: [facility] 07-08-2021 08:14-0400 Respiratory rate 0 /min MARIUM Marsh MD Work Phone: [facility] 07-08-2021 08:10-0400 Body temperature 97.81 [degF] MARIUM Marsh MD Work Phone: [facility] 07-08-2021 08:10-0400 Diastolic blood pressure 69 mm[Hg] MARIUM Marsh MD Work Phone: [facility] 07-08-2021 08:10-0400 Heart rate 54 /min MARIUM Marsh MD Work Phone: [facility] 07-08-2021 08:10-0400 SaO2% (BldA) [Mass fraction] 100 % MARIUM Marsh MD Work Phone: [facility] 07-08-2021 08:10-0400 Systolic blood pressure 107 mm[Hg] MARIUM Marsh MD Work Phone: [facility] 07-08-2021 07:01-0400 Body height 162.6 cm MARIUM Marsh MD Work Phone: [facility] 07-08-2021 07:01-0400 Body mass index (BMI) [Ratio] 31.41 kg/m2 MARIUM Marsh MD Work Phone: [facility] 07-08-2021 07:01-0400 Body weight 83.01 kg MARIUM Marsh MD Work Phone: [facility] 09-12-2020 07:33-0400 Diastolic blood pressure 76 mm[Hg] Breana Ryan Mondragon Work Phone: [facility] Work Phone: 06-24-2021 07:33-0400 Heart rate 61 /min Breana Peraza Mondragon DO Work Phone: [facility] Work Phone: 09-12-2020 07:33-0400 Respiratory rate 18 /min Breana Peraza Mondragon DO Work Phone: [facility] Work Phone: 09-12-2020 07:33-0400 Systolic blood pressure 115 mm[Hg] Breana [employer] Work Phone: [facility] Work Phone: 09-12-2020 07:32-0400 Body temperature 98.4 [degF] Breana Peraza [employer] Work Phone: [facility] Work Phone: 09-10-2020 16:08-0400 SaO2% (BldA) [Mass fraction] 100 % [employer] Work Phone: [employer] Work Phone: 09-10-2020 12:10-0400 Body height 162.6 cm Breana Ryan [employer] Work Phone: [facility] Work Phone: 09-10-2020 12:10-0400 Body mass index (BMI) [Ratio] 34.84 kg/m2 [employer] Work Phone: [facility] Work Phone: 09-10-2020 12:10-0400 Body weight 92.08 kg [employer] Work Phone: [facility] Work Phone: Encounters Encounter Date Encounter Type Care Provider Facility Start: 05-05-2024 End: 05-05-2024 Clinisync Result Encounter Cathy Colon CNPivto Work Phone: [facility] External [facility] Unsolicited Start: 05-05-2024 End: 05-05-2024 Clinisync Result Encounter Cathy Colon CNM Work Phone: [facility] Unsolicited Start: 05-02-2024 End: 05-02-2024 Subsequent care visit Cathy LEM Work Phone: [facility] Comment on above: Encounter for superv ision of other normal , third trimester (Primary Dx); History of section; Gestational diabetes mellitus (GDM) affecting Start: 04-24-2024 End: 04-24-2024 Subsequent care visit Cathy LEM Work Phone: [facility] Comment on above: History of section (Primary Dx); Encounter for supervision of other normal , third trimester; screening for streptococcus B; Gestational diabetes mellitus (GDM) affecting Start: 04-24-2024 End: 04-24-2024 ambulatory CATHY COLON Not Available Start: 04-24-2024 End: 04-24-2024 Bamboo flowsheet Cathy Colon CNM Work Phone: [facility] Start: 04-24-2024 End: 04-24-2024 Bamboo flowsheet Cathy Colon CNM Work Phone: [facility] Start: 04-21-2024 End: 04-21-2024 Clinisync Result Encounter Cathy Colon CNM Work Phone: [facility] External [facility] Unsolicited Start: 04-21-2024 End: 04-21-2024 Clinisync Result Encounter Cathy Colon CNM Work Phone: [facility] External [facility] Unsolicited Start: 04-18-2024 End: 04-18-2024 Bamboo flowsheet Cathy Pritchetto CNM Work Phone: [facility] Start: 04-18-2024 End: 04-18-2024 Bamboo flowsheet Cathy Pritchetto CNM Work Phone: [...] Start: 04-11-2024 End: 04-11-2024 Bamboo flowsheet Cathy Pritchetto CNM Work Phone: [facility] Start: 04-11-2024 End: 04-11-2024 Bamboo flowsheet Cathy Pritchetto CNM Work Phone: [facility] Start: 04-11-2024 End: 04-11-2024 ambulatory CATHY L FLORO Not Available Start: 04-11-2024 End: 04-11-2024 Subsequent care visit Cathy Pritchetto CNM Work [...] Start: 03-28-2024 End: 03-28-2024 Telephone encounter Fernanda Chantel MS, RDN, LD, CHES [facility] [...] Bonilla MD Work Phone: [facility] Comment on above: 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 (Primary Dx) Start: 03-20-2024 End: 03-20-2024 [facility] Start: 03-08-2024 End: 03-08-2024 Bamboo flowsheet [...] End: 02-09-2024 Subsequent care visit Cathy Colon CN Work Phone: [facility] Comment on above: Encounter for superv ision of other normal , third trimester (Primary Dx); Screening for diabetes mellitus; Screening for iron deficiency anemia; related condition in second trimester Start: 02-09-2024 End: 02-09-2024 ambulatory CATHY COLON Not Available Start: 01-31-2024 End: 01-31-2024 Orders Only Jake Dai CMA [facility] Comment on above: Pyelectasis (Primary Dx); anomaly suspected but not found Pyelectasis Start: 01-25-2024 End: 01-25-2024 Office consultation new/estab patient 60 min Tang Bonilla MD Work Phone: [facility] Comment on above: 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 (Primary Dx) Start: 01-25-2024 End: 01-25-2024 Orders Only Kristen Do RN [facility] Comment on above: 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 (Primary Dx); Pyelectasis Start: 01-17-2024 End: 01-17-2024 Chart abstracting Tang Bonilla MD Work Phone: [facility] Start: 01-17-2024 End: 01-17-2024 Telephone encounter Chelsey Bray MD Work Phone: [facility] Start: 01-14-2024 End: 01-14-2024 Chart abstracting Tang Bonilla MD Work Phone: [facility] Start: 01-11-2024 End: 01-11-2024 Bamboo flowsheet Cathy Jumana Pritchetto CNM Work Phone: [facility] Start: 01-11-2024 End: 01-11-2024 Bamboo flowsheet Cathy Pritchetto CNM Work Phone: [...] DERM Start: 12-15-2023 End: 12-15-2023 Bamboo flowsheet Cathyyenny Pritchetto CNM Work Phone: [facility] Start: 12-15-2023 End: 12-15-2023 Bamboo flowsheet Cathy L Floro CNM Work Phone: [facility] Start: 12-15-2023 End: 12-15-2023 Subsequent care visit Cathy Jumana Floro CNM [...] 11-10-2023 End: 11-10-2023 Subsequent care visit Cathy Jumana Floro CNM Work Phone: [facility] Comment on above: Encounter for superv ision of other normal , second trimester (Primary Dx); History of section Start: 10-12-2023 End: 10-12-2023 ambulatory CATHY L FLORO Not Available Start: 10-06-2023 End: 10-06-2023 Telephone encounter Irma Titussharla [facility] Work Phone: [facility] Comment on above: Verbal Re-Assessment (Genetics Results Disclosure) Start: 09-21-2023 End: 09-21-2023 ambulatory HOSSEIN FERNANDEZ Not Available Start: 09-20-2023 End: 09-20-2023 ambulatory CATHY L FLORO Not Available Start: 09-16-2023 End: 09-16-2023 ambulatory [facility] Infusion Chair 1 [facility] Start: 05-11-2023 End: 05-11-2023 ambulatory HOSSEIN FERNANDEZ Not Available Start: 08-04-2021 End: 08-04-2021 ambulatory A [facility] Start: 08-04-2021 End: 08-04-2021 Subsequent hospital visit by physician Surendra Marsh MD Work Phone: [facility] [place] Comment on above: 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 Ryan Mondragon DO Work Phone: [facility] Comment on above: delivery de livered (Primary Dx) Start: 09-09-2020 End: 09-09-2020 ambulatory [facility] Start: 09-09-2020 End: 09-09-2020 Admission to establishment Breanaana m Mondragon DO Work Phone: [facility] Start: 09-09-2020 End: 09-09-2020 Subsequent hospital visit by physician Breana Peraza Mondragon Work Phone: [facility] Comment on above: Encounter for preadm ission testing (Primary Dx); S/P primary low transverse Start: 06-23-2018 End: 06-23-2018 Patient encounter procedure Delia Mcneill Facility:[facility] Procedures Date Procedure Procedure Detail Performing Clinician Start: 05-05-2024 US OB GROWTH Cathy Colon CNM Work Phone: Start: 05-05-2024 US OB BPP WO NON-STRESS Cathy Colon CNM Work Phone: Start: 04-21-2024 US OB BPP WO NON-STRESS Cathy Colon CNM Work Phone: Start: 01-25-2024 UNLISTED LAB TEST Tang Bonilla MD Work Phone: Start: 10-12-2023 Antibody screen Tang Bonilla MD Work Phone: Start: 10-12-2023 CHLAMYDIA/GC BY PCR RUPERTO SWAB Not In System Ref Prov Start: 10-12-2023 Drug scrn 1+ class nonchromo Not In System Ref Prov Start: 10-12-2023 Hemoglobin glycosylated a1c Cathy Colon SUGGESTION CLERK-CNM Work Phone: Start: 10-12-2023 HIV 1&2 AB/AG SCREEN (P24 AG) Not In System Ref Prov Start: 10-12-2023 Iaad ia hepatitis b surface antigen Not In System Ref Prov Start: 10-12-2023 Syphilis test non-treponemal antibody qual Not In System Ref Prov Start: 10-12-2023 TYPE AND SCREEN Not In System Ref Pr ov Start: 08-04-2021 Urine test visual color cmprsn meths A Gavin Marsh MD Work Phone: Start: 09-11-2020 Blood count hemoglobin Breana F Ryan Arm strong DO Work Phone: Start: 09-10-2020 Drug screen class list a Cathy Agosto PRN - CNM Work Phone: Start: 09-09-2020 Blood count complete auto&auto difrntl wbc Breana F Ryan Mondragon DO Work Phone: Start: 08-07-2020 GBS, EXTERNAL RESULT Cathy Colon SUGGESTION CLERK - CNM Work Phone: Start: 01-30-2020 ABO, EXTERNAL RESULT Cathy Floro SUGGESTION CLERK - CNM Work Phone: Start: 01-30-2020 C. TRACHOMATIS, EXTERNAL RESULT Cathy Floro SUGGESTION CLERK - CNM Work Phone: Start: 01-30-2020 HEPATITIS B, EXTERNAL RESULT Cathy Floro SUGGESTION CLERK - CNM Work Phone: Start: 01-30-2020 HIV, EXTERNAL RESULT Cathy Floro SUGGESTION CLERK - CNM Work Phone: Start: 01-30-2020 N. GONORRHOEAE, EXTERNAL RESULT Cathy Floro SUGGESTION CLERK - CNM Work Phone: Start: 01-30-2020 RH FACTOR, EXTERNAL RESULT Cathy Floro SUGGESTION CLERK - CNM Work Phone: Start: 01-30-2020 RPR, EXTERNAL RESULT Cathy Floro SUGGESTION CLERK - CNM Work Phone: Start: 01-30-2020 RUBELLA TITER, EXTERNAL RESULT Cathy Floro SUGGESTION CLERK - CNM Work Phone: H/O: section S/P [...] Td Vaccines (7 - Td or Tdap) [facility] Start: 06-20-2030 DTaP/Tdap/Td vaccine (7 - Td or Tdap) DTaP/Tdap/Td vaccine (7 - Td or Tdap) [facility] Start: 03-20-2025 Adult BMI Screening Adult BMI Screen ing [facility] Start: 01-24-2025 Adult BMI Screening Adult [facility] Screen ing [facility] Start: 01-24-2025 Tobacco Screening Tobacco Screening [facility] Start: 01-24-2025 End: 01-24-2025 US MFM with or without consult US MFM with or without consult Imaging Routine Pyelectasis Expected: 01/24/2025 (Approximate), Expires: 01/24/2025 [employer] Work Phone: Comment on above: Expected: 01/24/2025 (Approximate), Expires: 01/24/2025 Start: 12-10-2024 Screening for malign ant neoplasm of cervix [facility] Start: 06-22-2024 End: 06-22-2024 Patient encounter procedure 06/22/2024 9:15 AM EDT Office Visit [facility] [address] [place] [address] Hossein Fernandez MD [address] [place] [address] [facility] Start: 05-15-2024 End: 05-15-2024 ambulatory 05/15/2024 2:30 PM EST Visit [facility] [address] [place] [address] Cathy Colon CNM [address] [place] [address] [facility] Start: 05-02-2024 End: 05-02-2024 Patient encounter procedure 05/02/2024 8:30 AM EST Routine [facility] [address] [place] [phone] Cathy Colon, CN [address] [facility] [place] [address] [facility] Start: 04-25-2024 End: 04-25-2024 Patient encounter procedure 04/25/2024 10:00 AM EST Routine [facility] [address] [place] [phone] Cathy Colon, [facility] [address] [facility] [place] [address] [facility] Start: 04-24-2024 End: 04-24-2024 [...] AM EST Routine [facility] [address] [place] [phone] Cathy Colon, [facility] [address] [facility] [place] [address] [facility] Start: 04-04-2024 End: 04-04-2024 Patient encounter procedure 04/04/2024 8:45 AM EST Routine [facility] [address] [place] [phone] Cathy Colon, [facility] [address] [facility] [place] [address] [facility] Start: 04-03-2024 End: 04-03-2024 Clinical Support [facility] Comment on above: Elevated glucose sary erance test; History of gestational diabetes Start: 03-28-2024 End: 03-28-2024 Patient encounter procedure 03/28/2024 8:45 AM EST Routine [facility] [address] [place] [address] Cathy Colon, [facility] [address] [facility] [place] [address] [facility] Start: 03-23-2024 End: 03-23-2025 US biophysical profile wo non stress testing US biophysical profile wo non stress testing Imaging Routine History of gestational diabetes Expected: 03/23/2024, Expires: 03/23/2025 [facility] Work Phone: Comment on above: Expected: 03/23/2024 , Expires: 03/23/2025 Start: 03-23-2024 End: 03-23-2025 US for US OB SCAN FOR GROWTH Imaging Routine History of gestational diabetes Expected: 03/23/2024, Expires: 03/23/2025 [facility] Comment on above: Expected: 03/23/2024 , Expires: 03/23/2025 Start: 03-23-2024 End: 03-23-2024 Patient encounter procedure 03/23/2024 8:45 AM EST Routine [facility] [address] [place] [phone] Cathy Colon, CN [address] [facility] [place] [address] [facility] Start: 03-20-2024 End: 03-20-2024 Patient encounter procedure [facility] Start: 03-08-2024 End: 03-08-2025 GLUCOSE TOLERANCE TEST, GEST, 4SPEC 100G W/NDDG GLUCOSE TOLERANCE TEST, GEST, 4SPEC 100G W/NDDG Lab Routine Elevated glucose tolerance test Expected: 03/08/2024 (Approximate), Expires: 03/08/2025 [facility] Work Phone: Comment on above: Expected: 03/08/2024 (Approximate), Expires: 03/08/2025 Start: 03-08-2024 End: 03-08-2024 Patient encounter procedure 03/08/2024 8:30 AM EST Routine [facility] [address] [place] [address] Cathy Colon CN [address] [place] [address] [facility] Start: 02-09-2024 End: 02-08-2025 CBC panel - Blood by Automated count CBC Lab Routine Screening for iron deficiency anemia Expected: 02/09/2024 (Approximate), Expires: 02/08/2025 [facility] Comment on above: Expected: 02/09/2024 (Approximate), [...] AM EST Routine [facility] [address] [place] [phone] Cathy Colon, [facility] [address] [place] [address] [facility] Start: 01-25-2024 End: 01-25-2024 Patient encounter procedure 01/25/2024 8:45 AM EST Office Visit [facility] at [facility] [address] [place] [address] Tang Bonilla MD [address] [facility] [address] [place] [address] [facility] Start: 01-25-2024 End: 01-25-2024 Patient encounter procedure 01/25/2024 7:30 AM EST Appointment [facility] [address] [place] [address] [facility] Start: 01-11-2024 End: 01-11-2024 Patient encounter procedure 01/11/2024 8:45 AM EDT Routine [facility] [address] [place] [phone] Cathy Colon, REY [address] [place] [address] [facility] Start: 12-27-2023 End: 12-27-2023 Professional / ancillary services management 12/27/2023 3:15 PM EDT Ancillary Procedure [facility] [address] [phone] [facility] Start: 12-23-2023 End: 12-23-2023 [...] AM EDT Routine [facility] [address] [place] [phone] Cathy Colon, CN [address] [place] [address] Arrived [facility] Comment on above: Arrived Start: 12-15-2023 End: 12-15-2023 Patient encounter procedure 12/15/2023 8:30 AM EDT Routine [facility] [address] [place] [phone] Cathy Colon, [facility] [address] [place] [address] [facility] Start: 11-21-2023 Influenza vaccination N [facility] Start: 11-20-2021 Influenza vaccination Flu vacc ine (Season Ended) [facility] Start: 08-12-2021 End: 08-12-2021 Patient encounter procedure 08/12/2021 Office Visit Plastic Surgery Rhoda Callahan, SUGGESTION CLERK - PHYSICAL THERAPY MANAGER [address] [address] [facility] Start: 08-04-2021 End: 08-04-2021 HEAD LESION EXCISION HEAD LESION EXCISION D03.30 RIGHT CHEEK MELANOMA 08/04/2021 11:33 AM EDT [facility] Start: 07-23-2021 End: 07-23-2021 Patient encounter procedure 07/23/2021 Office [place] [address] [place] [address] [facility] Start: 07-08-2021 End: 07-08-2021 FACIAL LESION BIOPSY EXCISION FACIAL LESION BIOPSY EXCISION LESION RIGHT NECK X1 LESION RIGHT CHEEK X 2 07/08/2021 7:29 AM EDT [facility] Start: 2021 Screening for malign ant neoplasm of cervix [facility] Start: 11-20-2020 Influenza vaccination Flu vacc ine (Season Ended) [facility] Phone: Start: 09-10-2020 End: 09-10-2020 Admission to same day surgery center 09/10/2020 Surgery Obstetrics and Gynecology Ryan Breana Mondragon, [address] [place] [address] SECTION [facility] Labor and Delivery Comment on above: SECTION Start: 09-10-2020 Subsequent hospital visit by physician 09/10/2020 Hospital Encounter Obstetrics and Gynecology Breana Ledbetter, [address] [place] [address] [facility] Labor and Delivery Start: 01-14-2012 Screening for malign ant neoplasm of cervix [facility] [facility] Start: 2010 DTaP/Tdap/Td vaccine (1 - Tdap) DTaP/Tdap/Td vaccine (1 - Tdap) [facility] Phone: Start: 2009 Adult BMI Follow Up Plan Adult [facility] Plan [facility] Start: 2009 Adult BMI Screening Adult BMI Screen ing [facility] Start: 2009 Hepatitis C screening Hepatitis C sc reen [facility] Start: 2006 HIV screening HIV screen [facility] Start: 2003 COVID-19 Vaccine (1) COVID-19 Vaccin e (1) [facility] Phone: Start: 2003 Depression Screen Depression Screen [facility] Start: 2003 Depression Screening [facility]ing [facility] Start: 2003 Tobacco Screening Tobacco Screening [facility] Start: 01-14-1996 COVID-19 Vaccine (1) COVID-19 Vaccin e (1) [facility] Start: 01-14-1992 Varicella vaccine (1 of 2 - 2-dose childhood series) Varicella vaccine (1 of 2 - 2-dose childhood series) [facility] Start: 1991 Hepatitis C screening Hepatitis C sc reen [facility] End: 08-04-2021 INITIATE PACU OXYGEN THERAPY PROTOCOL Initiate PACU Oxygen Therapy Protocol Respiratory Care Routine Continuous until discontinued starting 08/04/2021 [facility] Phone: Comment on above: Continuous until dis continued starting 08/04/2021 Oxygen therapy [[facility] Data Set] Initiate Oxygen Therapy Protocol Respiratory Care Routine Daily until discontinued starting 09/10/2020 [facility] Phone: Comment on above: Daily until disconti nued starting 09/10/2020 Spirometry panel Incentive liz metry Respiratory Care Routine Every 2hr while awake until discontinued starting 09/10/2020 [facility] Phone: Comment on above: Every 2hr while awak e until discontinued starting 09/10/2020 Surgical Pathology Surgical Path ology Lab Routine Release Upon Ordering for 1 Occurrences starting 07/08/2021 [facility] Phone: Comment on above: Release Upon Orderin g for 1 Occurrences starting 07/08/2021 Surgical Pathology Surgical Path ology Lab Routine Release Upon Ordering for 1 Occurrences starting 08/04/2021 [facility] Phone: Comment on above: Release Upon Orderin g for 1 Occurrences starting 08/04/2021 End: 09-09-2020 TYPE AND SCREEN TYPE AND SCREEN Blood Bank STAT Encounter for preadmission testing One Time for 1 Occurrences starting 09/09/2020 until 09/09/2020 [facility] Phone: Comment on above: One Time for 1 Occur rences starting 09/09/2020 until 09/09/2020 TYPE AND SCREEN TYPE AND SCREEN Blood Bank Stat [employer] Label print Encounter for preadmission testing 09/09/2020 2:26 PM EDT [facility] Phone: Immunizations Immunization Date Immunization Notes Care Provider Emeka cm 09-10-2020 diphtheria, tetanus toxoids and acellular pertussis vaccine, unspecified formulation Breana Mondragon DO Work Phone: [facility] Phone: 09-10-2020 measles, mumps and rubella virus vaccine Breana Peraza Mondragon DO Work Phone: [facility] Phone: Payers Date Payer Category Payer Unknown [id number] 2021 Commercial Managed Care - POS [id number] 2021 Managed Care HMO (unspecified) [id number] 315 2021 Private Health Insurance [id number] .[id number] 2021 Private Health Insurance [id number] [id number]. 315 2021 Unknown [id number]. 315 2018 Self-pay 2018 Unknown [id number] 1991 Unknown [id number] 2.16.840.1.521966.3.579.2.173 1991 Unknown [id number] 2.16.840.1.007796.3.579.2.175 1991 Unknown [id number] 2.16.840.1.045743.3.579.2.175 1991 Unknown [id number] 2.16.840.1.241935.3.579.2.1286 1991 Unknown [id number] 2.16.840.1.981799.3.579.2.1286 1991 Unknown [id number] 2.16.840.1.074407.3.579.2.1286 1991 Unknown [id number] 2.16.840.1.886344.3.579.2.1286 1991 Unknown [id number] 2.16.840.1.635036.3.579.2.1259 1991 Unknown [id number] 2.16.840.1.844074.3.579.2.1259 1991 Unknown [id number] 2.16.840.1.716816.3.579.2.1259 1991 Unknown [id number] 2.16.840.1.013591.3.579.2.1259 1991 Unknown [id number] 2.16.840.1.857756.3.579.2.1259 1991 Unknown [id number] 2.16.840.1.767243.3.579.2.1259 1991 Unknown [id number] 2.16.840.1.180471.3.579.2.1259 1991 Unknown [id number] 2.16.840.1.869958.3.579.2.1259 1991 Unknown [id number] 2.16.840.1.842556.3.579.2.1259 1991 Unknown [id number] 2.16.840.1.003243.3.579.2.1259 1991 Unknown [id number] 2.16.840.1.391160.3.579.2.1259 1991 Unknown [id number] 2.16.840.1.336456.3.579.2.1259 1991 Unknown [id number] 2.16.840.1.386300.3.579.2.9 1991 Unknown [id number] 2.16.840.1.235443.3.579.2.1259 1991 Unknown [id number] 2.16.840.1.921315.3.579.2.1259 1991 Unknown [id number] 2.16.840.1.439979.3.579.2.1259 1991 Unknown [id number] 2.16.840.1.893881.3.579.2.9 1991 Unknown [id number] 2.16.840.1.240971.3.579.2.1259 1991 Unknown [id number] 2.16.840.1.534019.3.579.2.9 1991 Unknown [id number] 2.16.840.1.954551.3.579.2.1259 Unknown [id number] 2.16.84 0.1.316800.3.579.2.531 Social History Date Type Detail Facility Tobacco smoking stat [facility] Unknown if ever smoked [facility] Phone: Start: 1990 Sex Assigned At Not on file [facility] Phone: Start: 09-10-2020 End: 09-02-2022 Tobacco smoking status MAIS Never smoker [facility] Start: 09-10-2020 End: 09-02-2022 Tobacco use and exposure Never used [facility] Start: 09-10-2020 End: 12-24-2023 Alcohol intake Ex-drinker (finding) [facility] Phone: Start: 07-08-2021 End: 08-04-2021 Alcohol intake Current drinker of alcohol (finding) [facility] Phone: Start: 07-08-2021 End: 12-24-2023 Alcohol intake [facility] Phone: Start: 1990 Sex Assigned At Female [facility] Start: 07-25-2021 End: 08-04-2021 Exposure to SARS-CoV-2 (event) Not sure [facility] Phone: Start: 09-22-2023 End: 12-24-2023 Tobacco use panel [facility] Start: 09-01-2022 Alcohol Comment Alcohol: 3or 4 drinks on typical day/ monthly or less. Caffeine 1-2 cup/sday [facility] Start: 08-22-2023 [facility] Start: 06-03-2022 Gender identity Identifies as female gender (finding) [facility] Tobacco smoking stat [facility] Tobacco smoking consumption unknown [facility] Childcare Unknown [facility] Start: 10-25-2014 Sex Female (finding) [facility] Clinical Notes 09-12-2020 to 05-02-2024 Cathy Colon, REY - 05/02/2024 8:30 AM Bhavik Colon, [facility] - 04/24/2024 5:30 PM Bhavik Colon, REY - 04/18/2024 10:00 AM Bhavik Colon [facility] - 04/11/2024 8:30 AM ESTInstructions Note Date [...] went to a meeting for work and [employer] and had chicken dinner, noodles, mashed potatoes and pie for dessert. She said she knew it would be high. The only other elevations were 2 readings at 142. She is maintaining excellent glucose numbers Continue vitamin. Labs reviewed. GBS negative Expected mode of delivery repeat section Follow up in 1 week for a routine visit. documented in this encounter [facility] 04-24-2024 History of Present illness Narrative [...] routine visit. documented in this encounter [facility] 04-18-2024 History of Present illness Narrative [...] routine visit. documented in this encounter [facility] 04-11-2024 History of Present illness Narrative [...] routine visit. documented in this encounter [facility] 03-28-2024 Telephone encounter Note Pt scheduled for nutritions/ Fernanda Horn [facility] 03-28-2024 Miscellaneous Notes Pt scheduled for nutritions/ Fernanda Horn documented in this encounter [facility] 03-28-2024 History of Present illness Narrative [...] she is waiting for an appt for sample selector referral. We also discussed her blood sugars [...] routine visit. documented in this encounter [facility] 03-23-2024 History of Present illness Narrative [...] info given, and will make referral to senior health educator. Objective Physical Exam weight: 188 lb [...] routine visit. documented in this encounter [facility] 03-20-2024 History of Present illness Narrative [...] Cystitis Gastroenteritis History of female infertility Melanoma ([facility]) 05/2021 in SITU Myopia Rhus dermatitis [...] TANG BONILLA MD documented [facility] encounter [facility] 03-08-2024 History of Present illness Narrative Subjective [...] routine visit. documented in this encounter [facility] 02-09-2024 History of Present illness Narrative [...] given her reassurance she can deliver in [place] and as the baby grows he told [...] routine visit. documented in this encounter [facility] 01-25-2024 History of Present illness Narrative [...] Declined Have you been seen here at [facility] in a previous ? No Recent ER visits or hospitalizations? No Bring blood sugar log or meter with you today? (Please bring them with you for every visit at [facility]) N/A Flu vaccine (Jan-May)? No [...] Cystitis Gastroenteritis History of female infertility Melanoma ([facility]) 05/2021 in SITU Myopia Rhus dermatitis PAST [...] and the other consultants, we search on [employer] and all the available care everywhere epic I did review all the imaging studies of the patient available on EMR, ordered by the primary care physician and the other vocational rehab consultant HABITS: Patient activity no restrictions, diet [...] patient is in complete care of her senior systems architect. Patient does have ultrasound office visit scheduled with us Thank you for allowing me to participate in Celestino Cruz . If there any questions please do not hesitate to contact us. Sincerely, TANG BONILLA MD documented in this encounter [employer] 01-17-2024 Telephone encounter Note Maddie from Maternal- Medicine at [facility] called and left a vm at 11:25 am She said that she needs faxed over some information about the pt. She said if there is any Genetic Testing that has been done, Her first OB US, and she needs a reasoning for sending her to see them. Fax is [phone] Phone is [phone] [facility] 01-17-2024 Miscellaneous Notes Maddie from [facility]- [facility] at [facility] called and left a vm at 11:25 am She said that she needs faxed over some information about the pt. She said if there is any Genetic Testing that has been done, Her first OB US, and she needs a reasoning for sending her to see them. Fax is [phone] Phone is [phone] documented in this encounter [facility] 01-11-2024 History of Present illness Narrative [...] report and if needed will send to [facility] for consult. Urine protein-negative Urine glucose-negative Labs: reviewed Imaging Assessment/Plan Diagnoses and all orders for this visit: Encounter for supervision of other normal , second trimester History of section Continue vitamin. Labs reviewed. Rhogam not needed patient is O+ positive GTT at 28 weeks Follow up in 4 weeks for a routine visit documented in this encounter [facility] 12-30-2023 History of Present illness Narrative [...] repeat US documented in this encounter [facility] 12-23-2023 History of Present illness Narrative [...] excision performed by Gavin Marsh MD at [facility]. Originally biopsied by Rhoda Callahan APRN-VÍCTOR also with [facility] Additional testing: none Currently [...] Examined Right arm Examined Patient wearing nail mosotho, Denies dark streaks under finger nails, Denies [...] skin exam documented in this encounter [facility] 12-15-2023 History of Present illness Narrative [...] routine visit. documented in this encounter [facility] 11-10-2023 History of Present illness Narrative [...] routine visit. documented in this encounter [facility] 10-06-2023 Miscellaneous Notes Celestino Cruz : 1990 DOS: 10/06/23 This is the follow up genetics documentation for Celestino Cruz who pursued genetic counseling at the request of ESTEE Gray to discuss her family history of a BRCA2 mutation. I spent 5 minutes over the phone with her, discussing her negative test results. Summary: Ms. Cruz was tested for the BRCA2 mutation previously found in her maternal aunts and reportedly her mother as well. Ms. Alvarado does NOT have the familial BRCA2 mutation. Therefore, she does NOT have hereditary breast and ovarian cancer syndrome. Ms. Cruz is considered to have the general population risks for cancer. Medical History: For the complete medical history, see the clinic note from the original genetic counseling visit. Ms. Cruz is a woman who is 33 y.o.. She started annual mammograms at age 31 given the family history. She was referred to Genetics by a provider at a fertility clinic as part of comprehensive workup. At the time of our initial visit, Ms. Cruz recently learned that she was ~6 weeks . 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 Family History: The pedigree was documented and is available in the electronic medical record. Family History Problem Relation Age of Onset BRCA 1/2 Mother Breast cancer Maternal Aunt 56 mets to lymph nodes, brain BRCA 1/2 Maternal Aunt BRCA 1/2 Maternal Aunt BRCA2 [id number] BRCA 1/2 Maternal Uncle BRCA 1/2 Maternal cousin Test Results and Interpretation: Ms. Cruz was tested through [employer] for the BRCA2 mutation previously found in her maternal relatives. Testing included single site analysis of the familial mutation, other genes and other areas of this gene were not included in this test. No mutation was detected. Based on this result, Ms. Cruz does not have Hereditary Breast and Ovarian Cancer syndrome. Testing was completed September 2023. Medical Management Implications: Ms. Cruz is considered to have the general population risks for cancer. Ms. Cruz should have routine general population screenings for cancer, including annual mammograms at age 40 and colonoscopy at least every 10 years starting at age 45. She should continue with skin checks as recommended by her clinical dietetic technician. Implication for Family Members: Genetic testing is recommended for untested family members who remain at-risk, including her siblings. Because Ms. Cruz does not have this mutation, her current/future children cannot have inherited the mutation and do not need to be tested for it. This statement does not account for risk due to cancers on the other parent's side of the family. For family members in [facility] and [facility], a genetic counseling appointment can be scheduled at a [facility] facility by calling [phone]. A physician referral is required and can be faxed to [phone]. For those who are not in the area, a local genetic counselor can be found at [employer]. Plan: 1. Inform relatives of negative results. Encourage untested, at-risk relatives to be tested. 2. Follow general population screening guidelines for cancer. 3. If other suspicious personal/family history arises in the future, further genetic testing may be indicated. Please call the office with any significant updates to personal/family cancer history. A copy of this letter is being sent to Ms. Cruz for her records. If you have any questions, please feel free to call the office at [phone]. Sincerely, JUAN C Agarwal Licensed Certified Genetic Counselor CC: ESTEE Gray MD documented in this encounter [facility] 10-06-2023 Telephone encounter Note Celestino Cruz : 1990 DOS: 10/06/23 This is the follow up genetics documentation for Celestino Cruz who pursued genetic counseling at the request of ESTEE Gray to discuss her family history of a BRCA2 mutation. I spent 5 minutes over the phone with her, discussing her negative test results. Summary: Ms. Cruz was tested for the BRCA2 mutation previously found in her maternal aunts and reportedly her mother as well. Ms. Alvarado does NOT have the familial BRCA2 mutation. Therefore, she does NOT have hereditary breast and ovarian cancer syndrome. Ms. Cruz is considered to have the general population risks for cancer. Medical History: For the complete medical history, see the clinic note from the original genetic counseling visit. Ms. Cruz is a woman who is 33 y.o.. She started annual mammograms at age 31 given the family history. She was referred to Genetics by a provider at a fertility clinic as part of comprehensive workup. At the time of our initial visit, Ms. Cruz recently learned that she was ~6 weeks . 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 Family History: The pedigree was documented and is available in the electronic medical record. Family History Problem Relation Age of Onset BRCA 1/2 Mother Breast cancer Maternal Aunt 56 mets to lymph nodes, brain BRCA 1/2 Maternal Aunt BRCA 1/2 Maternal Aunt BRCA2 [id number] BRCA 1/2 Maternal Uncle BRCA 1/2 Maternal cousin Test Results and Interpretation: Ms. Cruz was tested through [facility] for the BRCA2 mutation previously found in her maternal relatives. Testing included single site analysis of the familial mutation, other genes and other areas of this gene were not included in this test. No mutation was detected. Based on this result, Ms. Cruz does not have Hereditary Breast and Ovarian Cancer syndrome. Testing was completed September 2023. Medical Management Implications: Ms. Cruz is considered to have the general population risks for cancer. Ms. Cruz should have routine general population screenings for cancer, including annual mammograms at age 40 and colonoscopy at least every 10 years starting at age 45. She should continue with skin checks as recommended by her clinical dietetic technician. Implication for Family Members: Genetic testing is recommended for untested family members who remain at-risk, including her siblings. Because Ms. Cruz does not have this mutation, her current/future children cannot have inherited the mutation and do not need to be tested for it. This statement does not account for risk due to cancers on the other parent's side of the family. For family members in [facility] and [facility], a genetic counseling appointment can be scheduled at a [facility] facility by calling [phone]. A physician referral is required and can be faxed to [phone]. For those who are not in the area, a local genetic counselor can be found at [employer]. Plan: 1. Inform relatives of negative results. Encourage untested, at-risk relatives to be tested. 2. Follow general population screening guidelines for cancer. 3. If other suspicious personal/family history arises in the future, further genetic testing may be indicated. Please call the office with any significant updates to personal/family cancer history. A copy of this letter is being sent to Ms. Cruz for her records. If you have any questions, please feel free to call the office at [phone]. Sincerely, JUAN C Agarwal Licensed Certified Genetic Counselor CC: Prem Hussein APRN-VÍCTOR Bray MD [facility] 09-16-2023 History of Present illness Narrative Lab draw by venipuncture from this editorial writer documented in this encounter [facility] 06-20-2021 Hospital Discharge instructions Arlen Rhoades RN [...] Any new symptoms documented in this encounter [facility] Phone: 06-20-2021 Hospital Discharge instructions Arlen Rhoades [...] Any new symptoms documented in this encounter [facility] Phone: 09-12-2020 Hospital Discharge instructions Tamra Guardado RN - 09/12/2020 Follow-up with your OB doctor as specified. [facility] Department phone: Dr. Greyson Gonzalez CNM Dr. Laura Rhoades CNM [address] [facility] [address] [place] [address] Laura Oliver CNM [address] [facility] [address] [phone] Elba Colon, MSN, SUGGESTION CLERK, CNM [facility] [address] [facility] [address] [address] [facility] [id number] Chinyere Grande CNM [address] [place] [address] [place] [address] Carolin Esqueda CNM [address] [place] [address] [place] [address] [phone] DIET Eat a well balanced diet focusing on foods high in fiber and protein. Drink plenty of fluids especially water. To avoid constipation you may take a mild stool softener as recommended by your doctor or installers mechanical. ACTIVITY Gradually increase your activity. Resume exercise regimen only after advice by your doctor or installers mechanical. Avoid lifting anything heavier than a gallon of milk for SIX weeks. Avoid driving until your doctor or installers mechanical has given their approval. Rise slowly from [...] contact another adult for help or place infant in their crib on their back and [...] medications as recommended by your doctor or installers mechanical for pain If you develop a warm, [...] vitamins as directed by your doctor or installers mechanical. Refer to the booklet in the folder/binder for more information. If you feel you need more assistance or have questions, please call Hossein Marrufo IBCLC, professional services consultant, at or the OB department to [...] in your calf. documented in this encounter [facility] Phone: 09-12-2020 History of Present illness Narrative [...] with as needed documented in this encounter [facility] Phone: Evaluation note Diagnosis Encounter for preadmission testing- Primary S/P primary low transverse delivery, without mention of indication, unspecified as to episode of care documented in this encounter [facility] Phone: evaluation note* Diagnosis delivery delivered- Primary delivery, without mention of indication, delivered, with or without mention of antepartum condition 40 weeks gestation of state, incidental documented in this encounter [facility] Phone: evaluation note* Diagnosis Pain following surgery or procedure- Primary Other acute postoperative pain documented in this encounter [facility] Phone: evaluation note* Diagnosis 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, nose, lip, and ear (HCC)- Primary Pain following surgery or procedure Other acute postoperative pain documented in this encounter [facility] Phone: evaluation note* Diagnosis Melanocytic nevus of trunk- Primary Benign neoplasm of skin of trunk, except scrotum Melanocytic nevi of face Lentigines History of malignant melanoma of skin Personal history of malignant melanoma of skin documented in this encounter [facility]* Diagnosis Encounter for supervision of other normal , second trimester- Primary History of section Other postprocedural status documented in this encounter [facility] HealthcareEvaluation note* Diagnosis anomaly suspected but not found- Primary Suspected anomaly not found documented in this encounter [facility]* Diagnosis anomaly suspected but not found- Primary Suspected anomaly not found Pyelectasis Other specified disorder of kidney and ureter documented in this encounter [facility]* Diagnosis Pyelectasis- Primary Other specified disorder of kidney and ureter anomaly suspected but not found Suspected anomaly not found documented in this encounter [facility]* Diagnosis Pyelectasis Other specified disorder of kidney and ureter documented in this encounter [facility]* Diagnosis Encounter for supervision of other normal , third trimester- Primary Screening for diabetes mellitus Screening for iron deficiency anemia related condition in second trimester documented in this encounter [facility] HealthcareEvaluation note* Diagnosis Encounter for supervision of other normal , second trimester- Primary History of section Other postprocedural status documented in this encounter [facility] note* Diagnosis Encounter for supervision of other normal , third trimester- Primary Elevated glucose tolerance test Impaired glucose tolerance test History of section Other postprocedural status documented in this encounter [facility] note* Diagnosis Encounter for supervision of other normal , second trimester- Primary History of section Other postprocedural status related condition in second trimester documented in this encounter [facility] note* Diagnosis anomaly suspected but not found- Primary Suspected anomaly not found documented in this encounter [facility]* Diagnosis Encounter for supervision of other normal , third trimester- Primary Elevated glucose tolerance test Impaired glucose tolerance test History of section Other postprocedural status History of gestational diabetes Personal history of other genital system and obstetric disorders documented in this encounter [facility] HealthcareEvaluation note* Diagnosis Viral upper respiratory [...] (GDM) affecting documented in this encounter [facility] HealthcareInstructionsNot on filedocumented in this encounterProCrenshaw [facility] SystemInstructionsNot on filedocumented in this encounterPro[facility] SystemInstructionsNot on filedocumented in this encounterPro[facility] InstructionsNot on filedocumented in this encounterMer[facility] InstructionsNot on filedocumented in this encounterProtestant [facility] InstructionsNot on filedocumented in this encounterProtest[facility] InstructionsNot on filedocumented in this encounterProtestant [facility] InstructionsNot on filedocumented in this encounterProtestant De[facility] SystemReason for visit Narrative* Auth/Cert Specialty Diagnoses / Procedures Referred By rByanna suggs Referred To Contact Diagnoses Acoustic nerve lesion, right Acoustic nerve lesion, right LESION RIGHT NECK X1 LESION RIGHT CHEEK X 2 Procedures CO OFFICE/OUTPT VISIT,PROCEDURE ONLY CO EXC SKIN BENIG <5MM FACE,FACIAL RIGHT CHEEK LESION X 2 AND RIGHT NECK LESION X 1 [place] [address] [facility] [address] [place] [address] [facility] [address] [place] [address] Referral ID Status Reason Start Date Expiration Date Visits Re quested Visits Authorized 1 1 [facility] Phone: reason for visit Narrative* Auth/Cert Specialty Diagnoses / Procedures Referred By Bryanna t Referred To Contact Diagnoses 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 Procedures CO OFFICE/OUTPT VISIT,PROCEDURE ONLY CO EXC SKIN BENIG >4CM TRUNK,ARM,LEG RIGHT CHEEK WIDER RESECTION OF MELANOMA IN [place] [address] [place] [address] [employer] [address] [place] [address] Referral ID Status Reason Start Date Expiration Date Visits Re quested Visits Authorized [id number] 1 1 [facility] Phone: Summary Purpose Family History No Family [...] section and content) DATE CREATED AUTHOR 07/06/2018 [facility] DATE CREATED AUTHOR AUTHOR'S ORGANIZ ATION 09/13/2020 [facility] DATE CREATED AUTHOR AUTHOR'S ORGANIZ ATION 08/07/2021 [facility] DATE CREATED AUTHOR AUTHOR'S ORGANIZ ATION 01/27/2022 [facility] dical Specialist DATE CREATED AUTHOR AUTHOR'S ORGANIZ ATION 03/22/2024 [facility] DATE CREATED AUTHOR AUTHOR'S ORGANIZ ATION 04/30/2024 [facility] dical Specialists EPIC Reason for Visit (unrecogniz ed section and content) Reason Comments Scheduled Status Reason Specialty Diagnoses / Procedures Referre d By Contact Referred To Contact Diagnoses 40 weeks gestation of macrosomia Procedures CO DELIVERY ONLY SECTION Breana Ledbetter Vidal, DO [address] [place] [address] [employer] Reason Comments Skin Check Suspicious Skin Lesion Reason Comments 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 03/28/2024 Reason Comments Labs Only Reason Onset Date Comments Verbal Re-Assessment 10/06/2023 Genetics Re sults Disclosure Ordered Prescriptions (unrec ognized section and content) [...] 50 mL (mini-bag) (COMPLETED) 2,000 mg, Intravenous, TALENT ACQUISITION COORDINATOR TO O.R., 1 dose, On Wed09/10/20 at 1030, Administer within 1 hour of incision., Labor and Delivery 1224 (New Bag - Provider: Tamra Guardado, RN)1254 (Due: Stopped - Provider: Tamra Guardado, RN) citric acid-sodium citrate (BICITRA) solution 30 [...] break., 1620 (Not Given - Provider: Tamra Guardado, JOÃO - Reason: Patient/family refused)1951 (Given - Provider: Vivian Padgett RN) 0916 (Given - Provider: Tamra Guardado, JOÃO)2055 (Given - Provider: Sofie Prajapati, RN) 0946 (Given - Provider: Tamra Guardado, [...] 0756 (Given - Provider: Tamra Guardado, JOÃO)1200 (Due)1999 (Due) ketorolac (TORADOL) injection 30 mg (COMPLETED) 30 mg, Intravenous, EVERY 6 HOURS, First dose on Wed09/10/20 at 2000, For 4 doses, Do not administer for more than 5 days., 1950 (Given - Provider: Vivian Padgett, RN) 0151 (Given - Provider: Vivian Padgett, RN)0802 (Given - Provider: Tamra Guardado, RN)1356 (Given - Provider: Tamra Guardado, JOÃO) lactated ringers infusion 1,000 mL (COMPLETED) 1,000 mL, Intravenous, at 1,000 mL/hr, ONCE, On Wed09/10/20 at 1030, For 1 dose, Labor and Delivery. Administer bolus one hour prior to surgery., Labor and Delivery (Signed and Held) 1049 (New Bag - Provider: Tamra Guardado, RN) metoclopramide (REGLAN) injection 10 mg (COMPLETED) 10 mg, Intravenous, ONCE, On Wed09/10/20 at 1030, For 1 dose, Give 60 minutes before surgery., Labor and Delivery 1210 (Given - Provider: Tamra Guardado, RN) vitamin 27-1 MG tablet 1 tablet 1 tablet, Oral, DAILY, First dose on Wed09/10/20 at 1445, Begin when normal bowel activity resumes., 1620 (Not Given - Provider: Tamra Guardado RN - Reason: Patient/family refused) 0916 (Given - Provider: Tamra Guardado, JOÃO) 0944 (Given - Provider: Tamra Guardado, JÃOO) sodium chloride flush 0.9 % injection 10 mL 10 mL, Intravenous, EVERY 12 HOURS SCHEDULED (2 times per day), First dose on Wed09/10/20 at 2100, 2100 (Due) 0900 (Due)2100 (Due) 0900 (Due)2100 (Due) Ezvcrsq-Hkfhow-Grale Pertussis (BOOSTRIX) injection 0.5 mL 0.5 mL, Intramuscular, PRIOR TO DISCHARGE, Starting on Wed09/10/20 at 1416, For 1 dose, If not previously administered during at 27-36 weeks as recommended by CDC., Continuous Medication Order 09/10/2020 09/11/2020 09/12/2020 lactated ringers infusion (CANCELED) Intravenous, at 125 mL/hr, CONTINUOUS, Starting on Wed09/10/20 at 1030, Labor and Delivery (Signed and Held) 1208 (New Bag - Provider: Tamra Guardado, JOÃO)1251 (Paused - Provider: BARTOLO Lange CRNA - [...] from the bag 166.7 mL (rounded from 166.6620 mL = 10 Units), Intravenous, at 909 [...] APRN - KAYLA)1321 (Rate/Dose Change - Provider: Rhoda Rhoades APRN [...] 07/06/2021 07/07/2021 07/08/2021 bupivacaine-EPINEPHrine PF (MARCAINE-w/EPINEPHrine) 0.25% -1:[id number] injection (CANCELED) PRN, Starting on Wed07/08/21 at 0742, Until Wed07/08/21 at 0827, Intra-op 0741 (Given - Provid er: Surendra Marsh MD - Comment: OPERATIVE SITE INJECTED PRIOR TO INCISION) No Frequency Medication Order 07/06/2021 07/07/2021 07/08/2021 bupivacaine-EPINEPHrine (MARCAINE-w/EPINEPHRINE) 0.25% -1:[id number] injection 1 dose, Starting on Wed07/08/21 at [...] infused., PACU only bupivacaine-EPINEPHrine PF (MARCAINE-w/EPINEPHrine) 0.25% -1:[id number] injection (CANCELED) PRN, Starting on Wed08/04/21 at [...] Teams (unrecognized sec tion and content) Car Spotter Relationship Specialty Start Date End Date Chelsey Bray MD [address] [place] [address] PCP - General Family Medicine 09/10/20 Car Spotter Relationship Specialty Start Date End Date Chelsey Bray MD [address] [facility] [place] [address] PCP - General Family Medicine 09/10/20 Car Spotter Relationship Specialty Start Date End Date Chelsey Bray MD [address] [facility] [place] [address] PCP - General Family Medicine 08/20/22 Veronique Neely NP [address] [place] [place] [address] Nurse Practitioner Family Medicine 08/20/22 Cathy Colon CNM [address] [place] [address] Obstetrics and Gynecology 08/20/22 Car Spotter Relationship Specialty Start Date End Date Chelsey Bray MD [address] [place] [address] PCP - General Family Medicine 08/20/22 Veronique Neely NP [address] [place] [address] Nurse Practitioner Family Medicine 08/20/22 Cathy Colon CNM [address] [place] [address] Obstetrics and Gynecology 08/20/22 Car Spotter Relationship Specialty Start Date End Date Chelsey Bray MD [address] [place] [address] PCP - General Family Medicine 08/20/22 Veronique Neely NP [address] [place] [address] Nurse Practitioner Family Medicine 08/20/22 Cathy Colon CNM [address] [place] [address] Obstetrics and Gynecology 08/20/22 Car Spotter Relationship Specialty Start Date End Date Chelsey Bray MD [address] [place] [address] PCP - General Family Medicine 08/20/22 Veronique Neely PROFESSOR OF FORESTRY [address] [place] [address] Nurse Practitioner Family Medicine 08/20/22 Cathy Colon CNM [address] [place] [address] Obstetrics and Gynecology 08/20/22 Car Spotter Relationship Specialty Start Date End Date Chelsey Bray MD [address] [place] [address] PCP - General Family Medicine 08/20/22 Veronique Neely NP [address] [place] [address] Nurse Practitioner Family Medicine 08/20/22 Cathy Colon CNM [address] [place] [address] Obstetrics and Gynecology 08/20/22 Car Spotter Relationship Specialty Start Date End Date Chelsey Bray MD [address] [place] [address] PCP - General 01/24/24 Car Spotter Relationship Specialty Start Date End Date Chelsey Bray MD [address] [place] [address] PCP - General 01/24/24 Car Spotter Relationship Specialty Start Date End Date Chelsey Bray MD [address] [place] [address] PCP - General 01/24/24 Car Spotter Relationship Specialty Start Date End Date Chelsey Bray MD [address] [place] [address] PCP - General 01/24/24 Car Spotter Relationship Specialty Start Date End Date Chelsey Bray MD [address] [place] [address] PCP - General Family Medicine 08/20/22 Veronique Neely NP [address] [place] [address] Nurse Practitioner Family Medicine 08/20/22 Cathy Colon CNM [address] [place] [address] Obstetrics and Gynecology 08/20/22 Car Spotter Relationship Specialty Start Date End Date Chelsey Bray MD [address] [place] [address] PCP - General Family Medicine 08/20/22 Veronique Neely NP [address] [place] [address] Nurse Practitioner Family Medicine 08/20/22 Cathy Colon CNM [address] [place] [address] Obstetrics and Gynecology 08/20/22 Car Spotter Relationship Specialty Start Date End Date Chelsey Bray MD [address] [place] [address] PCP - General Family Medicine 08/20/22 Veronique Neely NP [address] [place] [address] Nurse Practitioner Family Medicine 08/20/22 Cathy Colon CNM [address] [place] [address] Obstetrics and Gynecology 08/20/22 Car Spotter Relationship Specialty Start Date End Date Chelsey Bray MD [address] [place] [address] PCP - General Family Medicine 08/20/22 Veronique Neely PROFESSOR OF FORESTRY [address] [place] [address] Nurse Practitioner Family Medicine 08/20/22 Cathy Colon CNM [address] [place] [address] Obstetrics and Gynecology 08/20/22 Car Spotter Relationship Specialty Start Date End Date Chelsey Bray MD [address] [place] [address] PCP - General Family Medicine 08/20/22 Veronique Neely PROFESSOR OF FORESTRY [address] [place] [address] Nurse Practitioner Family Medicine 08/20/22 Cathy Colon CN [address] [place] [address] Obstetrics and Gynecology 08/20/22 Car Spotter Relationship Specialty Start Date End Date Chelsey Bray MD [address] [place] [address] PCP - General 01/24/24 Car Spotter Relationship Specialty Start Date End Date Chelsey Bray MD [address] [place] [address] PCP - General Family Medicine 08/20/22 Veronique Neely, PROFESSOR OF FORESTRY [address] [place] [address] Nurse Practitioner Family Medicine 08/20/22 Cathy Colon CNM [address] [place] [address] Obstetrics and Gynecology 08/20/22 Car Spotter Relationship Specialty Start Date End Date Chelsey Bray MD [address] [place] [address] PCP - General Family Medicine 08/20/22 Veronique Neely NP [address] [place] [address] Nurse Practitioner Family Medicine 08/20/22 Cathy Colon CNM [address] [place] [address] Obstetrics and Gynecology 08/20/22 Car Spotter Relationship Specialty Start Date End Date Chelsey Bray MD [address] [place] [address] PCP - General Family Medicine 08/20/22 Veronique Neely NP [address] [place] [address] Nurse Practitioner Family Medicine 08/20/22 Cathy Colon CNM [address] [place] [address] Obstetrics and Gynecology 08/20/22 Car Spotter Relationship Specialty Start Date End Date Chelsey Bray MD [address] [place] [address] PCP - General Family Medicine 08/20/22 Veronique Neely NP [address] [place] [address] Nurse Practitioner Family Medicine 08/20/22 Cathy Colon CNM [address] [place] [address] Obstetrics and Gynecology 08/20/22 Car Spotter Relationship Specialty Start Date End Date Chelsey Bray MD [address] [place] [address] PCP - General Family Medicine 08/20/22 Veronique Neely NP [address] [place] [address] Nurse Practitioner Family Medicine 08/20/22 Cathy Colon CNM [address] [place] [address] Obstetrics and Gynecology 08/20/22 Car Spotter Relationship Specialty Start Date End Date Chelsey Bray MD [address] [place] [address] PCP - General Family Medicine 08/20/22 Veronique Neely NP [address] [place] [address] Nurse Practitioner Family Medicine 08/20/22 Cathy Colon CNM [address] [place] [address] Obstetrics and Gynecology 08/20/22 Car Spotter Relationship Specialty Start Date End Date Chelsey Bray MD [address] [place] [address] PCP - General Family Medicine 08/20/22 Veronique Neely NP [address] [place] [address] Nurse Practitioner Family Medicine 08/20/22 Cathy Colon CNM [address] [facility] [place] [address] Obstetrics and Gynecology 08/20/22 Car Spotter Relationship Specialty Start Date End Date Chelsey Bray MD [address] [place] [address] PCP - General Family Medicine 08/20/22 Veronique Neely NP [address] [facility] [place] [address] Nurse Practitioner [facility] Medicine 08/20/22 Cathy Colon CNM [address] [facility] [place] [address] Obstetrics and Gynecology 08/20/22 FOR RECORDS PERTAINING [...] BE BASED ON THE PRIMARY CLINICAL RECORDS. [employer] [facility]. provides no warranty or guarantee of the accuracy or completeness of information in this document.
[2024-05-08] MEDS: LACTATED RINGER'S SOLUTION 1,000 ML 1000 ML IV ×2 (06:00→06:56)
[2024-05-08 06:43] LABS: Basophils Percent Auto 0.3 % (0.2-2.0); Eosinophils Absolute Auto 0.1 10^3/uL (0.0-0.7); Eosinophils Percent Auto 1.1 % (0.9-7.0); Hematocrit 39.3 % (36.0-48.0); Hemoglobin 13.3 g/dL (12.0-16.0); Immature Granulocytes Abs Auto 0.07 10^3/uL (0.00-0.03); Immature Granulocytes Pct Auto 0.8 % (0.0-0.5); Lymphocytes Absolute Auto 1.9 10^3/uL (1.2-3.8); Lymphocytes Percent Auto 20.2 % (20.5-60.0); Mean Corpuscular HGB Conc 33.8 g/dL (29.9-35.2); Mean Corpuscular Hemoglobin 31.7 pg (26.7-34.0); Mean Corpuscular Volume 93.8 fL (81.0-99.0); Mean Platelet Volume 10.8 fL (9.5-13.5); Monocytes Absolute Auto 0.6 10^3/uL (0.3-0.8); Monocytes Percent Auto 6.1 % (1.7-12.0); Neutrophils Absolute Auto 6.5 10^3/uL (1.4-6.5); Neutrophils Percent Auto 71.5 % (43.0-75.0); Platelet Count 171 10^3/uL (150-450); Red Blood Count 4.19 10^6/uL (4.20-5.40); Red Cell Distribution Width 14.4 % (11.0-15.0); White Blood Count 9.2 10^3/uL (4.0-11.0)
[2024-05-08 06:44] LABS: Bilirubin Urine NEGATIVE (NEGATIVE); Blood Urine NEGATIVE (NEGATIVE); Clarity Urine CLEAR (CLEAR); Color Urine LT. YELLOW (YELLOW); Glucose Urine UA NEGATIVE (NEGATIVE); Ketones Urine NEGATIVE (NEGATIVE); Leukocyte Esterase Urine TRACE (NEGATIVE); Nitrite Urine NEGATIVE (NEGATIVE); Protein Urine NEGATIVE (NEG/TRACE); Urobilinogen Urine 0.2 EU/dL (0.2-1.0)
[2024-05-08] MEDS: CITRIC ACID/SODIUM CITRATE 30 ML SOLUTION ORACIT SHOHL'S SOLN PO (06:52)
[2024-05-08] MEDS: METOCLOPRAMIDE HCL 10 MG/2 ML VIAL IVP (06:53)
[2024-05-08] MEDS: FAMOTIDINE/PF 20 MG/2 ML VIAL IV (06:53)
[2024-05-08 06:57] LABS: Bacteria Urine SMALL #/HPF (NONE SEEN); RBC Urine 0-2 #/HPF (0-2); WBC Urine 0-2 #/HPF (NONE SEEN)
[2024-05-08 06:58] LABS: Cast Seen? NONE SEEN #/LPF (NONE SEEN); Crystals Seen? None Seen #/HPF (None Seen); Mucus Urine TRACE (NONE SEEN); Squamous Epithelial Cell Urine MODERATE #/LPF (NONE/RARE)
[2024-05-08 06:59] LABS: Amphetamine Screen Urine NEGATIVE (NEGATIVE); Barbiturates Screen Urine NEGATIVE (NEGATIVE); Benzodiazepines Screen Urine NEGATIVE (NEGATIVE); Buprenorphine Screen Urine NEGATIVE (NEGATIVE); Cannabinoid Screen Urine NEGATIVE (NEGATIVE); Cocaine Screen Urine NEGATIVE (NEGATIVE); Methadone Screen Urine NEGATIVE (NEGATIVE); Methamphetamines Screen Urine NEGATIVE (NEGATIVE); Opiate Screen Urine NEGATIVE (NEGATIVE); Oxycodone Screen Urine NEGATIVE (NEGATIVE); Phencyclidine Screen Urine NEGATIVE (NEGATIVE); Tricyclic Antidepressant Urine NEGATIVE (NEGATIVE); Urine Culture Indicated YES-FRMC
--- NOTE | 2024-05-08 07:20 | PM.OBHP ---
OB - H&P: HPI History of Present Illness Chief complaint: : 2 Para: 1 Gestational age based on last menstrual period: 39.1 Indications for induction: other (repeat section ) History of Present Dating criteria: LMP confirmed by 1st trimester US care: good care complications: gestational diabetes complications comment: diet cotrolled Medical complications OB: none Labs Blood type: O (+) positive Rubella: nonimmune RPR/VDLR: nonreactive GBS status: negative HBsAG: negative Review of Systems ROS Status of ROS: 10 or more systems reviewed and unremarkable except as noted in history and below [facility] Medical History (Updated 05/08/24 @ 06:38 by Minal Jacome) Gestational diabetes ?O24.419 - Gestational diabetes mellitus in , unspecified control (ICD-10) delivery delivered ?O82 - Encounter for delivery without indication (ICD-10) Melanoma of face ?C43.30 - Malignant melanoma of unspecified part of face (ICD-10) Family History (Updated 05/08/24 @ 06:17 by Minal Jacome) Aunt Family history of cancer Social History (Updated 05/08/24 @ 06:18 by Minal Jacome) Within the past year, how often did you have a drink containing alcohol: never Score interpretation: A score less than 3 is consistent with normal alcohol consumption. Smoking status: Never smoker Non-prescribed substance use: denies use Highest level of school completed/degree received: Bachelor's degree Little interest or pleasure in doing things: not at all Feeling down, depressed, or hopeless: not at all Feel stressed/tense/nervous/anxious/difficulty sleeping: not at all Do you think of yourself as: straight/heterosexual Gender Identity: female Meds Home Medications and Allergies Allergies Allergy/AdvReac Type Severity Reaction Status Date / Time adhesive tape Allergy Severe Hives Verified 05/08/24 05:56 silver Allergy Severe Hives Verified 05/08/24 05:56 Exam Constitutional Vital Signs, click to edit/add: Last Vital Signs Temp 98.0 F 05/08/24 06:03 Pulse 80 05/08/24 06:03 Resp 16 05/08/24 06:03 Pulse Ox 100 05/08/24 06:03 Documenting provider has reviewed patient's vital signs: yes Common normals: no apparent distress General appearance: cooperative and comfortable Orientation/consciousness: Yes awake, Yes oriented to person, Yes oriented to place and Yes oriented to time HENMT Common normals: normocephalic Eye Common normals: EOMs intact bilaterally Neck & C-Spine Common normals: full ROM Lymph Lymphatic: no lymphadenopathy noted Chest Common normals: inspection of chest normal Respiratory Common normals: normal respiratory effort Effort & inspection: able to speak in complete sentences Auscultation: clear to auscultation bilaterally Cardio Common normals: regular rate and regular rhythm Rate: regular rate Rhythm: regular rhythm GI Common normals: Normal to inspection, nondistended, normoactive bowel sounds present Palpation: soft Common normals: no CVA tenderness Back & Pelvis Common normals: no CVA tenderness Extremity Common normals: normal to inspection Neuro Common normals: oriented x3 Sensorium/orientation: awake, alert, oriented to person, oriented to place and oriented to time Psych Psychiatry clinicians, please identify where your Mental Status Exam is documented: Mental Status Exam documented in the separate MSE Common normals: mental status grossly normal Results Labs Labs: Short CBC 05/08/24 Range/Units 06:00 WBC 9.2 (4.0-11.0) 10^3/uL Hgb 13.3 (12.0-16.0) g/dL Hct 39.3 (36.0-48.0) % Plt Count 171 (150-450) 10^3/uL Urine 05/08/24 Range/Units 05:45 Urine Color Lt. yellow (YELLOW) Urine Clarity Clear (CLEAR) Urine pH 6.0 (5.0-9.0) Ur Specific [place] 1.020 (1.005-1.025) Urine Protein Negative (NEG/TRACE) mg/dL Urine Glucose (UA) Negative (NEGATIVE) mg/dL OB - A/P Assessment and Plan (1) Delivery by section: Urinary Catheter Management Urinary Catheter Management Urethral: Cath placed during this visit: no Urethral indwelling: Yes Reason for continuing: surgical procedure
--- NOTE | 2024-05-08 07:21 | W.PC.ACHO ---
Registration Status: ADM IN Primary Language: Lithuanian Preferred Language: Lithuanian report given to Placido MOYER at 0700. Care relinquished. Active Medications Generic Name Dose Route Start Last Admin Trade Name Freq PRN Reason Stop Dose Admin Lactated Ringer's 1,000 mls @ 1,000 mls/hr 05/08/24 06:00 05/08/24 06:56 Lactated Ringers IV 05/08/24 07:59 1,000 mls/hr .Q1H JADE Administration Oxytocin/Sodium Chloride 20 units in 1,000 mls @ 125 mls/hr 05/08/24 05:39 Pitocin 20 Unit/1,000 Ml-Ns IV Q8H PRN POST DELIVERY IV Insertion/Site Date of IV Line Insertion [ 05/08/24 Short PIV (<1.75 in) 20g left Forearm] IV Insertion Time [Short PIV ( 05:56 <1.75 in) 20g left Forearm] Neurology Patient orientation (short person,place,time,situation list) Respiratory Pulse Oximetry 100
[2024-05-08] MEDS: CEFAZOLIN SODIUM/DEXTROSE,ISO 2 GM/50 ML PIGGYBACK IV ×2 (07:40→13:56)
[2024-05-08] MEDS: LACTATED RINGER'S SOLUTION 1,000 ML 50 ML IV ×2 (08:15→08:40)
--- NOTE | 2024-05-08 08:52 | P.ON_ITS ---
Brief Operative Note Date of procedure: 05/08/24 Pre-op diagnosis general: iup at 39wks previous c/s Post-op diagnosis: same as pre-op Procedure: NAME OF PROCEDURE: [ section ] PROCEDURE: Patient was taken back to the Operating Room where she was given a spinal anesthesia with Duramorph without difficulty. She was prepped and draped in the normal sterile fashion. A Pfannenstiel skin incision was then made 2 cm above the symphysis pubis and carried down to underlying rectus fascia using a Bovie. The fascia was incised in the midline and extended laterally using Randolph scissors. Two Isa clamps were placed on the superior aspect of the fascia and dissected off the underlying rectus muscles. The same was performed on the inferior aspect as well. The muscles were then in the midline. Peritoneum was identified and entered bluntly. The peritoneum was then extended superiorly and inferiorly with good visualization of the bladder. The bladder blade was inserted. A low transverse incision was made on the patient's uterus and extended laterally digitally. The was then delivered atraumatically after the bladder blade was removed in the cephalic position. The cord was clamped and cut. Cord blood was obtained. The was handed off to awaiting team. The patient's placenta was spontaneously delivered. The uterus was then exteriorized. The uterus was cleared of all clots and debris. The b ladder blade was reinserted. The patient's uterine incision was closed using #0 Vicryl in a running lock fashion. Excellent hemostasis was assured. The uterus was then returned to the patient's abdomen. The patient's abdomen was copiously irrigated using warm saline. Peritoneal gutters were cleared of all clots and debris. Again excellent hemostasis was assured. The patient's peritoneum was closed using 3-0 Vicryl in a running fashion. The patient's fascia was closed using #0 Vicryl in a running fashion. The patient's skin was closed using 4-0 Vicryl subcuticularly. The patient tolerated the procedure well. Sponge, lap, and needle counts were correct x2. The patient was taken to the Recovery Room in stable condition. Anesthesia: spinal Surgeon: Melecio Pritchard Operations Scheduler: CATHY PALMA Estimated blood loss (mL): 600 Pathology: none sent Condition: stable Disposition: PACU Urinary Catheter Management Urinary Catheter Management Urethral: Cath placed during this visit: no
--- NOTE | 2024-05-08 08:52 | PM.OBPRCCS ---
Procedure Pre-op/Post-op diagnoses: Pre-Op/Post-Op Diagnoses Operation Date: 05/08/24 07:30 <No data on this case meets the specified criteria> Procedure: Procedures Operation Date: 05/08/24 07:30 Actual Procedure Side Surgeon p Repeat Not Applicable Melecio Pritchard DO Customer Solutions Coordinator: CATHY PALMA Estimated blood loss (mL): 600 Disposition: floor Anesthesia type: Spinal
--- NOTE | 2024-05-08 09:11 | P.EN_ITS ---
Event Note Event Note: [employer]el [employer] Operator Note: I first assisted Dr Pritchard with repeat section as directed. I independently closed the SQ layer with 3-0 vicryl without difficulty. I then independently closed the skin incision with 4-0 vicryl without difficulty. Hemostasis was noted at completion of closure. Patient tolerated procedure well.
--- NOTE | 2024-05-08 15:15 | RESP.RT ---
done per nursing
[2024-05-08] MEDS: KETOROLAC TROMETHAMINE 30 MG/ML VIAL IVP ×2 (16:00→21:26)
[2024-05-08] MEDS: ACETAMINOPHEN 500 MG TABLET 1000 MG PO (17:11)
[2024-05-08] MEDS: ENOXAPARIN SODIUM 40 MG/0.4 ML SYRINGE SUBQ (21:26)
[2024-05-09] VITALS (8 sets, daily range): BP systolic 97–112; BP diastolic 55–74; PULSE 44–48; TEMP 36.7–36.9
[2024-05-09] MEDS: ACETAMINOPHEN 500 MG TABLET 1000 MG PO ×3 (01:03→19:30)
[2024-05-09] MEDS: KETOROLAC TROMETHAMINE 30 MG/ML VIAL IVP (04:38)
[2024-05-09 06:42] LABS: Basophils Percent Auto 0.1 % (0.2-2.0); Eosinophils Percent Auto 0.1 % (0.9-7.0); Hematocrit 31.7 % (36.0-48.0); Hemoglobin 10.8 g/dL (12.0-16.0); Immature Granulocytes Abs Auto 0.12 10^3/uL (0.00-0.03); Immature Granulocytes Pct Auto 0.7 % (0.0-0.5); Lymphocytes Absolute Auto 1.8 10^3/uL (1.2-3.8); Lymphocytes Percent Auto 10.2 % (20.5-60.0); Mean Corpuscular HGB Conc 34.1 g/dL (29.9-35.2); Mean Corpuscular Hemoglobin 32.2 pg (26.7-34.0); Mean Corpuscular Volume 94.6 fL (81.0-99.0); Mean Platelet Volume 10.7 fL (9.5-13.5); Monocytes Percent Auto 5.7 % (1.7-12.0); Neutrophils Absolute Auto 14.7 10^3/uL (1.4-6.5); Neutrophils Percent Auto 83.2 % (43.0-75.0); Platelet Count 148 10^3/uL (150-450); Red Blood Count 3.35 10^6/uL (4.20-5.40); Red Cell Distribution Width 14.6 % (11.0-15.0); White Blood Count 17.6 10^3/uL (4.0-11.0)
--- NOTE | 2024-05-09 09:15 | PM.OBPN ---
OB - PN: Subj Subjective Patient comments: no complaints Closplint status: doing well and well Closplint feeding status: exclusively Exam Constitutional Vital Signs, click to edit/add: Last Vital Signs Temp 98.0 F 05/09/24 04:40 Pulse 44 L 05/09/24 04:40 Resp 16 05/09/24 04:40 BP 112/69 05/09/24 04:41 Pulse Ox 96 05/08/24 16:15 O2 Del Method Room Air 05/09/24 04:40 Documenting provider has reviewed patient's vital signs: yes Common normals: no apparent distress General appearance: cooperative, comfortable and well kempt Orientation/consciousness: Yes awake, Yes oriented to person, Yes oriented to place and Yes oriented to time HENMT Common normals: normocephalic Eye Common normals: EOMs intact bilaterally Neck & C-Spine Common normals: full ROM and no lymphadenopathy Lymph Lymphatic: no lymphadenopathy noted Chest Common normals: inspection of chest normal Respiratory Common normals: normal respiratory effort Effort & inspection: able to speak in complete sentences Auscultation: clear to auscultation bilaterally Cardio Common normals: regular rate and regular rhythm Rate: regular rate Rhythm: regular rhythm GI Common normals: Normal to inspection, nondistended, normoactive bowel sounds present Inspection: normal to inspection Auscultation: normoactive bowel sounds Palpation: soft Back & Pelvis Common normals: no CVA tenderness Extremity Common normals: normal to inspection General: normal exam except as noted Neuro Common normals: oriented x3 Sensorium/orientation: awake, alert, oriented to person, oriented to place and oriented to time Psych Psychiatry clinicians, please identify where your Mental Status Exam is documented: Mental Status Exam documented in the separate MSE Common normals: mental status grossly normal Attitude: calm Results Labs Labs: Short CBC 05/09/24 Range/Units 06:36 WBC 17.6 H (4.0-11.0) 10^3/uL Hgb 10.8 L (12.0-16.0) g/dL Hct 31.7 L (36.0-48.0) % Plt Count 148 L (150-450) 10^3/uL Urinary Catheter Management Urinary Catheter Management Urethral: Cath placed during this visit: no Urethral indwelling: No OB - PN: A/P Assessment and Plan (1) Delivery by section: Plan - day: 1 Plan: routine postop care Time Spent with Patient Time: Total time spent is greater than 50% in coordination of care (as documented) at patient's floor/unit and/or counseling patient: Total time spent with greater than 50% in coordination of care (as documented) at patient's floor/unit and/or counseling patient: less than 15 minutes
[2024-05-09] MEDS: IBUPROFEN 400 MG TABLET 800 MG PO ×2 (09:17→15:47)
[2024-05-09] MEDS: DOCUSATE SODIUM 100 MG CAPSULE PO ×2 (09:17→20:36)
--- NOTE | 2024-05-09 20:13 | W.PC.ACHO ---
Registration Status: ADM IN Primary Language: Namibian Preferred Language: Namibian Report given to Emilee MOYER at 1915. Care relinquished at this time. Active Medications Generic Name Dose Route Start Last Admin Trade Name Freq PRN Reason Stop Dose Admin Acetaminophen 1,000 mg 05/08/24 17:00 05/09/24 19:30 Acetaminophen 500 Mg Tablet PO 05/10/24 12:16 1,000 mg Q8H JADE Administration Al Hydroxide/Mg Hydroxide 2,400 mg 05/08/24 12:10 Magnesium Hydroxide 2,400 Mg/10 Ml Oral.Susp PO Q6H PRN Dyspepsia Diphtheria/Pertussis/Tetanus Vacc 0.5 ml 05/10/24 09:00 Adacel Diph,Pertuss(Acell),Tet Vac/Pf 0.5 Ml Adult Syringe IM 05/10/24 09:01 .ONCE ONE Docusate Sodium 100 mg 05/09/24 09:00 05/09/24 09:17 Docusate Sodium 100 Mg Capsule PO 100 mg BID JADE Administration Enoxaparin Sodium 40 mg 05/08/24 20:00 05/08/24 21:26 Enoxaparin Sodium 40 Mg/0.4 Ml Syringe SUBQ 40 mg Q24H JADE Administration Oxytocin/Sodium Chloride 20 units in 1,000 mls @ 125 mls/hr 05/08/24 05:39 Pitocin 20 Unit/1,000 Ml-Ns IV Q8H PRN POST DELIVERY Lactated Ringer's 1,000 mls @ 50 mls/hr 05/08/24 08:30 05/08/24 08:40 Lactated Ringers IV 50 mls/hr .Q20H JADE Administration Promethazine HCl 25 mg/ Sodium 51 mls @ 204 mls/hr 05/08/24 12:10 Chloride IV Q6H PRN Nausea And Vomiting Ibuprofen 800 mg 05/09/24 09:00 05/09/24 15:47 Ibuprofen 400 Mg Tablet PO 800 mg Q6H PRN Administration Pain Measles/Mumps/Rubella Vaccine Live 0.5 ml 05/10/24 09:00 Measles,Mumps,Rubella Vacc/Pf 0.5 Ml Vial SQ 05/10/24 09:01 .ONCE ONE Ondansetron HCl 4 mg 05/08/24 12:10 Ondansetron Pf 4 Mg/2 Ml Vial IV Q6H PRN Nausea And Vomiting Ondansetron HCl 4 mg 05/08/24 12:10 Ondansetron 4 Mg Rapdis Tablet PO Q6H PRN Nausea And Vomiting Oxycodone HCl 5 mg 05/08/24 12:15 Oxycodone Hcl 5 Mg Tablet PO Q4H PRN Breakthrough Pain Senna 17.2 mg 05/08/24 20:00 Sennosides 8.6 Mg Tablet PO QHS PRN Constipation Simethicone 80 mg 05/08/24 12:10 Simethicone 80 Mg Tab.Chew PO QID PRN Abdominal Distention Respiratory Oxygen Delivery Method Room Air Oxygen Delivery Method Room Air Oxygen Delivery Method Room Air Oxygen Delivery Method Room Air Cardiology Heart Sounds Strong,Regular Heart Sounds Strong,Regular Bowels Bowel Pattern No Bowel Movement Bowel Pattern No Bowel Movement Renal Bladder Pattern Continent Bladder Pattern Continent Bladder Pattern Continent Bladder Pattern Continent
[2024-05-09] MEDS: ENOXAPARIN SODIUM 40 MG/0.4 ML SYRINGE SUBQ (20:36)
[2024-05-10 00:09] VITALS: BP 107/68; TEMP 36.9
[2024-05-10 00:10] VITALS: O2SAT 97
[2024-05-10] MEDS: IBUPROFEN 400 MG TABLET 800 MG PO ×3 (00:11→12:50)
[2024-05-10] MEDS: ACETAMINOPHEN 500 MG TABLET 1000 MG PO ×2 (03:46→12:49)
[2024-05-10 08:45] VITALS: TEMP 36.7
[2024-05-10 08:46] VITALS: BP 121/71
[2024-05-10] MEDS: DOCUSATE SODIUM 100 MG CAPSULE PO (08:52)
--- NOTE | 2024-05-10 09:31 | PM.OBPN ---
OB - PN: Subj Subjective Patient comments: no complaints and pain well controlled [place] status: doing well Exam Constitutional Vital Signs, click to edit/add: Last Vital Signs Temp 98.1 F 05/10/24 08:45 Pulse 44 L 05/09/24 04:40 Resp 16 05/10/24 08:45 BP 107/68 05/10/24 00:09 Pulse Ox 97 05/10/24 00:10 O2 Del Method Room Air 05/10/24 08:45 Documenting provider has reviewed patient's vital signs: yes Common normals: no apparent distress Respiratory Common normals: normal respiratory effort and clear to auscultation bilaterally Cardio Common normals: regular rate and regular rhythm GI Common normals: Normal to inspection, nondistended, normoactive bowel sounds present Extremity Common normals: no clubbing, cyanosis or edema and no calf tenderness Urinary Catheter Management Urinary Catheter Management Urethral: Cath placed during this visit: no Urethral indwelling: No OB - PN: A/P Assessment and Plan (1) Delivery by section: Plan - day: 2 Plan: routine postop care, discharge home and other (fu 1wk) Time Spent with Patient Time: Total time spent is greater than 50% in coordination of care (as documented) at patient's floor/unit and/or counseling patient: Total time spent with greater than 50% in coordination of care (as documented) at patient's floor/unit and/or counseling patient: less than 15 minutes
[2024-05-10] MEDS: MEASLES,MUMPS,RUBELLA VACC/PF 0.5 ML VIAL SQ (14:13)
== END 2024-05-10 15:20 | disposition home or self-care (01) | DRG 788 ==
PROVIDERS: Obstetrics & Gynecology; Admitting Provider Midwife; PCP Family Medicine; Visit Provider Midwife
PROC: 10D00Z1 Extraction of Products of Conception, Low, Open Approach (ICD-10-PCS; CPT 59514; principal; 2024-05-08 07:30)
DX: O24.420 Gestational diabetes mellitus in childbirth, diet controlled (principal); O34.211 Maternal care for low transverse scar from previous cesarean delivery; Z3A.39 39 weeks gestation of pregnancy; Z37.0 Single live birth; Z85.820 Personal history of malignant melanoma of skin
CPT/HCPCS: 36415; 64488; 80307; 81001; 85025; 86850; 86900; 86901; 87086; 87150; 88307; 90707; 94667; 94668; J0131; J0665; J0690; J1100; J1650; J1885; J2274; J2371; J2405; J2590; J2765; J3490

== ENCOUNTER 2024-05-16 08:29 | Outpatient (OUT) | payer OTHER, SELFPAY ==
--- OUTSIDE RECORDS SUMMARY | 2024-05-16 08:43 | XMS_ITS | CCD ---
Author Organization [facility] Care Team Providers Care Hand Engraver Name Role Phone Unavailable Primary Care Provider UnavailChelsey Marks MD Primary Care Provider BREANA LEDBETTER Attending Unavail able BREANA LEDBETTER Admitting Unavail able BREANA LEDBETTER Attending Unavail able BREANA LEDBETTER Admitting Unavail able CHELSEY BRAY Primary Care Unavailable FERNANDA, Surendra BAUER Admitting Unavailabl e KRISTIANAGIANNBLAS, Surendra BAUER Attending Unavailabl CHELSEY Love Primary Care Unavailable KRISTIANAGIAERIC, Surendra BAUER Admitting Unavailabl e DALAGIANNBLAS, Surendra BAUER Attending Unavailabl CHELSEY Love Primary Care Unavailable Chelsey Bray MD Primary Care Provider Chin DELGADO, Veronique Haskins Unavailable Cathy Colon CNM Unavailable Chelsey Bray MD Primary Care Provider Chelsey Bray MD Primary Care Provider TANG BONILLA Attending Unavailable YARELYO CATHY Referring Unavailable WONDERLY, CHELSEY B Primary Care Unavailable YARELYO, CATHY Referring Unavailable CHELSEY BRAY Primary Care Unavailable YARELYO, CATHY Referring Unavailable ASA, CHELSEY Claros Primary Care Unavailable TANG BONILLA Attending Unavailable ASA, CHELSEY Claros Referring Unavailable ASA, CHELSEY Claros Primary Care Unavailable YARELYOCATHY Attending Unavailable FLOROTERESAE L Attending Unavailable FLOROTERESAE L Attending Unavailable PETHOSSEIN VARGAS Attending Unavailable YARELYOCATHY Attending Unavailable FLORO, CATHY L Referring Unavailable PETITTI, HOSSEIN A Attending Unavailable FLORO, CATHY Denney Attending Unavailable FLORO, CATHY Denney Attending Unavailable FLORO, CATHY L Attending Unavailable PETITTI, HOSSEIN A Attending Unavailable FLORO, CATHY L Referring Unavailable FLORO, CATHY L Referring Unavailable FLORO, CATHY L Attending Unavailable FLORO, CATHY L Attending Unavailable FLORO, CATHY L Attending Unavailable FLORO, CATHY L Attending Unavailable HORN, FERNANDA Attending Unavailable FLORO, CATHY L Referring Unavailable FLORO, CATHY Denney Attending Unavailable Unavailable Primary Care Provider Unavailabl e Floro, Cathy L Attending Unavailable Floro, Cathy Denney Admitting Unavailable Floro MAINTENANCE GROUNDMAN, Cathy Denney Attending Provider Allergies Allergy Classification Reported Allergen(s) Allergy Type Date of Onset Reaction(s) Facility (2 sources) Adhesive Tape Propensity to adverse reactions to drug 2 Rash [facility] Phone: (2 sources) Silver; Translations: [SILVER] Propensity to adverse reactions to drug 2 [facility] (20 sources) Silver Allergy to substance 1 Hives, Itching, Rash [facility] (20 sources) Wound Dressing Adhesive Drug Intolerance 2 [facility] (7 sources) Adhesive agent; Translations: [ADHESIVE] Propensity to adverse reactions to drug 4 Rash [facility] (6 sources) Silver Propensity to adverse reactions to drug 4 Hives, Itching, Rash [facility] Medications Current Medications Medication Drug Class(es) [...] 0.5 mg ibuprofen 800 mg oral tablet (5 sources) Nonsteroidal Anti-inflammatory Drug Start: 09-11-2020 take 1 tablet by mouth every eight hours as needed for pain ibuprofen (ADVIL;MOTRIN) 800 MG tablet Take 1 tablet by mouth every 8 hours as needed for Pain 30 tablet 1 09/12/2020 Active ibuprofen 800 MG tablet Take 400 mg by mouth every 6 (six) hours if needed for mild pain Active lanolin 1000 mg/ml topical cream (1 [...] Drug Class(es) Dates Sig (Normalized) Sig (Original) azithromycin 250 mg oral tablet (20 sources) Macrolide Antimicrobial Start: 03-28-2024 End: 05-15-2024 take 2 tablets by mouth once daily, then take 1 tablet by mouth once daily azithromycin (Zithromax) 250 MG tablet Indications: Viral upper respiratory tract infection 500 mg po daily for 2 days, and then 250 mg po daily x3 days 6 tablet 03/28/2024 05/15/2024 Discontinued (Therapy completed) cefOXitin (MEFOXIN) 2000 mg in dextrose 5% [...] mental disorders or infectious disease) (17 sources) Patient encounter status; Translations: [Encounter for screening for diabetes mellitus] Onset: 01-25-2024 02-09-2024 Episodic Other skin disorders (2 sources) Lentiginosis; Translations: [Other melanin hyperpigmentation] 12-23-2023 Episodic Other upper respiratory infections (2 sources) Viral upper respiratory tract infection; Translations: [Acute upper respiratory infection, unspecified] 03-28-2024 Episodic Previous (1 source) Maternal care for unspecified type scar from previous delivery; Translations: [Maternal care for unspecified type scar from previous delivery] Onset: 01-25-2024 Episodic Unclassified (1 source) 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 Onset: 01-25-2024 Past or Other Problems Problem Classification Problem Date Documented Da te Episodic/Chronic Other diseases of kidney and ureters (4 sources) Pyelectasia; Translations: [Unspecified hydronephrosis] 01-25-2024 Episodic Residual codes; unclassified (4 sources) Gestation period, 40 weeks; Translations: [40 weeks gestation of ] Onset: 09-10-2020 Resolved: 09-12-2020 Episodic NEGATED: Highlighted row has been ruled out!Unclassified (20 sources) No known active problems 09-22-2023 Results Test Name Value Interpretation Reference Range Facility ALL CBC WITH AUTO DIFFon BASOPHILS ABSOLUTE AUTO [address] [facility] Basophils/100 WBC (Bld) 0.1 % Low 0.2 - 2.0 % [facility] Eosinophils/100 WBC (Bld) 0.1 % Low 0.9 - 7.0 % [facility] Erythrocyte distribution width (RBC) [Ratio] 14.6 % 11.0 - 15.0 % [facility] Hematocrit (Bld) [Volume fraction] 31.7 % Low 36.0 - 48.0 % [facility] Hemoglobin (Bld) [Mass/Vol] 10.8 g/dL Low 12.0 - 16.0 g/dL [facility] IMMATURE GRANULOCYTES ABS AUTO 0.12 High [facility] Immature granulocytes/100 WBC (Bld) 0.7 % High 0.0 - 0.5 % [facility] Interpretation and review of laboratory results Abnormal [facility] LYMPHOCYTES ABSOLUTE AUTO 1.8 [facility] Lymphocytes/100 WBC (Bld) 10.2 % Low 20.5 - 60.0 % [facility] MCH (RBC) [Entitic mass] 32.2 pg 26.7 - 34.0 pg [facility] MCHC (RBC) [Mass/Vol] 34.1 g/dL 29.9 - 35.2 g/dL [facility] MCV (RBC) [Entitic vol] 94.6 fL 81.0 - 99.0 fL [facility] MONOCYTES ABSOLUTE AUTO [address] [facility] Monocytes/100 WBC (Bld) 5.7 % 1.7 - 12.0 % [facility] NEUTROPHILS ABSOLUTE AUTO 14.7 High [facility] Neutrophils/100 WBC (Bld) 83.2 % High 43.0 - 75.0 % [facility] Platelet mean volume (Bld) [Entitic vol] 10.7 fL 9.5 - 13.5 fL [facility] TBH EO # 0 [facility]H PLT 148 Low [facility] RBC 3.35 Low [facility] WBC 17.6 High [facility] ALL CBC WITH AUTO DIFFon BASOPHILS ABSOLUTE AUTO [address] [facility] Basophils/100 WBC (Bld) 0.3 % 0.2 - 2.0 % [facility] Eosinophils/100 WBC (Bld) 1.1 % 0.9 - 7.0 % [facility] Erythrocyte distribution width (RBC) [Ratio] 14.4 % 11.0 - 15.0 % [facility] Hematocrit (Bld) [Volume fraction] 39.3 % 36.0 - 48.0 % [facility] Hemoglobin (Bld) [Mass/Vol] 13.3 g/dL 12.0 - 16.0 g/dL [facility] IMMATURE GRANULOCYTES ABS AUTO 0.07 High [facility] Immature granulocytes/100 WBC (Bld) 0.8 % High 0.0 - 0.5 % [facility] Interpretation and review of laboratory results Abnormal [facility] LYMPHOCYTES ABSOLUTE AUTO 1.9 [facility] Lymphocytes/100 WBC (Bld) 20.2 % Low 20.5 - 60.0 % [facility] MCH (RBC) [Entitic mass] 31.7 pg 26.7 - 34.0 pg [facility] MCHC (RBC) [Mass/Vol] 33.8 g/dL 29.9 - 35.2 g/dL [facility] MCV (RBC) [Entitic vol] 93.8 fL 81.0 - 99.0 fL [facility] MONOCYTES ABSOLUTE AUTO 0.[address] [facility] Monocytes/100 WBC (Bld) 6.1 % 1.7 - 12.0 % [facility] NEUTROPHILS ABSOLUTE AUTO 6.5 [facility] Neutrophils/100 WBC (Bld) 71.5 % 43.0 - 75.0 % [facility] Platelet mean volume (Bld) [Entitic vol] 10.8 fL 9.5 - 13.5 fL [facility] TBH EO # 0.1 [facility] TBH PLT 171 [facility] TB RBC 4.19 Low [facility] WBC 9.2 [facility] Alin 05-08-2024 L Specimen: [id number] Received: 05/08/24 Status: STEPHENIE Preciado Num: [id number] Spec Type: Surgical Subm Dr: Cathy Colon APRN Tissues: A Placenta - 3rd Trimester (Greater than 28 weeks) (PLACENTA) Procedures: HE/Reshma, Gross/Micro L5 Age/ Patient Sex Location Account Attending Physician Celestino Cruz 34/F LABELL [id number] Cathy Colon APRN SPEC NUM: [id number] RECD: 05/08/24 STATUS: STEPHENIE PRECIADO NUM: [id number] JENS: 05/08/24 [facility] DR: Cathy Colon APRN ENTERED: 05/08/[address]: Sean,Lab SPEC TYPE: Surgical DEPT: KATHERINE AGUIRRE ORDERED: HE/3, Gross/Micro L5 ORDERED: HE/3, Gross/Micro L5 Pathological Diagnosis Placenta, With: Umbilical Cord: Three Vessel Cord, Unremarkable. Membranes: Unremarkable. Placenta: Mature Chorionic Villi, Consistent With Third Trimester Placenta. No Parenchymal Lesions Are Identified. Clinical Information Previous , G2, P2, Apgars 9 9, gestational age of 39 weeks and 1 day, gestational diabetes Gross Description Part A is received in formalin labeled with the patients name, date of , and placenta : Single MEMBRANES: Placenta Sac Rupture (cm from margin): Indeterminate, 30% disrupted Color: Blue-cochran Other Characteristics: No Insertion Site: Marginal 100% CORD: Appearance: Unremarkable Site of Insertion: Eccentric, 5 cm from the margin Specimen: [id number] Received: 05/08/24 Status: STEPHENIE Preciado Num: [id number] Spec Type: Surgical Subm Dr: Cathy Colon APRN Tissues: A Placenta - 3rd Trimester (Greater than 28 weeks) (PLACENTA) Procedures: Toyin MIJARES/Toby L5 Patient: Celestino Cruz [id number] (Continued) Specimen: [id number] Received: 05/08/24 (Continued) Gross Description (Continued) Signed (signature on file) Fany Mauro MD 05/10/24 1607 Specimen: [id number] Received: 05/08/24 Status: STEPHENIE Preciado Num: [id number] Spec Type: Surgical Subm Dr: Cathy Colon APRN Tissues: A Placenta - 3rd Trimester (Greater than 28 weeks) (PLACENTA) Procedures: HE/3, Gross/Micro L5 Patient: Celestino Cruz [id number] (Continued) Specimen: [id number] Received: 05/08/24-133 (Continued) Gross Description (Continued) Length Diameter (cm): 34.5 x 1 cm Number of revolutions: 14 True Knots: No Number of vessels: 3 GENERAL: Trimmed Weight (grams): 434 g Complete: Indeterminate, there is a paramarginally located cotyledons with a roughened irregular surface, 7 x 3.5 cm, approximately 10%. Size 1 x Size 2 x Size 3 (cm): 17 x 16 x 2.5 cm Accessory Lobe(s): No PLACENTAL DISK: Color of Surface: Blue-cochran Sub-amniotic Cyst: No Amnion Nodosum: No Subchorionic Fibrin: Yes, up to 0.3 cm in thickness, less than 5% Appearance of Cut Surface: Unremarkable Maternal floor: Unremarkable Retroplacental hematoma: No Cassettes: A1 Rolled membrane, two sections of cord A2-A3 Hospice Chaplain sections of placenta (3, ss, S25-113 A) CAROLINE . CPT Codes 49350 Specimen: [id number] Received: 05/08/24 Status: STEPHENIE Preciado Num: [id number] Spec Type: Surgical Subm Dr: Cathy Colon APRN Tissues: A Placenta - 3rd Trimester (Greater than 28 weeks) (PLACENTA) Procedures: HE/3, Gross/Micro L5 Patient: Celestino Cruz [id number] (Continued) Signed (signature on file) Fany Mauro MD 05/10/24 1607 Normal [facility] Urine Cultureon 05-08-2024 Bacteria identified Cx Nom (U) ORGANISM: Lactobacillus jensenii (O:STEFAN) [place] Count 40,000 Organism Comments Organism not Routinely Tested for Susceptibilities PERFORMED BY: [facility] [place] [address] PATHOLOGIST PRINTING GREY CLOTH TENDER FANY Munguia [facility] Comment on above: Performed By: #### C UU #### [facility] [address] US OB BPP WO NON-STRES Son 05-05-2024 [place] [address] Ultrasound Report Signed Patient: CELESTINO CRUZ MR#: [id number] : 1990 Acct:[id number] Age/Sex: 34 / F ADM Date: 05/05/24 Loc: US Attending Dr: CATHY COLON APRN, CNM Ordering Physician: CATHY COLON APRN, CNM Date of Service: 05/05/24 Procedure(s): US OB BPP wo non-stress Accession Number(s): [id number] cc: CATHY COLON APRN, CNM; CHELSEY BRAY [place] [address] Patient Name: CELESTINO CRUZ MRN: TBH:[id number] date: 1990 Sex: F Assigned Patient Location: [facility] Current Patient Location: [facility] Accession/Order Number: [id number] Exam Date: 05/05/2024 13:09 Report Date: 05/05/2024 [...] M.D. Signed By: 05/05/241801 DD/ 58 TD/TT: In Home Tutor: [facility] Radiology, Radiologist, - 05/05/2024 [place] [address] Ultrasound Report Signed Patient: CELESTINO CRUZ MR#: [id number] : 1990 Acct:[id number] Age/Sex: 34 / F ADM Date: 05/05/24 Loc: US Attending Dr: CATHY COLON APRN, CNM Ordering Physician: CATHY COLON APRN, CNM Date of Service: 05/05/24 Procedure(s): US OB BPP wo non-stress Accession Number(s): [id number] cc: CATHY COLON APRN, CNM; CHELSEY BRAY [place] [address] Patient Name: CELESTINO CRUZ MRN: [facility]:[id number] date: 1990 Sex: F Assigned Patient Location: [facility] Current Patient Location: [facility] Accession/Order Number: [id number] Exam Date: 05/05/2024 13:09 Report Date: 05/05/2024 [...] M.D. Signed By: 05/05/241801 DD/ 58 TD/TT: In Home Tutor: [facility] Radiology Study observation (narrative) [facility] US OB BPP WO NON-STRES SOrdered By: Radiologist Radiology on 05-05-2024 [facility] Work Phone: US OB GROWTHon 05-05-[address] [address] Ultrasound Report Signed Patient: CELESTINO CRUZ MR#: [id number] : 1990 Acct:[id number] Age/Sex: 34 / F ADM Date: 05/05/24 Loc: US Attending Dr: CATHY COLON APRN, CNM Ordering Physician: CATHY COLON APRN, CNM Date of Service: 05/05/24 Procedure(s): US OB growth Accession Number(s): [id number] cc: CATHY COLON APRN, CNM; CHELSEY BRAY [address] [address] Patient Name: CELESTINO CRUZ MRN: [facility]:[id number] date: 1990 Sex: F Assigned Patient Location: [facility] Current Patient Location: US Accession/Order Number: [id number] Exam Date: 05/05/2024 13:09 Report Date: 05/05/2024 [...] M.D. Signed By: 05/05/241803 DD/ 00 TD/TT: In Home Tutor: [facility] Radiology, Radiologist, MD - 05/05/2024 [place] [address] Ultrasound Report Signed Patient: CELESTINO CRUZ MR#: [id number] : 1990 Acct:[id number] Age/Sex: 34 / F ADM Date: 05/05/24 Loc: US Attending Dr: CATHY COLON APRN, CNM Ordering Physician: CATHY COLON APRN, CNM Date of Service: 05/05/24 Procedure(s): US OB growth Accession Number(s): [id number] cc: CATHY COLON APRN, CNM; CHELSEY BRAY [place] [address] Patient Name: CELESTINO CRUZ MRN: [facility]:[id number] date: 1990 Sex: F Assigned Patient Location: [facility] Current Patient Location: US Accession/Order Number: [id number] Exam Date: 05/05/2024 13:09 Report Date: 05/05/2024 [...] M.D. Signed By: 05/05/241803 DD/ 00 TD/TT: In Home Tutor: [facility] Radiology Study observation (narrative) [facility] US OB GROWTHOrdered By: Ambrose tariqogshagufta Radiology on 05-05-2024 [facility] Work Phone: US OB BPP WO NON-STRES Son 04-21-2024 [place] [address] Ultrasound Report Signed Patient: CELESTINO CRUZ MR#: [id number] : 1990 Acct:[id number] Age/Sex: 34 / F ADM Date: 04/21/24 Loc: US Attending Dr: CATHY COLON APRN, CNM Ordering Physician: CATHY COLON APRN, CNM Date of Service: 04/21/24 Procedure(s): US OB BPP wo non-stress Accession Number(s): [id number] cc: CATHY COLON APRN, CNM; CHELSEY BRAY [address] [address] Patient Name: CELESTINO CRUZ MRN: [facility]:[id number] date: 1990 Sex: F Assigned Patient Location: US Current Patient Location: US Accession/Order Number: [id number] Exam Date: 04/21/2024 14:09 Report Date: 04/21/2024 [...] Signed By: 04/21/24 1442 DD/ 1439 TD/TT: In Home Tutor: [facility] Radiology, Radiologist, - 04/21/2024 [place] [address] Ultrasound Report Signed Patient: CELESTINO CRUZ MR#: [id number] : 1990 Acct:[id number] Age/Sex: 34 / F ADM Date: 04/21/24 Loc: US Attending Dr: CATHY COLON APRN, CNM Ordering Physician: CATHY COLON APRN, CNM Date of Service: 04/21/24 Procedure(s): US OB BPP wo non-stress Accession Number(s): [id number] cc: CATHY COLON APRN, CNM; CHELSEY BRAY [place] [id number] Patient Name: CELESTINO CRUZ MRN: [facility]:[id number] date: 1990 Sex: F Assigned Patient Location: US Current Patient Location: US Accession/Order Number: [id number] Exam Date: 04/21/2024 14:09 Report Date: 04/21/2024 [...] Signed By: 04/21/24 1442 DD/ 1439 TD/TT: In Home Tutor: [facility] Radiology Study observation (narrative) [facility] OB BPP WO NON-STRES SOrdered By: Radiologist Radiology on 04-21-2024 [facility] [employer] Work Phone: No Panel Informationon 01-29 Free Cell Dna see scanned report [facility] US OB LIMITED 1+ FETUSESon 1 US OB [...] Grade 0/III Amniotic fluid volume is normal. Gas Appliance Servicer notes: Prominent stomach. IMPRESSION: 1. Normal growth. [...] diffon Hematocrit (Bld) [Volume fraction] 40.2 % [facility] Hemoglobin (Bld) [Mass/Vol] 13.3 g/dL [facility] Platelets (Bld) [#/Vol] 204 10*3/uL [facility] Rbc Mcv (Fl) By Automated Count 91.6 [facility] Chlamydia/GC by PCR Ruperto Sw abon 10-12-2023 Chlamydia Dna(Pcr) Not detected [facility] Gonorrhoeae Dna(Pcr) Not detected Pr [facility] Drug Screen, Urineon 024 Barbiturate Screen Urine Negative [facility] Opiate Quantitative Urine Negative [facility] HIV 1&2 AB/AG Screen (P24 AG )on 10-12-2023 HIV 1&2 AB/AG Non-Reactive [facility] Hemoglobin A1con 10-12-2023 HbA1c (Bld) [Mass fraction] 5.4 % 4.0 - 6.0 % [facility] Hepatitis B surface antigeno n 10-12-2023 Hepatitis B Surface Antigen Non-Reactive [facility] No Panel Informationon 10-11 [facility] Rubella IGG immune statuson 10-12-2023 Rubella immune IgG [facility] Syphilis Total(Unknown Syphi lis Status)on 10-12-2023 Syphilis Non-Reactive [facility] Type and screenon 10-12-2023 Abo/Rh(D) Positive [facility] US OB < 14 WEEKS [...] VERY IMPORTANT TO YOUR HEALTH. THE CURRENT [place] GUIDELINES RECOMMENDS ANNUAL MAMMOGRAPHY BEGINNING AT AGE 40 THIS FACILITY USES A REMINDER SYSTEM TO ENSURE ALL PATIENTS RECEIVE REMINDER NOTIFICATIONS AT THE APPROPRIATE TIME BASED ON THE RECOMMENDATIONS OF THIS EXAM. Report reported and signed by Migue Avendano on 01/27/2022 0754 Normal [facility] Specialist POCT urine pregnancyon 08-04 Beta HCG ( test) Ql (U) Negative NEGATIVE [facility] Comment on above: Specimens with hCG l evels near the threshold of the test (25 mIU/mL) may give a negative or indeterminate result. In such cases, another test should be performed with a new specimen in 48-72 hours. If early is suspected clinically in this setting, correlation with quantitative serum b-hCG level is suggested. TESTING PERFORMED AT [id number] [place] [address] Surgical Pathologyon 022 Surgical Pathology (NOTE) -- [...] summary: 1-3 specimen entirely serially submitted from 12-6. tm Microscopic Description Sections of skin excised [...] SURGICAL PATHOLOGY CONSULTATION Patient Name: CELESTINO CRUZ [facility] Rec: [id number] Path Number: [id number] [facility] ANATOMIC PATHOLOGY [address] [place] [phone] Normal [facility] Comment on above: Performed By: #### P PPVDP #### [facility] [address] [place] [address] Quarryman: Angel Malik MD Surgical Pathologyon 022 Surgical [...] CHEEK MEDIAL LESION Gross Description A. CELESTINO CHRISTINA, RIGHT NECK LESION 0.8 x 0.5 x 0.4 (depth) cm unoriented nodular valiente skin ellipse. Inked and bisected 1cs. B. CELESTINO CHRISITNA, RIGHT CHEEK LATERAL LESION 1.2 x 0.9 x 0.6 (depth) cm unoriented valiente skin ellipse with a 0.6 cm brown-valiente lesion. Inked, sectioned and entirely submitted 1cs. C. CELESTINO CHRISTINA, RIGHT CHEEK MEDIAL LESION 1.8 x 0.8 [...] appropriately. SURGICAL PATHOLOGY CONSULTATION Patient Name: CELESTINO CHRISTINA [facility] Rec: [id number] Path Number: [id number] [facility] ANATOMIC PATHOLOGY [address] [place] [address]. [place], [place] [address] Normal [facility] Comment on above: Performed By: #### P PPVDP #### [employer] [address] [place] [address] Quarryman: Angel Malik MD Hemoglobinon 09-11-2020 Hemoglobin (Bld) [Mass/Vol] 11.6 g/dL Low 11.9-15.1 [facility] Comment on above: Performed By: #### H GB #### [facility] [address] [place] [address] Quarryman: Baldemar England MD HemoglobinOrdered By: Breana Mondragon on 09-11-2020 Hemoglobin.gastrointest inal spec 1 Ql (Stl) 11.6 g/dL Low 11.9 - 15.1 g/dL [facility] [employer] Work Phone: Interpretation and review of laboratory results Abnormal [facility] [employer] Work Phone: [facility] [employer] Work Phone: DRUG SCREEN MULTI URINEOrder ed By: Cathy Colon on 09-10-2020 Amphetamine Screen, Ur Negative NEGATIVE [facility] Work Phone: Barbiturate Screen, Ur Negative NEGATIVE [facility] Work Phone: Benzodiazepine Screen, Urine Negative NEGATIVE [facility] Work Phone: Buprenorphine Urine Negative NEGATIVE [facility] Work Phone: Cannabinoid Scrn, Ur Negative NEGATIVE [facility] Work Phone: Cocaine Metabolite, Urine Negative NEGATIVE [facility] Work Phone: MDMA, Urine NOT REPORTED NEGATIVE [facility] Work Phone: Methadone Screen, Urine Negative NEGATIVE [facility] Work Phone: Methamphetamine, Urine Negative NEGATIVE [facility] Work Phone: Opiates, Urine Negative NEGATIVE [facility] Work Phone: Oxycodone Screen, Ur Negative NEGATIVE [facility] Work Phone: Phencyclidine, Urine Negative NEGATIVE [facility] Work Phone: Propoxyphene, Urine Negative NEGATIVE [facility] Work Phone: Test Information NOT REPORTED [facility] Work Phone: Tricyclic Antidepressants, Urine Negative NEGATIVE [facility] Work Phone: Comment on above: Drug screen results are to be used for medical purposes only. All positive results are unconfirmed. Testing for employment or legal uses should be sent to a reference laboratory for confirmation. [facility] Work Phone: Drug Scr, Abuse, Uron 2020 Amphetamine(s),Ur Negative Normal NEG [facility] Comment on above: Performed By: #### D AU #### [facility] [address] [place] [address] [place] [address] Quarryman: Baldemar England MD Barbiturate(s),Ur Negative Normal NEG [facility] Comment on above: Performed By: #### D AU #### [facility] [address] [place] [address] [place] [id number] Quarryman: Baldemar England MD Benzodiazepine(s) Negative Normal NEG [facility] Comment on above: Performed By: #### D AU #### [address] [place] [id number] Quarryman: Baldemar England MD Buprenorphrine, Ur Negative Normal NEG [facility] Comment on above: Performed By: #### D AU #### [facility] [address] [place] [address] Dr. [place], [facility] Quarryman: Baldemar England MD Cannabinoid(s),Ur Negative Normal NEG [facility] Comment on above: Performed By: #### D AU #### [facility] [address] [place] [address] [place] [address] Quarryman: Baldemar England MD Cocaine Metabolite Negative Normal [facility] Comment on above: Performed By: #### D AU #### [facility] [address] [place] [address] Dr. [place] [id number] Quarryman: Baldemar England MD Methadone Ql (U) Negative Normal NEG [facility] Comment on above: Performed By: #### D AU #### [facility] [address] [place] [address] [place] [address] Quarryman: Baldemar England MD Methamphetamine, Ur Negative Normal NEG [facility] Comment on above: Performed By: #### D AU #### [facility] [address] [place] [address] Dr. [place], [place] [id number] Quarryman: Baldemar England MD Opiate(s), Ur Negative Normal NEG [facility] Comment on above: Performed By: #### D AU #### [address] [place], [place] [id number] Quarryman: Baldemar England MD Oxycodone, Urine Negative Normal NEG [facility] Comment on above: Performed By: #### D AU #### [facility] [address] [place] [address] Dr. [place], [place] [id number] Quarryman: Baldemar England MD Phencyclidine, Ur Negative Normal NEG [facility] Comment on above: Performed By: #### D AU #### [address] [place], [place] [id number] Quarryman: Baldemar England MD Propoxyphene,Urine Negative Normal NEG [facility] Comment on above: Performed By: #### D AU #### [facility] [address] [place] [address] Dr. [place], [place] [id number] Quarryman: Baldemar England MD Tricyclic antidepressants Screen Ql (U) Negative Normal NEG [facility] Comment on above: Result Comment: Drug screen results are to be used for medical purposes only. All positive results are unconfirmed. Testing for employment or legal uses should be sent to a reference laboratory for confirmation. Performed By: #### D AU #### [facility] [address] [place] [address] Dr. [place], [place] [id number] Quarryman: Baldemar England MD Interpretive Info NOT REPORTED Normal [facility] Comment on above: Performed By: #### D AU #### [facility] [address] [place] [address] Quarryman: Baldemar England MD MDMA, Urine NOT REPORTED Normal [facility] Comment on above: Performed By: #### D AU #### [facility] [address] [place] [address] Quarryman: Baldemar England MD CBC Auto DifferentialOrdered By: Breana Mondragon on 09-09-2020 Absolute Eos # 0.07 [facility] Work Phone: Absolute Immature Granulocyte 0.12 [facility] Work Phone: Absolute Lymph # 1.38 [facility] Work Phone: Absolute [place] # 0.55 [facility] Work Phone: Basophils (Bld) [#/Vol] 10*3/uL M [facility] Work Phone: Basophils/100 WBC (Bld) 0 % 0 - 2 % M [facility] Work Phone: Differential Type NOT REPORTED [facility] Work Phone: Eosinophils/100 WBC (Bld) 1 % 1 - 4 % [facility] Work Phone: Hematocrit (Bld) [Volume fraction] 39.8 % 36.3 - 47.1 % [facility] Work Phone: Hemoglobin.gastrointest inal spec 1 Ql (Stl) 13.5 g/dL 11.9 - 15.1 g/dL [facility] Work Phone: Immature granulocytes/100 WBC (Bld) 1 % High 0 [facility] Work Phone: Interpretation and review of laboratory results Abnormal [facility] Work Phone: Lymphocytes/100 WBC (Bld) 13 % Low 24 - 43 % [employer] Phone: MCH (RBC) [Entitic mass] 31.8 pg 25.2 - 33.5 pg [employer] Phone: MCHC (RBC) [Mass/Vol] 33.9 g/dL 28.4 - 34.8 g/dL [employer] Phone: MCV (RBC) [Entitic vol] 93.6 fL 82.6 - 102.9 fL [employer] Phone: Monocytes/100 WBC (Bld) 5 % 3 - 12 % M [facility] Work Phone: NRBC Automated 0.0 0.0 per 100 WBC [employer] Phone: Platelet distribution width (Bld) [Ratio] 13.6 % 11.8 - 14.4 % [employer] Phone: Platelet Estimate NOT REPORTED [employer] Phone: Platelet mean volume (Bld) [Entitic vol] 10.6 fL 8.1 - 13.5 fL [employer] Phone: Platelets (Bld) [#/Vol] 166 10*3/uL [employer] Phone: RBC (Bld) [#/Vol] 4.25 10*6/uL 3.95 - 5.1 1 m/uL [facility] Work Phone: RBC (Bld) [#/Vol] NOT REPORTED [employer] Phone: Segmented neutrophils/100 WBC (Bld) 80 % High 36 - 65 % [facility] Work Phone: Segs Absolute 8.84 [facility] Work Phone: WBC (Bld) [#/Vol] 11.0 10*3/uL [employer] Phone: WBC (Bld) [#/Vol] NOT REPORTED [facility] Work Phone: [facility] Work Phone: CBC with Diffon 09-09-2020 Abs. Basophil <0.03 Normal 0.00-0.20 [facility] Comment on above: Performed By: #### C DP #### [facility] [address] [place] [address] [place] [address] Quarryman: Baldemar England MD Abs.Imm.Granulocyte 0.12 k/uL Normal 0.00-0.30 [facility] Comment on above: Performed By: #### C DP #### [address] [place] [address] Quarryman: Baldemar England MD Abs.Neutrophil (Seg) 8.84 k/uL High 1.50-8.10 [facility] Comment on above: Performed By: #### C DP #### [address] [place] [address] Quarryman: Baldemar England MD Basophils/100 WBC (Bld) 0 % Normal 0-2 [facility] Comment on above: Performed By: #### C DP #### [address] [place] [address] Quarryman: Baldemar England MD Eosinophils (Bld) [#/Vol] 0.07 10*3/uL Normal 0.00-0.44 [facility] Comment on above: Performed By: #### C DP #### [facility] [address] [place] [address] [place] [address] Quarryman: Baldemar England MD Eosinophils/100 WBC (Bld) 1 % Normal 1-4 [facility] Comment on above: Performed By: #### C DP #### [address] [place], [place] [id number] Quarryman: Baldemar England MD Erythrocyte distribution width (RBC) [Ratio] 13.6 % Normal 11.8-14.4 [facility] Comment on above: Performed By: #### C DP #### [facility] [address] [place], [place] [id number] Quarryman: Baldemar England MD Hematocrit (Bld) [Volume fraction] 39.8 % Normal 36.3-47.1 [facility] Comment on above: Performed By: #### C DP #### [facility] [address] [place] [address] Quarryman: Baldemar England MD Hemoglobin (Bld) [Mass/Vol] 13.5 g/dL Normal 11.9-15.1 [facility] Comment on above: Performed By: #### C DP #### [facility] [address] [place] [address] Dr. [place], [facility] Quarryman: Baldemar England MD Immature granulocytes/100 WBC (Bld) 1 % High 0 [facility] Comment on above: Performed By: #### C DP #### [facility] [address] [place], [place] [id number] Quarryman: Baldemar England MD Lymphocytes (Bld) [#/Vol] 1.38 10*3/uL Normal 1.10-3.70 [facility] Comment on above: Performed By: #### C DP #### [facility] [address] [place], [facility] Quarryman: Baldemar England MD Lymphocytes/100 WBC (Bld) 13 % Low 24-43 [facility] Comment on above: Performed By: #### C DP #### [facility] [address] [place], [place] [id number] Quarryman: Baldemar England MD MCH (RBC) [Entitic mass] 31.8 pg Normal 25.2-33.5 [facility] Comment on above: Performed By: #### C DP #### [facility] [address] [place], [place] [id number] Quarryman: Baldemar England MD MCHC (RBC) [Mass/Vol] 33.9 g/dL Normal 28.4-34.8 [facility] Comment on above: Performed By: #### C DP #### [facility] [address] [place], [facility]83 Quarryman: Baldemar England MD MCV (RBC) [Entitic vol] 93.6 fL Normal 82.6-102.9 [facility] Comment on above: Performed By: #### C DP #### [address] [place], [facility] Quarryman: Baldemar England MD Monocytes (Bld) [#/Vol] 0.55 10*3/uL Normal 0.10-1.20 [facility] Comment on above: Performed By: #### C DP #### [facility] [address] [place], [place] [id number] Quarryman: Baldemar England MD Monocytes/100 WBC (Bld) 5 % Normal 3-12 [facility] Comment on above: Performed By: #### C DP #### [address] [place], [place] [id number] Quarryman: Baldemar England MD Neutrophil (Seg) 80 % High 36-65 [facility] Comment on above: Performed By: #### C DP #### [facility] [address] [place], [place] [id number] Quarryman: Baldemar England MD NRBC Automated 0.0 per 100 WBC Normal 0.0 [facility] Comment on above: Performed By: #### C DP #### [facility] [address] [place], [place] [id number] Quarryman: Baldemar England MD Platelet mean volume (Bld) [Entitic vol] 10.6 fL Normal 8.1-13.5 [facility] Comment on above: Performed By: #### C DP #### [facility] [address] [place] [address] Quarryman: Baldemar England MD Platelets (Bld) [#/Vol] 166 10*3/uL Normal 138-453 [facility] Comment on above: Performed By: #### C DP #### [facility] [address] [place], [facility] Quarryman: Baldemar England MD RBC (Bld) [#/Vol] 4.25 10*6/uL Normal 3.95-5.11 [facility] Comment on above: Performed By: #### C DP #### [address] [place], [place] [address] Quarryman: Baldemar England MD WBC (Bld) [#/Vol] 11.0 10*3/uL Normal 3.5-11.3 [facility] Comment on above: Performed By: #### C DP #### [address] [place], [facility]83 Quarryman: Baldemar England MD Auto Diff Performed NOT REPORTED Normal [facility] Comment on above: Performed By: #### C DP #### [address] [place], [facility]83 Quarryman: Baldemar England MD Platelet Estimate NOT REPORTED Normal [facility] Comment on above: Performed By: #### C DP #### [address] [place], [facility]83 Quarryman: Baldemar England MD RBC morphology finding Nom (Bld) NOT REPORTED Normal [facility] Comment on above: Performed By: #### C DP #### [facility] [address] [place] [address] Quarryman: Baldemar England MD WBC Morphology NOT REPORTED Normal [facility] Comment on above: Performed By: #### C DP #### [facility] [address] [place] [address] Quarryman: Baldemar England MD Type + Screenon 09-09-2020 Type + Screen Sample Expiration 09/12/2020,2359 Arm Band Number [id number] ABO/Rh(D) O POSITIVE Antibody Screen NEGATIVE Normal [facility] Comment on above: Performed By: #### T YS #### [facility] [address] [place] [address] Quarryman: Baldemar England MD GBS, External ResultOrdered By: Cathy Cooln on 08-07-2020 GBS, External Result Negative [facility] [employer] Work Phone: Comment on above: reviewed with A Phoebe bermudez RN [facility] [employer] Work Phone: ABO, External ResultOrdered By: Cathy Colon on 01-30-2020 ABO, External Result [employer] Work Phone: Comment on above: reviewed with A Phoebe bermudez RN C. Trachomatis, External Res ultOrdered By: Cathy Colon on 01-30-2020 C. Trachomatis, External Result Not detected [facility] Phone: Comment on above: reviewed with A Phoebe bermudez RN HIV, External ResultOrdered By: Cathy Colon on 01-30-2020 HIV, External Result Non-Reactive [facility] [employer] Work Phone: Comment on above: reviewed with A Phoebe bermudez RN Hepatitis B, External Result Ordered By: Cathy Colon on 01-30-2020 Hep B, External Result Non-Reactive [facility] [employer] Work Phone: Comment on above: reviewed with A Phoebe bermudez RN N. Gonorrhoeae, External Res ultOrdered By: Cathy Colon on 01-30-2020 N. Gonorrhoeae, External Result Not detected [facility]: Comment on above: reviewed with A phoebe bermudez RN No Panel InformationOrdered By: Cathy Colon on 01-30-2020 [employer] Work Phone: [employer] Work Phone: RPR, External LabOrdered By: Cathy Colon on 01-30-2020 RPR, External Result Non-Reactive [facility] [employer] Work Phone: Comment on above: reviewed with A Phoebe bermudez RN Rh Factor, External ResultOr dered By: Cathy Colon on 01-30-2020 Rh Factor, External Result + [employer] Work Phone: Comment on above: reviewed with A Phoebe bermudez RN Rubella Titer, External Resu ltOrdered By: Cathy Colon on 01-30-2020 Rubella Titer, External Result immune [employer] Phone: Comment on above: reviewed with A Phoebe bermudez RN Vital Signs Date Time Vital Sign Value Performing Clinician Faci lity 05-15-2024 16:37-0500 Body mass index (BMI) [Ratio] 30.04 kg/m2 Cathy Pritchettjoanie CNM Work Phone: [facility] 05-15-2024 16:37-0500 Body weight 79.38 kg Cathy Colon CNM Work Phone: [facility] 05-15-2024 16:37-0500 Diastolic blood pressure 80 mm[Hg] Cathy Yarelyjoanie CNM Work Phone: [facility] 05-15-2024 16:37-0500 Systolic blood pressure 120 mm[Hg] Cathy Colon CNM Work Phone: [facility] 05-02-2024 08:31-0500 Body mass index (BMI) [Ratio] 32.44 kg/m2 Cathy Colon CNM Work Phone: [facility] 05-02-2024 08:31-0500 Body weight 85.73 kg Cathy Colon CNM Work Phone: [facility] 05-02-2024 08:31-0500 Diastolic blood pressure 80 mm[Hg] Cathy Floro CNM Work Phone: [facility] 05-02-2024 08:31-0500 Systolic blood pressure 120 mm[Hg] Cathy Floro CNM Work Phone: [facility] 04-24-2024 17:26-0500 Body mass index (BMI) [Ratio] 32.61 kg/m2 Cathy Floro CNM Work Phone: [facility] 04-24-2024 17:26-0500 Body weight 86.18 kg Cathy Floro CNM Work Phone: [facility] 04-24-2024 17:26-0500 Diastolic blood pressure 70 mm[Hg] Cathy Floro CNM Work Phone: [facility] 04-24-2024 17:26-0500 Systolic blood pressure 112 mm[Hg] Cathy Floro CNM Work Phone: [facility] 04-18-2024 10:01-0500 Body mass index (BMI) [Ratio] 32.1 kg/m2 Cathy Floro CNM Work Phone: [facility] 04-18-2024 10:01-0500 Body weight 84.82 kg Cathy Floro CNM Work Phone: [facility] 04-18-2024 10:01-0500 Diastolic blood pressure 60 mm[Hg] Cathy Floro CNM Work Phone: [facility] 04-18-2024 10:01-0500 Systolic blood pressure 110 mm[Hg] Cathy Floro CNM Work Phone: [facility] 04-11-2024 08:32-0500 Body mass index (BMI) [Ratio] 32.27 kg/m2 Cathy Floro CNM Work Phone: [facility] 04-11-2024 08:32-0500 Body weight 85.28 kg Cathy Floro CNM Work Phone: [facility] 04-11-2024 08:32-0500 Diastolic blood pressure 70 mm[Hg] Cathy Floro CNM Work Phone: [facility] 04-11-2024 08:32-0500 Systolic blood pressure 118 mm[Hg] Cathy Floro CNM Work Phone: [facility] 03-28-2024 08:52-0500 Body mass index (BMI) [Ratio] 31.93 kg/m2 Cathy Floro CNM Work Phone: [facility] 03-28-2024 08:52-0500 Body weight 84.37 kg Cathy Floro CNM Work Phone: [facility] 03-28-2024 08:52-0500 Diastolic blood pressure 70 mm[Hg] Cathy Floro CNM Work Phone: [facility] 03-28-2024 08:52-0500 Systolic blood pressure 116 mm[Hg] Cathy Floro CNM Work Phone: [facility] 03-23-2024 08:50-0500 Body mass index (BMI) [Ratio] 32.27 kg/m2 Cathy Floro CNM Work Phone: [facility] 03-23-2024 08:50-0500 Body weight 85.28 kg Cathy Floro CNM Work Phone: [facility] 03-23-2024 08:50-0500 Diastolic blood pressure 70 mm[Hg] Cathy Floro CNM Work Phone: [facility] 03-23-2024 08:50-0500 Systolic blood pressure 110 mm[Hg] Cathy Floro CNM Work Phone: [facility] 03-20-2024 08:41-0500 Body mass index (BMI) [Ratio] 32.58 kg/m2 Tang Bonilla MD Work Phone: [facility] 03-20-2024 08:41-0500 Body weight 86.09 kg Tang Bonilla MD Work Phone: [facility] 03-20-2024 08:41-0500 Diastolic blood pressure 64 mm[Hg] Tang Bonilla MD Work Phone: [facility] 03-20-2024 08:41-0500 Heart rate 93 /min Tang Bonilla MD Work Phone: [facility] 03-20-2024 08:41-0500 Systolic blood pressure 112 mm[Hg] Tang Bonilla MD Work Phone: [facility] 03-08-2024 08:34-0500 Body mass index (BMI) [Ratio] 32.27 kg/m2 Cathy Floro CNM Work Phone: [facility] 03-08-2024 08:34-0500 Body weight 85.28 kg Cathy Floro CNM Work Phone: [facility] 03-08-2024 08:34-0500 Diastolic blood pressure 80 mm[Hg] Cathy Floro CNM Work Phone: [facility] 03-08-2024 08:34-0500 Systolic blood pressure 120 mm[Hg] Cathy Floro CNM Work Phone: [facility] 02-09-2024 08:33-0500 Body mass index (BMI) [Ratio] 32.1 kg/m2 Cathy Floro CNM Work Phone: [facility] 02-09-2024 08:33-0500 Body weight 84.82 kg Cathy Floro CNM Work Phone: [facility] 02-09-2024 08:33-0500 Diastolic blood pressure 74 mm[Hg] Cathy Floro CNM Work Phone: [facility] 02-09-2024 08:33-0500 Systolic blood pressure 120 mm[Hg] Cathy Floro CNM Work Phone: [facility] 01-25-2024 08:45-0500 Body height 162.6 cm Tang Bonilla MD Work Phone: [facility] 01-25-2024 08:45-0500 Body mass index (BMI) [Ratio] 31.51 kg/m2 Tang Bonilla MD Work Phone: [facility] 01-25-2024 08:45-0500 Body weight 83.28 kg Tang Bonilla MD Work Phone: [facility] 01-25-2024 08:45-0500 Diastolic blood pressure 71 mm[Hg] Tang Bonilla MD Work Phone: [facility] 01-25-2024 08:45-0500 Heart rate 81 /min Tang Bonilla MD Work Phone: [facility] 01-25-2024 08:45-0500 Systolic blood pressure 112 mm[Hg] Tang Bonilla MD Work Phone: [facility] 01-11-2024 08:47-0400 Body mass index (BMI) [Ratio] 30.9 kg/m2 Cathy Floro CNM Work Phone: [facility] 01-11-2024 08:47-0400 Body weight 81.65 kg Cathy Floro CNM Work Phone: [facility] 01-11-2024 08:47-0400 Diastolic blood pressure 70 mm[Hg] Cathy Floro CNM Work Phone: [facility] 01-11-2024 08:47-0400 Systolic blood pressure 110 mm[Hg] Cathy Floro CNM Work Phone: [facility] 12-15-2023 11:27-0400 Body mass index (BMI) [Ratio] 30.04 kg/m2 Cathy Floro CNM Work Phone: [facility] 12-15-2023 11:27-0400 Body weight 79.38 kg Cathy Floro CNM Work Phone: [facility] 12-15-2023 11:27-0400 Diastolic blood pressure 70 mm[Hg] Cathy Pritchetto CNM Work Phone: [facility] 12-15-2023 11:27-0400 Systolic blood pressure 116 mm[Hg] Cathy Pritchetto CNM Work Phone: [facility] 11-10-2023 08:31-0400 Body mass index (BMI) [Ratio] 29.52 kg/m2 Cathy Colon CNM Work Phone: [facility] 11-10-2023 08:31-0400 Body weight 78.02 kg Cathy Colon CNM Work Phone: [facility] 11-10-2023 08:31-0400 Diastolic blood pressure 64 mm[Hg] Cathy Pritchetto CNM Work Phone: [facility] 11-10-2023 08:31-0400 Systolic blood pressure 100 mm[Hg] Cathy Pritchetto CNM Work Phone: [facility] 08-04-2021 13:00-0400 Heart rate 49 /min MARIUM Michael MD Work Phone: [facility] 08-04-2021 13:00-0400 Respiratory rate 21 /min MARIUM Michael MD Work Phone: [facility] 08-04-2021 13:00-0400 SaO2% (BldA) [Mass fraction] 100 % MARIUM Michael MD Work Phone: [facility] 08-04-2021 12:45-0400 Diastolic blood pressure 77 mm[Hg] MARIUM Michael MD Work Phone: [facility] 08-04-2021 12:45-0400 Systolic blood pressure 109 mm[Hg] MARIUM Michael MD Work Phone: [facility] 08-04-2021 12:18-0400 Body temperature 96.8 [degF] MARIUM Michael MD Work Phone: [facility] 08-04-2021 09:48-0400 Body height 162.6 cm MARIUM Michael MD Work Phone: [employer] [employer] 08-04-2021 09:48-0400 Body mass index (BMI) [Ratio] 31.24 kg/m2 MARIUM Michael MD Work Phone: [facility] 08-04-2021 09:48-0400 Body weight 82.56 kg MARIUM Michael MD Work Phone: [facility] 07-08-2021 08:14-0400 Respiratory rate 0 /min MARIUM Michael MD Work Phone: [facility] 07-08-2021 08:10-0400 Body temperature 97.81 [degF] MARIUM Michael MD Work Phone: [facility] 07-08-2021 08:10-0400 Diastolic blood pressure 69 mm[Hg] NA Fernanda WATKINS Work Phone: [employer] 07-08-2021 08:10-0400 Heart rate 54 /min MARIUM Michael MD Work Phone: [facility] 07-08-2021 08:10-0400 SaO2% (BldA) [Mass fraction] 100 % MARIUM Michael MD Work Phone: [facility] 07-08-2021 08:10-0400 Systolic blood pressure 107 mm[Hg] MARIUM Michael MD Work Phone: [facility] 07-08-2021 07:01-0400 Body height 162.6 cm MARIUM Michael MD Work Phone: [facility] 07-08-2021 07:01-0400 Body mass index (BMI) [Ratio] 31.41 kg/m2 MARIUM Michael MD Work Phone: [facility] 07-08-2021 07:01-0400 Body weight 83.01 kg MARIUM Michael MD Work Phone: [facility] 09-12-2020 07:33-0400 Diastolic blood pressure 76 mm[Hg] Breana Hastingsg DO Work Phone: [employer] [facility] Work Phone: 09-12-2020 07:33-0400 Heart rate 61 /min Breana Hastingsg DO Work Phone: [employer] [facility] Work Phone: 09-12-2020 07:33-0400 Respiratory rate 18 /min Breana Hastingsg DO Work Phone: [employer] [facility] Work Phone: 09-12-2020 07:33-0400 Systolic blood pressure 115 mm[Hg] Breana Hastingsg DO Work Phone: [employer] [facility] Work Phone: 09-12-2020 07:32-0400 Body temperature 98.4 [degF] Breana Hastingsg DO Work Phone: [employer] Work Phone: 09-10-2020 16:08-0400 SaO2% (BldA) [Mass fraction] 100 % Breana Hastingsg DO Work Phone: [employer] [facility] Work Phone: 09-10-2020 12:10-0400 Body height 162.6 cm Breana Hastingsg DO Work Phone: [employer] Work Phone: 09-10-2020 12:10-0400 Body mass index (BMI) [Ratio] 34.84 kg/m2 Breana Hastingsg DO Work Phone: [employer] Work Phone: 09-10-2020 12:10-0400 Body weight 92.08 kg Breana Hastingsg DO Work Phone: [employer] Work Phone: Encounters Encounter Date Encounter Type Care Provider Facility Start: 05-15-2024 End: 05-15-2024 Office outpatient visit 15 minutes Cathy Colon CNM Work Phone: [facility] Comment on above: examinati on following delivery (Primary Dx); Encounter for routine follow-up; History of section Start: 05-09-2024 End: 05-09-2024 Clinisync Result Encounter Cathy Colon CNM Work Phone: [facility] External Department Unsolicited Start: 05-09-2024 End: 05-09-2024 Clinisync Result Encounter Cathy Colon CNM Work Phone: [facility] External Department Unsolicited Start: 05-08-2024 End: 05-08-2024 Clinisync Result Encounter Cathy Colon CNM Work Phone: [facility] External Department Unsolicited Start: 05-08-2024 End: 05-09-2024 Clinisync Result Encounter Cathy Colon CNM Work Phone: [facility] External Department Unsolicited Start: 05-08-2024 End: 05-09-2024 External Result Encounter Cathy Colon CNM Work Phone: [facility] External Department Unsolicited Start: 05-08-2024 End: 05-08-2024 ambulatory Cathy Colon Facility:[facility] Start: 05-08-2024 End: 05-08-2024 Departed Referred Cathy Colon [employer] Work Phone: [facility] Start: 05-05-2024 End: 05-05-2024 Clinisync Result Encounter Cathy Colon CNM Work Phone: [facility] External Department Unsolicited Start: 05-05-2024 End: 05-05-2024 Clinisync Result Encounter Cathy Colon CNM Work Phone: [facility] External Department Unsolicited Start: 05-02-2024 End: 05-02-2024 Subsequent care visit Cathy Colon CNM Work [...] 04-21-2024 End: 04-21-2024 Clinisync Result Encounter Cathy LEM Work Phone: [facility] External Department Unsolicited Start: [...] End: 04-11-2024 Bamboo flowsheet Cathy Jumana Pritchetto CNM Work Phone: [facility] Start: 04-11-2024 End: 04-11-2024 Bamboo flowsheet Cathy Jumana Pritchetto CNM Work [...] Bonilla MD Work Phone: Maternal- Medicine at [facility] Comment on above: 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 (Primary Dx) Start: 03-20-2024 End: 03-20-2024 ambulatory [facility] Start: 03-08-2024 End: 03-08-2024 Bamboo [...] Start: 01-31-2024 End: 01-31-2024 Orders Only Jake Malaika [facility] Maternal- Medicine at [facility] Comment on above: Pyelectasis Pyelectasis (Primary Dx); anomaly suspected but not found Start: 01-25-2024 End: 01-25-2024 Office consultation new/estab patient 60 min Tang Bonilla MD Work Phone: Maternal- Medicine at [facility] Comment on above: 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 (Primary Dx) Start: 01-25-2024 End: 01-25-2024 [facility] Comment on above: 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 (Primary Dx); Pyelectasis Start: 01-17-2024 End: 01-17-2024 Chart abstracting Tang Bonilla MD Work Phone: Maternal- Medicine at [facility] Start: 01-17-2024 End: 01-17-2024 Telephone encounter Chelsey Bray MD Work Phone: [facility] FM Start: 01-14-2024 End: 01-14-2024 Chart abstracting Tang Bonilla MD Work Phone: Maternal- Medicine at [facility] Start: 01-11-2024 End: 01-11-2024 Bamboo flowsheet [...] 12-15-2023 End: 12-15-2023 Bamboo flowsheet Cathy L Yarelyo CNM Work [...] Start: 10-06-2023 End: 10-06-2023 Telephone encounter Irma Vega [facility] Work Phone: [facility] -[facility] Comment on above: Verbal Re-Assessment (Genetics Results Disclosure) Start: 09-21-2023 End: 09-21-2023 ambulatory HOSSEIN A PETITTI Not Available Start: 09-20-2023 End: 09-20-2023 ambulatory CATHY L FLORO Not Available Start: 09-16-2023 End: 09-16-2023 ambulatory Pfo Infusion Chair [facility] Start: 05-11-2023 End: 05-11-2023 ambulatory HOSSEIN A PETITTI Not Available Start: 08-04-2021 End: 08-04-2021 ambulatory A JUANCARLOS MICHAEL [facility] Start: 08-04-2021 End: 08-04-2021 Subsequent hospital visit by physician Surendra Michael MD Work Phone: On license of [facility] [place] Comment on above: 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 Start: 09-10-2020 End: 09-12-2020 Evaluation and management of inpatient [facility] Work Phone: [facility] Labor and Delivery Comment on above: delivery de livered (Primary Dx) Start: 09-09-2020 End: 09-09-[address] [facility] Start: 09-09-2020 End: 09-09-2020 Admission to establishment [facility] Karmen Mondragon Work Phone: [email or web address] Labor and Delivery Start: 09-09-2020 End: 09-09-2020 Subsequent hospital visit by physician [facility] Work Phone: [facility] Labor and Delivery Comment on above: Encounter for preadm ission testing (Primary Dx); S/P primary low transverse Procedures Date Procedure Procedure Detail Performing Clinician Start: 05-09-2024 ALL CBC WITH AUTO DIFF Cathy L Floro C NM Work Phone: Start: 05-08-2024 ALL CBC WITH AUTO DIFF Cathy L Floro C NM Work Phone: Start: 05-08-2024 Culture bacterial quanttative colony count urine Cathy L Floro CNM Work Phone: Start: 05-05-2024 US OB GROWTH Cathy Colon [...] Start: 10-12-2023 Hemoglobin glycosylated a1c Cathy Colon MAINTENANCE GROUNDMAN-CNM Work Phone: Start: 10-12-2023 HIV 1&2 AB/AG SCREEN (P24 AG) Not In System Ref Prov Start: 10-12-2023 Iaad ia hepatitis b surface antigen Not In System Ref Prov Start: 10-12-2023 Syphilis test non-treponemal antibody qual Not In System Ref Prov Start: 10-12-2023 TYPE AND SCREEN Not In System Ref Pr ov Start: 08-04-2021 Urine test visual color cmprsn meths A Juancarlos Michael MD Work Phone: Start: 09-11-2020 Blood count hemoglobin Breana F Karmen Arm strong DO Work Phone: Start: 09-10-2020 Drug screen class list a Cathy Agosto PRN - CNM Work Phone: Start: 09-09-2020 Blood count complete auto&auto difrntl wbc Breana F Karmen Mondragon DO Work Phone: Start: 08-07-2020 GBS, EXTERNAL RESULT Cathy Colon MAINTENANCE GROUNDMAN - CNM Work Phone: Start: 01-30-2020 ABO, EXTERNAL RESULT Cathy Yarelyo MAINTENANCE GROUNDMAN - CNM Work Phone: Start: 01-30-2020 C. TRACHOMATIS, EXTERNAL RESULT Cathy Floro MAINTENANCE GROUNDMAN - CNM Work Phone: Start: 01-30-2020 HEPATITIS B, EXTERNAL RESULT Cathy Floro MAINTENANCE GROUNDMAN - CNM Work Phone: Start: 01-30-2020 HIV, EXTERNAL RESULT Cathy Floro MAINTENANCE GROUNDMAN - CNM Work Phone: Start: 01-30-2020 N. 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: H/O: section S/P [...] H/O: section History of section Cathy L Yarelyo CNM Work Phone: H/O: section History of section Cathy L Floro CNM Work Phone: H/O: section History of section Cathy Colon CNM Work Phone: H/O: section History of section Cathy Colon CNM Work Phone: Plan of Treatment Date Care Activity Detail Author Start: 06-20-2030 DTaP,Tdap and Td Vaccines (7 - Td or Tdap) DTaP,Tdap and Td Vaccines (7 - Td or Tdap) [facility] Start: 06-20-2030 DTaP/Tdap/Td vaccine (7 - Td or Tdap) DTaP/Tdap/Td vaccine (7 - Td or Tdap) [facility] Start: 03-20-2025 Adult BMI Screening Adult BMI Screen ing [facility] Start: 01-24-2025 Adult BMI Screening Adult BMI Screen ing [facility] Start: 01-24-2025 Tobacco Screening Tobacco Screening [facility] Start: 01-24-2025 End: 01-24-2025 US MFM with or without consult US MFM with or without consult Imaging Routine Pyelectasis Expected: 01/24/2025 (Approximate), Expires: 01/24/2025 [facility] Work Phone: Comment on above: Expected: 01/24/2025 (Approximate), Expires: 01/24/2025 Start: 12-10-2024 Screening for malign ant neoplasm of cervix [facility] Start: 06-22-2024 End: 06-22-2024 Patient encounter procedure 06/22/2024 9:15 AM EDT Office Visit [facility] [address] [place] [address] Hossein Fernandez MD [address] [place] [address] [facility] Start: 06-19-2024 End: 06-19-2024 ambulatory 06/19/2024 4:30 PM EDT Visit [facility] [place] [address] Cathy Colon, CN [address] [facility] [place] [address] [facility] Start: 05-15-2024 End: 05-15-2024 ambulatory 05/15/2024 2:30 PM EST Visit [facility] [address] [facility] [place] [phone] Cathy Colon, CN [address] [facility] [place] [address] [facility] Start: 05-08-2024 Bacteria identified in Urine by Culture [facility] Start: 05-08-2024 Urine culture [facility] Start: 05-02-2024 End: 05-02-2024 Patient encounter procedure 05/02/2024 8:30 AM EST Routine [facility] [address] [facility] [place] [phone] Cathy Colon, CN [address] [facility] [place] [address] [facility] Start: 04-25-2024 End: 04-25-2024 Patient encounter procedure 04/25/2024 10:00 AM EST Routine [facility] [address] [facility] [place] [phone] Cathy Colon, CN [address] [facility] [place] [address] [facility] Start: 04-24-2024 End: 04-24-2024 [...] EST Routine [facility] [address] [facility] [place] [address] Cathy Colon, CN [address] [facility] [place] [address] [facility] Start: 04-04-2024 End: 04-04-2024 Patient encounter procedure 04/04/2024 8:45 AM EST Routine [facility] [address] [facility] [place] [phone] Cathy Colon, CN [address] [facility] [place] [address] [facility] Start: 04-03-2024 End: 04-03-2024 Clinical Support [facility] Comment on above: Elevated glucose sary erance test; History of gestational diabetes Start: 03-28-2024 End: 03-28-2024 Patient encounter procedure 03/28/2024 8:45 AM EST Routine [facility] [address] [facility] [place] [phone] Cathy Colon, CN [address] [facility] [place] [address] [facility] Start: 03-23-2024 End: 03-23-2025 [...] of gestational diabetes Expected: 03/23/2024, Expires: 03/23/2025 [facility] Comment on above: Expected: 03/23/2024 , Expires: 03/23/2025 Start: 03-23-2024 End: 03-23-2024 Patient encounter procedure 03/23/2024 8:45 AM EST Routine [facility] [address] [place] [phone] Cathy Colon, [facility] [address] [place], [place] [id number] [facility] Start: 03-20-2024 End: 03-20-2024 Patient encounter procedure [facility] Start: 03-08-2024 End: 03-08-2025 GLUCOSE TOLERANCE TEST, GEST, 4SPEC 100G W/NDDG GLUCOSE TOLERANCE TEST, GEST, 4SPEC 100G W/NDDG Lab Routine Elevated glucose tolerance test Expected: 03/08/2024 (Approximate), Expires: 03/08/2025 [facility] Work Phone: Comment on above: Expected: 03/08/2024 (Approximate), Expires: 03/08/2025 Start: 03-08-2024 End: 03-08-2024 Patient encounter procedure 03/08/2024 8:30 AM EST Routine [facility] [address] [place] [phone] Cathy Colon, [facility] [address] [place] [address] [facility] Start: 02-09-2024 End: 02-08-2025 CBC panel - Blood by Automated count CBC Lab Routine Screening for iron deficiency anemia Expected: 02/09/2024 (Approximate), Expires: 02/08/2025 [facility] Comment on above: Expected: 02/09/2024 (Approximate), Expires: 02/08/2025 Start: 02-09-2024 End: 02-08-2025 GLUCOSE, GESTATIONAL SCREEN (50G)-135 CUTOFF GLUCOSE, GESTATIONAL SCREEN (50G)-135 CUTOFF Lab Routine Screening for diabetes mellitus Expected: 02/09/2024 (Approximate), Expires: 02/08/2025 [facility] Work Phone: Comment on above: Expected: 02/09/2024 (Approximate), Expires: 02/08/2025 Start: 02-09-2024 End: 02-08-2025 US for US OB follow up transabdominal approach Imaging Routine related condition in second trimester Expected: 02/09/2024, Expires: 02/08/2025 [facility] Comment on above: Expected: 02/09/2024 , Expires: 02/08/2025 Start: 02-09-2024 End: 02-09-2024 Patient encounter procedure 02/09/2024 8:30 AM EST Routine [facility] [address] [place] [phone] Cathy Colon [facility] [address] [place] [address] [facility] Start: 01-25-2024 End: 01-25-2024 Patient encounter procedure 01/25/2024 8:45 AM EST Office Visit Maternal- Medicine at [facility] [address] [place] [phone] Tang Bonilla MD [address] [place] [address] [facility]- Medicine at [facility] Start: 01-25-2024 End: 01-25-2024 Patient encounter procedure 01/25/2024 7:30 AM EST Appointment [facility] [address] [place] [address] [facility] Start: 01-11-2024 End: 01-11-2024 Patient encounter procedure 01/11/2024 8:45 AM EDT Routine [facility] [address] [facility] [place] [address] Cathy Colon, CNM [address] [facility] [place] [address] [facility] Start: 12-27-2023 End: 12-27-2023 Professional / ancillary services management 12/27/2023 3:15 PM EDT Ancillary Procedure [facility] [address] [place] [phone] [facility] Start: 12-23-2023 End: 12-23-2023 [...] EDT Routine [facility] [address] [facility] [place] [phone] Cathy Colon, REYM [address] [facility] [place] [address] Arrived [facility] Comment on above: Arrived Start: 12-15-2023 End: 12-15-2023 Patient encounter procedure 12/15/2023 8:30 AM EDT Routine [facility] [address] [facility] [place] [phone] Cathy Colon, CNM [address] [facility] [place] [address] [facility] Start: 11-21-2023 Influenza vaccination [facility] Start: 11-20-2021 Influenza vaccination Flu vacc ine (Season Ended) [facility] Start: 08-12-2021 End: 08-12-2021 Patient encounter procedure 08/12/2021 Office Visit Plastic Surgery Rhoda Callahan, BARTOLO Morton CNP [address] [facility] [address] [place], [place] [id number] [employer] [facility] Start: 08-04-2021 End: 08-04-2021 HEAD LESION EXCISION HEAD LESION EXCISION D03.30 RIGHT CHEEK MELANOMA 08/04/2021 11:33 AM EDT [facility] Start: 07-23-2021 End: 07-23-2021 Patient encounter procedure 07/23/2021 Office [place] [address] [place] [address] [employer] [facility] Start: 07-08-2021 End: 07-08-2021 FACIAL LESION BIOPSY EXCISION FACIAL LESION BIOPSY EXCISION LESION RIGHT NECK X1 LESION RIGHT CHEEK X 2 07/08/2021 7:29 AM EDT [facility] Start: 2021 Screening for malign ant neoplasm of cervix [facility] Start: 11-20-2020 Influenza vaccination Flu vacc ine (Season Ended) [facility] Work Phone: Start: 09-10-2020 End: 09-10-2020 Admission to same day surgery center 09/10/2020 Surgery Obstetrics and Gynecology Breana Ledbetter DO [address] [place] [address] SECTION [facility] Labor and Delivery Comment on above: SECTION Start: 09-10-2020 Subsequent hospital visit by physician 09/10/2020 Hospital Encounter Obstetrics and Gynecology Breana Ledbetter DO [address] [place] [address] [facility] Start: 01-14-2012 Screening for malign ant neoplasm of cervix [facility] [employer] Start: 2010 DTaP/Tdap/Td vaccine (1 - Tdap) DTaP/Tdap/Td vaccine (1 - Tdap) [facility] [email or web address] Phone: Start: 2009 Adult BMI Follow Up Plan Adult BMI Follow Up Plan [facility] Start: 2009 Adult BMI Screening Adult BMI Screen ing [facility] Start: 2009 Hepatitis C screening Hepatitis C [facility] [employer] Start: 2006 HIV screening HIV screen [facility] Start: 2003 COVID-19 Vaccine (1) COVID-19 Vaccin e (1) [facility] Phone: Start: 2003 Depression Screen Depression Screen [facility] [employer] Start: 2003 Depression Screening Depression Scre ening [facility] Start: 2003 Tobacco Screening Tobacco Screening [facility] Start: 01-14-1996 COVID-19 Vaccine (1) COVID-19 Vaccin e (1) [facility] [employer] Start: 01-14-1992 Varicella vaccine (1 of 2 - 2-dose childhood series) Varicella vaccine (1 of 2 - 2-dose childhood series) [facility] [employer] Start: 1991 Hepatitis C screening Hepatitis C [facility] End: 08-04-2021 INITIATE PACU OXYGEN THERAPY PROTOCOL Initiate PACU Oxygen Therapy Protocol Respiratory Care Routine Continuous until discontinued starting 08/04/2021 [facility] Phone: Comment on above: Continuous until dis continued starting 08/04/2021 Oxygen therapy [[facility] Data Set] Initiate Oxygen Therapy Protocol Respiratory Care Routine Daily until discontinued starting 09/10/2020 [employer] Phone: Comment on above: Daily until disconti nued starting 09/10/2020 Spirometry panel Incentive liz metry Respiratory Care Routine Every 2hr while awake until discontinued starting 09/10/2020 [facility] Phone: Comment on above: Every 2hr while awak e until discontinued starting 09/10/2020 Surgical Pathology Surgical Path ology Lab Routine Release Upon Ordering for 1 Occurrences starting 07/08/2021 [employer] Phone: Comment on above: Release Upon Orderin g for 1 Occurrences starting 07/08/2021 Surgical Pathology Surgical Path ology Lab Routine Release Upon Ordering for 1 Occurrences starting 08/04/2021 [employer] Phone: Comment on above: Release Upon Orderin g for 1 Occurrences starting 08/04/2021 End: 09-09-2020 TYPE AND SCREEN TYPE AND SCREEN Blood Bank STAT Encounter for preadmission testing One Time for 1 Occurrences starting 09/09/2020 until 09/09/2020 [employer] Phone: Comment on above: One Time for 1 Occur rences starting 09/09/2020 until 09/09/2020 TYPE AND SCREEN TYPE AND SCREEN Blood Bank Stat [employer] Label print Encounter for preadmission testing 09/09/2020 2:26 PM EDT [employer] Phone: Immunizations Immunization Date Immunization Notes Care Provider Fa cili 09-10-2020 diphtheria, tetanus toxoids and acellular pertussis vaccine, unspecified formulation [employer] DO Work Phone: [employer] Phone: 09-10-2020 measles, mumps and rubella virus vaccine [employer] DO Work Phone: [employer] Phone: Payers Date Payer Category Payer Self-pay 2024 Unknown [id number] 2021 Commercial Managed C are - POS [id number] 2021 Managed Care HMO (unspecified) [id number] 2021 Private Health Insurance [id number] .[id number]. [id number] 2021 Private Health Insurance [id number]. [id number] 2021 Unknown [id number] [id number]. [id number] 2020 Unknown [id number] 1.2.840.674283.1.13.239.2.7. [id number] 1991 Unknown [id number] 2.16.840.1.996754.3.579.2.17 3 1991 Unknown [id number] 2.16.840.1.436396.3.579.2.17 5 1991 Unknown [id number] 2.16.840.1.672986.3.579.2.17 5 1991 Unknown [id number] 2.16.840.1.675526.3.579.2.12 86 1991 Unknown [id number] 2.16.840.1.496606.3.579.2.12 86 1991 Unknown [id number] 2.16.840.1.543244.3.579.2.12 86 1991 Unknown [id number] 2.16.840.1.479618.3.579.2.12 86 1991 Unknown [id number] 2.16.840.1.900609.3.579.2.12 59 1991 Unknown [id number] 2.16.840.1.975515.3.579.2.12 59 1991 Unknown [id number] 2.16.840.1.608149.3.579.2.12 59 1991 Unknown [id number] 2.16.840.1.650664.3.579.2.12 59 1991 Unknown [id number] 2.16.840.1.714103.3.579.2.12 59 1991 Unknown [id number] 2.16.840.1.444427.3.579.2.12 59 1991 Unknown [id number] 2.16.840.1.250626.3.579.2.12 59 1991 Unknown [id number] 2.16.840.1.934711.3.579.2.12 59 1991 Unknown [id number] 2.16.840.1.362749.3.579.2.12 59 1991 Unknown [id number] 2.16.840.1.788280.3.579.2.12 59 1991 Unknown [id number] 2.16.840.1.580899.3.579.2.12 59 1991 Unknown [id number] 2.16.840.1.830857.3.579.2.12 59 1991 Unknown [id number] 2.16.840.1.650649.3.579.2.12 59 1991 Unknown [id number] 2.16.840.1.110629.3.579.2.12 59 1991 Unknown [id number] 2.16.840.1.491470.3.579.2.12 59 1991 Unknown [id number] 2.16.840.1.250826.3.579.2.12 59 1991 Unknown [id number] 2.16.840.1.889205.3.579.2.12 59 1991 Unknown [id number] 2.16.840.1.644755.3.579.2.12 59 1991 Unknown [id number] 2.16.840.1.886736.3.579.2.12 59 1991 Unknown [id number] 2.16.840.1.593400.3.579.2.12 59 Private Health Insurance [employer] [id number] Unknown [id number] 2.16.840.1.912594.3.579.2.53 1 Social History Date Type Detail Facility Tobacco smoking stat [facility] Unknown if ever smoked [employer] Phone: Start: 1990 Sex Assigned At Not on file [employer] Phone: Start: 09-10-2020 End: 09-02-2022 Tobacco smoking status NHIS Never smoker [employer] Start: 09-10-2020 End: 09-02-2022 Tobacco use and exposure Never used [employer] Start: 09-10-2020 End: 05-15-2024 Alcohol intake Ex-drinker (finding) [employer] Phone: Start: 07-08-2021 End: 08-04-2021 Alcohol intake Current drinker of alcohol (finding) [employer] Phone: Start: 07-08-2021 End: 12-24-2023 Alcohol intake [employer] Phone: Start: 1990 Sex Assigned At Female M Maimai Start: 07-25-2021 End: 08-04-2021 Exposure to SARS-CoV-2 (event) Not sure [employer] Phone: Start: 09-22-2023 End: 12-24-2023 Tobacco use panel [facility] Start: 09-01-2022 Alcohol Comment Alcohol: 3or 4 drinks on typical day/ monthly or less. Caffeine 1-2 cup/sday [facility] Start: 08-22-2023 [facility] Start: 06-03-2022 Gender identity Identifies as female gender (finding) [facility] Childcare Unknown [facility] Start: 10-25-2014 End: 05-09-2024 Sex Female (finding) [facility] Tobacco smoking stat [facility] Tobacco smoking consumption unknown [employer] [facility] Work Phone: Clinical Notes 09-12-2020 to 05-15-2024 Cathy Colon CNM - 05/15/2024 4:30 PM Bhavik Colon CNM - 05/02/2024 8:30 AM Bhavik Colon CNM - 04/24/2024 5:30 PM Bhavik Colon CNM - 04/18/2024 10:00 AM ESTInstructions Note Date & Type Note Facility 05-15-2024 History of Present illness Narrative Celestino Cruz is here for visit. She is 1 weeks . Complaints: has no unusual complaints Weeks at delivery: 39 week Type of delivery: , Low Transverse; repeat Gender: female Baby is healthy: yes Breast or bottle feeding: breast and bottle Complaints or complications: no complications mood: well Contraception: Nothing Resumed Sexual activity: no Resumed Menses: no EXAM: GENERAL APPEARANCE: alert, well appearing, in no apparent distress Incision: dressing off this week at home and incision looks great. All edges are approximated and healing nicely. No redness, edema, discharge or bleeding noted ASSESSMENT/PLAN: There are no diagnoses linked to this encounter. normal exam documented in this encounter [facility] 05-02-2024 History of Present illness Narrative Subjective [...] went to a meeting for work and [employer] and had chicken dinner, noodles, mashed potatoes and pie for dessert. She said she knew it would be high. The only other elevations were 2 readings at 142. She is maintaining excellent glucose numbers Continue vitamin. Labs reviewed. GBS negative Expected mode of delivery repeat section Follow up in 1 week for a routine visit. documented in this encounter [facility] 04-24-2024 History of Present illness Narrative Subjective [...] routine visit. documented in this encounter [facility] 04-18-2024 History of Present illness Narrative [...] routine visit. documented in this encounter [facility] 04-11-2024 History of Present illness Narrative [...] routine visit. documented in this encounter [facility] 03-28-2024 Telephone encounter Note Pt scheduled for nutritions/ Fernanda Horn [facility] 03-28-2024 Miscellaneous Notes Pt scheduled for nutritions/ Fernanda Horn documented in this encounter [facility] 03-28-2024 History of Present illness Narrative [...] she is waiting for an appt for business systems advisor referral. We also discussed her blood sugars [...] routine visit. documented in this encounter [facility] 03-23-2024 History of Present illness Narrative [...] info given, and will make referral to manager financial systems. Objective Physical Exam weight: 188 lb Expected [...] routine visit. documented in this encounter [facility] 03-20-2024 History of Present illness Narrative [...] Cystitis Gastroenteritis History of female infertility Melanoma ([facility] 05/2021 in [facility] Myopia Rhus dermatitis REVIEW [...] TANG BONILLA MD documented in this encounter [facility] [employer] 03-08-2024 History of Present illness Narrative Subjective [...] routine visit. documented in this encounter [facility] 02-09-2024 History of Present illness Narrative [...] given her reassurance she can deliver in [place] and as the baby grows he told [...] routine visit. documented in this encounter [facility] 01-25-2024 History of Present illness Narrative [...] Declined Have you been seen here at [facility] in a previous ? No Recent ER visits or hospitalizations? No Bring blood sugar log or meter with you today? (Please bring them with you for every visit at [facility]) N/A Flu vaccine (Jan-May)? No Any [...] Cystitis Gastroenteritis History of female infertility Melanoma ([facility]) 05/2021 in [place] Myopia Rhus dermatitis PAST [...] and the other consultants, we search on [employer] and all the available care everywhere [facility] I did review all the imaging studies of the patient available on EMR, ordered by the primary care physician and the other industrial methods consultant HABITS: Patient activity no restrictions, diet [...] patient is in complete care of her hosiery looper. Patient does have ultrasound office visit scheduled with us Thank you for allowing me to participate in Celestino Cruz . If there any questions please do not hesitate to contact us. Sincerely, TANG BONILLA MD documented in this encounter [facility] 01-17-2024 Telephone encounter Note Maddie from Maternal- Medicine at [facility] called and left a vm at 11:25 am She said that she needs faxed over some information about the pt. She said if there is any Genetic Testing that has been done, Her first OB US, and she needs a reasoning for sending her to see them. Fax is [phone] Phone is [phone] [facility] 01-17-2024 Miscellaneous Notes Maddie from Maternal- Medicine at [facility] called and left a vm at 11:25 am She said that she needs faxed over some information about the pt. She said if there is any Genetic Testing that has been done, Her first OB US, and she needs a reasoning for sending her to see them. Fax is [phone] Phone is [phone] documented in this encounter [facility] 01-11-2024 History of Present illness Narrative [...] report and if needed will send to [facility] for consult. Urine protein-negative Urine glucose-negative Labs: reviewed Imaging Assessment/Plan Diagnoses and all orders for this visit: Encounter for supervision of other normal , second trimester History of section Continue vitamin. Labs reviewed. Rhogam not needed patient is O+ positive GTT at 28 weeks Follow up in 4 weeks for a routine visit documented in this encounter [facility] 12-30-2023 History of Present illness Narrative [...] repeat US documented in this encounter [facility] 12-23-2023 History of Present illness Narrative [...] excision performed by Juancarlos Michael MD at [facility] In [facility]. Originally biopsied by ESTEE Salazar also with [facility] Additional testing: none Currently [...] Examined Right arm Examined Patient wearing nail moldovan, Denies dark streaks under finger nails, Denies [...] skin exam documented in this encounter [facility] 12-15-2023 History of Present illness Narrative [...] routine visit. documented in this encounter [facility] 11-10-2023 History of Present illness Narrative [...] routine visit. documented in this encounter [facility] 10-06-2023 Miscellaneous Notes Celestino Cruz : 1990 [...] and Interpretation: Ms. Cruz was tested through [employer] for the BRCA2 mutation previously found in [...] with skin checks as recommended by her vacuum repairer. Implication for Family Members: Genetic testing is [...] of the family. For family members in [facility] and [facility], a genetic counseling appointment can be scheduled at a [facility] facility by calling [phone]. A physician referral is required and can be faxed to [phone]. For those who are not in the area, a local genetic counselor can be found at [employer]. Plan: 1. Inform relatives of negative results. [...] feel free to call the office at [phone]. Sincerely, JUAN C Agarwal Licensed Certified Genetic Counselor CC: ESTEE Gray MD documented in this encounter [facility] 10-06-2023 Telephone encounter Note Celestino Cruz : [...] and Interpretation: Ms. Cruz was tested through [employer] for the BRCA2 mutation previously found in [...] with skin checks as recommended by her vacuum repairer. Implication for Family Members: Genetic testing is [...] of the family. For family members in [facility] and [facility], a genetic counseling appointment can be scheduled at a [facility] facility by calling [phone]. A physician referral is required and can be faxed to [phone]. For those who are not in the area, a local genetic counselor can be found at [employer]. Plan: 1. Inform relatives of negative results. [...] feel free to call the office at [phone]. Sincerely, JUAN C Agarwal Licensed Certified Genetic Counselor CC: Prem Hussein APRN-VÍCTOR [facility]ray [facility] History of Present illness Narrative Lab draw by venipuncture from this radio news writer [facility] Hospital Discharge instructions Arlen Rhoades RN [...] Any new symptoms documented in this encounter [facility] Phone: 06-20-2021 Hospital Discharge instructions Arlen Rhoades [...] Any new symptoms documented in this encounter [facility] Phone: 09-12-2020 Hospital Discharge instructions Tamra Guardado RN - 09/12/2020 Follow-up with your OB doctor as specified. [facility] OB Department phone: Dr. Hedges MD Taty Pool CNM Dr. Laura Rhoades CNM [address] [facility] [address] Laura Oliver CN [address] [facility] [id number] [phone] Elba Colon, MSN, MAINTENANCE GROUNDMAN, CNM [facility] [address] [facility] [address] [address] Riley [address] [facility] [address] Chinyere Grande CNM [address] [place] [address] [place] [address] Carolin Esqueda CNM [address] [place] [address] [place] [address] [phone] DIET Eat a well balanced diet focusing on foods high in fiber and protein. Drink plenty of fluids especially water. To avoid constipation you may take a mild stool softener as recommended by your doctor or cmm programmer. ACTIVITY Gradually increase your activity. Resume exercise regimen only after advice by your doctor or cmm programmer. Avoid lifting anything heavier than a gallon of milk for SIX weeks. Avoid driving until your doctor or cmm programmer has given their approval. Rise slowly from [...] medications as recommended by your doctor or cmm programmer for pain If you develop a warm, [...] vitamins as directed by your doctor or cmm programmer. Refer to the booklet in the folder/binder for more information. If you feel you need more assistance or have questions, please call Hossein Marrufo IBCLC, software consultant, at or the OB department to [...] they become loose or soiled. If used, [place] should be removed by your care provider. [...] in your calf. documented in this encounter [facility] Phone: 09-12-2020 History of Present illness Narrative [...] % 09/10/20 1419 (!) 146/66 66 18 06/22/21 1418 97 % 09/10/20 1413 119/81 75 [...] with as needed documented in this encounter [facility] Phone: Evaluation note Diagnosis Encounter for preadmission testing- Primary S/P primary low transverse delivery, without mention of indication, unspecified as to episode of care documented in this encounter [facility] Phone: evaluation note* Diagnosis delivery delivered- Primary delivery, without mention of indication, delivered, with or without mention of antepartum condition 40 weeks gestation of state, incidental documented in this encounter [facility] Phone: evaluation note* Diagnosis Pain following surgery or procedure- Primary Other acute postoperative pain documented in this encounter [facility] Phone: evaluation note* Diagnosis 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, nose, lip, and ear (HCC)- Primary Pain following surgery or procedure Other acute postoperative pain documented in this encounter [facility] Phone: Evaluation note* Diagnosis Melanocytic nevus of trunk- Primary Benign neoplasm of skin of trunk, except scrotum Melanocytic nevi of face Lentigines History of malignant melanoma of skin Personal history of malignant melanoma of skin documented [facility] [...] anomaly not found documented in this encounter [facility]* Diagnosis Encounter for supervision of [...] mellitus (GDM) affecting documented in this encounter [facility]* Diagnosis Encounter for supervision of other normal , third trimester- Primary History of section Other postprocedural status Gestational diabetes mellitus (GDM) affecting documented in this encounter [facility]* Diagnosis anomaly suspected but not found- Primary Suspected anomaly not found documented in this encounter [facility]* Diagnosis anomaly suspected but not found- Primary Suspected anomaly not found Pyelectasis Other specified disorder of kidney and ureter documented in this encounter [facility] System[facility] note* Diagnosis Pyelectasis Other specified disorder of kidney and ureter documented in this encounter [facility]* Diagnosis Pyelectasis- Primary Other specified disorder of kidney and ureter anomaly suspected but not found Suspected anomaly not found documented in this encounter [facility] SystemEvaluation noteNo assessment information available [facility] Work Phone: Evaluation note* Diagnosis examination following delivery- Primary Encounter for routine follow-up History of section Other postprocedural status documented in this encounter [facility] HealthcareInstructionsNot on filedocumented in this [facility] SystemInstructionsNot on filedocumented in this [facility] SystemInstructionsNot on filedocumented in this [facility] InstructionsNot on filedocumented in this [facility] InstructionsNot on filedocumented in this [facility] InstructionsNot on filedocumented in this [facility] InstructionsNot on filedocumented in this [facility] InstructionsNot on filedocumented in this [facility] SystemReason for visit Narrative* Auth/Cert Specialty Diagnoses / Procedures Referred By Bryanna t Referred To Contact Diagnoses Acoustic nerve lesion, right Acoustic nerve lesion, right LESION RIGHT NECK X1 LESION RIGHT CHEEK X 2 Procedures [place] OFFICE/OUTPT VISIT,PROCEDURE ONLY [place] EXC SKIN BENIG <5MM FACE,FACIAL RIGHT CHEEK LESION X 2 AND RIGHT NECK LESION X 1 [place] [address] [place] [address] [facility] [address] [place] [address] Referral ID Status Reason Start Date Expiration Date Visits Re quested Visits Authorized 1 1 [facility] Phone: reason for visit Narrative* Auth/Cert Specialty Diagnoses / Procedures Referred By Contac t Referred To Contact Diagnoses 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 Procedures [place] OFFICE/OUTPT VISIT,PROCEDURE ONLY [place] EXC SKIN BENIG >4CM TRUNK,ARM,LEG RIGHT CHEEK WIDER RESECTION OF MELANOMA IN S[place]U [place] [address] [place] [address] [employer] [address] [place] [address] Referral ID Status Reason Start Date Expiration Date Visits Re quested Visits Authorized [id number] 1 1 [facility] Phone: Advance Directives Latest Code Status on File Code Status Date Activated Date Inactivated Comments Full Code 09/10/2020 2:17 PM Full Code 09/10/2020 10:03 AM 09/10/2020 2:16 PM Latest Code Status on File Code Status Date Activated Date Inactivated Comments Full Code 09/10/2020 2:17 PM 09/12/2020 5:25 PM Full Code 09/10/2020 10:03 AM 09/10/2020 2:16 PM Advance Directive Response Recorded Date/ Time Advance Directives No June 24 12:54pm Summary Purpose Family History No Family History Records FoundNo Family History Records FoundNo Family History Records FoundNo Family History Records FoundNo Family History Records FoundNo Family History Records Found Additional Source Comments Reason for Visit (unrecogniz ed section and content) Reason Comments Scheduled Status Reason Specialty Diagnoses / Procedures Referre d By Contact Referred To Contact Diagnoses 40 weeks gestation of macrosomia Procedures [place] DELIVERY ONLY SECTION Breana Ledbetter, DO [address] [place] [address] [employer] Reason Comments Skin Check Suspicious Skin Lesion Reason Comments Pyelectasis Reason Onset Date Comments nutrition appt. 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 Family history of BRCA2 gene Reason Comments Post-op Visit Ordered Prescriptions (unrec ognized section and content) [...] 50 mL (mini-bag) (COMPLETED) 2,000 mg, Intravenous, TRANSITION NURSE TO O.R., 1 dose, On Wed09/10/20 at [...] Guardado, RN)1356 (Given - Provider: Tamra Guardado, RN) lactated ringers infusion 1,000 mL (COMPLETED) [...] (Due) 0900 (Due)2100 (Due) 0900 (Due)2100 (Due) Zchpdkd-Evqulw-Shrel Pertussis (BOOSTRIX) injection 0.5 mL 0.5 mL, [...] 07/06/2021 07/07/2021 07/08/2021 bupivacaine-EPINEPHrine PF (MARCAINE-w/EPINEPHrine) 0.25% -1:[id number] injection (CANCELED) PRN, Starting on Wed07/08/21 at 0742, Until Wed07/08/21 at 0827, Intra-op 0741 (Given - Provid er: Surendra Michael MD - Comment: OPERATIVE SITE INJECTED PRIOR TO INCISION) No Frequency Medication Order 07/06/2021 07/07/2021 07/08/2021 bupivacaine-EPINEPHrine (MARCAINE-w/EPINEPHRINE) 0.25% -1:[id number] injection 1 dose, Starting on Wed07/08/21 at [...] only 2100 (Due) PRN Medication Order 08/02/2021 08/03/202108/04/2021 0.9 % sodium chloride infusion 25 mL, IntraVENous, at 100 mL/hr, PRN, If patient receiving piggyback infusions without ordered maintenance IV fluids or with frequent/long duration piggyback infusions, Starting on Wed08/04/21 at 1213, Administer at the same rate as the piggyback being infused., PACU only bupivacaine-EPINEPHrine PF (MARCAINE-w/EPINEPHrine) 0.25% -1:[id number] injection (CANCELED) PRN, Starting on Wed08/04/21 at 1149, Until Wed08/04/21 at 1217, Intra-op 1149 (Given - Provid er: Surendra Michael MD - Comment: TOM) diphenhydrAMINE (BENADRYL) injection [...] dose, Rita Dior: cabinet override 1030 (Due) INFORMATION SOURCE (unrecogn ized section and content) DATE CREATED AUTHOR 09/13/2020 [facility] DATE CREATED AUTHOR AUTHOR'S ORGANIZ ATION 08/07/2021 [facility] DATE CREATED AUTHOR AUTHOR'S ORGANIZ ATION 01/27/2022 [facility] dical Specialist DATE CREATED AUTHOR AUTHOR'S ORGANIZ ATION 03/22/2024 [facility] DATE CREATED AUTHOR AUTHOR'S ORGANIZ ATION 04/30/2024 [facility] dical Specialists EPIC DATE CREATED AUTHOR AUTHOR'S ORGANIZ ATION 05/11/2024 [facility] Care Teams (unrecognized sec tion and content) Hand Engraver Relationship Specialty Start Date End Date Chelesy Bray MD [address] [place] [address] PCP - General Family Medicine 09/10/20 Hand Engraver Relationship Specialty Start Date End Date Chelsey Bray MD [address] [place] [address] PCP - General Family Medicine 09/10/20 Hand Engraver Relationship Specialty Start Date End Date Chelsey Bray MD [address] [place] [address] PCP - General Family Medicine 08/20/22 Veronique Neely NP [address] [place] [address] Nurse Practitioner Family Medicine 08/20/22 Cathy Colon CNM [address] [place] [address] Obstetrics and Gynecology 08/20/22 Hand Engraver Relationship Specialty Start Date End Date Chelsey Bray MD [address] [place] [address] PCP - General Family Medicine 08/20/22 Veronique Neely NP [address] [place] [address] Nurse Practitioner Family Medicine 08/20/22 Cathy Colon CNM [address] [place] [address] Obstetrics and Gynecology 08/20/22 Hand Engraver Relationship Specialty Start Date End Date Chelsey Bray MD [address] [place] [address] PCP - General Family Medicine 08/20/22 Veronique Neely NP [address] [place] [address] Nurse Practitioner Family Medicine 08/20/22 Cathy Colon CNM [address] [place] [address] Obstetrics and Gynecology 08/20/22 Hand Engraver Relationship Specialty Start Date End Date Chelsey Bray MD [address] [place] [address] PCP - General Family Medicine 08/20/22 Veronique Neely NP [address] [place] [address] Nurse Practitioner Family Medicine 08/20/22 Cathy Colon CNM [address] [place] [address] Obstetrics and Gynecology 08/20/22 Hand Engraver Relationship Specialty Start Date End Date Chelsey Bray MD [address] [place] [address] PCP - General Family Medicine 08/20/22 Veronique Neely NP [address] [place] [address] Nurse Practitioner Family Medicine 08/20/22 Cathy Colon CNM [address] [place] [address] Obstetrics and Gynecology 08/20/22 Hand Engraver Relationship Specialty Start Date End Date Chelsey Bray MD [address] [place] [address] PCP - General Family Medicine 08/20/22 Veronique Neely NP [address] [place] [address] Nurse Practitioner Family Medicine 08/20/22 Cathy Colon CNM [address] [place] [address] Obstetrics and Gynecology 08/20/22 Hand Engraver Relationship Specialty Start Date End Date Chelsey Bray MD [address] [place] [address] PCP - General Family Medicine 08/20/22 Veronique Neely NP [address] [place] [address] Nurse Practitioner Family Medicine 08/20/22 Cathy Colon CNM [address] [place] [address] Obstetrics and Gynecology 08/20/22 Hand Engraver Relationship Specialty Start Date End Date Chelsey Bray MD [address] [place] [address] PCP - General Family Medicine 08/20/22 Veronique Neely NP [address] [place] [address] Nurse Practitioner Family Medicine 08/20/22 Cathy Colon CNM [address] [place] [address] Obstetrics and Gynecology 08/20/22 Hand Engraver Relationship Specialty Start Date End Date Chelsey Bray MD [address] [place] [address] PCP - General Family Medicine 08/20/22 Veronique Neely NP [address] [place] [address] Nurse Practitioner Family Medicine 08/20/22 Cathy Colon CNM [address] [place] [address] Obstetrics and Gynecology 08/20/22 Hand Engraver Relationship Specialty Start Date End Date Chelsey Bray MD [address] [place] [address] PCP - General Family Medicine 08/20/22 Veronique Neely NP [address] [place] [address] Nurse Practitioner Family Medicine 08/20/22 Cathy Colon CNM [address] [place] [address] Obstetrics and Gynecology 08/20/22 Hand Engraver Relationship Specialty Start Date End Date Chelsey Bray MD [address] [place] [address] PCP - General 01/24/24 Hand Engraver Relationship Specialty Start Date End Date Chelsey Bray MD [address] [place] [address] PCP - General Family Medicine 08/20/22 Veronique Neely NP [address] [place] [address] Nurse Practitioner Family Medicine 08/20/22 Cathy Colon CNM [address] [place] [address] Obstetrics and Gynecology 08/20/22 Hand Engraver Relationship Specialty Start Date End Date Chelsey Bray MD [address] [place] [address] PCP - General Family Medicine 08/20/22 Veronique Neely NP [address] [place] [address] Nurse Practitioner Family Medicine 08/20/22 Cathy Colon CNM [address] [place] [address] Obstetrics and Gynecology 08/20/22 Hand Engraver Relationship Specialty Start Date End Date Chelsey Bray MD [address] [place] [address] PCP - General Family Medicine 08/20/[address] RECORDER [address] [place] [address] Nurse Practitioner Family Medicine 08/20/22 Cathy Colon CNM [address] [place] [address] Obstetrics and Gynecology 08/20/22 Hand Engraver Relationship Specialty Start Date End Date Chesley Bray MD [address] [place] [address] PCP - General Family Medicine 08/20/[address] RECORDER [address] [place] [address] Nurse Practitioner Family Medicine 08/20/22 Cathy Colon CNM [address] [place] [address] Obstetrics and Gynecology 08/20/22 Hand Engraver Relationship Specialty Start Date End Date Chelsey Bray MD [address] [place] [address] PCP - General Family Medicine 08/20/22 Veronique Neely, [address] RECORDER [address] [place] [address] Nurse Practitioner Family Medicine 08/20/22 Cathy Colon CNM [address] [place] [address] Obstetrics and Gynecology 08/20/22 Hand Engraver Relationship Specialty Start Date End Date Chelsey Bray MD [address] [place] [address] PCP - General Family Medicine 08/20/22 Veronique Neely NP [address] [place] [address] Nurse Practitioner Family Medicine 08/20/22 Cathy Colon CNM [address] [place] [address] Obstetrics and Gynecology 08/20/22 Hand Engraver Relationship Specialty Start Date End Date Chelsey Bray MD [address] [place] [address] PCP - General Family Medicine 08/20/22 Veronique Neely NP [address] [place] [address] Nurse Practitioner Family Medicine 08/20/22 Cathy Colon CNM [address] [place] [address] Obstetrics and Gynecology 08/20/22 Hand Engraver Relationship Specialty Start Date End Date Chelsey Bray MD [address] [place] [address] PCP - General Family Medicine 08/20/22 Veronique Neely NP [address] [facility] [place] [address] Nurse Practitioner Family Medicine 08/20/22 Cathy Colon CNM [address] [facility] [place] [address] Obstetrics and Gynecology 08/20/22 Hand Engraver Relationship Specialty Start Date End Date Chelsey Bray MD [address] [facility] [place] [address] PCP - General 01/24/24 Hand Engraver Relationship Specialty Start Date End Date Chelsey Bray MD [address] [facility] [place] [address] PCP - General 01/24/24 Hand Engraver Relationship Specialty Start Date End Date Chelsey Bray MD [address] [facility] [place] [address] PCP - General 01/24/24 Hand Engraver Relationship Specialty Start Date End Date Chelsey Bray MD [address] [facility] [place] [address] PCP - General 01/24/24 Team Status: Inactive Member Role Status Dates Cathy Colon APRN Attending Provider Active Start: May 08, 2024 End: May 08, 2024 Goals (unrecognized section and content) Goals may be documented in a n alternate section FOR RECORDS PERTAINING TO PATIENTS WHO ARE [...] BE BASED ON THE PRIMARY CLINICAL RECORDS. [facility]. provides no warranty or guarantee of the accuracy or completeness of information in this document.
--- NOTE | 2024-05-16 14:46 | PC.NURSE ---
Celestino and 8 day old Aicha arrive for follow up visit. Celestino reports recovery is much better than 1st delivery. States feels well, no concerns for self and recovery except for breast feeding issues. No report of headache, SOB, epigastric discomfort, excessive pain or N/V. Incision clean and dry at this time. Breasts are full and firm bilaterally, states think I had a plugged duct Wednesday States with massage and pumping was able to release plug. Nipples are excoriated bilaterally, open wounds noted. No bleeding or drainage noted. Crack noted on left nipple as well. States latching without the shield is impossible as nipples tend to stay flat, only pulls out with pump, and does not stay erect for long. Infant shows no desire to latch without the shield. Shield placed and infant does shallow latch on shield. Discussed proper placement, and deep latch on shield for best milk removal and for healing. Verbalized understanding. Gentle reminders for positioning and latching given as mom independently latches with shield. Infant needs stimulation to continue to suck. Stays for 15 minutes. Switched to 2nd breast without interest from , latches with no suck. sleeps. Celestino shown breast care and comfort measure. Uses tea bags, lanolin, shells and Soothies intermittently for healing. Aware deep latch will significantly reduce damage and aid in healing. Mom works well and desires to continue nursing. Infant with VSS and assessment WNL. Couplet home with plans to return 05/24/2024 for further support.
--- NOTE | 2024-05-16 14:50 | PC.NURSE ---
Celestino will use shield for latching . Of note : shield tight and pt will attempt to purchases XL (27mm-28mm) size. Will use pump and move into size 27mm flange instead of 24mm. Will work on healing nipples and deeper latches with the shield. Plans to offer baby 15-30 ml pumped milk after effort at the breast is feeding is short in length or if nipples are too tender to return baby to breast. Has goal to offer breast without shield and to only use shield when needed. Verbalized understanding. Aware may need to continue shield use until baby is more receptive to latches without. Home will return for further support.
== END 2024-05-16 14:54 | disposition home or self-care (01) ==
LOC: FBCO 08:31
PROVIDERS: PCP Family Medicine; Visit Provider Midwife
DX: Z39.1 Encounter for care and examination of lactating mother (principal)

== ENCOUNTER 2024-05-24 08:10 | Outpatient (OUT) | payer OTHER, SELFPAY ==
--- OUTSIDE RECORDS SUMMARY | 2024-05-24 08:15 | XMS_ITS | CCD ---
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 Name Role Phone Unavailable Primary Care Provider UnavailChelsey Marks MD Primary Care Provider BREANA LEDBETTER Attending Unavail able BREANA LEDBETTER Admitting Unavail able BREANA LEDBETTER Attending Unavail able BREANA LEDBETTER Admitting Unavail able CHELSEY BRAY Primary Care Unavailable FERNANDA, Surendra BAUER Admitting Unavailabl e KRISTIANAGIANNBLAS, Surendra BAUER Attending Unavailabl CHELSEY Love Primary Care Unavailable Surendra MICHAEL Admitting Unavailabl e KRISTIANAGIANNBLAS, Surendra BAUER Attending Unavailabl CHELSEY Love Primary Care Unavailable Chelsey Bray MD Primary Care Provider Chin ROLLING MILL PLUGGER, Veronique Haskins Unavailable [phone] Cathy Colon CNM Unavailable Chelsey Bray MD Primary Care Provider Chelsey Bray MD Primary Care Provider TANG BONILLA Attending Unavailable CATHY COLON Referring Unavailable ASA, CHELSEY B Primary Care Unavailable CATHY COLON Referring Unavailable CHELSEY BRAY Primary Care Unavailable CATHY COLON Referring Unavailable WONDERFLETCHER, CHELSEY Claros Primary Care Unavailable TANG BONILLA Attending Unavailable CHELSEY BRAY Referring Unavailable WONDERFLETCHER, CHELSEY Claros Primary Care Unavailable Unavailable Primary Care Provider Unavailgonzalez e Cathy Colon Attending Unavailable Cathy Colon Admitting Unavailable Cathy Colon APRN Attending Provider CATHY COLON Attending Unavailable CATHY COLON Attending Unavailable FLORO, CATHY L Attending Unavailable HORN, FERNANDA Attending Unavailable FLORO, CATHY L Referring Unavailable FLORO, CATHY L Attending Unavailable FLORO, CATHY L Attending Unavailable FLORO, CATHY L Attending Unavailable FLORO, CATHY L Attending Unavailable FLORO, CATHY L Referring Unavailable FLORO, CATHY L Referring Unavailable PETITTI, [...] to adverse reactions to drug 2 Rash [facility] [employer] Phone: (2 sources) Silver; Translations: [SILVER] Propensity to adverse reactions to drug [address] [place] [address] Phone: (20 sources) Silver Allergy to substance 1 Hives, Itching, Rash [facility] (20 sources) Wound Dressing Adhesive Drug Intolerance 2 [facility] (7 sources) Adhesive agent; Translations: [ADHESIVE] Propensity to adverse reactions to drug 4 Rash [facility] (6 sources) Silver Propensity to adverse reactions to drug 4 Hives, Itching, Rash [facility] Medications Current Medications Medication Drug [...] break. docusate sodium 50 mg / sennosides, skilled nursing 8.6 mg oral tablet (1 source) Start: [...] AUTO DIFFon BASOPHILS ABSOLUTE AUTO [facility] Basophils/100 WBC (Bld) 0.1 % Low 0.2 - 2.0 % [facility] Eosinophils/100 WBC (Bld) 0.1 % Low 0.9 - 7.0 % [facility] Erythrocyte distribution width (RBC) [Ratio] 14.6 % 11.0 - 15.0 % [facility] Hematocrit (Bld) [Volume fraction] 31.7 % Low 36.0 - 48.0 % [facility] Hemoglobin (Bld) [Mass/Vol] 10.8 g/dL Low 12.0 - 16.0 g/dL [facility] IMMATURE GRANULOCYTES ABS AUTO 0.12 High [facility] Immature granulocytes/100 WBC (Bld) 0.7 % High 0.0 - 0.5 % [facility] Interpretation and review of laboratory results Abnormal [facility] LYMPHOCYTES ABSOLUTE AUTO 1.8 [facility] Lymphocytes/100 WBC (Bld) 10.2 % Low 20.5 - 60.0 % [facility] MCH (RBC) [Entitic mass] 32.2 pg 26.7 - 34.0 pg [facility] MCHC (RBC) [Mass/Vol] 34.1 g/dL 29.9 - 35.2 g/dL [facility] MCV (RBC) [Entitic vol] 94.6 fL 81.0 - 99.0 fL [facility] MONOCYTES ABSOLUTE AUTO 1 High N [facility] Monocytes/100 WBC (Bld) 5.7 % 1.7 - 12.0 % [facility] NEUTROPHILS ABSOLUTE AUTO 14.7 High [facility] Neutrophils/100 WBC (Bld) 83.2 % High 43.0 - 75.0 % [facility] Platelet mean volume (Bld) [Entitic vol] 10.7 fL 9.5 - 13.5 fL [facility] TBH EO # 0 [facility]H PLT 148 Low [facility] RBC 3.35 Low [facility] WBC 17.6 High [facility] ALL CBC WITH AUTO DIFFon BASOPHILS ABSOLUTE AUTO 0 N [facility] Basophils/100 WBC (Bld) 0.3 % 0.2 - 2.0 % [facility] Eosinophils/100 WBC (Bld) 1.1 % 0.9 - 7.0 % [facility] Erythrocyte distribution width (RBC) [Ratio] 14.4 % 11.0 - 15.0 % [facility] Hematocrit (Bld) [Volume fraction] 39.3 % 36.0 - 48.0 % [facility] Hemoglobin (Bld) [Mass/Vol] 13.3 g/dL 12.0 - 16.0 g/dL [facility] IMMATURE GRANULOCYTES ABS AUTO 0.07 High [facility] Immature granulocytes/100 WBC (Bld) 0.8 % High 0.0 - 0.5 % [facility] Interpretation and review of laboratory results Abnormal [facility] LYMPHOCYTES ABSOLUTE AUTO 1.9 [facility] Lymphocytes/100 WBC (Bld) 20.2 % Low 20.5 - 60.0 % [facility] MCH (RBC) [Entitic mass] 31.7 pg 26.7 - 34.0 pg [facility] MCHC (RBC) [Mass/Vol] 33.8 g/dL 29.9 - 35.2 g/dL [facility] MCV (RBC) [Entitic vol] 93.8 fL 81.0 - 99.0 fL [facility] MONOCYTES ABSOLUTE AUTO 0.6 N [facility] Monocytes/100 WBC (Bld) 6.1 % 1.7 - 12.0 % [facility] NEUTROPHILS ABSOLUTE AUTO 6.5 [facility] Neutrophils/100 WBC (Bld) 71.5 % 43.0 - 75.0 % [facility] Platelet mean volume (Bld) [Entitic vol] 10.8 fL 9.5 - 13.5 fL [facility] TBH EO # 0.1 [facility] TBH PLT 171 [facility] TB RBC 4.19 Low [facility] WBC 9.2 [facility] Alin 05-08-2024 L Specimen: [id number] Received: 05/08/24 Status: STEPHENIE Preciado Num: [id number] Spec Type: Surgical Subm Dr: Cathy Colon APRN Tissues: A Placenta - 3rd Trimester (Greater than 28 weeks) (PLACENTA) Procedures: HE/Reshma, Gross/Micro L5 Age/ Patient Sex Location Account Attending Physician Celestino Cruz 34/F LABELL [id number] Cathy Colon APRN SPEC NUM: [id number] RECD: 05/08/24 STATUS: STEPHENIE PRECIADO NUM: [id number] JENS: 05/08/[address] [facility] [address]: Cathy Colon APRN ENTERED: 05/08/24 OT [...] Eccentric, 5 cm from the margin Specimen: [id number] Received: 05/08/24 Status: STEPHENIE Preciado Num: [id number] Spec Type: Surgical Subm Dr: Cathy Colon APRN Tissues: A Placenta - 3rd Trimester (Greater than 28 weeks) (PLACENTA) Procedures: HE/3, Gross/Micro L5 Patient: Celestino Cruz [id number] (Continued) Specimen: [id number] Received: 05/08/24 (Continued) Gross Description (Continued) Signed (signature on file) Fany Almodovar MD 05/10/24 1607 Specimen: [id number] Received: 05/08/24 Status: STEPHENIE Preciado Num: [id number] Spec Type: Surgical Subm Dr: Cathy Colon APRN Tissues: A Placenta - 3rd Trimester (Greater than 28 weeks) (PLACENTA) Procedures: HE/3, Gross/Micro L5 Patient: Celestino Cruz [id number] (Continued) Specimen: [id number] Received: 05/08/24-133 (Continued) Gross Description (Continued) Length [...] Rolled membrane, two sections of cord A2-A3 [employer] Agent sections of placenta (3, ss, S25-113 A) JozefG . CPT Codes 60148 Specimen: [id number] Received: 05/08/24 Status: STEPHENIE Preciado Num: [id number] Spec Type: Surgical Subm Dr: Cathy Colon APRN Tissues: A Placenta - 3rd Trimester (Greater than 28 weeks) (PLACENTA) Procedures: HE/3, Gross/Micro L5 Patient: Celestino Cruz [id number] (Continued) Signed (signature on file) Fany Almodovar MD 05/10/24 1607 Normal [facility] Urine Cultureon 05-08-2024 Bacteria identified Cx Nom (U) ORGANISM: Lactobacillus jensenii (O:STEFAN) [place] Count 40,000 Organism Comments Organism not Routinely Tested for Susceptibilities PERFORMED BY: [facility] [place] [address] PATHOLOGIST TOBACCO DRIER OPERATOR FANY ALMODOVAR M.D. [facility] Comment on above: Performed By: #### C UU #### [address] US OB BPP WO NON-STRES Son 05-05-2024 [place] [address] Ultrasound Report Signed Patient: CELESTINO CRUZ MR#: [id number] : 1990 Acct:[id number] Age/Sex: 34 / F ADM Date: 05/05/24 Loc: US Attending Dr: CATHY COLON APRN, CNM Ordering Physician: CATHY COLON APRN, CNM Date of Service: 05/05/24 Procedure(s): US OB BPP wo non-stress Accession Number(s): [id number] cc: CATHY COLON APRN, CNM; CHELSEY BRAY [place] [id number] Patient Name: CELESTINO CRUZ MRN: [id number] date: 1990 Sex: F Assigned Patient Location: [facility] Current Patient Location: [facility] Accession/Order Number: [id number] Exam Date: 05/05/2024 13:09 Report Date: 05/05/2024 [...] M.D. Signed By: 05/05/241801 DD/ 58 TD/TT: Preschool Assistant: [facility] Radiology, Radiologist, - 05/05/2024 [place] [address] Ultrasound Report Signed Patient: CELESTINO CRUZ MR#: [id number] : 1990 Acct:[id number] Age/Sex: 34 / F ADM Date: 05/05/24 Loc: US Attending Dr: CATHY COLON APRN, CNM Ordering Physician: CATHY COLON APRN, CNM Date of Service: 05/05/24 Procedure(s): US OB BPP wo non-stress Accession Number(s): [id number] cc: CATHY COLON APRN, CNM; CHELSEY BRAY [place] [address] Patient Name: CELESTINO CRUZ MRN: [facility]:[id number] date: 1990 Sex: F Assigned Patient Location: [facility] Current Patient Location: [facility] Accession/Order Number: [id number] Exam Date: 05/05/2024 13:09 Report Date: 05/05/2024 [...] M.D. Signed By: 05/05/241801 DD/ 58 TD/TT: Preschool Assistant: [facility] Radiology Study observation (narrative) [facility] US OB BPP WO NON-STRES SOrdered By: Radiologist Radiology on 05-05-2024 [facility] Work Phone: US OB GROWTHon 05-05-[address] [address] Ultrasound Report Signed Patient: CELESTINO CRUZ MR#: [id number] : 1990 Acct:[id number] Age/Sex: 34 / F ADM Date: 05/05/24 Loc: US Attending Dr: CATHY COLON APRN, CNM Ordering Physician: CATHY COLON APRN, CNM Date of Service: 05/05/24 Procedure(s): US OB growth Accession Number(s): [id number] cc: CATHY COLON APRN, CNM; CHELSEY BRAY [address] [address] Patient Name: CELESTINO CRUZ MRN: [facility]:[id number] date: 1990 Sex: F Assigned Patient Location: [facility] Current Patient Location: US Accession/Order Number: [id number] Exam Date: 05/05/2024 13:09 Report Date: 05/05/2024 [...] M.D. Signed By: 05/05/241803 DD/ 00 TD/TT: Preschool Assistant: [facility] Radiology, Radiologist, MD - 05/05/2024 [place] [address] Ultrasound Report Signed Patient: CELESTINO CRUZ MR#: [id number] : 1990 Acct:[id number] Age/Sex: 34 / F ADM Date: 05/05/24 Loc: US Attending Dr: CATHY COLON APRN, CNM Ordering Physician: CATHY COLON APRN, CNM Date of Service: 05/05/24 Procedure(s): US OB growth Accession Number(s): [id number] cc: CATHY COLON APRN, CNM; CHELSEY BRAY [place] [address] Patient Name: CELESTINO CRUZ MRN: [facility]:[id number] date: 1990 Sex: F Assigned Patient Location: [facility] Current Patient Location: US Accession/Order Number: [id number] Exam Date: 05/05/2024 13:09 Report Date: 05/05/2024 [...] M.D. Signed By: 05/05/241803 DD/ 00 TD/TT: Preschool Assistant: [facility] Radiology Study observation (narrative) [facility] OB GROWTHOrdered By: Ambrose lara Radiology on 05-05-2024 [facility] Work Phone: US OB BPP WO NON-STRES Son 04-21-2024 [place] [address] Ultrasound Report Signed Patient: CELESTINO CRUZ MR#: [id number] : 1990 Acct:[id number] Age/Sex: 34 / F ADM Date: 04/21/24 Loc: US Attending Dr: CATHY COLON APRN, CNM Ordering Physician: CATHY COLON APRN, CNM Date of Service: 04/21/24 Procedure(s): US OB BPP wo non-stress Accession Number(s): [id number] cc: CATHY COLON APRN, CNM; CHELSEY BRAY [address] [address] Patient Name: CELESTINO CRUZ MRN: [id number]:[id number] date: 1990 Sex: F Assigned Patient Location: US Current Patient Location: US Accession/Order Number: [id number] Exam Date: 04/21/2024 14:09 Report Date: 04/21/2024 [...] Signed By: 04/21/24 1442 DD/ 1439 TD/TT: Preschool Assistant: [facility] Radiology, Radiologist, - 04/21/2024 [place] [address] Ultrasound Report Signed Patient: CELESITNO CRUZ MR#: [id number] : 1990 Acct:[id number] Age/Sex: 34 / F ADM Date: 04/21/24 Loc: US Attending Dr: CATHY COLON APRN, CNM Ordering Physician: CATHY COLON APRN, CNM Date of Service: 04/21/24 Procedure(s): US OB BPP wo non-stress Accession Number(s): [id number] cc: CATHY COLON APRN, CNM; CHELSEY BRAY [place] [id number] Patient Name: CELESTINO CRUZ MRN: [facility]:[id number] date: 1990 Sex: F Assigned Patient Location: US Current Patient Location: US Accession/Order Number: [id number] Exam Date: 04/21/2024 14:09 Report Date: 04/21/2024 [...] Signed By: 04/21/24 1442 DD/ 1439 TD/TT: Preschool Assistant: [facility] Radiology Study observation (narrative) [facility] OB BPP WO NON-STRES SOrdered By: Radiologist Radiology on 04-21-2024 [facility] [employer] Work Phone: No Panel Informationon 01-29 Free Cell Dna see scanned report [facility] US OB LIMITED 1+ FETUSESon 1 US [...] Grade 0/III Amniotic fluid volume is normal. Can Worker notes: Prominent stomach. IMPRESSION: 1. Normal growth. [...] diffon Hematocrit (Bld) [Volume fraction] 40.2 % [facility] Hemoglobin (Bld) [Mass/Vol] 13.3 g/dL [facility] Platelets (Bld) [#/Vol] 204 10*3/uL [facility] Rbc Mcv (Fl) By Automated Count 91.6 [facility] Chlamydia/GC by PCR Ruperto Sw abon 10-12-2023 Chlamydia Dna(Pcr) Not detected [facility] Gonorrhoeae Dna(Pcr) Not detected [facility] Drug Screen, Urineon 024 Barbiturate Screen Urine Negative [facility] Opiate Quantitative Urine Negative [facility] [...] IGG immune statuson 10-12-2023 Rubella immune IgG [facility] Syphilis Total(Unknown Syphi lis Status)on 10-12-2023 [...] VERY IMPORTANT TO YOUR HEALTH. THE CURRENT [employer] OF [employer]IOLOGY AND N[employer] COMPREHENSIVE [employer] NETWORK GUIDELINES RECOMMENDS ANNUAL MAMMOGRAPHY BEGINNING AT AGE 40 THIS FACILITY USES A REMINDER SYSTEM TO ENSURE ALL PATIENTS RECEIVE REMINDER NOTIFICATIONS AT THE APPROPRIATE TIME BASED ON THE RECOMMENDATIONS OF THIS EXAM. Report reported and signed by Migue Avendano on 01/27/2022 0754 Normal [facility] Specialist POCT urine pregnancyon 08-04 Beta HCG ( test) Ql (U) Negative NEGATIVE [facility] Comment on above: Specimens with hCG l evels near the threshold of the test (25 mIU/mL) may give a negative or indeterminate result. In such cases, another test should be performed with a new specimen in 48-72 hours. If early is suspected clinically in this setting, correlation with quantitative serum b-hCG level is suggested. TESTING PERFORMED AT [id number] [place] [address] Surgical Pathologyon 022 Surgical Pathology (NOTE) -- Diagnosis -- SKIN, RIGHT CHEEK, MELANOMA REEXCISION: -BENIGN SKIN WITH SOLAR ELASTOSIS AND BIOPSY SITE CHANGES -A RESIDUAL MELANOMA IN SITU IS NOT IDENTIFIED Rodriguez Katz D.O. Electronically Signed Out [facility]/05/2021 Clinical Information Pre-op Diagnosis: RIGHT CHEEK MELANOMA [...] SURGICAL PATHOLOGY CONSULTATION Patient Name: CELESTINO CRUZ [facility] Rec: [id number] Path Number: [id number] [employer] ANATOMIC PATHOLOGY [address] [place] [phone] Normal [facility] Comment on above: Performed By: #### P PPVDP #### [employer] [address] [place] [address] It Service Technician: Angel Malik MD Surgical Pathologyon 022 Surgical [...] ellipse. Inked and bisected 1cs. B. CELESTINO CHRISTINA, RIGHT CHEEK LATERAL LESION 1.2 x 0.9 [...] SURGICAL PATHOLOGY CONSULTATION Patient Name: CELESTINO CHRISTINA [facility] Rec: [id number] Path Number: [id number] [employer] ANATOMIC PATHOLOGY [address] [place] [address]. [place], [place] [phone] Normal [facility] Comment on above: Performed By: #### P PPVDP #### [employer] [address] [place] [address] It Service Technician: Angel Malik MD Hemoglobinon 09-11-2020 Hemoglobin (Bld) [Mass/Vol] 11.6 g/dL Low 11.9-15.1 [facility] Comment on above: Performed By: #### H GB #### [facility] [address] [place] [address] It Service Technician: Baldemar England MD HemoglobinOrdered By: Breana Mondragon on 09-11-2020 Hemoglobin.gastrointest inal spec 1 Ql (Stl) 11.6 g/dL Low 11.9 - 15.1 g/dL [facility] [employer] Work Phone: Interpretation and review of laboratory results Abnormal [facility] Work Phone: [facility] Work Phone: DRUG SCREEN MULTI URINEOrder ed By: Cathy Colon on 09-10-2020 Amphetamine Screen, Ur Negative NEGATIVE [facility] Work Phone: Barbiturate Screen, Ur Negative NEGATIVE [facility] Work Phone: Benzodiazepine Screen, Urine Negative NEGATIVE [facility] Work Phone: Buprenorphine Urine Negative NEGATIVE [facility] Work Phone: Cannabinoid Scrn, Ur Negative NEGATIVE [facility] Work Phone: Cocaine Metabolite, Urine Negative NEGATIVE [facility] Work Phone: MDMA, Urine NOT REPORTED NEGATIVE [facility] Work Phone: Methadone Screen, Urine Negative NEGATIVE [facility] Work Phone: Methamphetamine, Urine Negative NEGATIVE [facility] Work Phone: Opiates, Urine Negative NEGATIVE [facility] Work Phone: Oxycodone Screen, Ur Negative NEGATIVE [facility] Work Phone: Phencyclidine, Urine Negative NEGATIVE [facility] Work Phone: Propoxyphene, Urine Negative NEGATIVE [facility] Work Phone: Test Information NOT REPORTED [facility] Work Phone: Tricyclic Antidepressants, Urine Negative NEGATIVE [facility] Work Phone: Comment on above: Drug screen results are to be used for medical purposes only. All positive results are unconfirmed. Testing for employment or legal uses should be sent to a reference laboratory for confirmation. [facility] Work Phone: Drug Scr, Abuse, Uron 2020 Amphetamine(s),Ur Negative Normal NEG [facility] Comment on above: Performed By: #### D AU #### [facility] [address] [place] [address] [place] [address] It Service Technician: Baldemar England MD Barbiturate(s),Ur Negative Normal NEG [facility] Comment on above: Performed By: #### D AU #### [facility] [address] [place] [address] [place] [address] It Service Technician: Baldemar England MD Benzodiazepine(s) Negative Normal NEG [facility] Comment on above: Performed By: #### D AU #### [address] [place] [address] It Service Technician: Baldemar England MD Buprenorphrine, Ur Negative Normal NEG [facility] Comment on above: Performed By: #### D AU #### [facility] [address] [place] [address] Dr. [place], [facility] It Service Technician: Baldemar England MD Cannabinoid(s),Ur Negative Normal NEG [facility] Comment on above: Performed By: #### D AU #### [facility] [address] [place] [address] [place] [address] It Service Technician: Baldemar England MD Cocaine Metabolite Negative Normal [facility] Comment on above: Performed By: #### D AU #### [facility] [address] [place] [address] [place] [address] It Service Technician: Baldemar England MD Methadone Ql (U) Negative Normal NEG [facility] Comment on above: Performed By: #### D AU #### [facility] [address] [place] [address] Dr. [place], [place] [id number] It Service Technician: Baldemar England MD Methamphetamine, Ur Negative Normal NEG [facility] Comment on above: Performed By: #### D AU #### [facility] [address] [place] [address] Dr. [place], [place] [id number] It Service Technician: Baldemar England MD Opiate(s), Ur Negative Normal NEG [facility] Comment on above: Performed By: #### D AU #### [address] [place], [place] [id number] It Service Technician: Baldemar England MD Oxycodone, Urine Negative Normal NEG [facility] Comment on above: Performed By: #### D AU #### [facility] [address] [place] [address] Dr. [place], [place] [id number] It Service Technician: Baldemar England MD Phencyclidine, Ur Negative Normal [facility] Comment on above: Performed By: #### D AU #### [address] [place], [place] [id number] It Service Technician: Baldemar England MD Propoxyphene,Urine Negative Normal NEG [facility] Comment on above: Performed By: #### D AU #### [facility] [address] [place] [address] Dr. [place], [place] [id number] It Service Technician: Baldemar England MD Tricyclic antidepressants Screen Ql (U) Negative Normal [facility] Comment on above: Result Comment: Drug screen results are to be used for medical purposes only. All positive results are unconfirmed. Testing for employment or legal uses should be sent to a reference laboratory for confirmation. Performed By: #### D AU #### [facility] [address] [place] [address] Dr. [place], [place] [id number] It Service Technician: Baldemar England MD Interpretive Info NOT REPORTED Normal [facility] Comment on above: Performed By: #### D AU #### [facility] [address] [place] [address] It Service Technician: Baldemar England MD MDMA, Urine NOT REPORTED Normal [facility] Comment on above: Performed By: #### D AU #### [facility] [address] [place] [address] It Service Technician: Baldemar England MD CBC Auto DifferentialOrdered By: Breana Mondragon on 09-09-2020 [employer] # 0.07 [facility] Work Phone: Absolute Immature Granulocyte 0.12 [facility] Work Phone: Absolute Lymph # 1.38 [facility] Work Phone: Absolute [place] # 0.55 [facility] Work Phone: Basophils (Bld) [#/Vol] 10*3/uL [employer] [place] Work Phone: Basophils/100 WBC (Bld) 0 % 0 - 2 % M [facility] Work Phone: Differential Type NOT REPORTED [facility] Work Phone: Eosinophils/100 WBC (Bld) 1 % 1 - 4 % [facility] Work Phone: Hematocrit (Bld) [Volume fraction] 39.8 % 36.3 - 47.1 % [facility] Work Phone: Hemoglobin.gastrointest inal spec 1 Ql (Stl) 13.5 g/dL 11.9 - 15.1 g/dL [facility] Work Phone: Immature granulocytes/100 WBC (Bld) 1 % High 0 [facility] Work Phone: Interpretation and review of laboratory results Abnormal [facility] Work Phone: Lymphocytes/100 WBC (Bld) 13 % Low 24 - 43 % [employer] Phone: MCH (RBC) [Entitic mass] 31.8 pg 25.2 - 33.5 pg [employer] Phone: MCHC (RBC) [Mass/Vol] 33.9 g/dL 28.4 - 34.8 g/dL [employer] Phone: MCV (RBC) [Entitic vol] 93.6 fL 82.6 - 102.9 fL [employer] Phone: Monocytes/100 WBC (Bld) 5 % 3 - 12 % [employer] Work Phone: NRBC Automated 0.0 0.0 per 100 WBC [employer] Phone: Platelet distribution width (Bld) [Ratio] 13.6 % 11.8 - 14.4 % [employer] Phone: Platelet Estimate NOT REPORTED [employer] Phone: Platelet mean volume (Bld) [Entitic vol] 10.6 fL 8.1 - 13.5 fL [employer] Phone: Platelets (Bld) [#/Vol] 166 10*3/uL [employer] Phone: RBC (Bld) [#/Vol] 4.25 10*6/uL 3.95 - 5.1 1 m/uL [employer] Work Phone: RBC (Bld) [#/Vol] NOT REPORTED [employer] Phone: Segmented neutrophils/100 WBC (Bld) 80 % High 36 - 65 % [employer] Work Phone: Segs Absolute 8.84 High [employer] (RCD[employer]) Work Phone: WBC (Bld) [#/Vol] 11.0 10*3/uL [employer] Work Phone: WBC (Bld) [#/Vol] NOT REPORTED [facility] Work Phone: [facility] Work Phone: CBC with Diffon 09-09-2020 Abs. Basophil <0.03 Normal 0.00-0.20 [facility] Comment on above: Performed By: #### C DP #### [facility] [address] [place] [address] [place] [address] It Service Technician: Baldemar England MD Abs.Imm.Granulocyte 0.12 k/uL Normal 0.00-0.30 [facility] Comment on above: Performed By: #### C DP #### [address] [place] [address] It Service Technician: Baldemar England MD Abs.Neutrophil (Seg) 8.84 k/uL High 1.50-8.10 [facility] Comment on above: Performed By: #### C DP #### [address] [place] [address] It Service Technician: Baldemar England MD Basophils/100 WBC (Bld) 0 % Normal 0-2 [facility] Comment on above: Performed By: #### C DP #### [address] [place] [address] It Service Technician: Baldemar England MD Eosinophils (Bld) [#/Vol] 0.07 10*3/uL Normal 0.00-0.44 [facility] Comment on above: Performed By: #### C DP #### [facility] [address] [place] [address] [place] [address] It Service Technician: Baldemar England MD Eosinophils/100 WBC (Bld) 1 % Normal 1-4 [facility] Comment on above: Performed By: #### C DP #### [address] [place], [place] [id number] It Service Technician: Baldemar England MD Erythrocyte distribution width (RBC) [Ratio] 13.6 % Normal 11.8-14.4 [facility] Comment on above: Performed By: #### C DP #### [facility] [address] [place] [address] [place], [place] [id number] It Service Technician: Baldemar England MD Hematocrit (Bld) [Volume fraction] 39.8 % Normal 36.3-47.1 [facility] Comment on above: Performed By: #### C DP #### [facility] [address] [place] [address] Dr. [place], [facility] It Service Technician: Baldemar England MD Hemoglobin (Bld) [Mass/Vol] 13.5 g/dL Normal 11.9-15.1 [facility] Comment on above: Performed By: #### C DP #### [address] [place], [facility] It Service Technician: Baldemar England MD Immature granulocytes/100 WBC (Bld) 1 % High 0 [facility] Comment on above: Performed By: #### C DP #### [address] [place], [place] [address] It Service Technician: Baldemar England MD Lymphocytes (Bld) [#/Vol] 1.38 10*3/uL Normal 1.10-3.70 [facility] Comment on above: Performed By: #### C DP #### [facility] [address] [place] [address] Dr. [place], [facility] It Service Technician: Baldemar England MD Lymphocytes/100 WBC (Bld) 13 % Low 24-43 [facility] Comment on above: Performed By: #### C DP #### [address] [place], [place] [id number] It Service Technician: Baldemar England MD MCH (RBC) [Entitic mass] 31.8 pg Normal 25.2-33.5 [facility] Comment on above: Performed By: #### C DP #### [facility] [address] [place], [place] [id number] It Service Technician: Baldemar England MD MCHC (RBC) [Mass/Vol] 33.9 g/dL Normal 28.4-34.8 [facility] Comment on above: Performed By: #### C DP #### [facility] [address] [place], [facility] It Service Technician: Baldemar England MD MCV (RBC) [Entitic vol] 93.6 fL Normal 82.6-102.9 [facility] Comment on above: Performed By: #### C DP #### [address] [place], [facility] It Service Technician: Baldemar England MD Monocytes (Bld) [#/Vol] 0.55 10*3/uL Normal 0.10-1.20 [facility] Comment on above: Performed By: #### C DP #### [facility] [address] [place] [address] Dr[address] [place], [place] [id number] It Service Technician: Baldemar England MD Monocytes/100 WBC (Bld) 5 % Normal 3-12 [facility] Comment on above: Performed By: #### C DP #### [address] [place], [place] [id number] It Service Technician: Baldemar England MD Neutrophil (Seg) 80 % High 36-65 [facility] Comment on above: Performed By: #### C DP #### [facility] [address] [place], [place] [id number] It Service Technician: Baldemar England MD NRBC Automated 0.0 per 100 WBC Normal 0.0 [facility] Comment on above: Performed By: #### C DP #### [facility] [address] [place], [place] [id number] It Service Technician: Baldemar England MD Platelet mean volume (Bld) [Entitic vol] 10.6 fL Normal 8.1-13.5 [facility] Comment on above: Performed By: #### C DP #### [facility] [address] [place], [facility]83 It Service Technician: Baldemar England MD Platelets (Bld) [#/Vol] 166 10*3/uL Normal 138-453 [facility] Comment on above: Performed By: #### C DP #### [facility] [address] [place], [facility]83 It Service Technician: Baldemar England MD RBC (Bld) [#/Vol] 4.25 10*6/uL Normal 3.95-5.11 [facility] Comment on above: Performed By: #### C DP #### [address] [place], [place] [address] It Service Technician: Baldemar England MD WBC (Bld) [#/Vol] 11.0 10*3/uL Normal 3.5-11.3 [facility] Comment on above: Performed By: #### C DP #### [address] [place], [place] [address] It Service Technician: Baldemar England MD Auto Diff Performed NOT REPORTED Normal [facility] Comment on above: Performed By: #### C DP #### [address] [place], [facility]83 It Service Technician: Baldemar England MD Platelet Estimate NOT REPORTED Normal [facility] Comment on above: Performed By: #### C DP #### [address] [place], [facility]83 It Service Technician: Baldemar England MD RBC morphology finding Nom (Bld) NOT REPORTED Normal [facility] Comment on above: Performed By: #### C DP #### [address] [place] [address] It Service Technician: Baldemar England MD WBC Morphology NOT REPORTED Normal [facility] Comment on above: Performed By: #### C DP #### [facility] [address] [place] [address] It Service Technician: Baldemar England MD Type + Screenon 09-09-2020 Type + Screen Sample Expiration 09/12/2020,2359 Arm Band Number [id number] ABO/Rh(D) O POSITIVE Antibody Screen NEGATIVE Normal [facility] Comment on above: Performed By: #### T YS #### [facility] [address] [place] [address] It Service Technician: Baldemar England MD GBS, External ResultOrdered By: Cathy Colon on 08-07-2020 GBS, External Result Negative [facility] [employer] Work Phone: Comment on above: reviewed with A Phoebe bermudez RN [facility] Work Phone: ABO, External ResultOrdered By: Cathy Colon on 01-30-2020 ABO, External Result O [facility] [employer] Work Phone: Comment on above: reviewed with A Phoebe bermudez RN C. Trachomatis, External Res ultOrdered By: Cathy Colon on 01-30-2020 C. Trachomatis, External Result Not detected [facility] Work Phone: Comment on above: reviewed with A Phoebe bermudez RN HIV, External ResultOrdered By: Cathy Colon on 01-30-2020 HIV, External Result Non-Reactive [facility] [place] Work Phone: Comment on above: reviewed with A Phoebe bermudez RN Hepatitis B, External Result Ordered By: Cathy Colon on 01-30-2020 Hep B, External Result Non-Reactive [facility] Work Phone: Comment on above: reviewed with A Phoebe bermudez RN N. Gonorrhoeae, External Res ultOrdered By: Cathy Colon on 01-30-2020 N. Gonorrhoeae, External Result Not detected [facility] Work Phone: Comment on above: reviewed with A phoebe bermudez RN No Panel InformationOrdered By: Cathy Colon on 01-30-2020 [employer] Work Phone: [employer] Work Phone: RPR, External LabOrdered By: Cathy Colon on 01-30-2020 RPR, External Result Non-Reactive [facility] [place] Work Phone: Comment on above: reviewed with A Phoebe bermudez RN Rh Factor, External ResultOr dered By: Cathy Colon on 01-30-2020 Rh Factor, External Result + [employer] Work Phone: Comment on above: reviewed with A Phoebe bermudez RN Rubella Titer, External Resu ltOrdered By: Cathy Colon on 01-30-2020 Rubella Titer, External Result immune [employer] Work Phone: Comment on above: reviewed with A Phoebe bermudez RN Vital Signs Date Time Vital Sign Value Performing Clinician Faci lity 05-15-2024 16:37-0500 Body mass index (BMI) [Ratio] 30.04 kg/m2 Cathy Pritchettjoanie CNM Work Phone: [facility] 05-15-2024 16:37-0500 Body weight 79.38 kg Cathy Colon CNM Work Phone: [facility] 05-15-2024 16:37-0500 Diastolic blood pressure 80 mm[Hg] Cathy Isaiah CNM Work Phone: [facility] 05-15-2024 16:37-0500 Systolic blood pressure 120 mm[Hg] Cathy Colon CNM Work Phone: [facility] 05-02-2024 08:31-0500 Body mass index (BMI) [Ratio] 32.44 kg/m2 Cathy Colon CNM Work Phone: [facility] 05-02-2024 08:31-0500 Body weight 85.73 kg Cathy Colon CNM Work Phone: [facility] 05-02-2024 08:31-0500 Diastolic blood pressure 80 mm[Hg] Cathy Floro CNM Work Phone: [facility] 05-02-2024 08:31-0500 Systolic blood pressure 120 mm[Hg] Cathy Floro CNM Work Phone: [facility] 04-24-2024 17:26-0500 Body mass index (BMI) [Ratio] 32.61 kg/m2 Cathy Floro CNM Work Phone: [facility] 04-24-2024 17:26-0500 Body weight 86.18 kg Cathy Floro CNM Work Phone: [facility] 04-24-2024 17:26-0500 Diastolic blood pressure 70 mm[Hg] Cathy Floro CNM Work Phone: [facility] 04-24-2024 17:26-0500 Systolic blood pressure 112 mm[Hg] Cathy Floro CNM Work Phone: [facility] 04-18-2024 10:01-0500 Body mass index (BMI) [Ratio] 32.1 kg/m2 Cathy Floro CNM Work Phone: [facility] 04-18-2024 10:01-0500 Body weight 84.82 kg Cathy Floro CNM Work Phone: [facility] 04-18-2024 10:01-0500 Diastolic blood pressure 60 mm[Hg] Cathy Floro CNM Work Phone: [facility] 04-18-2024 10:01-0500 Systolic blood pressure 110 mm[Hg] Cathy Floro CNM Work Phone: [facility] 04-11-2024 08:32-0500 Body mass index (BMI) [Ratio] 32.27 kg/m2 Cathy Floro CNM Work Phone: [facility] 04-11-2024 08:32-0500 Body weight 85.28 kg Cathy Floro CNM Work Phone: [facility] 04-11-2024 08:32-0500 Diastolic blood pressure 70 mm[Hg] Cathy Floro CNM Work Phone: [facility] 04-11-2024 08:32-0500 Systolic blood pressure 118 mm[Hg] Cathy Floro CNM Work Phone: [facility] 03-28-2024 08:52-0500 Body mass index (BMI) [Ratio] 31.93 kg/m2 Cathy Floro CNM Work Phone: [facility] 03-28-2024 08:52-0500 Body weight 84.37 kg Cathy Floro CNM Work Phone: [facility] 03-28-2024 08:52-0500 Diastolic blood pressure 70 mm[Hg] Cathy Floro CNM Work Phone: [facility] 03-28-2024 08:52-0500 Systolic blood pressure 116 mm[Hg] Cathy Floro CNM Work Phone: [facility] 03-23-2024 08:50-0500 Body mass index (BMI) [Ratio] 32.27 kg/m2 Cathy Floro CNM Work Phone: [facility] 03-23-2024 08:50-0500 Body weight 85.28 kg Cathy Floro CNM Work Phone: [facility] 03-23-2024 08:50-0500 Diastolic blood pressure 70 mm[Hg] Cathy Floro CNM Work Phone: [facility] 03-23-2024 08:50-0500 Systolic blood pressure 110 mm[Hg] Cathy Floro CNM Work Phone: [facility] 03-20-2024 08:41-0500 Body mass index [...] Cathy Floro CNM Work Phone: [facility] 03-08-2024 08:34-0500 Body weight 85.28 kg Cathy Floro CNM Work Phone: [facility] 03-08-2024 08:34-0500 Diastolic blood pressure 80 mm[Hg] Cathy Floro CNM Work Phone: [facility] 03-08-2024 08:34-0500 Systolic blood pressure 120 mm[Hg] Cathy Floro CNM Work Phone: [facility] 02-09-2024 08:33-0500 Body mass index (BMI) [Ratio] 32.1 kg/m2 Cathy Floro CNM Work Phone: [facility] 02-09-2024 08:33-0500 Body weight 84.82 kg Cathy Floro CNM Work Phone: [facility] 02-09-2024 08:33-0500 Diastolic blood pressure 74 mm[Hg] Cathy Floro CNM Work Phone: [facility] 02-09-2024 08:33-0500 Systolic blood pressure 120 mm[Hg] Cathy Floro CNM Work Phone: [facility] 01-25-2024 08:45-0500 Body height 162.6 [...] Cathy Floro CNM Work Phone: [facility] 01-11-2024 08:47-0400 Body weight 81.65 kg Cathy Floro CNM Work Phone: [facility] 01-11-2024 08:47-0400 Diastolic blood pressure 70 mm[Hg] Cathy Floro CNM Work Phone: [facility] 01-11-2024 08:47-0400 Systolic blood pressure 110 mm[Hg] Cathy Floro CNM Work Phone: [facility] 12-15-2023 11:27-0400 Body mass index (BMI) [Ratio] 30.04 kg/m2 Cathy Floro CNM Work Phone: [facility] 12-15-2023 11:27-0400 Body weight 79.38 kg Cathy Floro CNM Work Phone: [facility] 12-15-2023 11:27-0400 Diastolic blood pressure 70 mm[Hg] Cathy Pritchetto CNM Work Phone: [facility] 12-15-2023 11:27-0400 Systolic blood pressure 116 mm[Hg] Cathy Pritchetto CNM Work Phone: [facility] 11-10-2023 08:31-0400 Body mass index (BMI) [Ratio] 29.52 kg/m2 Cathy Colon CNM Work Phone: [facility] 11-10-2023 08:31-0400 Body weight 78.02 kg Cathy Colon CNM Work Phone: [facility] 11-10-2023 08:31-0400 Diastolic blood pressure 64 mm[Hg] Cathy Pritchetto CNM Work Phone: [facility] 11-10-2023 08:31-0400 Systolic blood pressure 100 mm[Hg] Cathy Pritchetto CNM Work Phone: [facility] 08-04-2021 13:00-0400 Heart rate 49 /min MARIUM Michael MD Work Phone: [facility] 08-04-2021 13:00-0400 Respiratory rate 21 /min MARIUM Michael MD Work Phone: [facility] 08-04-2021 13:00-0400 SaO2% (BldA) [Mass fraction] 100 % MARIUM Michael MD Work Phone: [facility] 08-04-2021 12:45-0400 Diastolic blood pressure 77 mm[Hg] MARIUM Micheal MD Work Phone: [facility] 08-04-2021 12:45-0400 Systolic blood pressure 109 mm[Hg] MARIUM Michael MD Work Phone: [facility] 08-04-2021 12:18-0400 Body temperature 96.8 [degF] MARIUM Michael MD Work Phone: [facility] 08-04-2021 09:48-0400 Body height 162.6 cm MARIUM Michael MD Work Phone: [employer] 08-04-2021 09:48-0400 Body mass index (BMI) [Ratio] 31.24 kg/m2 MARIUM Michael MD Work Phone: [employer] 08-04-2021 09:48-0400 Body weight 82.56 kg MARIUM Michael MD Work Phone: [employer] 07-08-2021 08:14-0400 Respiratory rate 0 /min MARIUM Michael MD Work Phone: [employer] 07-08-2021 08:10-0400 Body temperature 97.81 [degF] MARIUM Michael MD Work Phone: [employer] 07-08-2021 08:10-0400 Diastolic blood pressure 69 mm[Hg] NA Fernanda WATKINS Work Phone: [employer] 07-08-2021 08:10-0400 Heart rate 54 /min MARIUM Michael MD Work Phone: [employer] 07-08-2021 08:10-0400 SaO2% (BldA) [Mass fraction] 100 % MARIUM Michael MD Work Phone: [employer] 07-08-2021 08:10-0400 Systolic blood pressure 107 mm[Hg] MARIUM Michael MD Work Phone: [employer] 07-08-2021 07:01-0400 Body height 162.6 cm MARIUM Michael MD Work Phone: [employer] 07-08-2021 07:01-0400 Body mass index (BMI) [Ratio] 31.41 kg/m2 MARIUM Michael MD Work Phone: [employer] 07-08-2021 07:01-0400 Body weight 83.01 kg MARIUM Michael MD Work Phone: [employer] 09-12-2020 07:33-0400 Diastolic blood pressure 76 mm[Hg] Breana Hastingsg DO Work Phone: [employer] Work Phone: 09-12-2020 07:33-0400 Heart rate 61 /min Breana Hastingsg DO Work Phone: [employer] Work Phone: 09-12-2020 07:33-0400 Respiratory rate 18 /min Breana Hastingsg DO Work Phone: [employer] Work Phone: 09-12-2020 07:33-0400 Systolic blood pressure 115 mm[Hg] Breana Hastingsg DO Work Phone: [employer] Work Phone: 09-12-2020 07:32-0400 Body temperature 98.4 [degF] Breana Hastingsg DO Work Phone: [employer] Work Phone: 09-10-2020 16:08-0400 SaO2% (BldA) [Mass fraction] 100 % Breana Hastingsg DO Work Phone: [employer] Work Phone: 09-10-2020 12:10-0400 Body height 162.6 cm Breana Hastingsg DO Work Phone: [employer] Work Phone: 09-10-2020 12:10-0400 Body mass index (BMI) [Ratio] 34.84 kg/m2 Breana Hastingsg DO Work Phone: [employer] Work Phone: 09-10-2020 12:10-0400 Body weight 92.08 kg Breana Hastingsg DO Work Phone: [employer] Work Phone: Encounters Encounter Date Encounter Type Care Provider Facility Start: 05-15-2024 End: 05-15-2024 Office outpatient visit 15 minutes Cathy Colon CNM Work Phone: [facility] Comment on above: examinati on following delivery (Primary Dx); Encounter for routine follow-up; History of section Start: 05-15-2024 End: 05-15-2024 ambulatory CATHY COLON Not Available Start: 05-09-2024 End: 05-09-2024 Clinisync Result Encounter [...] Start: 05-08-2024 End: 05-08-2024 ambulatory Cathy Colon Facility:[facility] Start: 05-08-2024 End: 05-08-2024 Departed Referred Cathy Colon HUMAN SERVICE TECHNICIAN Work Phone: [facility] Start: [...] [facility] Start: 04-03-2024 End: 04-03-2024 Bamboo flowsheet Fernandara Eaton MS, RDN, LD, CHES [facility] Start: 04-03-2024 End: 04-03-2024 ambulatory FRENANDA EATON Not Available Start: 03-28-2024 End: 03-28-2024 [...] Bonilla MD Work Phone: [facility] Comment on above: 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 (Primary Dx) Start: 03-20-2024 End: 03-20-2024 ambulatory [facility] Start: 03-08-2024 End: 03-08-2024 Bamboo flowsheet Cathy [...] [facility] Start: 02-09-2024 End: 02-09-2024 Estefanio flowsheet Cathy Colon CNM Work Phone: [facility] [...] 01-31-2024 End: 01-31-2024 Orders Only Jake Dai [facility] Comment on above: Pyelectasis Pyelectasis (Primary Dx); anomaly suspected but not found Start: 01-25-2024 End: 01-25-2024 Office consultation new/estab patient 60 min Tang Bonilla MD Work Phone: [facility] Comment on above: 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 (Primary Dx) Start: 01-25-2024 End: 01-25-2024 [facility] Comment on above: 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 (Primary Dx); Pyelectasis Start: 01-17-2024 End: 01-17-2024 Chart abstracting Tang Bonilla MD Work Phone: [facility] Start: 01-17-2024 End: 01-17-2024 Telephone encounter Chelsey Bray MD Work Phone: [facility] Start: 01-14-2024 End: 01-14-2024 Chart abstracting Tang Bonilla MD Work Phone: [facility] Start: 01-11-2024 End: 01-11-2024 Bamboo flowsheet [...] 11-10-2023 End: 11-10-2023 Bamboo flowsheet Cathy Jumana Floro CNM Work [...] 10-06-2023 End: 10-06-2023 Telephone encounter Irma Vega [facility] Work Phone: [facility] Comment on above: Verbal Re-Assessment (Genetics Results Disclosure) Start: 09-21-2023 End: 09-21-2023 ambulatory HOSSEIN FERNANDEZ Not Available Start: 09-20-2023 End: 09-20-2023 ambulatory CATHY L FLORO Not Available Start: 09-16-2023 End: 09-16-2023 ambulatory Pfo Infusion Chair 1 Cristy Fernandez [facility] Start: 08-04-2021 End: 08-04-2021 ambulatory Surendra MICHAEL [facility] Start: 08-04-2021 End: 08-04-2021 Subsequent hospital visit by physician Surendra Michael MD Work Phone: [facility] [place] Comment on above: 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, nose, lip, and ear (HCC) (Primary Dx); Pain following surgery or procedure Start: 07-08-2021 End: 07-08-2021 ambulatory A JUANCARLOS MICHAEL [facility] Start: 07-08-2021 End: 07-08-2021 Subsequent hospital visit by physician Surendra Michael MD Work Phone: [facility] [place] Comment on above: Pain following surge ry or procedure (Primary Dx) Start: 09-10-2020 End: 09-12-2020 Evaluation and management of inpatient [facility] Start: 09-10-2020 End: 09-12-2020 Evaluation and management of inpatient [facility] Work Phone: [facility] Delivery Comment on above: delivery de livered (Primary Dx) Start: 09-09-2020 End: 09-09-2020 [facility] Start: 09-09-2020 End: 09-09-2020 Admission to establishment [facility] Karmen Hastingsg Work Phone: [facility] Start: 09-09-2020 End: 09-09-2020 Subsequent hospital visit by physician [facility] Work Phone: [facility] Comment on above: [...] Start: 10-12-2023 Hemoglobin glycosylated a1c Cathy Colon HUMAN SERVICE TECHNICIAN-CNM Work Phone: Start: 10-12-2023 HIV 1&2 AB/AG SCREEN (P24 AG) Not In System Ref Prov Start: 10-12-2023 Iaad ia hepatitis b surface antigen Not In System Ref Prov Start: 10-12-2023 Syphilis test non-treponemal antibody qual Not In System Ref Prov Start: 10-12-2023 TYPE AND SCREEN Not In System Ref Pr ov Start: 08-04-2021 Urine test visual color cmprsn meths Surendra Michael MD Work Phone: Start: 09-11-2020 Blood count hemoglobin Breana F Karmen Arm strong DO Work Phone: Start: 09-10-2020 Drug screen class list a Cathy Agosto PRN - CNM Work Phone: Start: 09-09-2020 Blood count complete auto&auto difrntl wbc Breana F Karmen Mondragon DO Work Phone: Start: 08-07-2020 GBS, EXTERNAL RESULT Cathy Colon HUMAN SERVICE TECHNICIAN - CNM Work Phone: Start: 01-30-2020 ABO, EXTERNAL RESULT Cathy Floro HUMAN SERVICE TECHNICIAN - CNM Work Phone: Start: 01-30-2020 C. TRACHOMATIS, EXTERNAL RESULT Cathy Floro HUMAN SERVICE TECHNICIAN - CNM Work Phone: Start: 01-30-2020 HEPATITIS B, EXTERNAL RESULT Cathy Floro HUMAN SERVICE TECHNICIAN - CNM Work Phone: Start: 01-30-2020 HIV, EXTERNAL RESULT Cathy Floro HUMAN SERVICE TECHNICIAN - CNM Work Phone: Start: 01-30-2020 N. GONORRHOEAE, EXTERNAL RESULT Cathy Floro HUMAN SERVICE TECHNICIAN - CNM Work Phone: Start: 01-30-2020 RH FACTOR, EXTERNAL RESULT Cathy Floro HUMAN SERVICE TECHNICIAN - CNM Work Phone: Start: 01-30-2020 RPR, EXTERNAL RESULT Cathy Floro HUMAN SERVICE TECHNICIAN - CNM Work Phone: Start: 01-30-2020 RUBELLA TITER, EXTERNAL RESULT Cathy Floro HUMAN SERVICE TECHNICIAN - CNM Work Phone: H/O: section S/P [...] DTaP/Tdap/Td vaccine (7 - Td or Tdap) [facility] Start: 03-20-2025 Adult BMI Screening Adult BMI Screen ing [facility] Start: 01-24-2025 Adult BMI Screening Adult BMI Screen ing [facility] Start: 01-24-2025 Tobacco Screening Tobacco Screening [facility] Start: 01-24-2025 End: 01-24-2025 US MFM with or without consult US MFM with or without consult Imaging Routine Pyelectasis Expected: 01/24/2025 (Approximate), Expires: 01/24/2025 [place] Work Phone: Comment on above: Expected: 01/24/2025 (Approximate), Expires: 01/24/2025 Start: 12-10-2024 Screening for malign ant neoplasm of cervix [facility] Start: 06-22-2024 End: 06-22-2024 Patient encounter procedure 06/22/2024 9:15 AM EDT Office Visit [facility] [address] [place] [address] Hossein Fernandez MD [address] [place] [address] [facility] Start: 06-19-2024 End: 06-19-2024 ambulatory 06/19/2024 4:30 PM EDT Visit [facility] [address] [place] [address] Cathy Colon, CNM [address] [place] [address] [facility] Start: 05-15-2024 End: 05-15-2024 ambulatory 05/15/2024 2:30 PM EST Visit [facility] [address] [facility] [place] [id number] Cathy Colon, CNM [address] [place] [address] [facility] Start: 05-08-2024 Bacteria identified in Urine by Culture [facility] Start: 05-08-2024 Urine culture [facility] Start: 05-02-2024 End: 05-02-2024 Patient encounter procedure 05/02/2024 8:30 AM EST Routine [facility] [address] [facility] [place] [phone] Cathy Colon, CN [address] [place] [address] [facility] Start: 04-25-2024 End: 04-25-2024 Patient encounter procedure 04/25/2024 10:00 AM EST Routine [facility] [address] [facility] [place] [address] Cathy Colon, CN [address] [place] [address] [facility] Start: 04-24-2024 End: 04-24-2024 [...] EST Routine [facility] [address] [facility] [place] [phone] Cathy Colon, [facility] [address] [place] [address] [facility] Start: 04-04-2024 End: 04-04-2024 Patient encounter procedure 04/04/2024 8:45 AM EST Routine [facility] [address] [facility] [place] [address] Cathy Colon, [facility] [address] [place] [address] [facility] Start: 04-03-2024 End: 04-03-2024 Clinical Support [facility] Comment on above: Elevated glucose sary erance test; History of gestational diabetes Start: 03-28-2024 End: 03-28-2024 Patient encounter procedure 03/28/2024 8:45 AM EST Routine [facility] [address] [facility] [place] [address] Cathy Colon, [facility] [address] [place] [address] [facility] Start: 03-23-2024 End: 03-23-2025 [...] of gestational diabetes Expected: 03/23/2024, Expires: 03/23/2025 [facility] Comment on above: Expected: 03/23/2024 , Expires: 03/23/2025 Start: 03-23-2024 End: 03-23-2024 Patient encounter procedure 03/23/2024 8:45 AM EST Routine [facility] [address] [place] [phone] Cathy Colon, [facility] [address] [place] [address] [facility] Start: 03-20-2024 End: 03-20-2024 Patient encounter procedure [facility] Start: 03-08-2024 End: 03-08-2025 GLUCOSE TOLERANCE TEST, GEST, 4SPEC 100G W/NDDG GLUCOSE TOLERANCE TEST, GEST, 4SPEC 100G W/NDDG Lab Routine Elevated glucose tolerance test Expected: 03/08/2024 (Approximate), Expires: 03/08/2025 [facility] Work Phone: Comment on above: Expected: 03/08/2024 (Approximate), Expires: 03/08/2025 Start: 03-08-2024 End: 03-08-2024 Patient encounter procedure 03/08/2024 8:30 AM EST Routine [facility] [address] [place] [phone] Cathy Colon, [facility] [address] [place] [address] [facility] Start: 02-09-2024 End: 02-08-2025 CBC panel - Blood by Automated count CBC Lab Routine Screening for iron deficiency anemia Expected: 02/09/2024 (Approximate), Expires: 02/08/2025 [facility] Comment on above: Expected: 02/09/2024 (Approximate), Expires: 02/08/2025 Start: 02-09-2024 End: 02-08-2025 GLUCOSE, GESTATIONAL SCREEN (50G)-135 CUTOFF GLUCOSE, GESTATIONAL SCREEN (50G)-135 CUTOFF Lab Routine Screening for diabetes mellitus Expected: 02/09/2024 (Approximate), Expires: 02/08/2025 [facility] Work Phone: Comment on above: Expected: 02/09/2024 (Approximate), Expires: 02/08/2025 Start: 02-09-2024 End: 02-08-2025 US for US OB follow up transabdominal approach Imaging Routine related condition in second trimester Expected: 02/09/2024, Expires: 02/08/2025 [facility] Comment on above: Expected: 02/09/2024 , Expires: 02/08/2025 Start: 02-09-2024 End: 02-09-2024 Patient encounter procedure 02/09/2024 8:30 AM EST Routine [facility] [address] [place] [phone] Cathy Colon [facility] [address] [place] [address] [facility] Start: 01-25-2024 End: 01-25-2024 Patient encounter procedure 01/25/2024 8:45 AM EST Office Visit [facility] at [facility] [address] [place] [address] Tang Bonilla MD [address] [place] [address] [facility] Start: 01-25-2024 End: 01-25-2024 Patient encounter procedure 01/25/2024 7:30 AM EST Appointment [facility] [address] [place] [address] [facility] Start: 01-11-2024 End: 01-11-2024 Patient encounter procedure 01/11/2024 8:45 AM EDT Routine [facility] [address] [facility] [place] [address] Cathy Colon, CNM [address] [place] [address] [facility] Start: 12-27-2023 End: 12-27-2023 Professional / ancillary services management 12/27/2023 3:15 PM EDT Ancillary Procedure [facility] [address] [place] [phone] [facility] Start: 12-23-2023 End: 12-23-2023 [...] EDT Routine [facility] [address] [facility] [place] [address] Cathy Colon, REYM [address] [place] [address] Arrived [facility] Comment on above: Arrived Start: 12-15-2023 End: 12-15-2023 Patient encounter procedure 12/15/2023 8:30 AM EDT Routine [facility] [address] [facility] [place] [phone] Cathy Colon, CNM [address] [place] [address] [facility] Start: 11-21-2023 Influenza vaccination N [facility] Start: 11-20-2021 Influenza vaccination Flu vacc ine (Season Ended) [facility] Start: 08-12-2021 End: 08-12-2021 Patient encounter procedure 08/12/2021 Office Visit Plastic Surgery Rhoda CallahanBARTOLO CNP [address] [facility] [address] [place] [address] [facility] Start: 08-04-2021 End: 08-04-2021 HEAD LESION EXCISION HEAD LESION EXCISION D03.30 RIGHT CHEEK MELANOMA 08/04/2021 11:33 AM EDT [facility] Start: 07-23-2021 End: 07-23-2021 Patient encounter procedure 07/23/2021 Office [place] [address] [place] [address] [facility] Start: 07-08-2021 End: 07-08-2021 FACIAL LESION BIOPSY EXCISION FACIAL LESION BIOPSY EXCISION LESION RIGHT NECK X1 LESION RIGHT CHEEK X 2 07/08/2021 7:29 AM EDT [facility] Start: 2021 Screening for malign ant neoplasm of cervix [facility] Start: 11-20-2020 Influenza vaccination Flu vacc ine (Season Ended) [facility] Work Phone: Start: 09-10-2020 End: 09-10-2020 Admission to same day surgery center 09/10/2020 Surgery Obstetrics and Gynecology Breana Ledbetter DO [address] [place] [address] SECTION [facility] Labor and Delivery Comment on above: SECTION Start: 09-10-2020 Subsequent hospital visit by physician 09/10/2020 Hospital Encounter Obstetrics and Gynecology Breana Ledbetter DO [address] [place] [address] [facility] Start: 01-14-2012 Screening for malign ant neoplasm of cervix [facility] Start: 2010 DTaP/Tdap/Td vaccine (1 - Tdap) DTaP/Tdap/Td vaccine (1 - Tdap) [facility] Start: 2009 Adult BMI Follow Up Plan Adult BMI Follow Up Plan [facility] Start: 2009 Adult BMI Screening Adult BMI Screen ing [facility] Start: 2009 Hepatitis C screening Hepatitis C [facility] Start: 2006 HIV screening HIV screen [facility] Start: 2003 COVID-19 Vaccine (1) COVID-19 Vaccin e (1) [facility] Phone: Start: 2003 Depression Screen Depression Screen [facility] Start: 2003 Depression Screening Depression Scre ening [facility] Start: 2003 Tobacco Screening Tobacco Screening [facility] Start: 01-14-1996 COVID-19 Vaccine (1) COVID-19 Vaccin e (1) [facility] Start: 01-14-1992 Varicella vaccine (1 of 2 - 2-dose childhood series) Varicella vaccine (1 of 2 - 2-dose childhood series) [facility] Start: 1991 Hepatitis C screening Hepatitis C [facility] End: 08-04-2021 INITIATE PACU OXYGEN THERAPY PROTOCOL Initiate PACU Oxygen Therapy Protocol Respiratory Care Routine Continuous until discontinued starting 08/04/2021 [facility] Phone: Comment on above: Continuous until dis continued starting 08/04/2021 Oxygen therapy [[facility] Data Set] Initiate Oxygen Therapy Protocol Respiratory Care Routine Daily until discontinued starting 09/10/2020 [facility] Phone: Comment on above: Daily until disconti nued starting 09/10/2020 Spirometry panel Incentive liz metry Respiratory Care Routine Every 2hr while awake until discontinued starting 09/10/2020 [facility] Phone: Comment on above: Every 2hr while awak e until discontinued starting 09/10/2020 Surgical Pathology Surgical Path ology Lab Routine Release Upon Ordering for 1 Occurrences starting 07/08/2021 [facility] Phone: Comment on above: Release Upon Orderin g for 1 Occurrences starting 07/08/2021 Surgical Pathology Surgical Path ology Lab Routine Release Upon Ordering for 1 Occurrences starting 08/04/2021 [facility] Phone: Comment on above: Release Upon Orderin g for 1 Occurrences starting 08/04/2021 End: 09-09-2020 TYPE AND SCREEN TYPE AND SCREEN Blood Bank STAT Encounter for preadmission testing One Time for 1 Occurrences starting 09/09/2020 until 09/09/2020 [facility] Phone: Comment on above: One Time for 1 Occur rences starting 09/09/2020 until 09/09/2020 TYPE AND SCREEN TYPE AND SCREEN Blood Bank Stat [employer] Label print Encounter for preadmission testing 09/09/2020 2:26 PM EDT [facility] Phone: Immunizations Immunization Date Immunization Notes Care Provider Fa cili 09-10-2020 diphtheria, tetanus toxoids and acellular pertussis vaccine, unspecified formulation AlaMarka DO Work Phone: [facility] Phone: 09-10-2020 measles, mumps and rubella virus vaccine AlaMarka DO Work Phone: [facility] Phone: Payers Date Payer Category Payer Self-pay [id number] Unknown [id number] 2021 Commercial Managed C are - POS [id number] 2021 Managed Care HMO (unspecified) [id number]. [id number] 2021 Private Health Insurance [id number] .[id number]. [id number] 2021 Private Health Insurance [id number] 1.2.840.238013.1.13.239.2.7. [id number] 2021 Unknown [id number] 1.2.840.305991.1.13.239.2.7. [id number] 2020 Unknown [id number] 1.2.840.771744.1.13.239.2.7. [id number] 1991 Unknown [id number] 2.16.840.1.515331.3.579.2.17 3 1991 Unknown [id number] 2.16.840.1.780656.3.579.2.17 5 1991 Unknown [id number] 2.16.840.1.234019.3.579.2.17 5 1991 Unknown [id number] 2.16.840.1.612398.3.579.2.12 86 1991 Unknown [id number] 2.16.840.1.018793.3.579.2.12 86 1991 Unknown [id number] 2.16.840.1.023426.3.579.2.12 86 1991 Unknown [id number] 2.16.840.1.134007.3.579.2.12 86 1991 Unknown [id number] 2.16.840.1.109107.3.579.2.12 59 1991 Unknown [id number] 2.16.840.1.745532.3.579.2.12 59 1991 Unknown [id number] 2.16.840.1.589994.3.579.2.12 59 1991 Unknown [id number] 2.16.840.1.078184.3.579.2.12 59 1991 Unknown [id number] 2.16.840.1.388899.3.579.2.12 59 1991 Unknown [id number] 2.16.840.1.387325.3.579.2.12 59 1991 Unknown [id number] 2.16.840.1.054757.3.579.2.12 59 1991 Unknown [id number] 2.16.840.1.582432.3.579.2.12 59 1991 Unknown [id number] 2.16.840.1.709853.3.579.2.12 59 1991 Unknown [id number] 2.16.840.1.748063.3.579.2.12 59 1991 Unknown [id number] 2.16.840.1.109428.3.579.2.12 59 1991 Unknown [id number] 2.16.840.1.660766.3.579.2.12 59 1991 Unknown [id number] 2.16.840.1.520690.3.579.2.12 59 1991 Unknown [id number] 2.16.840.1.853254.3.579.2.12 59 1991 Unknown [id number] 2.16.840.1.659775.3.579.2.12 59 1991 Unknown [id number] 2.16.840.1.653072.3.579.2.12 59 1991 Unknown [id number] 2.16.840.1.847959.3.579.2.12 59 1991 Unknown [id number] 2.16.840.1.848224.3.579.2.12 59 1991 Unknown [id number] 2.16.840.1.529628.3.579.2.12 59 1991 Unknown [id number] 2.16.840.1.509055.3.579.2.12 59 Private Health Insurance [facility] [place] [id number] Unknown [id number] 2.16.840.1.681837.3.579.2.53 1 Social History Date Type Detail Facility Tobacco smoking stat [facility] Unknown if ever smoked [facility] Phone: Start: 1990 Sex Assigned At Not on file M [employer] Phone: Start: 09-10-2020 End: 09-02-2022 Tobacco smoking status NHIS Never smoker [employer] Start: 09-10-2020 End: 09-02-2022 Tobacco use and exposure Never used [employer] Start: 09-10-2020 End: 05-15-2024 Alcohol intake Ex-drinker (finding) [facility] Phone: Start: 07-08-2021 End: 08-04-2021 Alcohol intake Current drinker of alcohol (finding) [facility] Phone: Start: 07-08-2021 End: 12-24-2023 Alcohol intake [facility] Phone: Start: 1990 Sex Assigned At Female M [facility] Start: 07-25-2021 End: 08-04-2021 Exposure to SARS-CoV-2 (event) Not sure [facility] Phone: Start: 09-22-2023 End: 12-24-2023 Tobacco use panel [facility] Start: 09-01-2022 Alcohol Comment Alcohol: 3or 4 drinks on typical day/ monthly or less. Caffeine 1-2 cup/sday [facility] Start: 08-22-2023 [facility] Start: 06-03-2022 Gender identity Identifies as female gender (finding) [facility] Childcare Unknown [facility] Start: 10-25-2014 End: 05-09-2024 Sex Female (finding) [facility] Tobacco smoking stat [facility] Tobacco smoking consumption unknown [facility] Work Phone: Clinical Notes 09-12-2020 to [...] encounter. normal exam documented in this encounter [facility] 05-02-2024 History of Present illness Narrative Subjective [...] to a meeting for work and [employer] and had chicken dinner, noodles, mashed potatoes and pie for dessert. She said she knew it would be high. The only other elevations were 2 readings at 142. She is maintaining excellent glucose numbers Continue vitamin. Labs reviewed. GBS negative Expected mode of delivery repeat section Follow up in 1 week for a routine visit. documented in this encounter [facility] 04-24-2024 History of Present illness Narrative Subjective [...] visit. documented in this encounter [facility] 04-18-2024 History of Present illness Narrative Subjective [...] visit. documented in this encounter [facility] 04-11-2024 History of Present illness [...] visit. documented in this encounter [facility] 03-28-2024 Telephone encounter Note Pt scheduled for nutritions/ Fernanda Horn [facility] 03-28-2024 Miscellaneous Notes Pt scheduled for nutritions/ Fernanda Horn documented in this encounter [facility] 03-28-2024 History of Present illness [...] she is waiting for an appt for flying shear operator referral. We also discussed her blood sugars [...] visit. 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 Objective Physical Exam weight: 188 lb Expected [...] visit. documented in this encounter [facility] 03-20-2024 History of Present illness [...] pyelectasis resolved. HISTORY OF PRESENT ILLNESS: Celestino rCuz is a pleasant 34 y.o. G 3 [...] Cystitis Gastroenteritis History of female infertility Melanoma ([facility]) 05/2021 in SITU Myopia Rhus dermatitis REVIEW [...] TANG BONILLA MD documented in this encounter [facility] 03-08-2024 History of Present illness Narrative Subjective [...] visit. documented in this encounter [facility] 02-09-2024 History of Present illness [...] given her reassurance she can deliver in [place] and as the baby grows he told [...] visit. documented in this encounter [facility] 01-25-2024 History of Present illness [...] Declined Have you been seen here at [facility] in a previous ? No Recent ER visits or hospitalizations? No Bring blood sugar log or meter with you today? (Please bring them with you for every visit at [facility]) N/A Flu vaccine (Jan-May)? No Any [...] Cystitis Gastroenteritis History of female infertility Melanoma ([facility]) 05/2021 in SITU Myopia Rhus dermatitis PAST [...] and the other consultants, we search on [employer] and all the available care everywhere [facility] I did review all the imaging studies of the patient available on EMR, ordered by the primary care physician and the other multi site leasing consultant HABITS: Patient activity no restrictions, diet [...] patient is in complete care of her glass technician. Patient does have ultrasound office visit scheduled with us Thank you for allowing me to participate in Celestino Cruz . If there any questions please do not hesitate to contact us. Sincerely, TANG BONILLA MD documented in this encounter [facility] 01-17-2024 Telephone encounter Note Maddie from [facility] called and left a vm at 11:25 am She said that she needs faxed over some information about the pt. She said if there is any Genetic Testing that has been done, Her first OB US, and she needs a reasoning for sending her to see them. Fax is [phone] Phone is [phone] [facility] 01-17-2024 Miscellaneous Notes Maddie from [facility] called and left a vm at 11:25 am She said that she needs faxed over some information about the pt. She said if there is any Genetic Testing that has been done, Her first OB US, and she needs a reasoning for sending her to see them. Fax is [phone] Phone is [phone] documented in this encounter [facility] 01-11-2024 History of Present illness [...] report and if needed will send to [facility] for consult. Urine protein-negative Urine glucose-negative Labs: reviewed Imaging Assessment/Plan Diagnoses and all orders for this visit: Encounter for supervision of other normal , second trimester History of section Continue vitamin. Labs reviewed. Rhogam not needed patient is O+ positive GTT at 28 weeks Follow up in 4 weeks for a routine visit documented in this encounter [facility] 12-30-2023 History of Present illness [...] US documented in this encounter [facility] 12-23-2023 History of Present illness [...] excision performed by Juancarlos Michael MD at [facility] In [facility]. Originally biopsied by Rhoda Callahan APRN-VÍCTOR also with [facility] Additional testing: none Currently [...] Examined Right arm Examined Patient wearing nail prydeinig, Denies dark streaks under finger nails, Denies [...] exam documented in this encounter [facility] 12-15-2023 History of Present illness [...] visit. documented in this encounter [facility] 11-10-2023 History of Present illness [...] visit. documented in this encounter [facility] 10-06-2023 Miscellaneous Notes Celestino Cruz : 1990 [...] and Interpretation: Ms. Cruz was tested through [employer] for the BRCA2 mutation previously found in [...] with skin checks as recommended by her skin care instructor. Implication for Family Members: Genetic testing is [...] of the family. For family members in [facility] and [facility], a genetic counseling appointment can be scheduled at a [facility] facility by calling [phone]. A physician referral is required and can be faxed to [phone]. For those who are not in the area, a local genetic counselor can be found at [employer]. Plan: 1. Inform relatives of negative results. [...] feel free to call the office at [phone]. Sincerely, JUAN C Agarwal Licensed Certified Genetic Counselor CC: ESTEE Gray MD documented in this encounter [facility] 10-06-2023 Telephone encounter Note Celestino Cruz : [...] and Interpretation: Ms. Cruz was tested through [employer] for the BRCA2 mutation previously found in [...] with skin checks as recommended by her skin care instructor. Implication for Family Members: Genetic testing is [...] of the family. For family members in [facility] and [facility], a genetic counseling appointment can be scheduled at a [facility] facility by calling [phone]. A physician referral is required and can be faxed to [phone]. For those who are not in the area, a local genetic counselor can be found at [employer]. Plan: 1. Inform relatives of negative results. [...] feel free to call the office at [phone]. Sincerely, JUAN C Agarwal Licensed Certified Genetic Counselor CC: Prem Hussein APRN-VÍCTOR Bray MD [facility] 09-16-2023 History of Present illness Narrative Lab draw by venipuncture from this medical writer documented in this encounter [facility] 06-20-2021 Hospital Discharge instructions Arlen Rhoades RN [...] Any new symptoms documented in this encounter [facility] Phone: 06-20-2021 Hospital Discharge instructions Arlen Rhoades [...] Any new symptoms documented in this encounter [facility] Phone: 09-12-2020 Hospital Discharge instructions Tamra Guardado RN - 09/12/2020 Follow-up with your OB doctor as specified. [employer] OB Department phone: Dr. Greyson Millery-Mondragon MD Chinyere Rhoades CNM [address] [facility] [address] [facility] [address] [address] Laura Oliver CN [address] [facility] [id number] [phone] Elba Colon, MSN, HUMAN SERVICE TECHNICIAN, CNM [facility] [address] [facility] [address] [address] [facility] [address] Chinyere Gaonadianelys CNM [address] [place] [address] [place] [address] Carolin Esqueda CNM [address] [place] [address] [place] [address] [phone] DIET Eat a well balanced diet focusing on foods high in fiber and protein. Drink plenty of fluids especially water. To avoid constipation you may take a mild stool softener as recommended by your doctor or hand launderer. ACTIVITY Gradually increase your activity. Resume exercise regimen only after advice by your doctor or hand launderer. Avoid lifting anything heavier than a gallon of milk for SIX weeks. Avoid driving until your doctor or hand launderer has given their approval. Rise slowly from [...] medications as recommended by your doctor or hand launderer for pain If you develop a warm, [...] vitamins as directed by your doctor or hand launderer. Refer to the booklet in the folder/binder for more information. If you feel you need more assistance or have questions, please call Hossein Marrufo IBISABEL, splunk consultant, at or the OB department to [...] they become loose or soiled. If used, [place] should be removed by your care provider. [...] in your calf. documented in this encounter [facility] Phone: 09-12-2020 History of Present illness Narrative [...] with as needed documented in this encounter [facility] Phone: Evaluation note Diagnosis Encounter for preadmission testing- Primary S/P primary low transverse delivery, without mention of indication, unspecified as to episode of care documented in this encounter [facility] Phone: evaluation note* Diagnosis delivery delivered- Primary delivery, without mention of indication, delivered, with or without mention of antepartum condition 40 weeks gestation of state, incidental documented in this encounter [facility] Phone: evaluation note* Diagnosis Pain following surgery or procedure- Primary Other acute postoperative pain documented in this encounter [facility] Phone: evaluation note* Diagnosis 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, nose, lip, and ear (HCC)- Primary Pain following surgery or procedure Other acute postoperative pain documented in this encounter [facility] Phone: Evaluation note* Diagnosis Melanocytic nevus of [...] found documented [facility]* Diagnosis Encounter for supervision [...] mellitus (GDM) affecting documented in this encounter [facility] HealthcareEvaluation [facility]* Diagnosis Encounter for supervision of other normal , third trimester- Primary History of section Other postprocedural status Gestational diabetes mellitus (GDM) affecting documented in this encounter [facility] HealthcareEvaluation note* Diagnosis anomaly suspected but not found- Primary Suspected anomaly not found documented in this encounter [facility]* Diagnosis anomaly suspected but not found- Primary Suspected anomaly not found Pyelectasis Other specified disorder of kidney and ureter [facility] Diagnosis Pyelectasis Other specified disorder of kidney and ureter documented in this encounter [facility]* Diagnosis Pyelectasis- Primary Other specified disorder of kidney and ureter anomaly suspected but not found Suspected anomaly not found documented in this encounter [facility] noteNo assessment information available [facility] Work Phone: Evaluation note* Diagnosis examination following delivery- Primary Encounter for routine follow-up History of section Other postprocedural status documented in this encounter [facility] HealthcareInstructionsNot on filedocumented in this [facility] SystemInstructionsNot on filedocumented in this encounter[facility] SystemInstructionsNot on filedocumented in this [facility] InstructionsNot on filedocumented in this [facility] InstructionsNot on filedocumented in this [facility] InstructionsNot on filedocumented in this [facility] InstructionsNot on filedocumented in this [facility] InstructionsNot on filedocumented in this encounterSelect [facility] SystemReason for visit Narrative* Auth/Cert Specialty Diagnoses / Procedures Referred By Bryanna t Referred To Contact Diagnoses Acoustic nerve lesion, right Acoustic nerve lesion, right LESION RIGHT NECK X1 LESION RIGHT CHEEK X 2 Procedures CO OFFICE/OUTPT VISIT,PROCEDURE ONLY CO EXC SKIN BENIG <5MM FACE,FACIAL RIGHT CHEEK LESION X 2 AND RIGHT NECK LESION X 1 [place] [address] [place] [address] [facility] [address] [place] [address] Referral ID Status Reason Start Date Expiration Date Visits Re quested Visits Authorized 1 1 [facility] Phone: reason for visit Narrative* Auth/Cert Specialty Diagnoses / Procedures Referred By Contac t Referred To Contact Diagnoses 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 Procedures CO OFFICE/OUTPT VISIT,PROCEDURE ONLY CO EXC SKIN BENIG >4CM TRUNK,ARM,LEG RIGHT CHEEK WIDER RESECTION OF MELANOMA IN S[place] [address] [place] [address] [employer] [address] [place] [address] Referral ID Status Reason Start Date Expiration Date Visits Re quested Visits Authorized [id number] 1 1 [facility] Phone: Advance Directives No Advanced Directives Records FoundLatest [...] macrosomia Procedures CO DELIVERY ONLY SECTION Breana Ledbetter, DO [address] [place] [address] [employer] Reason Comments Skin Check Suspicious Skin Lesion [...] 50 mL (mini-bag) (COMPLETED) 2,000 mg, Intravenous, MD UROLOGIST TO O.R., 1 dose, On Wed09/10/20 at [...] Padgett RN)0802 (Given - Provider: Tamra Guardado, RN)[phone] [...] (Due) 0900 (Due)2100 (Due) 0900 (Due)2100 (Due) Quqbszc-Jivwta-Bucfd Pertussis (BOOSTRIX) injection 0.5 mL 0.5 mL, [...] 07/06/2021 07/07/2021 07/08/2021 bupivacaine-EPINEPHrine PF (MARCAINE-w/EPINEPHrine) 0.25% -1:810054 injection (CANCELED) PRN, Starting on Wed07/08/21 at 0742, Until Wed07/08/21 at 0827, Intra-op 0741 (Given - Provid er: Surendra Michael MD - Comment: OPERATIVE SITE INJECTED PRIOR TO INCISION) No Frequency Medication Order 07/06/2021 07/07/2021 07/08/2021 bupivacaine-EPINEPHrine (MARCAINE-w/EPINEPHRINE) 0.25% -1:935915 injection 1 dose, Starting on Wed07/08/21 at [...] infused., PACU only bupivacaine-EPINEPHrine PF (MARCAINE-w/EPINEPHrine) 0.25% -1:865223 injection (CANCELED) PRN, Starting on Wed08/04/21 at [...] section and content) DATE CREATED AUTHOR 09/13/2020 [facility] DATE CREATED AUTHOR AUTHOR'S ORGANIZ ATION 08/07/2021 [facility] DATE CREATED AUTHOR AUTHOR'S ORGANIZ ATION 01/27/2022 [facility] dical Specialist DATE CREATED AUTHOR AUTHOR'S ORGANIZ ATION 03/22/[address] [facility] DATE CREATED AUTHOR AUTHOR'S ORGANIZ ATION 05/11/2024 [facility] DATE CREATED AUTHOR AUTHOR'S ORGANIZ ATION 05/20/2024 [facility] dical Specialists EPIC Care Teams (unrecognized sec tion and content) Laundry Marker Supervisor Relationship Specialty Start Date End Date Chelsey Bray MD [address] [place], [place] [id number] PCP - General Family Medicine 09/10/20 Laundry Marker Supervisor Relationship Specialty Start Date End Date Chelsey Bray MD [address] [facility] [place], [place] [id number] PCP - General Family Medicine 09/10/20 Laundry Marker Supervisor Relationship Specialty Start Date End Date Chelsey Bray MD [address] [facility] [address] PCP - General Family Medicine 08/20/22 Veronique Neely NP [address] [place] [address] Nurse Practitioner Family Medicine 08/20/22 Cathy Colon CNM [address] [place] [address] Obstetrics and Gynecology 08/20/22 Laundry Marker Supervisor Relationship Specialty Start Date End Date Chelsey Bray MD [address] [place] [address] PCP - General Family Medicine 08/20/22 Veronique Neely NP [address] [place] [address] Nurse Practitioner Family Medicine 08/20/22 Cathy Colon CNM [address] [facility] [place] [address] Obstetrics and Gynecology 08/20/22 Laundry Marker Supervisor Relationship Specialty Start Date End Date Chelsey Bray MD [address] [facility] [place] [address] PCP - General Family Medicine 08/20/22 Veronique Neely NP [address] [facility] [place] [address] Nurse Practitioner Family Medicine 08/20/22 Cathy Colon CNM [address] [facility] [place] [address] Obstetrics and Gynecology 08/20/22 Laundry Marker Supervisor Relationship Specialty Start Date End Date Chelsey Bray MD [address] [facility] [place] [address] PCP - General Family Medicine 08/20/22 Veronique Neely NP [address] [place] [address] Nurse Practitioner Family Medicine 08/20/22 Cathy Colon CNM [address] [place] [address] Obstetrics and Gynecology 08/20/22 Laundry Marker Supervisor Relationship Specialty Start Date End Date Chelsey Bray MD [address] [place] [address] PCP - General Family Medicine 08/20/22 Veronique Neely NP [address] [place] [address] Nurse Practitioner Family Medicine 08/20/22 Cathy Colon CNM [address] [place] [address] Obstetrics and Gynecology 08/20/22 Laundry Marker Supervisor Relationship Specialty Start Date End Date Chelsey Bray MD [address] [place] [address] PCP - General Family Medicine 08/20/22 Veronique Neely NP [address] [place] [address] Nurse Practitioner Family Medicine 08/20/22 Cathy Colon CNM [address] [place] [address] Obstetrics and Gynecology 08/20/22 Laundry Marker Supervisor Relationship Specialty Start Date End Date Chelsey Bray MD [address] [place] [address] PCP - General Family Medicine 08/20/22 Veronique Neely NP [address] [place] [address] Nurse Practitioner Family Medicine 08/20/22 Cathy Colon CNM [address] [place] [address] Obstetrics and Gynecology 08/20/22 Laundry Marker Supervisor Relationship Specialty Start Date End Date Chelsey Bray MD [address] [place] [address] PCP - General Family Medicine 08/20/22 Veronique Neely NP [address] [place] [address] Nurse Practitioner Family Medicine 08/20/22 Cathy Colon CNM [address] [place] [address] Obstetrics and Gynecology 08/20/22 Laundry Marker Supervisor Relationship Specialty Start Date End Date Chelsey Bray MD [address] [place] [address] PCP - General Family Medicine 08/20/22 Veronique Neely NP [address] [place] [address] Nurse Practitioner Family Medicine 08/20/22 Cathy Colon CNM [address] [place] [address] Obstetrics and Gynecology 08/20/22 Laundry Marker Supervisor Relationship Specialty Start Date End Date Chelsey Bray MD [address] [place] [address] PCP - General Family Medicine 08/20/22 Veronique Neely NP [address] [place] [address] Nurse Practitioner Family Medicine 08/20/22 Cathy Colon CNM [address] [place] [address] Obstetrics and Gynecology 08/20/22 Laundry Marker Supervisor Relationship Specialty Start Date End Date Chelsey Bray MD [address] [place] [address] PCP - General 01/24/24 Laundry Marker Supervisor Relationship Specialty Start Date End Date Chelsey Bray MD [address] [place] [address] PCP - General Family Medicine 08/20/22 Veronique Neely NP [address] [place] [address] Nurse Practitioner Family Medicine 08/20/22 Cathy Colon CNM [address] [place] [address] Obstetrics and Gynecology 08/20/22 Laundry Marker Supervisor Relationship Specialty Start Date End Date Chelsey Bray MD [address] [place] [address] PCP - General Family Medicine 08/20/22 Veronique Neely NP [address] [place] [address] Nurse Practitioner Family Medicine 08/20/22 Cathy Colon CNM [address] [place] [address] Obstetrics and Gynecology 08/20/22 Laundry Marker Supervisor Relationship Specialty Start Date End Date Chelsey Bray MD [address] [place] [address] PCP - General Family Medicine 08/20/22 Veronique Neely NP [address] [place] [address] Nurse Practitioner Family Medicine 08/20/22 Cathy Colon CNM [address] [place] [address] Obstetrics and Gynecology 08/20/22 Laundry Marker Supervisor Relationship Specialty Start Date End Date Chelsey Bray MD [address] [place] [address] PCP - General Family Medicine 08/20/22 Veronique Neely [employer] [address] [place] [address] Nurse Practitioner Family Medicine 08/20/22 Cathy Colon CNM [address] [place] [address] Obstetrics and Gynecology 08/20/22 Laundry Marker Supervisor Relationship Specialty Start Date End Date Chelsey Bray MD [address] [place] [address] PCP - General Family Medicine 08/20/22 Veronique Neely [employer] [address] [place] [address] Nurse Practitioner Family Medicine 08/20/22 Cahty Colon CNM [address] [place] [address] Obstetrics and Gynecology 08/20/22 Laundry Marker Supervisor Relationship Specialty Start Date End Date Chelsey Bray MD [address] [place] [address] PCP - General Family Medicine 08/20/22 Veronique Neely NP [address] [place] [address] Nurse Practitioner Family Medicine 08/20/22 Cathy Colon CNM [address] [place] [address] Obstetrics and Gynecology 08/20/22 Laundry Marker Supervisor Relationship Specialty Start Date End Date Chelsey Bray MD [address] [place] [address] PCP - General Family Medicine 08/20/22 Veronique Neely NP [address] [place] [address] Nurse Practitioner Family Medicine 08/20/22 Cathy Colon CNM [address] [place] [address] Obstetrics and Gynecology 08/20/22 Laundry Marker Supervisor Relationship Specialty Start Date End Date Chelsey Bray MD [address] [place] [address] PCP - General Family Medicine 08/20/22 Veronique Neely NP [address] [place] [address] Nurse Practitioner Family Medicine 08/20/22 Cathy Colon CNM [address] [place] [address] Obstetrics and Gynecology 08/20/22 Laundry Marker Supervisor Relationship Specialty Start Date End Date WonderChelsey champagne MD [address] [place] [address] PCP - General 01/24/24 Laundry Marker Supervisor Relationship Specialty Start Date End Date Chelsey Bray MD [address] [place] [address] PCP - General 01/24/24 Laundry Marker Supervisor Relationship Specialty Start Date End Date Chelsey Bray MD [address] [place] [address] PCP - General 01/24/24 Laundry Marker Supervisor Relationship Specialty Start Date End Date Chelsey Bray MD [address] [facility] [place] [address] PCP - General 01/24/24 Team Status: Inactive [...] BE BASED ON THE PRIMARY CLINICAL RECORDS. [facility] [employer]. provides no warranty or guarantee of the accuracy or completeness of information in this document.
--- NOTE | 2024-05-24 09:41 | PC.NURSE ---
Celestino and 2+4 week old Aicha arrive for support. Celestino states things are going well. Baby still difficult to latch so she has been pumping and bottle feeding every other feed. Plan is working at this time. Discussed Celestino is not wanting to stop or pumping as she wants baby to have the breast milk. States wants to keep offering breast without the shield as baby is occasionally latching and nurses for few minutes but won't sustain latch for feed. Much encouragement and support offered. Pt states feels confident and supported in decisions. Will plan to attend [facility] group as able and will call as needs for support. Leaves ambulatory no concerns voiced.
== END 2024-05-24 09:52 | disposition home or self-care (01) ==
LOC: FBCO 08:11
PROVIDERS: PCP Family Medicine; Visit Provider Midwife
DX: Z39.1 Encounter for care and examination of lactating mother (principal)